=== PATIENT | female | born 1935 | race Caucasian/White ===

== ENCOUNTER 2017-04-19 13:42 | Inpatient (IN) | payer MEDICARE, SELFPAY ==
[2017-04-19] VITALS (19 sets, daily range): BP systolic 115–212; BP diastolic 51–80; PULSE 74–117; RESP 20–29; TEMP 36.8–37.6; O2SAT 85–97; BMI 39.6; BMI 38.5; BMI 38.6
--- NOTE | 2017-04-19 13:52 | EKG12_ITS ---
Test Reason : CP Blood Pressure : / mmHG Vent. Rate : 070 BPM Atrial Rate : 070 BPM P-R Int : 164 ms QRS Dur : 128 ms QT Int : 430 ms P-R-T Axes : 060 081 056 degrees QTc Int : 464 ms Normal sinus rhythm Non-specific intra-ventricular conduction block Abnormal ECG Confirmed by LALO PARR ([id number]), publishing editor EMEKA MERA ([id number]) on 04/23/2017 2:16:15 PM Referred By: EDYTA Confirmed By:LALO PARR
--- NOTE | 2017-04-19 13:52 | RAD_ITS ---
STUDY: X-RAY CHEST REASON FOR EXAM: Female, 81 years old. Chest pain TECHNIQUE: Frontal view of the chest COMPARISON: None. FINDINGS: The lungs are clear. There are no pleural effusions. There is no pneumothorax. The heart is normal in size. The visualized osseous structures are within normal limits. RAD/Chest 1 View (Portable) IMPRESSION: No acute thoracic pathology. Electronically Signed: José Miguel Fernandez, at 14:19 EST Tel , Service support ,
[2017-04-19 14:00] LABS: Absolute Lymphocyte Count 0.69 X10^3/ul (0.83-4.51); Absolute Neutrophil Count 5.6 X10^3/uL (2.0-7.7); Basophil# 0.01 X10^3/uL; Basophil% 0.2 % (0-1); Eosinophil# 0.09 X10^3/uL; Eosinophils% 1.4 % (0-5); Hematocrit 45.5 % (37-47); Hemoglobin 13.9 g/dl (12.0-15.0); Lymphocyte # 0.69 X10^3/ul (4.0); Lymphocyte % 10.6 % (19-41); Mean Corp Hgb Conc 30.5 g/gl (32-36); Mean Corpuscular Hgb 30.5 pg (27.0-32.0); Mean Corpuscular Volume 99.8 fL (81-99); Mean Platelet Vol. 10.6 fl (6.2-12.0); Monocyte# 0.03 X10^3/uL; Monocyte% 0.5 % (0-10); Neutrophil # 5.62 X10^3/uL (2.7-7.7); Neutrophil % 86.1 % (47-70); POSITIVE COUNT NO; POSITIVE DIFFERENTIAL NO; POSITIVE MORPHOLOGY NO; Platelet Count 194 K/mm3 (150-450); RBC Distribution Width CV 13.5 % (11.6-14.6); RBC Distribution Width SD 48.6 fl (35.1-43.9); Red Blood Count 4.56 M/mm3 (4.2-5.4); White Blood Count 6.5 K/mm3 (4.4-11.0)
--- NOTE | 2017-04-19 14:03 | EKG12_ITS ---
Test Reason : REPEAT Blood Pressure : / mmHG Vent. Rate : 119 BPM Atrial Rate : 119 BPM P-R Int : 160 ms QRS Dur : 122 ms QT Int : 326 ms P-R-T Axes : 023 090 -44 degrees QTc Int : [address] & T wave abnormality, consider inferior ischemia ST & T wave abnormality, consider anterolateral ischemia Abnormal ECG Confirmed by LALO PARR ([id number]), editor sound EMEKA MERA ([id number]) on 04/23/2017 2:16:38 PM Referred By: JEREMIAH Confirmed By:LALO PARR
--- NOTE | 2017-04-19 14:10 | CT_ITS ---
STUDY: CT ABDOMEN AND PELVIS WITHOUT CONTRAST REASON FOR EXAM: Female, 81 years old. Abdominal pain RADIATION DOSAGE (If Supplied By Facility): CTDIvol = ( 23.53 ) mGy, DLP = ( 1240.36 ) mGycm TECHNIQUE: Transaxial images were obtained from the dome of the diaphragm to the symphysis pubis without oral contrast, and without intravenous contrast. Sagittal and coronal images were reconstructed. Individualized dose optimization techniques were used for this CT. COMPARISON: None. FINDINGS: There is atelectasis noted at the lung bases. The visualized portions of the heart and pericardium are within normal limits. The patient is status post cholecystectomy. The liver, spleen, pancreas and adrenal glands demonstrate an unremarkable unenhanced appearance. There is a 1 cm stone at the left ureteropelvic junction with moderate left hydronephrosis. There are additional bilateral subcentimeter nonobstructing renal collecting system stones. There are no right ureteral stones. There is no right hydronephrosis. There is no bowel obstruction or inflammation. The appendix is normal. There is an aortobiiliac endograft in place which is not well evaluated without contrast. There is no abdominal or pelvic free air, free fluid or lymphadenopathy. There are no destructive osseous lesions. CT/Abdomen/Pelvis without Cont IMPRESSION: 1 cm obstructing stone at the left ureteropelvic junction with moderate left hydronephrosis. Bilateral subcentimeter nonobstructing renal collecting system stones. No right ureteral stones. No right hydronephrosis. No bowel obstruction or inflammation. Normal appendix. Electronically Signed: José Miguel Fernandez, at 16:17 EST Tel , Service support ,
[2017-04-19 14:11] LABS: Anion Gap 7 (5-15); BUN 15 mg/dL (7-18); BUN/Creat Ratio 19.6 RATIO (10-20); Calcium,Total 9.2 mg/dL (8.5-10.1); Chloride 104 mmol/L (98-107); Creatinine, Serum 0.76 mg/dL (0.55-1.02); EST Glomerular Filtration Rate 77 mL/min (>60); Est Glom Filt Rate - Afr Amer 93 mL/min (>60); Glucose 120 mg/dL (70-110); Potassium 3.8 mmol/L (3.5-5.1); Sodium Level 142 mmol/L (136-145)
[2017-04-19] MEDS: Ondansetron 4 MG/2 ML Vial IV ×2 (14:12→20:29)
[2017-04-19] MEDS: Aspirin 81 MG TAB.CHEW 324 MG PO (14:12)
--- NOTE | 2017-04-19 14:13 | ED.DCSUM_ITS ---
- ER Visit Summary Date of Service: 04/19/17 Chief Complaint: [] Left lower quadrant pain for days radiating to left chest History of Present Illness: The patient is a 81 F [] she reports a history of COPD hypertension, bowel or pancreas surgery in 2016 related to left-sided abdominal pain done at a hospital in [place]. She reports for the last few days she has had pain to the left lower abdomen similar to that pain that at times radiates to her left chest. The abdominal pain cause her to be nauseous and dry heave. She has had normal bowel bladder habits without blood. She is not sure why she required this surgery, she did not have an infection or cancer was told that whenever the situation requiring the surgery was now resolved and she would not require any additional surgery, she recently moved to 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, chronic COPD, aortic aneurysm repair, prior non-STEMI [place] Physical Examination: [] Holding her left lower quadrant complaining of pain her vital signs are normal head neck unremarkable she is on 3 L of home O2 her pulse ox is 95% her lungs are diminished the heart tones are distant questionable a flutter on the monitor versus poor baseline, her abdomen is very obese there is a vague discomfort the left lower abdomen there is no rebound guarding or organomegaly upper lower extremities unremarkable there is a vague left flank pain to palpation Test Results: [] Emergency Department Course and Treatment: [] All of this began with left lower quadrant pain, I have asked the patient we get the records from [place] she is agreed we will provide screening labs CBC chemistry EKG abdominal flank CT UA, her EKG shows a sinus rhythm no acute injury pattern appreciated EKG shows a sinus rhythm nothing acute. All of her labs are generally unremarkable as is the UA except for 10 white cells, the abdominal CT is pending please see her past medical history as above, I did speak with the hospitalist about all the above regarding admission, Dr. Wood asked to be contacted back when the CT report was available Treatment Plan: [] Disposition: [] Admit pending CT report Impression: [] Left sided abdominal pain, chest pain, multiple medical problems as dictated above This note was generated with [employer] dictation software. It may contain incorrect words, spelling, and punctuation that were not noted in review of the chart prior to signing ED Disposition - Plan for ED Patient: Chief Complaint: Chest Pain Referrals: [facility] Doctor,Out of [NON-STAFF] -
[2017-04-19 14:44] LABS: AST(SGOT) 21 U/L (15-37); Alanine Aminotransfer ALT/SGPT 23 U/L (12-78); Albumin, Serum 3.4 g/dL (3.4-5.0); Alkaline Phosphatase 106 U/L (45-117); Bilirubin, Direct 0.16 mg/dL (0.00-0.30); Globulin 3.6 g/dL (2.2-4.2); Lipase 277 U/L (73-393)
[2017-04-19 14:53] LABS: BNP,B-Type NATRIURETIC PEPTIDE 60.1 pg/mL (0-100)
[2017-04-19 15:47] LABS: Mucous, Urine 0 SEEN /hpf (<or=2+)
[2017-04-19 15:49] LABS: Color, Urine Yellow (Yellow); Glucose, Dipstick Normal (Normal); Ketone-Dipstick Negative (Negative); Leukocyte Esterase-Dipstick 100 /ul (Negative); Nitrite-Dipstick Positive (Negative); Occult Blood-Urine 25 /ul (Negative); Protein-Dipstick Negative (Negative); Urine Bilirubin Dipstick Negative (Negative); Urine Clarity Sl. Cloudy (Clear); Urine Urobilinogen Normal (Normal)
[2017-04-19 15:58] LABS: Bacteria 1+ /hpf (None Seen); Red Blood Cells-Urine 0-5 SEEN /hpf (0-5); Squamous Epithelial Cells - UA 0-5 SEEN /hpf (5-10); White Blood Cells 5-10 SEEN /hpf (0-5)
--- NOTE | 2017-04-19 16:55 | ED.RN ---
TAMI. WOULD LIKE TO BE CALLED IF ANYTHING CHANGES.
--- NOTE | 2017-04-19 19:08 | NURSING ---
OXYGEN DECREASED TO 3L/NC PER VERBAL ORDER. FIRST SET OF CARDIAC ENZYMES DRAWN.
--- NOTE | 2017-04-19 19:17 | PCM.HP.STD ---
Problem List (1) Chest pain Status: Acute Qualifiers: Chest pain type: precordial pain Qualified Code(s): R07.2 - Precordial pain (2) Left sided abdominal pain Status: Acute History of Present Illness Date of Admission: 04/19/17 Chief Complaint: Left-sided chest pain, left lower abdominal pain The patient is a 81 year old F seen in the emergency room at [facility] with complaints of left-sided chest pain and left-sided abdominal pain. Patient is an extremely poor informant, she admits she has memory impairment after series of surgeries last summer where she lived in [place]. Complete review of systems was unobtainable due to the patient's poor memory. Much of the information that will be included in this history and physical will be gleaned from information from her past hospital admission in [place]. Patient recently moved here and stays with her daughter. Patient told this examiner that her chest discomfort was not sharp in nature but when prompted, said it was achy in nature. Patient denied any nausea with the discomfort but stated she was short of breath. It appears that the patient is chronically on home O2 secondary to COPD, she says her setting is at 2 L. The emergency room physician who contacted me to discuss the case and the admission had a difficult time because he had to obtain medical records from [place] due to the fact the patient could not provide reliable information. It appears the patient's medical problems include a past history of coronary artery disease, chronic obstructive pulmonary disease, GERD, hyperlipidemia, and chronic hypoxic respiratory failure. Evaluation in the emergency room included labs including a troponin which was unremarkable, EKG showed (my reading) what appears to be a right bundle branch block with nonspecific ST-T wave changes in the inferior leads. We have no old EKGs to compare this to. Since chest x-ray showed no acute thoracic pathology, CT the abdomen and pelvis was obtained and showed a distal ureter stone on the left with a moderate hydronephrosis, stone was 1 cm in diameter. Patient's urinalysis was suspect for cystitis. Patient states her chest discomfort was resolved with pain medications in the emergency room. At the time of my initial evaluation, I elected to place the patient on MedSurg 3, after talking with the patient further and due to her history of coronary artery disease and chronic obstructive pulmonary disease, I decided the best place for the patient would be PCU for closer observation. Patient was transferred shortly after her admission to [place] [id number] to PCU. My plan is to repeat cardiac enzymes, monitor her on telemetry, and repeat her EKG in the morning. I contacted urology, they have plans to carry out a cystoscopy with stent placement tomorrow, patient will be n.p.o. after midnight. I had a discussion with the patient's son-in-law - Raffaele Mendoza who the patient lives with, he states the patient had no complaints of chest pain this morning which is opposite to what the patient told me brynn, he states she did not complain of any chest pains until she was in the emergency room today. I discussed her medical conditions with Dr. Chirag swain. Past Medical History Allergies Penicillins Allergy (Verified 04/19/17 13:47) Unknown Home Medications: Ambulatory Orders Medication Instructions Recorded Aspirin [Aspirin, Baby] 81 mg PO DAILY 04/19/17 Atorvastatin Calcium 80 mg PO QHS 04/19/17 Benzonatate [Tessalon Perle] 100 - 200 mg PO TID PRN PRN 04/19/17 Clopidogrel Bisulfate [Plavix] 75 mg PO DAILY 04/19/17 Isosorbide Mononitrate [Imdur] 30 mg PO DAILY 04/19/17 Lisinopril [Zestril] 20 mg PO DAILY 04/19/17 Metoprolol Tartrate 37.5 mg PO BID 04/19/17 Surgical History: cataract, cholecystectomy, herniorrhaphy, total hip arthroplasty - Due to hip fracture, - - Aortic aneurysm repair with stents Psychiatric History: - - Memory loss BANKMAN History: No pertinent BANKMAN history Lives: With Family Smoking Status: Former smoker Tobacco Use: Non-smoker Alcohol: None Drugs: None - *Family History Maternal History Items: No pertinent history Paternal History Items: No pertinent history Review of Systems Comment: Review of systems unobtainable due to patient's memory loss. Formation was gleaned from the patient's medical record from [place] and from her son-in-law who I contacted by phone- he lives with the patient VTE Information - Inpt Only VTE Present on Admission: No VTE Mechan Device Prophylaxis: SCD's VTE Pharm Prophylaxis ordered?: No Reason prophylaxis not ordered:: Treatment Not Indicated - prophylaxis with SCD's Patient Problems: Active and Suspected Problems Chest pain (Acute) Left sided abdominal pain (Acute) - Physical Exam General: Alert, Oriented x3, Cooperative, Well developed, Well nourished, - - Patient in mild distress due to left flank and left lower abdomen pain HEENT: Atraumatic, PERRLA, EOMI, Normocephalic Oral: Moist Mucosa Neck: Supple, No JVD, Negative Carotid Bruits, No Nuchal Rigidity, Trachea Midline, Thyroid Normal Size and Texture Lungs: Clear to auscultation, Normal air movement, No rhonchi, No wheeze, No rales Cardiovascular: Regular rate, Regular Rhythm, Normal S1, Normal S2, No murmurs, No Ectopic Activity, PMI Normal, No rub noted, No Gallop Abdomen: Bowel Sounds Present, Soft, Non Tender, Non-Distended, No hernias noted Extremities: No edema, Capillary Refill Less than 3 Seconds Skin: No rashes, No breakdown Musculoskeletal: No Tenderness to Palpation of Joints or Extremities, No Muscle Wasting Neurological: Cranial nerves II-XII grossly intact, Neuro grossly intact, Sensory exam intact to light touch and pain, Coordination normal Psych/Mental Status: Normal Affect, Appropriate, Alert and oriented to time, place, person, mood and affect Vital Signs Temp Pulse Resp BP Pulse Ox 99.7 F 110 22 120/55 92 04/19/17 18:58 04/19/17 18:58 04/19/17 18:58 04/19/17 18:58 04/19/17 19:15 Oxygen Flow Rate 3 Oxygen Delivery Method Nasal Cannula Weight: 110 kg Body Mass Index (BMI) 38.5 Intake and Output for Last 24 Hours 04/17/17 04/18/17 04/19/17 23:59 23:59 23:59 Intake Total 288 Output Total 150 Balance 138 Laboratory Tests Past 24 Hrs 04/19/17 18:56 Troponin I Pending Assessment/Plan Active and Suspected Problems Chest pain (Acute) Left sided abdominal pain (Acute) #1 acute ureteral akexc-kynk-mzyq obstruction at the left ureteropelvic junction from stone 1 cm in diameter-again, patient will be admitted to PCU, she will be monitored on telemetry, she will be n.p.o. after midnight, she will undergo stent placement tomorrow by urology. IV pain medications were ordered #2 chest pain-it is extremely difficult to determine what caused patient's chest pain and it is also difficult to determine how long she had the chest pain, I will order cardiac enzymes on the patient and monitor on telemetry. #3 acute cystitis-I placed the patient on IV Rocephin #4 chronic hypoxic respiratory failure-patient will be maintained on O2, pulse ox will be monitored #5 chronic obstructive pulmonary disease #6 coronary artery disease-according to the patient's records, patient had a non-STEMI last year and had an echocardiogram around that same time which showed a preserved EF. I will order another echocardiogram tomorrow to assess LV function #7 memory impairment-exact etiology is unknown at this time #8 hyperlipidemia-patient will be maintained on her home meds #9 moderate left hydronephrosis secondary to left ureteral obstruction
--- NOTE | 2017-04-19 19:28 | HP.PCM_ITS ---
Problem List (1) Chest pain Status: Acute Qualifiers: Chest pain type: precordial pain Qualified Code(s): R07.2 - Precordial pain (2) Left sided abdominal pain Status: Acute History of Present Illness Date of Admission: 04/19/17 Chief Complaint: Left-sided chest pain, left lower abdominal pain The patient is a 81 year old F seen in the emergency room at [facility] with complaints of left-sided chest pain and left-sided abdominal pain. Patient is an extremely poor informant, she admits she has memory impairment after series of surgeries last summer where she lived in [place]. Complete review of systems was unobtainable due to the patient's poor memory. Much of the information that will be included in this history and physical will be gleaned from information from her past hospital admission in [place]. Patient recently moved here and stays with her daughter. Patient told this examiner that her chest discomfort was not sharp in nature but when prompted, said it was achy in nature. Patient denied any nausea with the discomfort but stated she was short of breath. It appears that the patient is chronically on home O2 secondary to COPD, she says her setting is at 2 L. The emergency room physician who contacted me to discuss the case and the admission had a difficult time because he had to obtain medical records from [place] due to the fact the patient could not provide reliable information. It appears the patient's medical problems include a past history of coronary artery disease, chronic obstructive pulmonary disease, GERD, hyperlipidemia, and chronic hypoxic respiratory failure. Evaluation in the emergency room included labs including a troponin which was unremarkable, EKG showed (my reading) what appears to be a right bundle branch block with nonspecific ST-T wave changes in the inferior leads. We have no old EKGs to compare this to. Since chest x-ray showed no acute thoracic pathology, CT the abdomen and pelvis was obtained and showed a distal ureter stone on the left with a moderate hydronephrosis, stone was 1 cm in diameter. Patient's urinalysis was suspect for cystitis. Patient states her chest discomfort was resolved with pain medications in the emergency room. At the time of my initial evaluation, I elected to place the patient on MedSurg 3, after talking with the patient further and due to her history of coronary artery disease and chronic obstructive pulmonary disease, I decided the best place for the patient would be PCU for closer observation. Patient was transferred shortly after her admission to [place] [id number] to PCU. My plan is to repeat cardiac enzymes, monitor her on telemetry, and repeat her EKG in the morning. I contacted urology, they have plans to carry out a cystoscopy with stent placement tomorrow, patient will be n.p.o. after midnight. I had a discussion with the patient's son-in-law - Raffaele Mendoza who the patient lives with , he states the patient had no complaints of chest pain this morning which is opposite to what the patient told me brynn, he states she did not complain of any chest pains until she was in the emergency room today. I discussed her medical conditions with Dr. Chirag swain. Past Medical History Allergies Penicillins Allergy (Verified 04/19/17 13:47) Unknown Home Medications: Ambulatory Orders Medication Instructions Recorded Aspirin [Aspirin, Baby] 81 mg PO DAILY 04/19/17 Atorvastatin Calcium 80 mg PO QHS 04/19/17 Benzonatate [Tessalon Perle] 100 - 200 mg PO TID PRN PRN 04/19/17 Clopidogrel Bisulfate [Plavix] 75 mg PO DAILY 04/19/17 Isosorbide Mononitrate [Imdur] 30 mg PO DAILY 04/19/17 Lisinopril [Zestril] 20 mg PO DAILY 04/19/17 Metoprolol Tartrate 37.5 mg PO BID 04/19/17 Surgical History: cataract, cholecystectomy, herniorrhaphy, total hip arthroplasty - Due to hip fracture, - - Aortic aneurysm repair with stents Psychiatric History: - - Memory loss [employer] History: No pertinent [employer] history Lives: With Family Smoking Status: Former smoker Tobacco Use: Non-smoker Alcohol: None Drugs: None - *Family History Maternal History Items: No pertinent history Paternal History Items: No pertinent history Review of Systems Comment: Review of systems unobtainable due to patient's memory loss. Formation was gleaned from the patient's medical record from [place] and from her son-in-law who I contacted by phone- he lives with the patient VTE Information - Inpt Only VTE Present on Admission: No VTE Mechan Device Prophylaxis: SCD's VTE Pharm Prophylaxis ordered?: No Reason prophylaxis not ordered:: Treatment Not Indicated - prophylaxis with SCD' s Patient Problems: Active and Suspected Problems Chest pain (Acute) Left sided abdominal pain (Acute) - Physical Exam General: Alert, Oriented x3, Cooperative, Well developed, Well nourished, - - Patient in mild distress due to left flank and left lower abdomen pain HEENT: Atraumatic, PERRLA, EOMI, Normocephalic Oral: Moist Mucosa Neck: Supple, No JVD, Negative Carotid Bruits, No Nuchal Rigidity, Trachea Midline, Thyroid Normal Size and Texture Lungs: Clear to auscultation, Normal air movement, No rhonchi, No wheeze, No rales Cardiovascular: Regular rate, Regular Rhythm, Normal S1, Normal S2, No murmurs, No Ectopic Activity, PMI Normal, No rub noted, No Gallop Abdomen: Bowel Sounds Present, Soft, Non Tender, Non-Distended, No hernias noted Extremities: No edema, Capillary Refill Less than 3 Seconds Skin: No rashes, No breakdown Musculoskeletal: No Tenderness to Palpation of Joints or Extremities, No Muscle Wasting Neurological: Cranial nerves II-XII grossly intact, Neuro grossly intact, Sensory exam intact to light touch and pain, Coordination normal Psych/Mental Status: Normal Affect, Appropriate, Alert and oriented to time, place, person, mood and affect Vital Signs Temp Pulse Resp BP Pulse Ox 99.7 F 110 22 120/55 92 04/19/17 18:58 04/19/17 18:58 04/19/17 18:58 04/19/17 18:58 04/19/17 19:15 Oxygen Flow Rate 3 Oxygen Delivery Method Nasal Cannula Weight: 110 kg Body Mass Index (BMI) 38.5 Intake and Output for Last 24 Hours 04/17/17 04/18/17 04/19/17 23:59 23:59 23:59 Intake Total 288 Output Total 150 Balance 138 Laboratory Tests Past 24 Hrs 04/19/17 18:56 Troponin I Pending Assessment/Plan Active and Suspected Problems Chest pain (Acute) Left sided abdominal pain (Acute) #1 acute ureteral vrvcq-hmhw-edbo obstruction at the left ureteropelvic junction from stone 1 cm in diameter-again, patient will be admitted to PCU, she will be monitored on telemetry, she will be n.p.o. after midnight, she will undergo stent placement tomorrow by urology. IV pain medications were ordered #2 chest pain-it is extremely difficult to determine what caused patient's chest pain and it is also difficult to determine how long she had the chest pain , I will order cardiac enzymes on the patient and monitor on telemetry. #3 acute cystitis-I placed the patient on IV Rocephin #4 chronic hypoxic respiratory failure-patient will be maintained on O2, pulse ox will be monitored #5 chronic obstructive pulmonary disease #6 coronary artery disease-according to the patient's records, patient had a non -STEMI last year and had an echocardiogram around that same time which showed a preserved EF. I will order another echocardiogram tomorrow to assess LV function #7 memory impairment-exact etiology is unknown at this time #8 hyperlipidemia-patient will be maintained on her home meds #9 moderate left hydronephrosis secondary to left ureteral obstruction
[2017-04-19] MEDS: Ceftriaxone 1 GM/50 ML BAG IV (20:29)
--- NOTE | 2017-04-19 20:48 | CPS ---
called by RN on MS3 for pt's oxygen levels in mid 80's on 6L, RN notified by Dr. Melara to leave pt on her home oxygen of 3L NC. This RT checked pt's O2 saturation and pt has gel nail citizen [place] on fingernails, unable to get good, accurate reading on pt's fingers. Pulse oximeter with ear probe attached to pt's left ear lobe, instructed pt to breathe through her nose and out mouth, pt's oxygen saturation 92% on 3L NC. RN aware.
[2017-04-19] MEDS: Ipratropium/Albuterol Sulfate 3 ML AMPUL.NEB INHALATION (21:18)
[2017-04-19] MEDS: Metoprolol Tartrate 25 MG Tablet 37.5 MG PO (22:11)
[2017-04-19] MEDS: Atorvastatin Calcium 80 MG Tablet PO (22:12)
[2017-04-20] VITALS (38 sets, daily range): BP systolic 76–132; BP diastolic 42–83; PULSE 76–105; RESP 16–26; TEMP 36.2–38; O2SAT 88–94
[2017-04-20] MEDS: 0.9% Normal Saline 1,000 ML 100 ML IV (01:23)
[2017-04-20] MEDS: 0.9% Normal Saline 1,000 ML 999 ML IV ×2 (01:45→04:08)
[2017-04-20 03:38] LABS: Mean Corp Hgb Conc 30.8 g/gl (32-36); Mean Corpuscular Hgb 31.1 pg (27.0-32.0); Mean Platelet Vol. 11.1 fl (6.2-12.0); Platelet Count 108 K/mm3 (150-450); RBC Distribution Width CV 13.6 % (11.6-14.6); RBC Distribution Width SD 49.5 fl (35.1-43.9); Red Blood Count 3.86 M/mm3 (4.2-5.4); White Blood Count 22.5 K/mm3 (4.4-11.0)
[2017-04-20 03:43] LABS: Scan Indicated on CBC? Y/N NO
[2017-04-20 03:55] LABS: Anion Gap 11 (5-15); BUN 21 mg/dL (7-18); BUN/Creat Ratio 15.9 RATIO (10-20); Calcium,Total 8.2 mg/dL (8.5-10.1); Chloride 105 mmol/L (98-107); Creatinine, Serum 1.32 mg/dL (0.55-1.02); EST Glomerular Filtration Rate 41 mL/min (>60); Est Glom Filt Rate - Afr Amer 50 mL/min (>60); Estimated Creatinine Clearance 31.29 ml/min; Glucose 111 mg/dL (70-110); Potassium 3.4 mmol/L (3.5-5.1); Sodium Level 142 mmol/L (136-145); Thyroid Stim Hormone (TSH) 0.73 uIU/mL (0.358-3.74)
[2017-04-20] MEDS: oxyCODONE 5 MG Tablet PO ×4 (04:08→21:18)
--- NOTE | 2017-04-20 05:55 | EKG12_ITS ---
Test Reason : AM EKG Blood Pressure : / mmHG Vent. Rate : 084 BPM Atrial Rate : 084 BPM P-R Int : 186 ms QRS Dur : 122 ms QT Int : 374 ms P-R-T Axes : 029 068 019 degrees QTc Int : 441 ms Normal sinus rhythm Normal ECG When compared with ECG of 19-APR-2017 13:30, MANUAL COMPARISON REQUIRED, DATA IS UNCONFIRMED Confirmed by LALO PARR ([id number]), news videotape editor EMEKA MERA ([id number]) on 04/23/2017 3:02:27 PM Referred By: DR PROCTOR Confirmed By:LALO PARR
--- NOTE | 2017-04-20 06:54 | PCM.CONS.B ---
- Consult Date of Consult: 04/20/17 Reason for consultation, kidney stones 81-year-old female who presented to the emergency room with left quadrant pain and abdominal pain. She is also was nauseous and dry heaving. Question of a chest pain. She was a very poor historian. She was admitted to the hospital with the pain on admission her white count was 6.5 and now it spiked 22.5 her hematocrit is 39 platelets are 108, creatinine is 1.32 her troponins have been negative, her urine looks infected positive nitrites and leukocytes. Urine culture is pending. 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 examination she is alert she is on oxygen appears mildly ill her vital signs are stable HEENT is normal moist mucous membranes abdomen soft obese benign she points to her left side of the pain is currently laying in bed she is requiring 2 L of oxygen to keep her sats around 90%. 81-year-old female who presented to the hospital with abdominal pain, poor historian, possible chest pain but troponins been ruled out at this point she has a very high white count appears to have an infection and she does have an obstructing stone in the left proximal ureter causing hydronephrosis, she is a high degree of obstruction. Plan to take her immediately to the operating room today for a cystoscopy and left stent placement. This was explained to the patient and she is agreeable with the plan. - Reason for Consult kidney stone
[2017-04-20] MEDS: Ipratropium/Albuterol Sulfate 3 ML AMPUL.NEB INHALATION ×3 (07:46→21:37)
[2017-04-20] MEDS: Ceftriaxone 1 GM/50 ML BAG IV (10:33)
--- NOTE | 2017-04-20 11:37 | CASEMGMT ---
Face to Face with patient for initial transition planning/care coordination assessment. RN KEVIN introduced self and role at [facility], pt voices understanding and consents to assessment at this time. Pt lying in bed in pain at this time. Pt scheduled to go to OR at 1200 for ureteral obstruction. Pt A/O x4 at this time and answers all questions appropriately at this time. Care providers, pharmacy, and demographics verified. See attached link. Pt voices no further concerns/needs at this time. Advised pt to ask for CM if any further questions/concerns/needs arise, voices understanding. CM to follow after surgery for any further discharge planning/needs. PLAN: Home [facility]
[2017-04-20] MEDS: Lidocaine Jelly 2% 20 ML Syringe (URO-JET) 20 APPLIC (12:21)
--- NOTE | 2017-04-20 12:29 | OP.PCM_ITS ---
Report of Operation Date of Procedure: 04/20/17 Pre-Operative Diagnosis: Left ureteral calculi causing obstruction and infection Post-Operative Diagnosis: Same Surgery/Procedure Performed:: Cystoscopy and left stent placement Description of Surgical Findings:: 81-year-old female taken back to the operating room after smooth induction of MAC local she is placed in dorsal lithotomy position the urethra and vaginal area were prepped and draped in usual sterile fashion went into the bladder with a 21 Mongolian rigid cystourethroscope identified the left ureteral orifice advanced a wire up into the kidney. Once the wire was all the way up and then over the wire advanced stent and immediately had a return of stagnant looking urine. Pulled the wire and the stent coiled in the bladder. I then drained the bladder and the patient's anesthetic was reversed plan at this point to treat her infection and will plan to go back to surgery in about 2 weeks laser the stone. Type of Anesthesia:: General Drains: stent - Admit VTE Documentation VTE Present on Admission: No VTE Mechan Device Prophylaxis: SCD's VTE Pharm Prophylaxis ordered?: No Reason prophylaxis not ordered:: Treatment Not Indicated
--- NOTE | 2017-04-20 13:05 | PCM.PN.HOSP ---
Patient Problems: Active and Suspected Problems Chest pain (Acute) Left sided abdominal pain (Acute) Subjective: Patient seen and examined. Complains of left flank pain. Has been fever(100.4F). Denies any worsening SOB, nausea or vomiting. BP has also been running low- received 2 boluses of fluids. Objective: Physical Exam General: Alert, Oriented x3, Cooperative, Well developed, Well nourished HEENT: Atraumatic, PERRLA, EOMI, Normocephalic Oral: Moist Mucosa Neck: Supple, No JVD Lungs: Clear to auscultation, Normal air movement, No rhonchi, No wheeze, Cardiovascular: Regular rate, Regular Rhythm, Normal S1, Normal S2, No murmurs Abdomen: Bowel Sounds Present, Soft, Non Tender, Non-Distended Extremities: No edema Skin: No rashes, No breakdown Musculoskeletal: No Tenderness to Palpation of Joints or Extremities, No Muscle Wasting Neurological: Cranial nerves II-XII grossly intact, Neuro grossly intact, Sensory exam intact to light touch and pain, Coordination normal Psych/Mental Status: Normal Affect, Appropriate, Alert and oriented to time, place, person, mood and affect Vitals/I&O's: Vital Signs Temp Pulse Resp BP Pulse Ox 100 F 89 16 101/43 89 04/20/17 12:32 04/20/17 12:32 04/20/17 12:32 04/20/17 12:32 04/20/17 12:32 Oxygen Flow Rate 3 Oxygen Delivery Method Nasal Cannula Weight: 110 kg Body Mass Index (BMI) 38.5 Intake and Output for Last 24 Hours 04/18/17 04/19/17 04/20/17 23:59 23:59 23:59 Intake Total 888 2107 Output Total 250 Balance 638 2107 Laboratory Results 04/19/17 18:56: Troponin I 0.06 04/19/17 23:30: Troponin I 0.06 04/20/17 03:05: WBC 22.5 H, RBC 3.86 L, Hgb 12.0, Hct 39.0, MCV 101.0 H, MCH 31.1, MCHC 30.8 L, RDW 13.6, RDW Differential 49.5 H, Plt Count 108 L, MPV 11.1 04/20/17 03:05: Troponin I 0.05 04/20/17 03:05: Sodium 142, Potassium 3.4 L, Chloride 105, Carbon Dioxide 26.0, Anion Gap 11, BUN 21 H, Creatinine 1.32 H, Estim Creat Clear Calc 31.29, Est GFR (MDRD) Af Amer 50 L, Est GFR (MDRD) Non-Af 41 L, BUN/Creatinine Ratio 15.9, Glucose 111 H, Calcium 8.2 L, TSH 0.73 04/20/17 08:40: Troponin I 0.05 Current Medications Acetaminophen (Tylenol) 650 mg PO Q6H PRN PRN PRN Reason: Mild Pain (scale 0-3)/T>100.7 Albuterol Sulfate (Ventolin Aerosols) 2.5 mg INHALATION Q2H PRN PRN PRN Reason: DYSPNEA Albuterol/Ipratropium (Duoneb) 3 ml INHALATION Q4HWA.RT [facility] Last Admin: 04/20/17 11:26 Dose: Not Given Aspirin (Aspirin, Baby) 81 mg PO DAILY@0800 [facility] Atorvastatin Calcium (Lipitor) 80 mg PO QHS [facility] Last Admin: 04/19/17 22:12 Dose: 80 mg Clopidogrel Bisulfate (Plavix) 75 mg PO DAILY [facility] Sodium Chloride () 1,000 mls @ 100 mls/hr IV .Q10H [facility] Last Admin: 04/20/17 01:23 Dose: 100 mls/hr Ceftriaxone Sodium (Rocephin) 1 gm in 50 mls @ 100 mls/hr IV Q24 [facility] Last Admin: 04/20/17 10:33 Dose: 100 mls/hr Isosorbide Mononitrate (Imdur) 30 mg PO DAILY [facility] Lisinopril (Zestril) 20 mg PO DAILY [facility] Metoprolol Tartrate (Lopressor (Beta Kalin)) 37.5 mg PO BID [facility] Morphine Sulfate (Morphine) 2 - 4 mg IV Q3H PRN PRN PRN Reason: Severe Pain (pain scale 6-10) Last Admin: 04/19/17 19:18 Dose: 2 mg Ondansetron HCl (Zofran) 4 mg IV Q8H PRN PRN PRN Reason: Nausea Last Admin: 04/19/17 20:29 Dose: 4 mg Oxycodone HCl (Oxyir) 5 - 10 mg PO Q4H PRN PRN PRN Reason: SEVERE PAIN (6-10/10) Last Admin: 04/20/17 09:37 Dose: 5 mg Promethazine HCl (Phenergan (Ll)) 6.25 mg IV Q4H PRN PRN PRN Reason: NAUSEA/VOMITING Last Admin: 04/20/17 01:44 Dose: 6.25 mg Sodium Chloride () 5 - 30 ml IV UD PRN PRN Reason: SALINE FLUSH Assessment/Plan Active and Suspected Problems Chest pain (Acute) Left sided abdominal pain (Acute) 1. Severe Sepsis secondary to complicated UTI, has fever of 100.4, WBC is elevated at 22.5, with increased creatinine of 1.32 from 0.76, Cultures are growing E. coli, on ceftriaxone, would follow up on culture results and modify antibiotics to suit sensitivities. 2. Relative hypotension, asymptomatic, likely related to sepsis, received IV fluids, would hold blood pressure medications for systolic less than 110, continue to monitor vitals closely. 3. Acute left ureteral colic with moderate hydronephrosis, going for surgery today 4. Hypokalemia, replace, recheck in a.m. 5. chest pain, typical, less likely to be cardiac,serial troponins have been negative, no events on telemetry 6. chronic hypoxic respiratory failure due to COPD, on 3 L of oxygen, continue to wean off oxygen to baseline 2 L oxygen 7. coronary artery disease, stable, repeat ECHO is pending 8. Hyperlipidemia- on statin 9. DVT prophylaxis with Lovenox subcu
--- NOTE | 2017-04-20 13:08 | PN_ITS ---
Patient Problems: Active and Suspected Problems Chest pain (Acute) Left sided abdominal pain (Acute) Subjective: Patient seen and examined. Complains of left flank pain. Has been fever(100.4F) . Denies any worsening SOB, nausea or vomiting. BP has also been running low- received 2 boluses of fluids. Objective: Physical Exam General: Alert, Oriented x3, Cooperative, Well developed, Well nourished HEENT: Atraumatic, PERRLA, EOMI, Normocephalic Oral: Moist Mucosa Neck: Supple, No JVD Lungs: Clear to auscultation, Normal air movement, No rhonchi, No wheeze, Cardiovascular: Regular rate, Regular Rhythm, Normal S1, Normal S2, No murmurs Abdomen: Bowel Sounds Present, Soft, Non Tender, Non-Distended Extremities: No edema Skin: No rashes, No breakdown Musculoskeletal: No Tenderness to Palpation of Joints or Extremities, No Muscle Wasting Neurological: Cranial nerves II-XII grossly intact, Neuro grossly intact, Sensory exam intact to light touch and pain, Coordination normal Psych/Mental Status: Normal Affect, Appropriate, Alert and oriented to time, place, person, mood and affect Vitals/I&O's: Vital Signs Temp Pulse Resp BP Pulse Ox 100 F 89 16 101/43 89 04/20/17 12:32 04/20/17 12:32 04/20/17 12:32 04/20/17 12:32 04/20/17 12:32 Oxygen Flow Rate 3 Oxygen Delivery Method Nasal Cannula Weight: 110 kg Body Mass Index (BMI) 38.5 Intake and Output for Last 24 Hours 04/18/17 04/19/17 04/20/17 23:59 23:59 23:59 Intake Total 888 2107 Output Total 250 Balance 638 2107 Laboratory Results 04/19/17 18:56: Troponin I 0.06 04/19/17 23:30: Troponin I 0.06 04/20/17 03:05: WBC 22.5 H, RBC 3.86 L, Hgb 12.0, Hct 39.0, MCV 101.0 H, MCH 31.1, MCHC 30.8 L, RDW 13.6, RDW Differential 49.5 H, Plt Count 108 L, MPV 11.1 04/20/17 03:05: Troponin I 0.05 04/20/17 03:05: Sodium 142, Potassium 3.4 L, Chloride 105, Carbon Dioxide 26.0, Anion Gap 11, BUN 21 H, Creatinine 1.32 H, Estim Creat Clear Calc 31.29, Est GFR (MDRD) Af Amer 50 L, Est GFR (MDRD) Non-Af 41 L, BUN/Creatinine Ratio 15.9, Glucose 111 H, Calcium 8.2 L, TSH 0.73 04/20/17 08:40: Troponin I 0.05 Current Medications Acetaminophen (Tylenol) 650 mg PO Q6H PRN PRN PRN Reason: Mild Pain (scale 0-3)/T>100.7 Albuterol Sulfate (Ventolin Aerosols) 2.5 mg INHALATION Q2H PRN PRN PRN Reason: DYSPNEA Albuterol/Ipratropium (Duoneb) 3 ml INHALATION Q4HWA.RT [facility] Last Admin: 04/20/17 11:26 Dose: Not Given Aspirin (Aspirin, Baby) 81 mg PO DAILY@0800 [facility] Atorvastatin Calcium (Lipitor) 80 mg PO QHS [facility] Last Admin: 04/19/17 22:12 Dose: 80 mg Clopidogrel Bisulfate (Plavix) 75 mg PO DAILY [facility] Sodium Chloride () 1,000 mls @ 100 mls/hr IV .Q10H [facility] Last Admin: 04/20/17 01:23 Dose: 100 mls/hr Ceftriaxone Sodium (Rocephin) 1 gm in 50 mls @ 100 mls/hr IV Q24 [facility] Last Admin: 04/20/17 10:33 Dose: 100 mls/hr Isosorbide Mononitrate (Imdur) 30 mg PO DAILY [facility] Lisinopril (Zestril) 20 mg PO DAILY [facility] Metoprolol Tartrate (Lopressor (Beta Kalin)) 37.5 mg PO BID [facility] Morphine Sulfate (Morphine) 2 - 4 mg IV Q3H PRN PRN PRN Reason: Severe Pain (pain scale 6-10) Last Admin: 04/19/17 19:18 Dose: 2 mg Ondansetron HCl (Zofran) 4 mg IV Q8H PRN PRN PRN Reason: Nausea Last Admin: 04/19/17 20:29 Dose: 4 mg Oxycodone HCl (Oxyir) 5 - 10 mg PO Q4H PRN PRN PRN Reason: SEVERE PAIN (6-10/10) Last Admin: 04/20/17 09:37 Dose: 5 mg Promethazine HCl (Phenergan (Ll)) 6.25 mg IV Q4H PRN PRN PRN Reason: NAUSEA/VOMITING Last Admin: 04/20/17 01:44 Dose: 6.25 mg Sodium Chloride () 5 - 30 ml IV UD PRN PRN Reason: SALINE FLUSH Assessment/Plan Active and Suspected Problems Chest pain (Acute) Left sided abdominal pain (Acute) 1. Severe Sepsis secondary to complicated UTI, has fever of 100.4, WBC is elevated at 22.5, with increased creatinine of 1.32 from 0.76, Cultures are growing E. coli, on ceftriaxone, would follow up on culture results and modify antibiotics to suit sensitivities. 2. Relative hypotension, asymptomatic, likely related to sepsis, received IV fluids, would hold blood pressure medications for systolic less than 110, continue to monitor vitals closely. 3. Acute left ureteral colic with moderate hydronephrosis, going for surgery today 4. Hypokalemia, replace, recheck in a.m. 5. chest pain, typical, less likely to be cardiac,serial troponins have been negative, no events on telemetry 6. chronic hypoxic respiratory failure due to COPD, on 3 L of oxygen, continue to wean off oxygen to baseline 2 L oxygen 7. coronary artery disease, stable, repeat ECHO is pending 8. Hyperlipidemia- on statin 9. DVT prophylaxis with Lovenox subcu
[2017-04-20] MEDS: Clopidogrel Bisulfate 75 MG Tablet PO (13:46)
[2017-04-20] MEDS: 0.9% Normal Saline 1,000 ML 75 ML IV (13:46)
[2017-04-20] MEDS: Aspirin 81 MG TAB.CHEW PO (13:46)
--- NOTE | 2017-04-20 16:09 | CPS ---
Patient is refusing the incentive spirometer
[2017-04-20] MEDS: Atorvastatin Calcium 80 MG Tablet PO (21:17)
[2017-04-20] MEDS: Metoprolol Tartrate 25 MG Tablet 37.5 MG PO (21:17)
[2017-04-20] MEDS: Acetaminophen 325 MG Tablet 650 MG PO (21:21)
[2017-04-21] VITALS (22 sets, daily range): BP systolic 94–151; BP diastolic 46–74; PULSE 81–100; RESP 14–20; TEMP 36.4–37.6; O2SAT 86–93
[2017-04-21] MEDS: 0.9% Normal Saline 1,000 ML 75 ML IV (00:34)
[2017-04-21] MEDS: Ipratropium/Albuterol Sulfate 3 ML AMPUL.NEB INHALATION (06:35)
[2017-04-21] MEDS: Aspirin 81 MG TAB.CHEW PO (07:48)
[2017-04-21 08:11] LABS: Differential Indicated MANUAL DIFF; Hematocrit 38.5 % (37-47); Hemoglobin 11.6 g/dl (12.0-15.0); Mean Corp Hgb Conc 30.1 g/gl (32-36); Mean Corpuscular Hgb 30.3 pg (27.0-32.0); Mean Corpuscular Volume 100.5 fL (81-99); Mean Platelet Vol. 12.3 fl (6.2-12.0); POSITIVE COUNT YES; POSITIVE DIFFERENTIAL YES; POSITIVE MORPHOLOGY YES; Platelet Count 85 K/mm3 (150-450); RBC Distribution Width CV 14.2 % (11.6-14.6); RBC Distribution Width SD 51.9 fl (35.1-43.9); Red Blood Count 3.83 M/mm3 (4.2-5.4)
[2017-04-21 08:17] LABS: Anion Gap 6 (5-15); BUN 38 mg/dL (7-18); BUN/Creat Ratio 31.1 RATIO (10-20); Calcium,Total 7.9 mg/dL (8.5-10.1); Chloride 109 mmol/L (98-107); Creatinine, Serum 1.22 mg/dL (0.55-1.02); EST Glomerular Filtration Rate 45 mL/min (>60); Est Glom Filt Rate - Afr Amer 54 mL/min (>60); Estimated Creatinine Clearance 33.86 ml/min; Glucose 118 mg/dL (70-110); Potassium 4.6 mmol/L (3.5-5.1); Sodium Level 143 mmol/L (136-145)
[2017-04-21 08:56] LABS: Lymphocyte 5 % (19-41); Metamyelocyte 6 % (0-1); Monocyte 3 % (0-10); Neutrophil-Band 14 % (0-5); Neutrophil-Segmented 72 % (47-70); Platelet Estimate MOD DEC (ADEQ); Total Cells Counted 100 (MANUAL DIFF)
[2017-04-21 08:57] LABS: Absolute Neutrophil Count 21.5 X10^3/uL (2.0-7.7); Red Cell Morphology NORM C+C NORMAL (NORM C&C)
[2017-04-21 08:58] LABS: Absolute Lymphocyte Count 1.25 X10^3/ul (0.83-4.51)
[2017-04-21] MEDS: Metoprolol Tartrate 25 MG Tablet 37.5 MG PO ×2 (10:08→21:21)
[2017-04-21] MEDS: Ceftriaxone 1 GM/50 ML BAG IV (10:08)
[2017-04-21] MEDS: Clopidogrel Bisulfate 75 MG Tablet PO (10:09)
[2017-04-21] MEDS: Isosorbide Mononitrate 30 MG Tablet PO (10:09)
[2017-04-21] MEDS: Lisinopril 20 MG Tablet PO (10:09)
--- NOTE | 2017-04-21 12:04 | PCM.PROGNOTE ---
<Ariella Arauz - Last Filed: 04/21/17 12:21> Patient Problems: Active and Suspected Problems Chest pain (Acute) Left sided abdominal pain (Acute) Subjective: Patient seen and examined. Denies pain currently. Complains of left knee pain which is chronic. Complains of generalized weakness and wishes to stay until tomorrow. Denies other complaints. - Physical Exam General: Alert, Oriented x3, Cooperative, No apparent distress HEENT: Atraumatic, PERRLA, EOMI, Normocephalic Neck: Supple, No JVD, Negative Carotid Bruits Lungs: Clear to auscultation, Normal air movement, Diminished Cardiovascular: Regular rate, Regular Rhythm, Normal S1, Normal S2, No murmurs Abdomen: Bowel Sounds Present, Soft, Non Tender, Non-Distended Extremities: No clubbing, No cyanosis, No edema, Capillary Refill Less than 3 Seconds Skin: No rashes, No breakdown Musculoskeletal: No Tenderness to Palpation of Joints or Extremities Neurological: Cranial nerves II-XII grossly intact, Neuro grossly intact Psych/Mental Status: Normal Affect, Appropriate Vital Signs Temp Pulse Resp BP Pulse Ox 97.7 F 81 17 143/63 93 04/21/17 10:00 04/21/17 10:53 04/21/17 10:00 04/21/17 10:08 04/21/17 10:00 Oxygen Flow Rate 4 Oxygen Delivery Method Nasal Cannula Weight: 110 kg Body Mass Index (BMI) 38.5 Intake and Output for Last 24 Hours 04/19/17 04/20/17 04/21/17 23:59 23:59 23:59 Intake Total 888 3567 2239 Output Total 250 200 650 Balance 638 1547 1589 Laboratory Tests Past 24 Hrs 04/21/17 04/21/17 07:00 07:00 WBC 25.0 H RBC 3.83 L Hgb 11.6 L Hct 38.5 MCV 100.5 H MCH 30.3 MCHC 30.1 L RDW 14.2 RDW Differential 51.9 H Plt Count 85 L MPV 12.3 H Neut % (Auto) Not Reportable Absolute Neuts (auto) 21.5 H Absolute Lymphs (auto) 1.25 Total Counted 100 Neutrophils % (Manual) 72 H Band Neutrophils % 14 H Lymphocytes % (Manual) 5 L Monocytes % (Manual) 3 Metamyelocytes % 6 H Diff Path Review May foll Platelet Estimate MOD DEC RBC Morphology NORM C+C Sodium 143 Potassium 4.6 Chloride 109 H Carbon Dioxide 28.0 Anion Gap 6 BUN 38 H Creatinine 1.22 H Estim Creat Clear Calc 33.86 Est GFR (MDRD) Af Amer 54 L Est GFR (MDRD) Non-Af 45 L BUN/Creatinine Ratio 31.1 H Glucose 118 H Calcium 7.9 L Assessment/Plan Active and Suspected Problems Chest pain (Acute) Left sided abdominal pain (Acute) Patient is an 81-year-old female admitted 04/19/2017 due to left-sided chest pain and left lower abdominal pain. She has a past medical history of CAD, COPD, GERD, hyperlipidemia and chronic hypoxic respiratory failure. 1. Severe Sepsis secondary to complicated E. coli UTI-patient is now afebrile. White count remains elevated, 25. Patient received IV Rocephin. She will be transitioned to oral Cipro. 2. Hypertension-suspected secondary to sepsis. Resolved. 3. Elevated creatinine-no acute kidney injury. Suspect secondary to acute left ureteral colic with moderate hydronephrosis. Patient underwent cystoscopy and left stent placement 04/20/[address] Beard. Creatinine improved today. 4. Hypokalemia-resolved. 5. Chest pain-denies further chest pain. EKG with no ST-T changes. Troponin negative ?4. 6. Chronic hypoxic respiratory failure secondary to chronic COPD-chronically on 3 L nasal cannula. Oxygen currently 93% on 4 L nasal cannula. Wean oxygen as tolerated to maintain O2 greater than 90%. 7. CAD-continue home medications including aspirin, Plavix, statin, beta-terrell and isosorbide. Echo pending. 8. Hyperlipidemia-continue statin. DVT prophylaxis- Lovenox subcu <Paintsil,[place] - Last Filed: 04/21/17 16:53> - Physical Exam Vital Signs Temp Pulse Resp BP Pulse Ox 99.6 F 90 16 103/51 90 04/21/17 16:00 04/21/17 16:00 04/21/17 16:00 04/21/17 16:00 04/21/17 16:00 Oxygen Flow Rate 4 Oxygen Delivery Method Nasal Cannula Weight: 110 kg Body Mass Index (BMI) 38.5 Intake and Output for Last 24 Hours 04/19/17 04/20/17 04/21/17 23:59 23:59 23:59 Intake Total 515 4734 2039 Output Total 250 200 650 Balance 638 6707 1589 Laboratory Tests Past 24 Hrs 04/21/17 04/21/17 07:00 07:00 WBC 25.0 H RBC 3.83 L Hgb 11.6 L Hct 38.5 MCV 100.5 H MCH 30.3 MCHC 30.1 L RDW 14.2 RDW Differential 51.9 H Plt Count 85 L MPV 12.3 H Neut % (Auto) Not Reportable Absolute Neuts (auto) 21.5 H Absolute Lymphs (auto) 1.25 Total Counted 100 Neutrophils % (Manual) 72 H Band Neutrophils % 14 H Lymphocytes % (Manual) 5 L Monocytes % (Manual) 3 Metamyelocytes % 6 H Diff Path Review Reviewed Platelet Estimate MOD DEC RBC Morphology NORM C+C Sodium 143 Potassium 4.6 Chloride 109 H Carbon Dioxide 28.0 Anion Gap 6 BUN 38 H Creatinine 1.22 H Estim Creat Clear Calc 33.86 Est GFR (MDRD) Af Amer 54 L Est GFR (MDRD) Non-Af 45 L BUN/Creatinine Ratio 31.1 H Glucose 118 H Calcium 7.9 L Assessment/Plan Patient was seen and examined independently. Been afebrile in the last 24 hrs Urine cultures are growing E. coli, has been on ceftriaxone, will transition to po cipro, monitor leucocytosis, Creatine is slowly improving with left ureteral stent placement. Hypokalemia is resolved.
--- NOTE | 2017-04-21 12:20 | PN_ITS ---
<Ariella Arauz - Last Filed: 04/21/17 12:21> Patient Problems: Active and Suspected Problems Chest pain (Acute) Left sided abdominal pain (Acute) Subjective: Patient seen and examined. Denies pain currently. Complains of left knee pain which is chronic. Complains of generalized weakness and wishes to stay until tomorrow. Denies other complaints. - Physical Exam General: Alert, Oriented x3, Cooperative, No apparent distress HEENT: Atraumatic, PERRLA, EOMI, Normocephalic Neck: Supple, No JVD, Negative Carotid Bruits Lungs: Clear to auscultation, Normal air movement, Diminished Cardiovascular: Regular rate, Regular Rhythm, Normal S1, Normal S2, No murmurs Abdomen: Bowel Sounds Present, Soft, Non Tender, Non-Distended Extremities: No clubbing, No cyanosis, No edema, Capillary Refill Less than 3 Seconds Skin: No rashes, No breakdown Musculoskeletal: No Tenderness to Palpation of Joints or Extremities Neurological: Cranial nerves II-XII grossly intact, Neuro grossly intact Psych/Mental Status: Normal Affect, Appropriate Vital Signs Temp Pulse Resp BP Pulse Ox 97.7 F 81 17 143/63 93 04/21/17 10:00 04/21/17 10:53 04/21/17 10:00 04/21/17 10:08 04/21/17 10:00 Oxygen Flow Rate 4 Oxygen Delivery Method Nasal Cannula Weight: 110 kg Body Mass Index (BMI) 38.5 Intake and Output for Last 24 Hours 04/19/17 04/20/17 04/21/17 23:59 23:59 23:59 Intake Total 888 3567 2239 Output Total 250 200 650 Balance 638 9247 1589 Laboratory Tests Past 24 Hrs 04/21/17 04/21/17 07:00 07:00 WBC 25.0 H RBC 3.83 L Hgb 11.6 L Hct 38.5 MCV 100.5 H MCH 30.3 MCHC 30.1 L RDW 14.2 RDW Differential 51.9 H Plt Count 85 L MPV 12.3 H Neut % (Auto) Not Reportable Absolute Neuts (auto) 21.5 H Absolute Lymphs (auto) 1.25 Total Counted 100 Neutrophils % (Manual) 72 H Band Neutrophils % 14 H Lymphocytes % (Manual) 5 L Monocytes % (Manual) 3 Metamyelocytes % 6 H Diff Path Review May foll Platelet Estimate MOD DEC RBC Morphology NORM C+C Sodium 143 Potassium 4.6 Chloride 109 H Carbon Dioxide 28.0 Anion Gap 6 BUN 38 H Creatinine 1.22 H Estim Creat Clear Calc 33.86 Est GFR (MDRD) Af Amer 54 L Est GFR (MDRD) Non-Af 45 L BUN/Creatinine Ratio 31.1 H Glucose 118 H Calcium 7.9 L Assessment/Plan Active and Suspected Problems Chest pain (Acute) Left sided abdominal pain (Acute) Patient is an 81-year-old female admitted 04/19/2017 due to left-sided chest pain and left lower abdominal pain. She has a past medical history of CAD, COPD , GERD, hyperlipidemia and chronic hypoxic respiratory failure. 1. Severe Sepsis secondary to complicated E. coli UTI-patient is now afebrile. White count remains elevated, 25. Patient received IV Rocephin. She will be transitioned to oral Cipro. 2. Hypertension-suspected secondary to sepsis. Resolved. 3. Elevated creatinine-no acute kidney injury. Suspect secondary to acute left ureteral colic with moderate hydronephrosis. Patient underwent cystoscopy and left stent placement 04/20/[address] Beard. Creatinine improved today. 4. Hypokalemia-resolved. 5. Chest pain-denies further chest pain. EKG with no ST-T changes. Troponin negative ?4. 6. Chronic hypoxic respiratory failure secondary to chronic COPD-chronically on 3 L nasal cannula. Oxygen currently 93% on 4 L nasal cannula. Wean oxygen as tolerated to maintain O2 greater than 90%. 7. CAD-continue home medications including aspirin, Plavix, statin, beta- terrell and isosorbide. Echo pending. 8. Hyperlipidemia-continue statin. DVT prophylaxis- Lovenox subcu <Paintsil,[place] - Last Filed: 04/21/17 16:53> - Physical Exam Vital Signs Temp Pulse Resp BP Pulse Ox 99.6 F 90 16 103/51 90 04/21/17 16:00 04/21/17 16:00 04/21/17 16:00 04/21/17 16:00 04/21/17 16:00 Oxygen Flow Rate 4 Oxygen Delivery Method Nasal Cannula Weight: 110 kg Body Mass Index (BMI) 38.5 Intake and Output for Last 24 Hours 04/19/17 04/20/17 04/21/17 23:59 23:59 23:59 Intake Total 243 6983 7891 Output Total 250 200 650 Balance 638 0927 1589 Laboratory Tests Past 24 Hrs 04/21/17 04/21/17 07:00 07:00 WBC 25.0 H RBC 3.83 L Hgb 11.6 L Hct 38.5 MCV 100.5 H MCH 30.3 MCHC 30.1 L RDW 14.2 RDW Differential 51.9 H Plt Count 85 L MPV 12.3 H Neut % (Auto) Not Reportable Absolute Neuts (auto) 21.5 H Absolute Lymphs (auto) 1.25 Total Counted 100 Neutrophils % (Manual) 72 H Band Neutrophils % 14 H Lymphocytes % (Manual) 5 L Monocytes % (Manual) 3 Metamyelocytes % 6 H Diff Path Review Reviewed Platelet Estimate MOD DEC RBC Morphology NORM C+C Sodium 143 Potassium 4.6 Chloride 109 H Carbon Dioxide 28.0 Anion Gap 6 BUN 38 H Creatinine 1.22 H Estim Creat Clear Calc 33.86 Est GFR (MDRD) Af Amer 54 L Est GFR (MDRD) Non-Af 45 L BUN/Creatinine Ratio 31.1 H Glucose 118 H Calcium 7.9 L Assessment/Plan Patient was seen and examined independently. Been afebrile in the last 24 hrs Urine cultures are growing E. coli, has been on ceftriaxone, will transition to po cipro, monitor leucocytosis, Creatine is slowly improving with left ureteral stent placement. Hypokalemia is resolved.
[2017-04-21 14:40] LABS: Pathologist Review Reviewed
[2017-04-21] MEDS: oxyCODONE 5 MG Tablet PO (14:46)
[2017-04-21] MEDS: Ciprofloxacin 500 MG Tablet PO (21:21)
[2017-04-21] MEDS: Atorvastatin Calcium 80 MG Tablet PO (21:21)
[2017-04-22] VITALS (10 sets, daily range): BP systolic 105–119; BP diastolic 56–67; PULSE 78–88; RESP 14–18; TEMP 36.2–37.2; O2SAT 92–94
[2017-04-22 06:47] LABS: Anion Gap 7 (5-15); BUN 31 mg/dL (7-18); BUN/Creat Ratio 37.6 RATIO (10-20); Calcium,Total 8.6 mg/dL (8.5-10.1); Chloride 106 mmol/L (98-107); Creatinine, Serum 0.82 mg/dL (0.55-1.02); EST Glomerular Filtration Rate 71 mL/min (>60); Est Glom Filt Rate - Afr Amer 85 mL/min (>60); Estimated Creatinine Clearance 50.37 ml/min; Glucose 89 mg/dL (70-110); Potassium 4.3 mmol/L (3.5-5.1); Sodium Level 141 mmol/L (136-145)
[2017-04-22 06:57] LABS: Absolute Lymphocyte Count 1.13 X10^3/ul (0.83-4.51); Absolute Neutrophil Count 22.2 X10^3/uL (2.0-7.7); Basophil# 0.02 X10^3/uL; Basophil% 0.1 % (0-1); Eosinophil# 0.04 X10^3/uL; Eosinophils% 0.2 % (0-5); Hematocrit 37.3 % (37-47); Hemoglobin 11.1 g/dl (12.0-15.0); Lymphocyte # 1.13 X10^3/ul (4.0); Lymphocyte % 4.6 % (19-41); Mean Corp Hgb Conc 29.8 g/gl (32-36); Mean Corpuscular Hgb 29.5 pg (27.0-32.0); Mean Corpuscular Volume 99.2 fL (81-99); Mean Platelet Vol. 12.7 fl (6.2-12.0); Monocyte# 1.16 X10^3/uL; Monocyte% 4.7 % (0-10); Neutrophil # 22.17 X10^3/uL (2.7-7.7); Neutrophil % 90.2 % (47-70); Platelet Count 94 K/mm3 (150-450); RBC Distribution Width CV 13.9 % (11.6-14.6); RBC Distribution Width SD 49.9 fl (35.1-43.9); Red Blood Count 3.76 M/mm3 (4.2-5.4); White Blood Count 24.6 K/mm3 (4.4-11.0)
[2017-04-22 07:03] LABS: Differential Indicated SCAN CRITERIA MET; POSITIVE COUNT NO; POSITIVE DIFFERENTIAL YES; POSITIVE MORPHOLOGY NO
[2017-04-22] MEDS: Aspirin 81 MG TAB.CHEW PO (09:07)
[2017-04-22] MEDS: Lisinopril 20 MG Tablet PO (09:07)
[2017-04-22] MEDS: Clopidogrel Bisulfate 75 MG Tablet PO (09:07)
[2017-04-22] MEDS: Ciprofloxacin 500 MG Tablet PO (09:07)
[2017-04-22] MEDS: Isosorbide Mononitrate 30 MG Tablet PO (09:08)
[2017-04-22] MEDS: Ondansetron 4 MG/2 ML Vial IV (09:16)
--- NOTE | 2017-04-22 10:01 | CASEMGMT ---
This RN CM to room to speak with pt regarding discharge plan home. Pt refused Physical therapy yesterday but states has been getting up to bathroom with walker. Pt states does use walker intermittently at home. Pt is on oxygen 2 liters at home. Pt has audible wheeze at this time, but according to charting has refused last 4 treatments. Gail PCU chargeback specialist and Ange VITREO RETINAL SURGEON aware at this time. CM to follow. SStconchis DUGGAN CM
--- NOTE | 2017-04-22 10:05 | NURSING ---
THIS NURSE ASSESSED PT, HEIDI NOTED. ENCOURAGED PT TO USE INCENTIVE SPIROMETER AND WOULD BENEFIT FROM BREATHING TREATMENT. PT AWARE AND AGREED. THIS NURSE CALLED RESP THERAPIST
[2017-04-22] MEDS: Ipratropium/Albuterol Sulfate 3 ML AMPUL.NEB INHALATION (10:42)
--- NOTE | 2017-04-22 10:56 | NURSING ---
FAMILY OF PT CAME TO THIS NURSE AND EXPRESSED CONCERNS OF BEING ABLE TO TAKE CARE OF PT ALONE. FAMILY EXPRESSED WANTING TO LOOK INTO HOME HEALTH AIDE. THIS NURSE SPOKE WITH RUBBER OFF. RUBBER OFF AWARE AND WILL SPEAK WITH FAMILY AND PT AND WANTS PHYSICAL THERAPY TO SEE PT TOO.
[2017-04-22] MEDS: oxyCODONE 5 MG Tablet PO (11:31)
--- NOTE | 2017-04-22 12:36 | CASEMGMT ---
Patient does not feel she is ready to be d/c and would like one more day. RN KEVIN spoke with patient about home health and she declined. SW spoke with patient and asked if she feels she needs to go to a senior living. She said she does not want or need to go to the senior living. SW offered home health and she declined. She said she would do whatever the doctor wants to do, but she feels one more day would help. ELISA spoke with CAR DEALER, Jeaneth and she said patient is ready for d/c. SW let patient know she is being d/c today. She voiced understanding. Noris HUMPHRIES MSW
--- NOTE | 2017-04-22 12:57 | PCM.DC ---
- Discharge Diagnoses Current Active Problems: Current Active and Chronic Problems Chest pain (Acute) Left sided abdominal pain (Acute) You will use the following diet at home:: Cardiac Discharge Activity: Return to Normal Activity Call your doctor if you observe: Fever of 101 or Higher, Shortness of breath, Dizziness, Chest pain, Increased palpitations (irregular heartbeat) Additional Instructions: Continue home oxygen to maintain O2 greater than 90%. Allergies/Adverse Reactions: Allergies Penicillins Allergy (Verified 04/19/17 13:47) Unknown Medications to take at Discharge Aspirin [Aspirin, Baby] 81 mg PO DAILY 04/19/17 Atorvastatin Calcium 80 mg PO QHS 04/19/17 Benzonatate [Tessalon Perle] 100 - 200 mg PO TID PRN PRN 04/19/17 Clopidogrel Bisulfate [Plavix] 75 mg PO DAILY 04/19/17 Isosorbide Mononitrate [Imdur] 30 mg PO DAILY 04/19/17 Lisinopril [Zestril] 20 mg PO DAILY 04/19/17 Metoprolol Tartrate 37.5 mg PO BID 04/19/17 Ciprofloxacin [Cipro] 500 mg PO BID #11 tablet 04/22/17 The following prescriptions were given: Ciprofloxacin [Cipro] 500 mg PO BID #11 tablet Primary Care Physician: Sean Doctor,Out of [NON-STAFF] - Please follow up with your Primary Care Physician in: 1 Week Proposed Discharge Date: 04/22/17
--- NOTE | 2017-04-22 13:04 | PCM.DC.SUM ---
Discharge Date and Diagnosis Date of Admission: 04/19/17 Date of Discharge: 04/22/17 - Primary Discharge Diagnosis Active and Suspected Problems Severe sepsis secondary to complicated E. coli UTI Elevated creatinine-secondary to acute left ureteral colic with moderate hydronephrosis. Patient underwent cystoscopy and left stent placement 04/20/[address] Beard. Hypokalemia-resolved Chest pain-ACS ruled out - Secondary Discharge Diagnosis CAD Hypertension Hyperlipidemia Chronic hypoxic respiratory failure secondary to chronic COPD-chronically on 3 L nasal cannula Hospital Course and Treatment Imaging Results: Diagnostic Data Chest X-Ray 04/19/17 13:52 IMPRESSION: No acute thoracic pathology. Electronically Signed: José Miguel Fernandez, at 14:19 EST Tel , Service support , Abdomen/Pelvis CT 04/19/17 14:10 IMPRESSION: 1 cm obstructing stone at the left ureteropelvic junction with moderate left hydronephrosis. Bilateral subcentimeter nonobstructing renal collecting system stones. No right ureteral stones. No right hydronephrosis. No bowel obstruction or inflammation. Normal appendix. Electronically Signed: José Miguel Fernandez, at 16:17 EST Tel , Service support , Dr. Beard- Urology Operations: - - Cystoscopy with left stent placement 04/20/2017 Procedures: 2-D Echocardiogram Summary of Care Provided: Patient is an 81-year-old female admitted 04/19/2017 due to left-sided chest pain and left lower abdominal pain. She has a past medical history of CAD, COPD, GERD, hyperlipidemia, hypertension and chronic hypoxic respiratory failure. 1. Severe Sepsis secondary to complicated E. coli UTI-patient afebrile. White count elevated, 24.6, suspect reactive. Patient received IV Rocephin. She will be transitioned to oral Cipro at discharge. 2. Chest pain-ACS ruled out. Troponin negative ?3. EKG with no ST-T changes. Echocardiogram shows an estimated ejection fraction of 65%, mild to moderate tricuspid valve insufficiency, right ventricular systolic pressure estimated to be 56. 3. Elevated creatinine-no acute kidney injury. Suspect secondary to acute left ureteral colic with moderate hydronephrosis. Patient underwent cystoscopy and left stent placement 04/20/[address] Beard. Creatinine 0.82 at discharge. 4. Hypokalemia-resolved. 5. Chronic hypoxic respiratory failure secondary to chronic COPD-patient on baseline 3 L nasal cannula. She will continue home oxygen at discharge to maintain O2 greater than 90%. Other chronic medical conditions as noted above are stable at this time. Patient was offered home health services or skilled placement and patient declined. Patient did well with physical therapy prior to discharge. General: Alert, Oriented x3, Cooperative, No apparent distress HEENT: Atraumatic, PERRLA, EOMI, Normocephalic Neck: Supple, No JVD, Negative Carotid Bruits Lungs: Diminished, mild wheezing Cardiovascular: Regular rate, Regular Rhythm, Normal S1, Normal S2, No murmurs Abdomen: Bowel Sounds Present, Soft, Non Tender, Non-Distended Extremities: No clubbing, No cyanosis, No edema, Capillary Refill Less than 3 Seconds Skin: No rashes, No breakdown Musculoskeletal: No Tenderness to Palpation of Joints or Extremities Neurological: Cranial nerves II-XII grossly intact, Neuro grossly intact Psych/Mental Status: Normal Affect, Appropriate Patient seen and examined prior to discharge. Physical assessment as noted above. Patient is stable for discharge home. She will follow-up with primary care physician in 1 week. Discharge Diet: Low fat/ Low Cholesterol Discharge Activity: Return to Normal Activity Call your doctor if you observe: Fever of 101 or Higher, Shortness of breath, Dizziness, Chest pain, Increased palpitations (irregular heartbeat) Home Medications: Medications to take at Discharge Aspirin [Aspirin, Baby] 81 mg PO DAILY 04/19/17 Atorvastatin Calcium 80 mg PO QHS 04/19/17 Benzonatate [Tessalon Perle] 100 - 200 mg PO TID PRN PRN 04/19/17 Clopidogrel Bisulfate [Plavix] 75 mg PO DAILY 04/19/17 Isosorbide Mononitrate [Imdur] 30 mg PO DAILY 04/19/17 Lisinopril [Zestril] 20 mg PO DAILY 04/19/17 Metoprolol Tartrate 37.5 mg PO BID 04/19/17 Ciprofloxacin [Cipro] 500 mg PO BID #11 tablet 04/22/17 Following Prescrptions Were Given to Patient: Ciprofloxacin [Cipro] 500 mg PO BID #11 tablet Primary Care Physician: Sean Doctor,Out of [NON-STAFF] - Please follow up with your Primary Care Physician in: 1 Week Disposition: Home Minutes spent on discharge:: 35 Patient Condition:: Stable Meaningful Use Info Meaningful Use Diagnoses (Choose all that apply): None applicable
--- NOTE | 2017-04-22 13:13 | DS.PCM_ITS ---
Discharge Date and Diagnosis Date of Admission: 04/19/17 Date of Discharge: 04/22/17 - Primary Discharge Diagnosis Active and Suspected Problems Severe sepsis secondary to complicated E. coli UTI Elevated creatinine-secondary to acute left ureteral colic with moderate hydronephrosis. Patient underwent cystoscopy and left stent placement [address] Beard. Hypokalemia-resolved Chest pain-ACS ruled out - Secondary Discharge Diagnosis CAD Hypertension Hyperlipidemia Chronic hypoxic respiratory failure secondary to chronic COPD-chronically on 3 L nasal cannula Hospital Course and Treatment Imaging Results: Diagnostic Data Chest X-Ray 04/19/17 13:52 IMPRESSION: No acute thoracic pathology. Electronically Signed: José Miguel Fernandez, at 14:19 EST Tel , Service support , Abdomen/Pelvis CT 04/19/17 14:10 IMPRESSION: 1 cm obstructing stone at the left ureteropelvic junction with moderate left hydronephrosis. Bilateral subcentimeter nonobstructing renal collecting system stones. No right ureteral stones. No right hydronephrosis. No bowel obstruction or inflammation. Normal appendix. Electronically Signed: José Miguel Fernandez, at 16:17 EST Tel , Service support , Dr. Beard- Urology Operations: - - Cystoscopy with left stent placement 04/20/2017 Procedures: 2-D Echocardiogram Summary of Care Provided: Patient is an 81-year-old female admitted 04/19/2017 due to left-sided chest pain and left lower abdominal pain. She has a past medical history of CAD, COPD , GERD, hyperlipidemia, hypertension and chronic hypoxic respiratory failure. 1. Severe Sepsis secondary to complicated E. coli UTI-patient afebrile. White count elevated, 24.6, suspect reactive. Patient received IV Rocephin. She will be transitioned to oral Cipro at discharge. 2. Chest pain-ACS ruled out. Troponin negative ?3. EKG with no ST-T changes. Echocardiogram shows an estimated ejection fraction of 65%, mild to moderate tricuspid valve insufficiency, right ventricular systolic pressure estimated to be 56. 3. Elevated creatinine-no acute kidney injury. Suspect secondary to acute left ureteral colic with moderate hydronephrosis. Patient underwent cystoscopy and left stent placement 04/20/[address] Beard. Creatinine 0.82 at discharge. 4. Hypokalemia-resolved. 5. Chronic hypoxic respiratory failure secondary to chronic COPD-patient on baseline 3 L nasal cannula. She will continue home oxygen at discharge to maintain O2 greater than 90%. Other chronic medical conditions as noted above are stable at this time. Patient was offered home health services or skilled placement and patient declined. Patient did well with physical therapy prior to discharge. General: Alert, Oriented x3, Cooperative, No apparent distress HEENT: Atraumatic, PERRLA, EOMI, Normocephalic Neck: Supple, No JVD, Negative Carotid Bruits Lungs: Diminished, mild wheezing Cardiovascular: Regular rate, Regular Rhythm, Normal S1, Normal S2, No murmurs Abdomen: Bowel Sounds Present, Soft, Non Tender, Non-Distended Extremities: No clubbing, No cyanosis, No edema, Capillary Refill Less than 3 Seconds Skin: No rashes, No breakdown Musculoskeletal: No Tenderness to Palpation of Joints or Extremities Neurological: Cranial nerves II-XII grossly intact, Neuro grossly intact Psych/Mental Status: Normal Affect, Appropriate Patient seen and examined prior to discharge. Physical assessment as noted above. Patient is stable for discharge home. She will follow-up with primary care physician in 1 week. Discharge Diet: Low fat/ Low Cholesterol Discharge Activity: Return to Normal Activity Call your doctor if you observe: Fever of 101 or Higher, Shortness of breath, Dizziness, Chest pain, Increased palpitations (irregular heartbeat) Home Medications: Medications to take at Discharge Aspirin [Aspirin, Baby] 81 mg PO DAILY 04/19/17 Atorvastatin Calcium 80 mg PO QHS 04/19/17 Benzonatate [Tessalon Perle] 100 - 200 mg PO TID PRN PRN 04/19/17 Clopidogrel Bisulfate [Plavix] 75 mg PO DAILY 04/19/17 Isosorbide Mononitrate [Imdur] 30 mg PO DAILY 04/19/17 Lisinopril [Zestril] 20 mg PO DAILY 04/19/17 Metoprolol Tartrate 37.5 mg PO BID 04/19/17 Ciprofloxacin [Cipro] 500 mg PO BID #11 tablet 04/22/17 Following Prescrptions Were Given to Patient: Ciprofloxacin [Cipro] 500 mg PO BID #11 tablet Primary Care Physician: Sean Doctor,Out of [NON-STAFF] - Please follow up with your Primary Care Physician in: 1 Week Disposition: Home Minutes spent on discharge:: 35 Patient Condition:: Stable Meaningful Use Info Meaningful Use Diagnoses (Choose all that apply): None applicable
== END 2017-04-22 15:07 | disposition home or self-care (01) | DRG 690 ==
PROVIDERS: Admitting Provider Internal Medicine; Emergency Provider Emergency Medicine; Visit Provider Internal Medicine
DX: N13.6 Pyonephrosis (principal); J96.11 Chronic respiratory failure with hypoxia; N30.00 Acute cystitis without hematuria; E87.6 Hypokalemia; Z99.81 Dependence on supplemental oxygen; J44.9 Chronic obstructive pulmonary disease, unspecified; I25.10 Atherosclerotic heart disease of native coronary artery without angina pectoris; E78.5 Hyperlipidemia, unspecified; I25.2 Old myocardial infarction; Z87.891 Personal history of nicotine dependence; B96.20 Unspecified Escherichia coli [E. coli] as the cause of diseases classified elsewhere; R79.89 Other specified abnormal findings of blood chemistry; I10 Essential (primary) hypertension
CPT/HCPCS: 36415; 71010; 74176; 80048; 80076; 81001; 83690; 83880; 84443; 84484; 85025; 85027; 87086; 87088; 87186; 93005; 93306; 94640; 94762; 97116; 97162; 97165; 97530; 97535; 99285; J7030; P9612; Q9957; A4216; C2617; J0744; J2405

== ENCOUNTER 2017-05-13 12:34 | Observation (INO) | payer MEDICARE, SELFPAY ==
[2017-05-13] VITALS (20 sets, daily range): BP systolic 123–169; BP diastolic 44–85; PULSE 64–100; RESP 16–20; TEMP 36.2–37.2; O2SAT 90–100; BMI 37.4
--- NOTE | 2017-05-13 10:04 | PCM.DC.URO ---
Discharge Diet: Light diet - advance as tolerated Discharge Activity: No Restrictions Call your doctor if your incision/area has: Continuous Slow Oozing, Sudden Increased Bleeding, Increased Pain/ Swelling, Increased Redness, Foul Smelling Discharge, Swelling at the incision site Call your doctor if you observe: Fever of 101 or Higher, Shortness of breath, Chest pain, Uncontrolled pain Suture Line Care: Avoid Pulling/Pushing, Avoid Pinching/Bending Allergies/Adverse Reactions: Allergies Penicillins Allergy (Verified 05/12/17 15:37) Unknown ciprofloxacin [From Cipro] Adverse Reaction (Verified 05/12/17 15:58) muscle pain and nausea Medications to take at Discharge Aspirin [Aspirin, Baby] 81 mg PO DAILY 04/19/17 Atorvastatin Calcium 80 mg PO QHS 04/19/17 Clopidogrel Bisulfate [Plavix] 75 mg PO DAILY 04/19/17 Isosorbide Mononitrate [Imdur] 30 mg PO DAILY 04/19/17 Lisinopril [Zestril] 20 mg PO DAILY 04/19/17 Metoprolol Tartrate 37.5 mg PO BID 04/19/17 Oxycodone [Oxyir] 5 mg PO Q6H PRN PRN #10 tablet 04/22/17 Tiotropium [place] [Spiriva 18 MCG] 1 puff INHALATION BID 05/12/17 Cephalexin [Keflex] 500 mg PO Q8 #15 cap 05/13/17 Hydrocodone/Acetaminophen [[place] 5-325 Tablet] 1 ea PO Q4H PRN PRN #14 tab 05/13/17 The following prescriptions were given: Hydrocodone/Acetaminophen [[place] 5-325 Tablet] 1 ea PO Q4H PRN PRN #14 tab PRN Reason: Pain Cephalexin [Keflex] 500 mg PO Q8 #15 cap Primary Care Physician: Care Physician,No Primary [Primary Care Provider] - Please Follow Up With: Edvin Beard MD When: Appt. ThursdayJun 08 at 1:15 pm, call if need to change.
--- NOTE | 2017-05-13 10:09 | DCINST_ITS ---
Discharge Diet: Light diet - advance as tolerated Discharge Activity: No Restrictions Call your doctor if your incision/area has: Continuous Slow Oozing, Sudden Increased Bleeding, Increased Pain/ Swelling, Increased Redness, Foul Smelling Discharge, Swelling at the incision site Call your doctor if you observe: Fever of 101 or Higher, Shortness of breath, Chest pain, Uncontrolled pain Suture Line Care: Avoid Pulling/Pushing, Avoid Pinching/Bending Allergies/Adverse Reactions: Allergies Penicillins Allergy (Verified 05/12/17 15:37) Unknown ciprofloxacin [From Cipro] Adverse Reaction (Verified 05/12/17 15:58) muscle pain and nausea Medications to take at Discharge Aspirin [Aspirin, Baby] 81 mg PO DAILY 04/19/17 Atorvastatin Calcium 80 mg PO QHS 04/19/17 Clopidogrel Bisulfate [Plavix] 75 mg PO DAILY 04/19/17 Isosorbide Mononitrate [Imdur] 30 mg PO DAILY 04/19/17 Lisinopril [Zestril] 20 mg PO DAILY 04/19/17 Metoprolol Tartrate 37.5 mg PO BID 04/19/17 Oxycodone [Oxyir] 5 mg PO Q6H PRN PRN #10 tablet 04/22/17 Tiotropium [place] [Spiriva 18 MCG] 1 puff INHALATION BID 05/12/17 Cephalexin [Keflex] 500 mg PO Q8 #15 cap 05/13/17 Hydrocodone/Acetaminophen [[place] 5-325 Tablet] 1 ea PO Q4H PRN PRN #14 tab 05/13 The following prescriptions were given: Hydrocodone/Acetaminophen [[place] 5-325 Tablet] 1 ea PO Q4H PRN PRN #14 tab PRN Reason: Pain Cephalexin [Keflex] 500 mg PO Q8 #15 cap Primary Care Physician: Care Physician,No Primary [Primary Care Provider] - Please Follow Up With: Edvin Beard MD When: Appt. ThursdayJun 08 at 1:15 pm, call if need to change.
[2017-05-13] MEDS: Cefazolin 2 GM in Syringe IV (10:18)
--- NOTE | 2017-05-13 11:02 | OP.PCM_ITS ---
Report of Operation Date of Procedure: 05/13/17 Pre-Operative Diagnosis: left kidney stone Post-Operative Diagnosis: Same Surgery/Procedure Performed:: Cystoscopy left ureteroscopy laser lithotripsy of stone and placement of a new stent. Description of Surgical Findings:: 81-year-old female who presented to the hospital with obstructing stone and infection at that point a stent was placed infection was cleared at this point we can come back to the to the operating room for ureteroscopy and laser the stone. Procedure note patient was taken back to the operating room after smooth induction of general anesthesia she was placed in dorsal lithotomy position went into the bladder with a 21 [place] rigid cystourethroscope the urethra and bladder with vaginal area were prepped and draped in usual sterile fashion I grabbed the existing stent pulled out the meatus advanced a wire up the stent and then went over the wire with the flexible ureteroscope I was able to get into the ureter quite easily since the ureter was nicely dilated I then went all the way up to the kidney remove the wire, advanced the laser fiber 270 ?m laser fiber and laser the stone into little tiny tiny pieces below, once the stone was laser little tiny pieces I then pushed the stones up into the upper pole of the kidney and laser these even more and finally I only had a tiny fragments within the upper pole of the kidney inspected the upper pole midpole lower pole did not see any other major fragments inspected the pelvis of the major fragments after then lasering the stone and went down the ureter and remove the ureteroscope I then went back in the bladder cannulated the left ureteral orifice with a wire and over the wire I placed a stent on the left side. Patient's anesthetic was reversed and she is taken back to the PACU in good condition she has an appointment in May to remove the stent. Type of Anesthesia:: General Specimen's removed: none Drains: stent - Admit VTE Documentation VTE Present on Admission: No VTE Mechan Device Prophylaxis: SCD's VTE Pharm Prophylaxis ordered?: No Reason prophylaxis not ordered:: Treatment Not Indicated
--- NOTE | 2017-05-13 14:48 | RAD_ITS ---
STUDY: X-RAY CHEST REASON FOR EXAM: Female, 81 years old. Shortness of breath. TECHNIQUE: Single AP portable view of the chest. COMPARISON: Comparison is made with prior study of April 19, 2017. FINDINGS: Since prior study, there has been a progression of the interstitial markings suggestive of a possible early vascular congestion and mild CHF. Follow-up is recommended. There is no demonstrated pleural abnormality. There is borderline cardiomegaly. Normal mediastinum and chika. Normal visualized pulmonary arteries. There is atherosclerotic calcification of the aortic arch with tortuosity. There are degenerative changes of the visualized thoracic spine. Normal visualized ribs, clavicles, and shoulders. There is no demonstrated abnormality of the visualized soft tissue structures of the upper abdomen. RAD/Chest 1 View (Portable) IMPRESSION: Mild increased interstitial markings as compared to prior study. Vascular congestion should be ruled out. Electronically Signed: Gadiel Herndon MD at 9:07 EST Tel [phone], Service support ,
--- NOTE | 2017-05-13 14:48 | EKG12_ITS ---
Test Reason : Blood Pressure : / mmHG Vent. Rate : 096 BPM Atrial Rate : 096 BPM P-R Int : 156 ms QRS Dur : 136 ms QT Int : 374 ms P-R-T Axes : 010 052 -08 degrees QTc Int : 472 ms Sinus rhythm with Premature ventricular complexes or Fusion complexes Non-specific intra-ventricular conduction block T wave abnormality, consider inferior ischemia Abnormal ECG Confirmed by JANAE WINTERS, ARTEMIO ([id number]), commissioning editor EMEKA MERA ([id number]) on 05/21/2017 1:03:57 PM Referred By: JONATHAN Confirmed By:ARTEMIO CARDOSO MD
[2017-05-13] MEDS: Ipratropium 0.5 MG/2.5 ML SOLUTION INHALATION ×2 (15:12→18:47)
--- NOTE | 2017-05-13 15:29 | PCM.CONS.GEN ---
Problem List (1) Hydronephrosis, left Status: Acute (2) Left ureteral stone Status: Acute (3) Chronic respiratory failure Status: Chronic (4) COPD (chronic obstructive pulmonary disease) Status: Chronic (5) Coronary artery disease Status: Chronic (6) Hypertension Status: Chronic Reason for Consult Date of Consultation: 05/13/17 Reason for Consultation: Postoperative hypoxia and worsening shortness of breath History of Present Illness: The patient is a 81 year old F with past medical history as mentioned above who underwent elective cystoscopy, left ureteroscopy with laser lithotripsy of left ureteral stone and placement of new stent for left ureteral stone and left-sided hydronephrosis. Postoperatively, patient complained of worsening shortness of breath, found to be hypoxic and requiring none repeated mask with up to 10 L of oxygen. Patient seen and examined in the floor. She did mention that after the procedure, she felt very short of breath compared to baseline and she could not lay flat because of worsening shortness of breath upon laying flat. She denied cough or sputum production. Denied chest pain, palpitation, dizziness or lightheadedness. She does have a history of COPD and chronic respiratory failure and has been on room oxygen at 2 L and sometimes up to 3 L of oxygen. She had a history of CAD without history of interventions and she has been on aspirin, Plavix, statins and beta-blockers as well as nitrates and lisinopril. She had a history of hyperlipidemia and she has been on statins. At this time, she is afebrile, blood pressure noted are stable, pulse ox is 95% on nonrebreather mask with 10 L of oxygen. I have been consulted for medical management for postoperative worsening shortness of breath and hypoxia. Past Medical History Past Medical History (Chronic Problems): Chronic Problems Chronic respiratory failure (Chronic) COPD (chronic obstructive pulmonary disease) (Chronic) Coronary artery disease (Chronic) Hypertension (Chronic) Allergies Penicillins Allergy (Verified 05/12/17 15:37) Unknown ciprofloxacin [From Cipro] Adverse Reaction (Verified 05/12/17 15:58) muscle pain and nausea Home Medications: Ambulatory Orders Medication Instructions Recorded Aspirin [Aspirin, Baby] 81 mg PO DAILY 04/19/17 Atorvastatin Calcium 80 mg PO QHS 04/19/17 Clopidogrel Bisulfate [Plavix] 75 mg PO DAILY 04/19/17 Isosorbide Mononitrate [Imdur] 30 mg PO DAILY 04/19/17 Lisinopril [Zestril] 20 mg PO DAILY 04/19/17 Metoprolol Tartrate 37.5 mg PO BID 04/19/17 Oxycodone [Oxyir] 5 mg PO Q6H PRN PRN #10 tablet 04/22/17 Tiotropium [place] [Spiriva 18 MCG] 1 puff INHALATION BID 05/12/17 Cephalexin [Keflex] 500 mg PO Q8 #15 cap 05/13/17 Hydrocodone/Acetaminophen [[place] 1 ea PO Q4H PRN PRN #14 tab 05/13/17 5-325 Tablet] Surgical History: cataract, cholecystectomy, herniorrhaphy, total hip arthroplasty - Due to hip fracture, - - Aortic aneurysm repair with stents Psychiatric History: - - Memory loss 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 Denies: Chest Pain, Chest Pressure, Chest Tightness, Edema, Heaviness, Palpitations, Syncope Respiratory: Reports: Shortness of Breath, Shortness of breath at rest. Denies: Cough, Pleuritic Pain, Sputum production, Wheezing Gastrointestinal: Denies: Abdominal Pain, Constipation, Diarrhea, Nausea, Vomiting Genitourinary: Denies: Dysuria, Frequency, Hematuria Musculoskeletal: Denies: Arm Pain, Back Pain, Foot Pain Skin: Denies: Dryness, Rash Neurological: Denies: Balance problems, Blurred vision, Double vision, Change in Speech, Slurred speech, Headaches, Incoordination, Numbness Psychiatric: Denies: Anxiety, Depression Endocrine: Denies: Change in Body Habitus, Polydipsia Patient Problems: Active and Suspected Problems Hydronephrosis, left (Acute) Left ureteral stone (Acute) - Physical Exam General: Alert, Oriented x3, Cooperative, - - Moderately short of breath. HEENT: Atraumatic, PERRLA, EOMI Oral: Moist Mucosa, No Gingival or Mucosal Lesions/ Ulcerations Neck: Supple, No JVD, Negative Carotid Bruits, Trachea Midline, Thyroid Normal Size and Texture Lungs: No rhonchi, No wheeze, Diminished, Rales, Short of Breath, - - Decreased breath sounds bilateral at the bases, bilateral basal crackles. Cardiovascular: Regular rate, Regular Rhythm, Normal S1, Normal S2, No murmurs, PMI Normal Abdomen: Bowel Sounds Present, Soft, Non Tender, Non-Distended, No Hepato-splenomegaly, Obese Extremities: No clubbing, No cyanosis, No edema Skin: No rashes, No breakdown Lymphatic: No Cervical, Supraclavicular, or Inguinal Adenopathy Neurological: Cranial nerves II-XII grossly intact, Motor Exam 5/5 strength throughout Psych/Mental Status: Normal Affect, Appropriate, Alert and oriented to time, place, person, mood and affect Vital Signs Temp Pulse Resp BP Pulse Ox 98.4 F 84 18 127/44 H 95 05/13/17 14:42 05/13/17 15:13 05/13/17 15:13 05/13/17 14:42 05/13/17 15:13 Oxygen Flow Rate 4 Oxygen Delivery Method Nasal Cannula Weight: 235 lb 7.259 oz Body Mass Index (BMI) 37.4 Intake and Output for Last 24 Hours 05/11/17 05/12/17 05/13/17 23:59 23:59 23:59 Intake Total 3100 / 3100 Balance 3100 / 3100 Laboratory Tests Past 24 Hrs 05/13/17 05/13/17 15:23 15:23 WBC Pending RBC Pending Hgb Pending Hct Pending MCV Pending MCH Pending MCHC Pending RDW Pending RDW Differential Pending Plt Count Pending Neut % (Auto) Pending Absolute Neuts (auto) Pending Total Counted Pending Sodium Pending Potassium Pending Chloride Pending Carbon Dioxide Pending Anion Gap Pending BUN Pending Creatinine Pending Est GFR (MDRD) Af Amer Pending Est GFR (MDRD) Non-Af Pending BUN/Creatinine Ratio Pending Glucose Pending Calcium Pending Troponin I Pending Assessment/Plan Active and Suspected Problems Hydronephrosis, left (Acute) Left ureteral stone (Acute) This is an 81 years old female patient who admitted directly to the floor after she underwent elective cystoscopy, left ureteroscopy and laser lithotripsy for left ureteral stone with placement of a new stent. Around 1 month ago, she had left ureteral stone with moderate left hydronephrosis and she underwent cystoscopy and placement of left ureteral stent on March,. She came today as outpatient for elective repeat cystoscopy, lithotripsy and placement of new stent for the same reason as mentioned above and postoperatively, patient complained of worsening shortness of breath and she was hypoxic. #1 postoperative worsening shortness of breath/hypoxia/acute on chronic hypoxic respiratory failure: Probably due to volume overload, she has been receiving IV fluids during the procedure. She does have bilateral basilar crackles on chest auscultation. At this time, pulse ox is 94% on rebreather mask with 10 L of oxygen. At home, she has been on 2 L and sometimes up to 3 L. Plan: Stat chest x-ray, EKG, stat CBC and BMP, troponin ?1, Lasix 40 mg IV ?1, DuoNeb every 6 hours, albuterol as needed, incentive spirometer, discontinue IV fluids, wean off oxygen as tolerated. #2 left ureteral stone/left hydronephrosis: Status post repeat cystoscopy, stone lithotripsy and placement of new stent. That was done today. She was admitted a month ago for the same reason, underwent cystoscopy and stent placement which was replaced by a new stent today. Plan for pain control, check BMP today and tomorrow morning. #3 CAD: Without history of cardiac interventions. Reported shortness of breath, no chest pain. Plan for EKG, troponin ?1, continue Plavix, aspirin, statins, nitrate, metoprolol and lisinopril. #4 COPD/chronic respiratory failure: Plan as above, bronchodilators, incentive spirometer, diuresis, wean off oxygen as tolerated. #5 hypertension: Blood pressure stable, continue metoprolol, lisinopril and nitrate. #6 history of AAA: Status post repair according to the patient. #7 DVT prophylaxis: SCDs. This note was generated with [employer] software. It may contain incorrect words, spelling, and punctuation that were not noted in checking the note before signing. Code Visit Office Visits / Consults: [id number] IP Consult L5
--- NOTE | 2017-05-13 15:40 | CON.PCM_ITS ---
Problem List (1) Hydronephrosis, left Status: Acute (2) Left ureteral stone Status: Acute (3) Chronic respiratory failure Status: Chronic (4) COPD (chronic obstructive pulmonary disease) Status: Chronic (5) Coronary artery disease Status: Chronic (6) Hypertension Status: Chronic Reason for Consult Date of Consultation: 05/13/17 Reason for Consultation: Postoperative hypoxia and worsening shortness of breath History of Present Illness: The patient is a 81 year old F with past medical history as mentioned above who underwent elective cystoscopy, left ureteroscopy with laser lithotripsy of left ureteral stone and placement of new stent for left ureteral stone and left- sided hydronephrosis. Postoperatively, patient complained of worsening shortness of breath, found to be hypoxic and requiring none repeated mask with up to 10 L of oxygen. Patient seen and examined in the floor. She did mention that after the procedure, she felt very short of breath compared to baseline and she could not lay flat because of worsening shortness of breath upon laying flat. She denied cough or sputum production. Denied chest pain, palpitation, dizziness or lightheadedness. She does have a history of COPD and chronic respiratory failure and has been on room oxygen at 2 L and sometimes up to 3 L of oxygen. She had a history of CAD without history of interventions and she has been on aspirin, Plavix, statins and beta-blockers as well as nitrates and lisinopril. She had a history of hyperlipidemia and she has been on statins. At this time, she is afebrile, blood pressure noted are stable, pulse ox is 95% on nonrebreather mask with 10 L of oxygen. I have been consulted for medical management for postoperative worsening shortness of breath and hypoxia. Past Medical History Past Medical History (Chronic Problems): Chronic Problems Chronic respiratory failure (Chronic) COPD (chronic obstructive pulmonary disease) (Chronic) Coronary artery disease (Chronic) Hypertension (Chronic) Allergies Penicillins Allergy (Verified 05/12/17 15:37) Unknown ciprofloxacin [From Cipro] Adverse Reaction (Verified 05/12/17 15:58) muscle pain and nausea Home Medications: Ambulatory Orders Medication Instructions Recorded Aspirin [Aspirin, Baby] 81 mg PO DAILY 04/19/17 Atorvastatin Calcium 80 mg PO QHS 04/19/17 Clopidogrel Bisulfate [Plavix] 75 mg PO DAILY 04/19/17 Isosorbide Mononitrate [Imdur] 30 mg PO DAILY 04/19/17 Lisinopril [Zestril] 20 mg PO DAILY 04/19/17 Metoprolol Tartrate 37.5 mg PO BID 04/19/17 Oxycodone [Oxyir] 5 mg PO Q6H PRN PRN #10 tablet 04/22/17 Tiotropium [place] [Spiriva 18 MCG] 1 puff INHALATION BID 05/12/17 Cephalexin [Keflex] 500 mg PO Q8 #15 cap 05/13/17 Hydrocodone/Acetaminophen [[place] 1 ea PO Q4H PRN PRN #14 tab 05/13/17 5-325 Tablet] Surgical History: cataract, cholecystectomy, herniorrhaphy, total hip arthroplasty - Due to hip fracture, - - Aortic aneurysm repair with stents Psychiatric History: - - Memory loss 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 Denies: Chest Pain, Chest Pressure, Chest Tightness, Edema, Heaviness, Palpitations, Syncope Respiratory: Reports: Shortness of Breath, Shortness of breath at rest. Denies : Cough, Pleuritic Pain, Sputum production, Wheezing Gastrointestinal: Denies: Abdominal Pain, Constipation, Diarrhea, Nausea, Vomiting Genitourinary: Denies: Dysuria, Frequency, Hematuria Musculoskeletal: Denies: Arm Pain, Back Pain, Foot Pain Skin: Denies: Dryness, Rash Neurological: Denies: Balance problems, Blurred vision, Double vision, Change in Speech, Slurred speech, Headaches, Incoordination, Numbness Psychiatric: Denies: Anxiety, Depression Endocrine: Denies: Change in Body Habitus, Polydipsia Patient Problems: Active and Suspected Problems Hydronephrosis, left (Acute) Left ureteral stone (Acute) - Physical Exam General: Alert, Oriented x3, Cooperative, - - Moderately short of breath. HEENT: Atraumatic, PERRLA, EOMI Oral: Moist Mucosa, No Gingival or Mucosal Lesions/ Ulcerations Neck: Supple, No JVD, Negative Carotid Bruits, Trachea Midline, Thyroid Normal Size and Texture Lungs: No rhonchi, No wheeze, Diminished, Rales, Short of Breath, - - Decreased breath sounds bilateral at the bases, bilateral basal crackles. Cardiovascular: Regular rate, Regular Rhythm, Normal S1, Normal S2, No murmurs, PMI Normal Abdomen: Bowel Sounds Present, Soft, Non Tender, Non-Distended, No Hepato- splenomegaly, Obese Extremities: No clubbing, No cyanosis, No edema Skin: No rashes, No breakdown Lymphatic: No Cervical, Supraclavicular, or Inguinal Adenopathy Neurological: Cranial nerves II-XII grossly intact, Motor Exam 5/5 strength throughout Psych/Mental Status: Normal Affect, Appropriate, Alert and oriented to time, place, person, mood and affect Vital Signs Temp Pulse Resp BP Pulse Ox 98.4 F 84 18 127/44 H 95 05/13/17 14:42 05/13/17 15:13 05/13/17 15:13 05/13/17 14:42 05/13/17 15:13 Oxygen Flow Rate 4 Oxygen Delivery Method Nasal Cannula Weight: 235 lb 7.259 oz Body Mass Index (BMI) 37.4 Intake and Output for Last 24 Hours 05/11/17 05/12/17 05/13/17 23:59 23:59 23:59 Intake Total 3100 / 3100 Balance 3100 / 3100 Laboratory Tests Past 24 Hrs 05/13/17 05/13/17 15:23 15:23 WBC Pending RBC Pending Hgb Pending Hct Pending MCV Pending MCH Pending MCHC Pending RDW Pending RDW Differential Pending Plt Count Pending Neut % (Auto) Pending Absolute Neuts (auto) Pending Total Counted Pending Sodium Pending Potassium Pending Chloride Pending Carbon Dioxide Pending Anion Gap Pending BUN Pending Creatinine Pending Est GFR (MDRD) Af Amer Pending Est GFR (MDRD) Non-Af Pending BUN/Creatinine Ratio Pending Glucose Pending Calcium Pending Troponin I Pending Assessment/Plan Active and Suspected Problems Hydronephrosis, left (Acute) Left ureteral stone (Acute) This is an 81 years old female patient who admitted directly to the floor after she underwent elective cystoscopy, left ureteroscopy and laser lithotripsy for left ureteral stone with placement of a new stent. Around 1 month ago, she had left ureteral stone with moderate left hydronephrosis and she underwent cystoscopy and placement of left ureteral stent on March,. She came today as outpatient for elective repeat cystoscopy, lithotripsy and placement of new stent for the same reason as mentioned above and postoperatively, patient complained of worsening shortness of breath and she was hypoxic. #1 postoperative worsening shortness of breath/hypoxia/acute on chronic hypoxic respiratory failure: Probably due to volume overload, she has been receiving IV fluids during the procedure. She does have bilateral basilar crackles on chest auscultation. At this time, pulse ox is 94% on rebreather mask with 10 L of oxygen. At home, she has been on 2 L and sometimes up to 3 L. Plan: Stat chest x-ray, EKG, stat CBC and BMP, troponin ?1, Lasix 40 mg IV ?1, DuoNeb every 6 hours, albuterol as needed, incentive spirometer, discontinue IV fluids , wean off oxygen as tolerated. #2 left ureteral stone/left hydronephrosis: Status post repeat cystoscopy, stone lithotripsy and placement of new stent. That was done today. She was admitted a month ago for the same reason, underwent cystoscopy and stent placement which was replaced by a new stent today. Plan for pain control, check BMP today and tomorrow morning. #3 CAD: Without history of cardiac interventions. Reported shortness of breath , no chest pain. Plan for EKG, troponin ?1, continue Plavix, aspirin, statins, nitrate, metoprolol and lisinopril. #4 COPD/chronic respiratory failure: Plan as above, bronchodilators, incentive spirometer, diuresis, wean off oxygen as tolerated. #5 hypertension: Blood pressure stable, continue metoprolol, lisinopril and nitrate. #6 history of AAA: Status post repair according to the patient. #7 DVT prophylaxis: SCDs. This note was generated with [employer] software. It may contain incorrect words, spelling, and punctuation that were not noted in checking the note before signing. Code Visit Office Visits / Consults: [id number] IP Consult L5
[2017-05-13 15:47] LABS: Absolute Lymphocyte Count 0.49 X10^3/ul (0.83-4.51); Absolute Neutrophil Count 10.4 X10^3/uL (2.0-7.7); Basophil# 0.02 X10^3/uL; Basophil% 0.2 % (0-1); Differential Indicated SCAN CRITERIA MET; Eosinophil# 0.01 X10^3/uL; Eosinophils% 0.1 % (0-5); Hematocrit 39.3 % (37-47); Hemoglobin 11.9 g/dl (12.0-15.0); Lymphocyte # 0.49 X10^3/ul (4.0); Lymphocyte % 3.9 % (19-41); Mean Corp Hgb Conc 30.3 g/gl (32-36); Mean Corpuscular Hgb 30.2 pg (27.0-32.0); Mean Corpuscular Volume 99.7 fL (81-99); Mean Platelet Vol. 10.3 fl (6.2-12.0); Monocyte# 1.65 X10^3/uL; Monocyte% 13.1 % (0-10); Neutrophil # 10.43 X10^3/uL (2.7-7.7); Neutrophil % 82.4 % (47-70); POSITIVE COUNT NO; POSITIVE DIFFERENTIAL YES; POSITIVE MORPHOLOGY NO; Platelet Count 236 K/mm3 (150-450); RBC Distribution Width CV 13.6 % (11.6-14.6); RBC Distribution Width SD 48.7 fl (35.1-43.9); Red Blood Count 3.94 M/mm3 (4.2-5.4); White Blood Count 12.6 K/mm3 (4.4-11.0)
[2017-05-13 15:51] LABS: Anion Gap 5 (5-15); BUN 10 mg/dL (7-18); BUN/Creat Ratio 14.2 RATIO (10-20); Calcium,Total 8.7 mg/dL (8.5-10.1); Chloride 105 mmol/L (98-107); Creatinine, Serum 0.71 mg/dL (0.55-1.02); EST Glomerular Filtration Rate 84 mL/min (>60); Est Glom Filt Rate - Afr Amer 102 mL/min (>60); Glucose 134 mg/dL (70-110); Potassium 3.7 mmol/L (3.5-5.1); Sodium Level 142 mmol/L (136-145)
[2017-05-13] MEDS: Furosemide 40 MG/4 ML Vial IV (16:01)
[2017-05-13 16:06] LABS: Differential Comment SCANNED
--- NOTE | 2017-05-13 16:17 | PCA ---
PATIENT NEPHEW ASKED TO BE ADDED INTO THE COMPUTER AND ASKED IF THEY CAN CONTACT HIM TO LET HIM KNOW THAT SHE IS BEING DISCHARGED TOMORROW Apr CAUSE SON IN LAW WILL BE WORKING ALL DAY
[2017-05-13] MEDS: oxyCODONE 5 MG Tablet PO (17:06)
[2017-05-13 17:46] LABS: Bedside Glucose 147 mg/dL (70-110)
[2017-05-13] MEDS: Metoprolol Tartrate 25 MG Tablet 37.5 MG PO (19:55)
[2017-05-13] MEDS: Docusate Sodium 100 MG Capsule PO (19:55)
[2017-05-13] MEDS: Atorvastatin Calcium 80 MG Tablet PO (19:55)
[2017-05-13] MEDS: Famotidine 20 MG Tablet PO (19:55)
[2017-05-14 04:30] VITALS: BP 125/62; PULSE 95; RESP 18; TEMP 36.9; O2SAT 98
[2017-05-14] MEDS: oxyCODONE 5 MG Tablet PO (06:32)
[2017-05-14 07:01] LABS: Absolute Lymphocyte Count 1.34 X10^3/ul (0.83-4.51); Absolute Neutrophil Count 11.7 X10^3/uL (2.0-7.7); Anion Gap 4 (5-15); BUN 12 mg/dL (7-18); BUN/Creat Ratio 15.4 RATIO (10-20); Basophil# 0.02 X10^3/uL; Basophil% 0.1 % (0-1); Calcium,Total 8.4 mg/dL (8.5-10.1); Chloride 101 mmol/L (98-107); Creatinine, Serum 0.78 mg/dL (0.55-1.02); EST Glomerular Filtration Rate 75 mL/min (>60); Eosinophil# 0.01 X10^3/uL; Eosinophils% 0.1 % (0-5); Est Glom Filt Rate - Afr Amer 91 mL/min (>60); Glucose 100 mg/dL (70-110); Hematocrit 37.8 % (37-47); Hemoglobin 11.3 g/dl (12.0-15.0); Lymphocyte # 1.34 X10^3/ul (4.0); Mean Corp Hgb Conc 29.9 g/gl (32-36); Mean Corpuscular Hgb 29.9 pg (27.0-32.0); Monocyte# 1.77 X10^3/uL; Monocyte% 11.9 % (0-10); Neutrophil # 11.67 X10^3/uL (2.7-7.7); Neutrophil % 78.6 % (47-70); Platelet Count 226 K/mm3 (150-450); Potassium 3.9 mmol/L (3.5-5.1); RBC Distribution Width CV 14.1 % (11.6-14.6); RBC Distribution Width SD 50.4 fl (35.1-43.9); Red Blood Count 3.78 M/mm3 (4.2-5.4); Sodium Level 138 mmol/L (136-145); White Blood Count 14.9 K/mm3 (4.4-11.0)
[2017-05-14 07:05] LABS: Differential Indicated SCAN CRITERIA MET; POSITIVE COUNT NO; POSITIVE DIFFERENTIAL YES; POSITIVE MORPHOLOGY NO
[2017-05-14 07:22] VITALS: PULSE 96; RESP 18; O2SAT 95
[2017-05-14] MEDS: Ipratropium 0.5 MG/2.5 ML SOLUTION INHALATION (07:22)
--- NOTE | 2017-05-14 07:48 | PCM.PN.BLA ---
Progress Note postoperative day #1 status post ureteroscopy and laser the stone she had some shortness of breath and difficulty breathing after the procedure she has a history of chronic oxygen requirements she did require heavy doses of narcotics with probably catered her breathing. But at this point she is back to her baseline she is on oxygen but doing well. Workup was negative for any problems. If the hospitalist is okay with a I me to send her home today.
[2017-05-14 08:55] VITALS: BP 150/61; PULSE 88; RESP 20; TEMP 37.4; O2SAT 94
--- NOTE | 2017-05-14 18:50 | PN_ITS ---
Subjective: Patient was seen and examined today, she has been released by neurology to go home. Patient's oxygen now is at her home setting, she is alert and appropriate. - Physical Exam General: Alert, Oriented x3, Cooperative, No apparent distress, Well developed, Well nourished HEENT: Atraumatic, PERRLA, EOMI, Normocephalic Oral: Moist Mucosa Neck: Supple, No Nuchal Rigidity, Trachea Midline, Thyroid Normal Size and Texture Lungs: Clear to auscultation, Normal air movement, No rhonchi, No wheeze, No rales Cardiovascular: Regular rate, Regular Rhythm, Normal S1, Normal S2, No murmurs, No Ectopic Activity, PMI Normal, No rub noted, No Gallop Abdomen: Bowel Sounds Present, Soft, Non Tender, Non-Distended, No hernias noted Extremities: No clubbing, No cyanosis, No edema, Capillary Refill Less than 3 Seconds Skin: No rashes, No breakdown Musculoskeletal: No Tenderness to Palpation of Joints or Extremities Neurological: Cranial nerves II-XII grossly intact, Neuro grossly intact, Sensory exam intact to light touch and pain, Coordination normal Psych/Mental Status: Normal Affect, Appropriate, Alert and oriented to time, place, person, mood and affect Vital Signs Temp Pulse Resp BP Pulse Ox 99.4 F H 88 20 H 150/61 H 94 05/14/17 08:55 05/14/17 08:55 05/14/17 08:55 05/14/17 08:55 05/14/17 08:55 Oxygen Flow Rate 2 Oxygen Delivery Method Nasal Cannula Weight: 106.8 kg Body Mass Index (BMI) 37.4 Intake and Output for Last 24 Hours 05/12/17 05/13/17 05/14/17 23:59 23:59 23:59 Intake Total 3386 / 3386 620 / 620 Output Total 600 / 600 850 / 850 Balance 2786 / 2786 -230 / -230 Laboratory Tests Past 24 Hrs 05/14/17 05/14/17 06:16 06:16 WBC 14.9 H RBC 3.78 L Hgb 11.3 L Hct 37.8 MCV 100.0 H MCH 29.9 MCHC 29.9 L RDW 14.1 RDW Differential 50.4 H Plt Count 226 MPV 11.0 Immature Gran % (Auto) 0.300 Neut % (Auto) 78.6 H Lymph % (Auto) 9.0 L [place] % (Auto) 11.9 H Eos % (Auto) 0.1 Baso % (Auto) 0.1 Absolute Neuts (auto) 11.7 H Absolute Lymphs (auto) 1.34 Total Counted Not Reportable Sodium 138 Potassium 3.9 Chloride 101 Carbon Dioxide 33.0 H Anion Gap 4 L BUN 12 Creatinine 0.78 Estim Creat Clear Calc 41.30 Est GFR (MDRD) Af Amer 91 Est GFR (MDRD) Non-Af 75 BUN/Creatinine Ratio 15.4 Glucose 100 Calcium 8.4 L Assessment/Plan #1 Acute on chronic hypoxic respiratory failure-probably secondary to effects of anesthesia and fluid administration-patient is stable at this time and is on her home O2 oxygen setting #2 chronic obstructive pulmonary disease-patient was given Dr. 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
== END 2017-05-14 07:50 | disposition home or self-care (01) ==
LOC: MS2 05-14 07:31 → SDC 05-14 10:21
PROVIDERS: Hospitalist; Admitting Provider Urology; Visit Provider Urology
PROC: 0TJ98ZZ Inspection of Ureter, Via Natural or Artificial Opening Endoscopic (ICD-10-PCS; CPT 52352; principal; 2017-05-13 09:15)
DX: N13.2 Hydronephrosis with renal and ureteral calculous obstruction (principal); J96.21 Acute and chronic respiratory failure with hypoxia; J44.9 Chronic obstructive pulmonary disease, unspecified; I25.10 Atherosclerotic heart disease of native coronary artery without angina pectoris; K21.9 Gastro-esophageal reflux disease without esophagitis; I25.2 Old myocardial infarction; I10 Essential (primary) hypertension; I69.351 Hemiplegia and hemiparesis following cerebral infarction affecting right dominant side; I69.311 Memory deficit following cerebral infarction; I49.3 Ventricular premature depolarization; E78.5 Hyperlipidemia, unspecified; Z79.899 Other long term (current) drug therapy; Z79.02 Long term (current) use of antithrombotics/antiplatelets; Z79.82 Long term (current) use of aspirin; Z87.891 Personal history of nicotine dependence; Z99.81 Dependence on supplemental oxygen
CPT/HCPCS: 00918; 52356; 36415; 71010; 80048; 82962; 84484; 85025; 93005; 94640; 94762; 96374; 99218; 99251; J7120; C1769; C2617; G0378; G0379; G0463; J1940; J2405

== ENCOUNTER 2019-02-01 12:46 | Observation (INO) | payer MEDICARE, SELFPAY ==
[2019-02-01] VITALS (11 sets, daily range): BP systolic 93–145; BP diastolic 49–75; PULSE 61–126; RESP 16–20; TEMP 36.6–36.7; O2SAT 90–100; BMI 42.4; BMI 41.8
--- NOTE | 2019-02-01 13:16 | EKG12_ITS ---
Test Reason : HYPOTENSION Blood Pressure : / mmHG Vent. Rate : 055 BPM Atrial Rate : 055 BPM P-R Int : 164 ms QRS Dur : 122 ms QT Int : 434 ms P-R-T Axes : 030 039 039 degrees QTc Int : 415 ms Sinus bradycardia Non-specific intra-ventricular conduction delay Borderline ECG Confirmed by LALO PARR ([id number]), editorial cartoonist EMEKA MERA ([id number]) on 02/07/2019 2:16:42 PM Referred By: Nini Rubio Confirmed By:LALO PARR
--- NOTE | 2019-02-01 13:25 | RAD_ITS ---
STUDY: X-RAY CHEST REASON FOR EXAM: Female, 83 years old. Chest pain. Hypotension. TECHNIQUE: Single AP portable view of the chest. COMPARISON: Comparison is made with prior study dated May 13, 2017. FINDINGS: Increased markings at the lung bases with areas of confluence worse in the left lower lobe. This is suggestive of a bibasilar atelectasis and/or infiltrate superimposed on scarring. There is no demonstrated pleural abnormality. Normal size heart. Normal mediastinum and chika. Normal visualized pulmonary arteries. There is atherosclerotic calcification of the aortic arch with tortuosity. Normal visualized thoracic spine. There is degenerative osteoarthritis of the bilateral shoulders. There is no demonstrated abnormality of the visualized soft tissue structures of the upper abdomen. RAD/Chest 1 View (Portable) IMPRESSION: Increased markings at the lung bases with areas of confluence worse at the left lung base suggestive of a bibasilar atelectasis and/or infiltrate superimposed on basilar scarring. Electronically Signed: Gadiel Herndon, at 13:41 EDT , Service support ,
[2019-02-01 13:44] LABS: Absolute Lymphocyte Count 1.13 X10^3/uL (0.83-4.51); Basophil# 0.02 X10^3/uL; Basophil% 0.2 % (0-1); Eosinophil# 0.03 X10^3/uL; Eosinophils% 0.3 % (0-5); Hematocrit 44.1 % (37-47); Hemoglobin 13.1 g/dL (12.0-15.0); Lymphocyte # 1.13 X10^3/ul (4.0); Lymphocyte % 11.3 % (19-41); Mean Corp Hgb Conc 29.7 g/dL (32-36); Mean Corpuscular Hgb 30.2 pg (27.0-32.0); Mean Corpuscular Volume 101.6 fL (81-99); Mean Platelet Vol. 10.1 fl (6.2-12.0); Monocyte# 0.77 X10^3/uL; Monocyte% 7.7 % (0-10); NRBC Flagged by Analyzer 0 % (0-5); Neutrophil # 7.99 X10^3/uL (2.7-7.7); Neutrophil % 79.8 % (47-70); Platelet Count 241 K/mm3 (150-450); RBC Distribution Width CV 12.5 % (11.6-14.6); RBC Distribution Width SD 47.4 fl (35.1-43.9); Red Blood Count 4.34 M/mm3 (4.2-5.4)
[2019-02-01 13:49] LABS: Prothrombin Time (Protime)PT. 13.1 SECONDS (11.7-14.9)
[2019-02-01 13:59] LABS: Anion Gap 2 (5-15); BUN 18 mg/dL (7-18); BUN/Creat Ratio 14.8 RATIO (10-20); Calcium,Total 9.5 mg/dL (8.5-10.1); Chloride 100 mmol/L (98-107); Creatinine, Serum 1.22 mg/dL (0.55-1.02); EST Glomerular Filtration Rate 45 mL/min (>60); Est Glom Filt Rate - Afr Amer 54 mL/min (>60); Estimated Creatinine Clearance 32.71 ml/min; Glucose 124 mg/dL (74-106); Potassium 4.9 mmol/L (3.5-5.1); Sodium Level 138 mmol/L (136-145)
[2019-02-01 14:14] LABS: BNP,B-Type NATRIURETIC PEPTIDE 40.9 pg/mL (0-100)
--- NOTE | 2019-02-01 14:30 | ED.VISSUMM ---
- ER Visit Summary Date of Service: 02/01/19 Chief Complaint: Lack of energy History of Present Illness: The patient is a 83 F with decreased energy for several weeks. Worse over the last 2 to 3 days such that she can barely walk around in her house. She has chronic pain in her knees, back, shoulder, and hip, but denies any new pains. She went to see her PCP today who thought that she looked pale and sent her here for an evaluation. Patient reports occasional small nosebleeds at night, but no significant bleeding. She does take aspirin and Plavix. History of stroke, coronary disease, COPD, hypertension, chronic respiratory failure, and she is on home oxygen. Physical Examination: Afebrile and vital signs unremarkable. 94% on nasal cannula. Patient appears pale. Heart regular rate and rhythm. Lungs clear. Abdomen soft and nontender. Good strength and sensation. Test Results: EKG showed sinus rhythm at a rate of 55. There is nonspecific T wave changes. No sign of infarction. CBC normal. Glucose 124, creatinine 1.22. Coags normal. Troponin normal. BNP normal. Type and screen was ordered. Urinalysis pending. Chest x-ray showed bibasilar atelectasis versus infiltrate superimposed on scarring. Emergency Department Course and Treatment: Patient placed on nasal cannula oxygen and monitor. Her heart rate at times was around 110, but on further evaluation, I believe that the monitor is picking up her T waves. These T waves are changed since prior, 2017. She is not anemic. Her labs were otherwise fairly unremarkable. Urinalysis is pending. Chest x-ray showed bibasilar atelectasis versus infiltrate. She is not having fevers, sputum. BNP was normal. I am not sure what is causing her shortness of breath, it sounds like her chronic respiratory disease may be worsening. Her EKG is changed but otherwise everything else is fairly unremarkable. I do not believe she has an infection. No fever or leukocytosis. No sputum. Will not start antibiotics at this time. Patient has no history of PE. Given her worsening shortness of breath and EKG changes, hospitalist was contacted for further evaluation. Treatment Plan: As above Disposition: Admit Impression: 1. Dyspnea 2. EKG changes This note was generated with [employer] software. It may contain incorrect words, spelling, and punctuation that were not noted in review of the chart prior to signing ED Disposition - Plan for ED Patient: Referrals: Simeon Lopez MD [Primary Care Provider] -
[2019-02-01] MEDS: Ipratropium/Albuterol Sulfate 3 ML AMPUL.NEB INHALATION ×2 (15:05→18:38)
--- NOTE | 2019-02-01 15:12 | NURSING ---
112 EKG CHANGES, SOB OBS ASHELFAH
--- NOTE | 2019-02-01 15:15 | ED.RN ---
heart rate became eratic from 110's to 141. repeat ekg. dr ansari at bedside. no other new orders this time.
--- NOTE | 2019-02-01 15:25 | PCM.HP.STD ---
Problem List (1) Left ureteral stone Status: Chronic (2) Chronic respiratory failure Status: Chronic (3) COPD (chronic obstructive pulmonary disease) Status: Chronic (4) Coronary artery disease Status: Chronic (5) Hypertension Status: Chronic History of Present Illness Date of Admission: 02/01/19 Chief Complaint: Weakness, lack of energy, shortness of breath. The patient is a 83 year old F with past medical history as mentioned above presented to the emergency department by her PCP for evaluation for generalized weakness, lack of energy and shortness of breath. Patient stated that her symptoms started around 2 weeks ago, mainly with generalized weakness associated with generalized body aches and pains, mild dull aching pain, not more than 3-4 out of 10 severity, associated with exertional shortness of breath as well as fatigue and without aggravating or relieving factors. She mentioned that her symptoms has been slowly progressing over the last 2 weeks but in the last couple of days, she has been more weak, tired, having shortness of breath on minimal exertion and also having generalized body aches and pains. Her PCP sent her today for evaluation for possible anemia. She reported occasional dizziness upon standing. She denied chest pain, syncope or presyncope. She denies abdominal pain, nausea or vomiting. She denied constipation or diarrhea. She denied urinary symptoms. In the emergency department, patient was tachycardic, heart rate has been fluctuating. Her blood pressure was low and then became elevated. Her pulse ox was 99% on 2 L. Initial EKG revealed sinus bradycardia, heart rate of 55 with peaked T waves in leads V3, V4, V5 and V6. While I am examining the patient, her heart rate went up to 130s and her blood pressure started to go up. Repeat EKG revealed sinus tachycardia with PACs, peaked T wave in lateral chest leads, no acute ischemic changes. Routine blood work was remarkable for creatinine of 1.22, otherwise normal. Troponin was negative. BNP was normal. Chest x-ray showed bilateral basilar atelectasis, no acute infiltrate or consolidation. She is being admitted for EKG changes, probable cardiac arrhythmia and generalized weakness. Past Medical History Past Medical History (Chronic Problems): Chronic Problems Hydronephrosis, left (Chronic) Left ureteral stone (Chronic) Chronic respiratory failure (Chronic) COPD (chronic obstructive pulmonary disease) (Chronic) Coronary artery disease (Chronic) Hypertension (Chronic) Allergies Penicillins Allergy (Verified 02/01/19 14:56) Hives ciprofloxacin [From Cipro] Adverse Reaction (Verified 02/01/19 12:47) muscle pain and nausea Home Medications: Ambulatory Orders Medication Instructions Recorded Aspirin [Aspirin, Baby] 81 mg PO DAILY 04/19/17 Clopidogrel Bisulfate [Plavix] 75 mg PO DAILY 04/19/17 Isosorbide Mononitrate [Imdur] 30 mg PO DAILY 04/19/17 Lisinopril [Zestril] 20 mg PO DAILY 04/19/17 Metoprolol Tartrate 37.5 mg PO BID 04/19/17 Surgical History: cataract, cholecystectomy, herniorrhaphy, total hip arthroplasty - Due to hip fracture, - - Aortic aneurysm repair with stents Psychiatric History: - - Memory loss 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 Denies: Anorexia, Chills, Fever Eyes: Denies: Blurred vision, Double vision, Drainage, Vision Change HEENT: Denies: Difficulty Hearing, Ear Pain, Eye Pain, Nasal Congestion, Sore Throat Cardiovascular: Reports: Light Headedness. Denies: Chest Pain, Chest Pressure, Chest Tightness, Heaviness, Palpitations, Syncope Respiratory: Reports: Shortness of Breath, Shortness of breath upon exertion. Denies: Cough, Pleuritic Pain, Sputum production, Wheezing Gastrointestinal: Denies: Abdominal Pain, Constipation, Diarrhea, Nausea, Vomiting Genitourinary: Denies: Dysuria, Frequency, Hematuria Musculoskeletal: Denies: Arm Pain, Back Pain, Foot Pain Skin: Denies: Dryness, Rash Neurological: Denies: Balance problems, Double vision, Change in Speech, Slurred speech, Confusion, Headaches, Incoordination, Numbness, Tingling Psychiatric: Denies: Anxiety, Depression Endocrine: Denies: Change in Body Habitus, Polydipsia, Polyuria VTE Information - Inpt Only VTE Present on Admission: No VTE Mechan Device Prophylaxis: None VTE Pharm Prophylaxis ordered?: Yes - Physical Exam General: Alert, Oriented x3, Cooperative, No apparent distress HEENT: Atraumatic, PERRLA, EOMI, Normocephalic Oral: Moist Mucosa, No Gingival or Mucosal Lesions/ Ulcerations Neck: Supple, No JVD, Negative Carotid Bruits Lungs: Clear to auscultation, Normal air movement, No rhonchi, No wheeze, No rales, Diminished Cardiovascular: Regular rate, Regular Rhythm, Normal S1, Normal S2, PMI Normal, Tachycardic Abdomen: Bowel Sounds Present, Soft, Non Tender, Non-Distended, No Hepato-splenomegaly Extremities: No clubbing, No cyanosis, Edema - Trace edema. Skin: No rashes, No breakdown Lymphatic: No Cervical, Supraclavicular, or Inguinal Adenopathy Neurological: Cranial nerves II-XII grossly intact, Motor Exam 5/5 strength throughout Psych/Mental Status: Normal Affect, Appropriate, Alert and oriented to time, place, person, mood and affect Vital Signs Temp Pulse Resp BP Pulse Ox 98.0 F 126 H 16 140/61 H 97 02/01/19 12:47 02/01/19 15:23 02/01/19 15:23 02/01/19 15:23 02/01/19 15:23 Oxygen Flow Rate (L/min) 2 Oxygen Delivery Method Nasal Cannula Weight: 263 lb Body Mass Index (BMI) 42.4 Laboratory Tests Past 24 Hrs 02/01/19 02/01/19 02/01/19 13:31 13:31 13:31 WBC 10.0 RBC 4.34 Hgb 13.1 Hct 44.1 MCV 101.6 H MCH 30.2 MCHC 29.7 L RDW Std Deviation 47.4 H RDW Coeff of [place] 12.5 Plt Count 241 MPV 10.1 Immature Gran % (Auto) 0.700 Neut % (Auto) 79.8 H Lymph % (Auto) 11.3 L [facility] % (Auto) 7.7 Eos % (Auto) 0.3 Baso % (Auto) 0.2 Absolute Neuts (auto) 8.0 H Absolute Lymphs (auto) 1.13 Nucleated RBC % 0 PT 13.1 INR 1.0 APTT 30.0 Sodium 138 Potassium 4.9 Chloride 100 Carbon Dioxide 36.0 H Anion Gap 2 L BUN 18 Creatinine 1.22 H Estim Creat Clear Calc 32.71 Est GFR (MDRD) Af Amer 54 L Est GFR (MDRD) Non-Af 45 L BUN/Creatinine Ratio 14.8 Glucose 124 H Calcium 9.5 Troponin I < 0.015 B-Natriuretic Peptide 02/01/19 13:31 WBC RBC Hgb Hct MCV MCH MCHC RDW Std Deviation RDW Coeff of [place] Plt Count MPV Immature Gran % (Auto) Neut % (Auto) Lymph % (Auto) [place] % (Auto) Eos % (Auto) Baso % (Auto) Absolute Neuts (auto) Absolute Lymphs (auto) Nucleated RBC % PT INR APTT Sodium Potassium Chloride Carbon Dioxide Anion Gap BUN Creatinine Estim Creat Clear Calc Est GFR (MDRD) Af Amer Est GFR (MDRD) Non-Af BUN/Creatinine Ratio Glucose Calcium Troponin I B-Natriuretic Peptide 40.9 Clinical Impression(s) from Imaging Studies Chest X-Ray 02/01/19 13:25 IMPRESSION: Increased markings at the lung bases with areas of confluence worse at the left lung base suggestive of a bibasilar atelectasis and/or infiltrate superimposed on basilar scarring. Electronically Signed: Gadiel Yanick, at 13:41 EDT , Service support , Assessment/Plan This is an 83 years old female patient was referred to ED by her PCP for evaluation for weakness, fatigue, lack of energy and exertional shortness of breath and she was found to have EKG changes as well as fluctuating blood pressure and heart rate and she is being admitted for evaluation. #1 generalized weakness/lack of energy/fatigue: Unclear etiology, could be due to underlying cardiac etiology. EKG revealed sinus rhythm with peaked T waves in lateral chest leads. Repeat EKG revealed sinus tachycardia with peaked T waves. Potassium is normal. Troponin is negative as well as BNP. Routine blood work was unremarkable except for mildly elevated creatinine. Chest x-ray showed no acute findings. Plan: Admit to PCU for observation, cardiac monitoring, serial cardiac enzymes, check serum TSH, vitamin D, IV fluids, Tylenol as needed, repeat CBC and BMP tomorrow morning, check LFT, PT OT evaluation and treatment. #2 EKG changes/probable cardiac arrhythmia: EKG reviewed as above. No acute ischemic changes, troponin is negative. Plan: Cardiac monitoring, serial cardiac enzymes, repeat EKG tomorrow morning, 2D echocardiogram, check serum magnesium TSH, cardiology consult. #3 mild dehydration: Indicated by slightly with creatinine at 1.22. Plan for IV fluids, repeat BMP tomorrow morning. #4 CAD: Without prior history of cardiac interventions. Continue aspirin, Plavix, nitrates, lisinopril and metoprolol. #5 COPD/chronic respiratory failure: On home oxygen at 2 L. Chest x-ray reviewed, no acute findings. She has been on 2 L, pulse ox is 96%. Plan: DuoNeb every 6 hours, oxygen by nasal cannula. #6 hypertension: Blood pressure has been fluctuating as well as heart rate. Plan to continue lisinopril and metoprolol as well as nitrates. #7 DVT prophylaxis: Subcu Lovenox. This note was generated with [employer] dictation software. It may contain incorrect words, spelling, and punctuation that were not noted in checking the note before signing. Code Visit OBSV E&M: 23510 Initial observation care L3
--- NOTE | 2019-02-01 15:39 | ECHOD_ITS ---
Reason For Study: DYSPNEA/SOB Procedure This was a 2D Doppler, Color Flow transthoracic echocardiogram. Exam performed portable in patient room. Left Ventricle Normal LV size. The estimated ejection fraction is 60 %. Stage 1 diastolic dysfunction. No regional wall motion abnormalities noted. Right Ventricle Normal RV size. Normal systolic function. Atria The left atrium is mildly enlarged. Normal right atrium. Mitral Valve Normal mitral valve. Tricuspid Valve Normal tricuspid valve. Aortic Valve Normal aortic valve. Pulmonic Valve Normal pulmonic valve. Great Vessels Normal aortic root. The pulmonary artery is normal size. Normal inferior vena cava. Pericardium/Pleural No pericardial effusion. MMode/2D Measurements & Calculations LVIDd: 4.8 cm IVSd: 1.3 cm Ao root diam: 3.3 cm LVIDs: 3.2 cm LVPWd: 1.1 cm RVDd: 3.7 cm FS: 33.7 % LAV(MOD-bp): 75.7 ml LA A4 area: 23.4 cm2 LA dimension(2D): 4.1 cm LAV(MOD-bp) Indexed: 33.7 ml/m2 LAV(MOD-sp2): 72.1 ml LAV(MOD-sp4): 72.2 ml RA A4 area: 15.8 cm2 Time Measurements MV dec time: 0.30 sec Doppler Measurements & Calculations MV E max sukhwinder: 68.8 cm/sec Lat Peak E' Sukhwinder: 8.5 cm/sec Med Peak E' Sukhwinder: 6.6 cm/sec MV A max sukhwinder: 101.1 cm/sec E/E' lat: 8.1 E/E' med: 10.4 MV E/A: 0.68 Ao V2 max: 154.3 cm/sec LV V1 max: 113.9 cm/sec PA V2 max: 141.2 cm/sec Ao max P.5 mmHg LV V1 max P.2 mmHg TR max sukhwinder: 305.8 cm/sec TR max P.1 mmHg Interpretation Summary Normal LV size. The estimated ejection fraction is 60 %. Stage 1 diastolic dysfunction. Structurally normal valves. Ordering Physician: Nini Rubio Referring Physician: John Lopez Performed By: Beverly Fan RDCS, RVT
[2019-02-01] MEDS: 0.9% Normal Saline 1,000 ML 75 ML IV (16:07)
[2019-02-01 16:44] LABS: AST(SGOT) 15 U/L (15-37); Alanine Aminotransfer ALT/SGPT 18 U/L (13-56); Albumin, Serum 3.4 g/dL (3.2-5.0); Alkaline Phosphatase 96 U/L (45-117); Bilirubin, Direct 0.17 mg/dL (0.00-0.30); Globulin 3.7 g/dL (2.2-4.2); Magnesium 1.8 mg/dL (1.6-2.6); Protein, Total 7.1 g/dL (6.4-8.2); Thyroid Stim Hormone (TSH) 4.21 uIU/mL (0.358-3.74); Vitamin D,25 Hydroxy 12.7 ng/mL (29.95-100.01)
[2019-02-01] MEDS: Metoprolol Tartrate 25 MG Tablet 37.5 MG PO (21:39)
[2019-02-02] VITALS (16 sets, daily range): BP systolic 111–156; BP diastolic 61–78; PULSE 60–79; RESP 16–22; TEMP 36.2–36.8; O2SAT 92–97
[2019-02-02] MEDS: Ipratropium/Albuterol Sulfate 3 ML AMPUL.NEB INHALATION ×4 (00:40→23:50)
--- NOTE | 2019-02-02 05:22 | EKG12_ITS ---
Test Reason : AM EKG Blood Pressure : / mmHG Vent. Rate : 067 BPM Atrial Rate : 067 BPM P-R Int : 184 ms QRS Dur : 106 ms QT Int : 396 ms P-R-T Axes : 047 064 049 degrees QTc Int : 418 ms Normal sinus rhythm Low voltage QRS Borderline ECG When compared with ECG of 01-FEB-2019 15:17, MANUAL COMPARISON REQUIRED, DATA IS UNCONFIRMED Confirmed by LALO PARR ([id number]), publications editor EMEKA MERA ([id number]) on 02/08/2019 1:16:32 PM Referred By: Nini Rubio Confirmed By:LALO PARR
--- NOTE | 2019-02-02 05:55 | EKG12_ITS ---
Test Reason : SOB Blood Pressure : / mmHG Vent. Rate : 069 BPM Atrial Rate : 069 BPM P-R Int : 172 ms QRS Dur : 100 ms QT Int : 412 ms P-R-T Axes : 001 042 018 degrees QTc Int : 441 ms Sinus rhythm with Premature atrial complexes with Aberrant conduction Low voltage QRS Borderline ECG Confirmed by LALO PARR ([id number]), web editor EMEKA MERA ([id number]) on 02/07/2019 2:26:15 PM Referred By: Nini Rubio Confirmed By:LALO PARR
[2019-02-02 06:09] LABS: Absolute Lymphocyte Count 1.47 X10^3/uL (0.83-4.51); Absolute Neutrophil Count 4.9 X10^3/uL (2.0-7.7); Basophil# 0.02 X10^3/uL; Basophil% 0.3 % (0-1); Eosinophil# 0.08 X10^3/uL; Eosinophils% 1.1 % (0-5); Hematocrit 40.1 % (37-47); Hemoglobin 12.3 g/dL (12.0-15.0); Lymphocyte # 1.47 X10^3/ul (4.0); Lymphocyte % 20.4 % (19-41); Mean Corp Hgb Conc 30.7 g/dL (32-36); Mean Corpuscular Hgb 30.4 pg (27.0-32.0); Mean Corpuscular Volume 99.3 fL (81-99); Mean Platelet Vol. 10.3 fl (6.2-12.0); Monocyte# 0.72 X10^3/uL; NRBC Flagged by Analyzer 0 % (0-5); Neutrophil # 4.88 X10^3/uL (2.7-7.7); Neutrophil % 67.6 % (47-70); Platelet Count 201 K/mm3 (150-450); RBC Distribution Width CV 12.6 % (11.6-14.6); RBC Distribution Width SD 46.1 fl (35.1-43.9); Red Blood Count 4.04 M/mm3 (4.2-5.4); White Blood Count 7.2 K/mm3 (4.4-11.0)
[2019-02-02] MEDS: Enoxaparin 30 MG/0.3 ML Syringe SC (06:12)
[2019-02-02 06:27] LABS: Anion Gap 2 (5-15); BUN 24 mg/dL (7-18); Calcium,Total 8.7 mg/dL (8.5-10.1); Chloride 104 mmol/L (98-107); EST Glomerular Filtration Rate 56 mL/min (>60); Est Glom Filt Rate - Afr Amer 68 mL/min (>60); Glucose 95 mg/dL (74-106); Potassium 4.4 mmol/L (3.5-5.1); Sodium Level 139 mmol/L (136-145)
--- NOTE | 2019-02-02 07:12 | PCM.CONS.C ---
Reason for Consult Date of Consultation: 02/02/19 Reason for Consultation: Abnormal EKG History of Present Illness: The patient is a 83 year old F with past medical history as mentioned above presented to the emergency department by her PCP for evaluation for generalized weakness, lack of energy and shortness of breath. Patient stated that her symptoms started around 2 weeks ago, mainly with generalized weakness associated with generalized body aches and pains, mild dull aching pain, not more than 3-4 out of 10 severity, associated with exertional shortness of breath as well as fatigue and without aggravating or relieving factors. She mentioned that her symptoms has been slowly progressing over the last 2 weeks but in the last couple of days, she has been more weak, tired, having shortness of breath on minimal exertion and also having generalized body aches and pains. Her PCP sent her today for evaluation for possible anemia. She reported occasional dizziness upon standing. She denied chest pain, syncope or presyncope. She denies abdominal pain, nausea or vomiting. She denied constipation or diarrhea. She denied urinary symptoms. In the emergency department, patient was tachycardic, heart rate has been fluctuating. Her blood pressure was low and then became elevated. Her pulse ox was 99% on 2 L. Initial EKG revealed sinus bradycardia, heart rate of 55 with peaked T waves in leads V3, V4, V5 and V6. There was a concern about her EKG and so cardiology was called for further evaluation. Electrolytes have been noted to be normal and she has had no cardiac complaints whatsoever. Past Medical History Allergies/Adverse Reactions: Allergies Penicillins Allergy (Verified 02/01/19 14:56) Hives ciprofloxacin [From Cipro] Adverse Reaction (Verified 02/01/19 12:47) muscle pain and nausea Home Medications: Ambulatory Orders Medication Instructions Recorded Aspirin [Aspirin, Baby] 81 mg PO DAILY 04/19/17 Clopidogrel Bisulfate [Plavix] 75 mg PO DAILY 04/19/17 Isosorbide Mononitrate [Imdur] 30 mg PO DAILY 04/19/17 Lisinopril [Zestril] 20 mg PO DAILY 04/19/17 Metoprolol Tartrate 37.5 mg PO BID 04/19/17 Past Medical History (Chronic Problems): Chronic Problems Hydronephrosis, left (Chronic) Left ureteral stone (Chronic) Chronic respiratory failure (Chronic) COPD (chronic obstructive pulmonary disease) (Chronic) Coronary artery disease (Chronic) Hypertension (Chronic) Surgical History: cataract, cholecystectomy, herniorrhaphy, total hip arthroplasty - Due to hip fracture, - - Aortic aneurysm repair with stents Psychiatric History: - - Memory loss 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 Denies: Night Sweats HEENT: Denies: Vision Change Cardiovascular: Denies: Chest Discomfort, Shortness of Breath, Orthopnea, PND, Peripheral Edema, Palpitations, Lightheadedness, Dizziness, Near Syncope, Syncope Respiratory: Denies: Cough, Sputum Production, Hemoptysis Gastrointestinal: Denies: Hematemesis, Hematochezia, Melena Genitourinary: Denies: Dysuria, Hematuria Skin: Denies: Rash Neurological: Denies: Dizziness Psychiatric: Denies: Anxiety Endocrine: Denies: Heat Intolerance Hematologic/ Lymphatic: Denies: Anemia Subjectve: Patient seen and evaluated. Appears to be doing well. Objective: Vital Signs Temp Pulse Resp BP Pulse Ox 98.3 F 64 16 111/61 94 02/02/19 03:35 02/02/19 03:35 02/02/19 03:35 02/02/19 03:35 02/02/19 03:35 Oxygen Flow Rate (L/min) 2 Oxygen Delivery Method Nasal Cannula Weight: 262 lb 14.4 oz Body Mass Index (BMI) 41.8 Intake and Output for Last 24 Hours 01/31/19 02/01/19 02/02/19 23:59 23:59 23:59 Intake Total 1182.5 / 1182.5 537.5 / 537.5 Output Total 2 / 2 Balance 1181.5 / 1181.5 535.5 / 535.5 General: Awake, Alert, Oriented x 3 HEENT: PERRL, EOMI, Sclera Non Icteric Neck: Supple, Good ROM, No Lymph Node Enlargement Lungs: Clear to auscultation Cardiovascular: Regular Rhythm, Normal S1, Normal S2, No Murmurs, No Rubs, No Gallops Vascular: No Carotid Bruits, Normal Femoral Pulses, Normal Radial Pulses, Normal Dorsalis Pedal Pulse, Normal Posterior Tibial Pulses Abdomen: Bowel Sounds Present, Soft, Non Tender, No HSM, No Organomegaly Extremities: No Cyanosis, No Clubbing, No edema Musculoskeletal: No Erythema Skin: No Rashes Lymphatic: No Lymph Node Enlargement Neurological: No Focal Motor or Sensory Deficit Psych/Mental Status: Appropriate 02/01/19 13:31: WBC 10.0, RBC 4.34, Hgb 13.1, Hct 44.1, MCV 101.6 H, MCH 30.2, MCHC 29.7 L, Plt Count 241, MPV 10.1, Immature Gran % (Auto) 0.700, Neut % (Auto) 79.8 H, Lymph % (Auto) 11.3 L, [place] % (Auto) 7.7, Eos % (Auto) 0.3, Baso % (Auto) 0.2, Absolute Neuts (auto) 8.0 H, Nucleated RBC % 0 02/01/19 13:31: PT 13.1, INR 1.0, APTT 30.0 02/01/19 13:31: Sodium 138, Potassium 4.9, Chloride 100, Carbon Dioxide 36.0 H, Anion Gap 2 L, BUN 18, Creatinine 1.22 H, Est GFR (MDRD) Af Amer 54 L, Est GFR (MDRD) Non-Af 45 L, BUN/Creatinine Ratio 14.8, Glucose 124 H, Calcium 9.5, Troponin I < 0.015 02/01/19 13:31: B-Natriuretic Peptide 40.9 02/01/19 15:55: Magnesium 1.8, Total Bilirubin 0.60, Direct Bilirubin 0.17 02/01/19 15:55: Troponin I < 0.015 02/01/19 20:21: Troponin I < 0.015 02/02/19 05:20: WBC 7.2, RBC 4.04 L, Hgb 12.3, Hct 40.1, MCV 99.3 H, MCH 30.4, MCHC 30.7 L, Plt Count 201, MPV 10.3, Immature Gran % (Auto) 0.600, Neut % (Auto) 67.6, Lymph % (Auto) 20.4, [place] % (Auto) 10.0, Eos % (Auto) 1.1, Baso % (Auto) 0.3, Absolute Neuts (auto) 4.9, Nucleated RBC % 0 02/02/19 05:20: Sodium 139, Potassium 4.4, Chloride 104, Carbon Dioxide 33.0 H, Anion Gap 2 L, BUN 24 H, Creatinine 1.00, Est GFR (MDRD) Af Amer 68, Est GFR (MDRD) Non-Af 56 L, BUN/Creatinine Ratio 24.0 H, Glucose 95, Calcium 8.7 Rhythm: EKG: ECHO: Stress Test: Cardiac Cath: PCI: CT Surgery: Holter monitor: EPS: PPM: CXR: Chest CT Scan: Assessment/Plan 1. EKG with peaked T waves It appears to have EKG with peaked T waves. Cardiac rhythm has been normal overnight with no arrhythmias noted. Letter lites have also been normal. I suspect this is more of a body habitus issue. I do not think this denotes any evidence of ischemia. Cardiac enzymes have also been normal. Would recommend an echocardiogram to assess left ventricular function. If the above is normal I would not recommend any further cardiac work-up or treatment. I have discussed the above with the patient she understands and agrees to proceed. Thank you for allowing me to participate in the care of your patient. Please don't hesitate to call if any issues arise
[2019-02-02 09:58] LABS: T4 Free Direct 0.99 ng/dL (0.76-1.46)
[2019-02-02] MEDS: Isosorbide Mononitrate 30 MG Tablet PO (10:14)
[2019-02-02] MEDS: Lisinopril 20 MG Tablet PO (10:14)
[2019-02-02] MEDS: Metoprolol Tartrate 25 MG Tablet 37.5 MG PO ×2 (10:14→21:25)
[2019-02-02] MEDS: Clopidogrel Bisulfate 75 MG Tablet PO (10:14)
[2019-02-02] MEDS: Aspirin 81 MG TAB.CHEW PO (10:14)
--- NOTE | 2019-02-02 12:09 | CASEMGMT ---
Therapy is recommending HHC for pt at this time. This RN CM to room at this time to discuss with pt. Pt is A/Ox4 at this time and answers all questions appropriately at this time. Pt is updated on therapy recommendation at this time and HHC explanation given. Pt states she is homebound but declines need for HHC at this time. Pt states that she does her own exercises at home. Pt states that she lives with several family members and states no further questions/concerns/needs at this time. SStaten URBAN CM
--- NOTE | 2019-02-02 13:40 | CASEMGMT ---
SW spoke with patient as she requested information on Passport. SW spoke with patient and gave her information. She said she does not qualify for Medicaid. SW encouraged her to call [facility] as they have an information and referral line. She thanked ELISA for the information. Noris HUMPHRIES MSW
--- NOTE | 2019-02-02 13:59 | PCM.PROGNOTE ---
Subjective: SOB has improved. She is still very SOB with light exertion, even a couple steps across the room. No conversational dyspnea. No cough. No wheezing, though yesterday she states she had a little wheezing. No increased LE edema. No CP/pressure/tightness/palp. She chronically uses 2.5 lpm O2 at baseline. 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 She still feels very weak. - Physical Exam General: Alert, Oriented x3, Cooperative HEENT: Atraumatic, PERRLA, EOMI, Normocephalic Neck: Supple, No JVD, Negative Carotid Bruits Lungs: Clear to auscultation, Diminished Cardiovascular: Regular rate, No murmurs Abdomen: Bowel Sounds Present, Soft, Non Tender, Obese Extremities: No edema, Capillary Refill Less than 3 Seconds Skin: No rashes, No breakdown Musculoskeletal: No Tenderness to Palpation of Joints or Extremities Neurological: Cranial nerves II-XII grossly intact Psych/Mental Status: Normal Affect, Appropriate, Alert and oriented to time, place, person, mood and affect Vital Signs Temp Pulse Resp BP Pulse Ox 97.1 F L 79 20 H 156/70 H 95 02/02/19 09:35 02/02/19 10:14 02/02/19 09:35 02/02/19 09:35 02/02/19 09:35 Oxygen Flow Rate (L/min) 2 Oxygen Delivery Method Nasal Cannula Weight: 262 lb 14.4 oz Body Mass Index (BMI) 41.8 Intake and Output for Last 24 Hours 01/31/19 02/01/19 02/02/19 23:59 23:59 23:59 Intake Total 1182.5 / 1182.5 537.5 / 537.5 Output Total 2 / 2 Balance 1181.5 / 1181.5 535.5 / 535.5 Laboratory Tests Past 24 Hrs 02/01/19 02/01/19 02/01/19 13:31 13:31 15:55 WBC RBC Hgb Hct MCV MCH MCHC RDW Std Deviation RDW Coeff of Tatum Plt Count MPV Immature Gran % (Auto) Neut % (Auto) Lymph % (Auto) [place] % (Auto) Eos % (Auto) Baso % (Auto) Absolute Neuts (auto) Absolute Lymphs (auto) Nucleated RBC % Sodium 138 Potassium 4.9 Chloride 100 Carbon Dioxide 36.0 H Anion Gap 2 L BUN 18 Creatinine 1.22 H Estim Creat Clear Calc 32.71 Est GFR (MDRD) Af Amer 54 L Est GFR (MDRD) Non-Af 45 L BUN/Creatinine Ratio 14.8 Glucose 124 H Calcium 9.5 Magnesium 1.8 Total Bilirubin 0.60 Direct Bilirubin 0.17 AST 15 ALT 18 Alkaline Phosphatase 96 Troponin I < 0.015 B-Natriuretic Peptide 40.9 Total Protein 7.1 Albumin 3.4 Globulin 3.7 Vitamin D 25-Hydroxy TSH 4.21 H Free T4 02/01/19 02/01/19 02/01/19 15:55 15:55 20:21 WBC RBC Hgb Hct MCV MCH MCHC RDW Std Deviation RDW Coeff of Tatum Plt Count MPV Immature Gran % (Auto) Neut % (Auto) Lymph % (Auto) [place] % (Auto) Eos % (Auto) Baso % (Auto) Absolute Neuts (auto) Absolute Lymphs (auto) Nucleated RBC % Sodium Potassium Chloride Carbon Dioxide Anion Gap BUN Creatinine Estim Creat Clear Calc Est GFR (MDRD) Af Amer Est GFR (MDRD) Non-Af BUN/Creatinine Ratio Glucose Calcium Magnesium Total Bilirubin Direct Bilirubin AST ALT Alkaline Phosphatase Troponin I < 0.015 < 0.015 B-Natriuretic Peptide Total Protein Albumin Globulin Vitamin D 25-Hydroxy 12.7 L TSH Free T4 02/02/19 02/02/19 02/02/19 05:20 05:20 05:20 WBC 7.2 RBC 4.04 L Hgb 12.3 Hct 40.1 MCV 99.3 H MCH 30.4 MCHC 30.7 L RDW Std Deviation 46.1 H RDW Coeff of Tatum 12.6 Plt Count 201 MPV 10.3 Immature Gran % (Auto) 0.600 Neut % (Auto) 67.6 Lymph % (Auto) 20.4 [place] % (Auto) 10.0 Eos % (Auto) 1.1 Baso % (Auto) 0.3 Absolute Neuts (auto) 4.9 Absolute Lymphs (auto) 1.47 Nucleated RBC % 0 Sodium 139 Potassium 4.4 Chloride 104 Carbon Dioxide 33.0 H Anion Gap 2 L BUN 24 H Creatinine 1.00 Estim Creat Clear Calc 39.90 Est GFR (MDRD) Af Amer 68 Est GFR (MDRD) Non-Af 56 L BUN/Creatinine Ratio 24.0 H Glucose 95 Calcium 8.7 Magnesium Total Bilirubin Direct Bilirubin AST ALT Alkaline Phosphatase Troponin I B-Natriuretic Peptide Total Protein Albumin Globulin Vitamin D 25-Hydroxy TSH Free T4 0.99 Medical Necessity - Tobacco Use Smoking Status: Former smoker Tobacco Use: Cigarettes Assessment/Plan 1. SOB/EKG changes (peaked T waves) - cardiology following - Recommended echo. Pending at this time. We have treated her with aerosols and her SOB has improved. She has COPD and chronic respiratory failure and does not have any medications for this listed in her home meds. She reportedly has seen Pulmonary at [facility] in the past. She plans to transition to [facility] pulmonary. She likely has KYLE and pulmonary HTN. -BNP neg -Trop neg x3. 2. COPD with chronic hypoxic respiratory failure - also with mild CO2 increase. Suspect KYLE and pulmonary HTN. Needs o/p sleep study and PFTs. Echo pending. No wheezing. 3. CAD - asa/plavix/imdur/metoprolol/lisinopril. She is not on a statin. 4. HTN - somewhat fluctuant. trend. 5. 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 This patient was seen by Elmo Shipman PA-C under the supervision of Doctor De La Torre.
[2019-02-03] VITALS (7 sets, daily range): BP systolic 118–141; BP diastolic 55–66; PULSE 61–80; RESP 16–18; TEMP 36.5–36.6; O2SAT 95–97
[2019-02-03] MEDS: Enoxaparin 30 MG/0.3 ML Syringe SC (06:17)
[2019-02-03] MEDS: Ipratropium/Albuterol Sulfate 3 ML AMPUL.NEB INHALATION ×2 (06:48→13:00)
[2019-02-03] MEDS: Lisinopril 20 MG Tablet PO (09:31)
[2019-02-03] MEDS: Metoprolol Tartrate 25 MG Tablet 37.5 MG PO (09:31)
[2019-02-03] MEDS: Clopidogrel Bisulfate 75 MG Tablet PO (09:31)
[2019-02-03] MEDS: Isosorbide Mononitrate 30 MG Tablet PO (09:31)
[2019-02-03] MEDS: Aspirin 81 MG TAB.CHEW PO (09:31)
--- NOTE | 2019-02-03 10:20 | CASEMGMT ---
This RN CM to room with PARK form at this time, explanation done-voices understanding, and pt signed PARK form at this time. Original to chart and copy to pt at this time. Pt voices no further questions/concerns/needs at this time. SStaten URBAN BROWN
--- NOTE | 2019-02-03 10:33 | CASEMGMT ---
Per nursing, pt's daughter called in and was asking about HHC for pt and stated that pt just lies around all day. Pt had declined HHC and pt is A/Ox4 at this time. This RN CM to room again to discuss with pt and pt states no concerns with going home at this time. Pt states that she is fairly active at home and still declines HHC at this time. Pt states no further questions/concerns/needs at this time. SStaten RN CM
--- NOTE | 2019-02-03 12:58 | DCINST_ITS ---
You will use the following diet at home:: Cardiac Your food should be the consistency of: Regular Your liquids should be the consistency of: Regular/Thin Discharge Activity: - - activity as tolerated Call your doctor if you observe: Fever of 101 or Higher, Shortness of breath, Dizziness, Fainting spells, Swelling in the ankles, Chest pain Additional Instructions: 1. You were dehydrated at admission and this can cause lightheadedness, weakness, muscle cramps and shortness of breath with exertion. I suspect the dehydration may be the root of the trouble at admission. Your heart squeezes normally and there was no congestive heart failure. There was no problem with the heart monitor. Your heart is good. Make sure to drink enough water a day to keep the urine a pale yellow. 2. I think you may have sleep apnea. I suggest that you follow up with the pulmonary medicine clinic to arrange for pulmonary function tests and a sleep study......treating seep apnea would definitely help your breathing and also your energy level. Allergies/Adverse Reactions: Allergies Penicillins Allergy (Verified 02/01/19 14:56) Hives ciprofloxacin [From Cipro] Adverse Reaction (Verified 02/01/19 12:47) muscle pain and nausea Medications to take at Discharge Aspirin [Aspirin, Baby] 81 mg PO DAILY 04/19/17 Clopidogrel Bisulfate [Plavix] 75 mg PO DAILY 04/19/17 Isosorbide Mononitrate [Imdur] 30 mg PO DAILY 04/19/17 Lisinopril [Zestril] 20 mg PO DAILY 04/19/17 Metoprolol Tartrate 37.5 mg PO BID 04/19/17 Primary Care Physician: Simeon Lopez MD [Primary Care Provider] - Please follow up with your Primary Care Physician in: 1 week Test Results: Test results from this visit will be discussed in further detail at your follow- up appointment, if applicable. Please Follow Up With: Nivia Collazo - pulmonary office When: 2-3 weeks to arrange for PFT's and a sleep study Proposed Discharge Date: 02/03/19
--- NOTE | 2019-02-03 13:13 | PCM.DC.SUM ---
Discharge Date and Diagnosis Date of Admission: 02/01/19 Date of Discharge: 02/03/19 - Primary Discharge Diagnosis Active and Suspected Problems ALVARES (dyspnea on exertion) (Acute) Dehydration (Acute) Elevated serum creatinine (Acute) - resolved with hydration Abnormal EKG (Acute) - peaked T waves Vitamin D deficiency (Acute) - Secondary Discharge Diagnosis Chronic Problems Morbid obesity (Chronic) Hydronephrosis, left (Chronic) Left ureteral stone (Chronic) Chronic respiratory failure with hypoxemia (Chronic) COPD (chronic obstructive pulmonary disease) (Chronic) Coronary artery disease (Chronic) Hypertension (Chronic) Suspected sleep apnea Hospital Course and Treatment Imaging Results: Clinical Impression(s) from Imaging Studies Chest X-Ray 02/01/19 13:25 IMPRESSION: Increased markings at the lung bases with areas of confluence worse at the left lung base suggestive of a bibasilar atelectasis and/or infiltrate superimposed on basilar scarring. Electronically Signed: Gadiel Herndon, at 13:41 EDT , Service support , [facility] Operations[facility] None, - - Cystoscopy with left stent placement 04/20/2017 Procedures: 2-D Echocardiogram - Interpretation Summary Normal LV size. The estimated ejection fraction is 60 %. Stage 1 diastolic dysfunction. Structurally normal valves. Summary of Care Provided: The patient is a 83 year old F with a past medical history of chronic respiratory failure with hypoxemia, COPD, coronary artery disease, hypertension and morbid obesity who presented to the emergency department at [facility] on 02/01/2019 complaining of weakness, lack of energy and shortness of breath with exertion. She also complained of generalized body aches and pains. Her primary care physician sent her to the emergency room to be evaluated for possible anemia. Vital signs of presentation to the emergency room were temperature 90 ?F, pulse rate 61, blood pressure 120/61, respiratory rate 18 and she was 94% saturated on a 2 L nasal cannula. Blood pressure later dropped to 93/49. Labs showed a white blood cell count of 10.0 with 79.8% neutrophils. Hemoglobin was 13.1 and platelets were within normal limits. She had macrocytic indices. Serum bicarb was elevated at 36 and the BUN was 18 with a creatinine of 1.22, in April 2017. TSH was mildly increased to 4.21 but the T4 was within normal limits. Vitamin D was decreased at 12.7. LFTs were normal. Troponins were negative x2. Chest x-ray was reported by the radiologist as having increased markings at the lung bases suggestive of bibasilar atelectasis and/or infiltrate. EKG showed sinus bradycardia with peaked T waves in leads V3, V4, V5 and V6. There was no ST elevation. She was admitted to a monitored bed on PCU for observation. Cardiology was consulted regarding the abnormal EKG. She was seen in consultation by Dr. Jason Hernandez who reviewed her telemetry strips that showed no arrhythmias overnight. Serial troponins were negative. He thought the EKG changes did not denote any evidence of ischemia. He recommended an echocardiogram to assess left ventricular function and no further treatment if the echocardiogram had no wall motion abnormalities. Echocardiogram showed normal left ventricular size with an estimated ejection fraction of 60% and no wall motion abnormalities. There was stage I diastolic dysfunction. She was hydrated and the serum bicarb came down to 33 and the creatinine came down to 1.0 from 1.22 at admission. BUN was 24. On 02/03/2019 she denied any myalgias/arthralgias and stated she felt back to her baseline. She was discharged home on 02/03/2019 and instructed to resume her regular home medications. She will follow-up with Dr. Lopez in 1 week. She will also follow-up with Nivia Pate NP in the pulmonary office in 2 to 3 weeks to arrange for pulmonary function tests and a sleep study. PHYSICAL EXAM: GENERAL: alert, oriented X 3, Cooperative, NAD ORAL: moist mucosa, no mucosal lesions NECK: No JVD, supple, trachea midline LUNGS: CTA, symmetric chest expansion, diminished - likely due to body habitus HEART: RRR, Normal S1 and S2, no rub, no gallop ABDOMEN: soft, NT, ND, BS present, obese with no guarding with palpation EXTREMITIES: no edema, no cyanosis, no calf tenderness, no red swollen joints SKIN: No rashes, no breakdown NEUROLOGIC: no focal neurologic deficits PSYCH: appropriate, normal affect, pleasant This note was generated with ScalITation software. It may contain incorrect words, spelling, and punctuation that were not noted in checking the note before signing. - Physical Exam Vital Signs Temp Pulse Resp BP Pulse Ox 97.9 F 80 18 118/55 L 95 02/03/19 09:23 02/03/19 09:31 02/03/19 09:23 02/03/19 09:23 02/03/19 09:23 Oxygen Flow Rate (L/min) 2 Oxygen Delivery Method Nasal Cannula Weight: 262 lb 14.384 oz Body Mass Index (BMI) 41.8 Intake and Output for Last 24 Hours 02/01/19 02/02/19 02/03/19 23:59 23:59 23:59 Intake Total 1182.5 / 1182.5 1017.5 / 1217.5 320 / 320 Output Total Balance 1181.5 / 1181.5 1015.5 / 1215.5 320 / 320 Discharge Activity: - - activity as tolerated Call your doctor if you observe: Fever of 101 or Higher, Shortness of breath, Dizziness, Fainting spells, Swelling in the ankles, Chest pain Home Medications: Medications to take at Discharge Aspirin [Aspirin, Baby] 81 mg PO DAILY 04/19/17 Clopidogrel Bisulfate [Plavix] 75 mg PO DAILY 04/19/17 Isosorbide Mononitrate [Imdur] 30 mg PO DAILY 04/19/17 Lisinopril [Zestril] 20 mg PO DAILY 04/19/17 Metoprolol Tartrate 37.5 mg PO BID 04/19/17 Cholecalciferol (VIT D3) [Vitamin D3] 1,000 unit PO BID #60 tab 02/03/19 Following Prescrptions Were Given to Patient: Cholecalciferol (VIT D3) [Vitamin D3] 1,000 unit PO BID #60 tab Transmission Status: Received by [employer] [facility] Primary Care Physician: Simeon Lopez MD [Primary Care Provider] - Please follow up with your Primary Care Physician in: 1 week Please Follow Up With: Nivia Collazo - pulmonary office When: 2-3 weeks to arrange for PFT's and a sleep study Disposition: Home Minutes spent on discharge:: 30 Patient Condition:: Good Medical Necessity - Tobacco Use Smoking Status: Former smoker Tobacco Use: Non-smoker Meaningful Use Info Meaningful Use Diagnoses (Choose all that apply): None applicable Code Visit OBSV E&M: 98988 Observation care discharge
== END 2019-02-03 13:11 | disposition home or self-care (01) ==
LOC: ED 15:06 → PCU 15:25
PROVIDERS: Physician Assistant; Admitting Provider Hospitalist; Emergency Provider Emergency Medicine; Family Provider Family Medicine; PCP Family Medicine; Referring Provider Hospitalist; Visit Provider Internal Medicine
DX: E86.0 Dehydration (principal); E55.9 Vitamin D deficiency, unspecified; R00.1 Bradycardia, unspecified; R53.1 Weakness; R94.4 Abnormal results of kidney function studies; J44.9 Chronic obstructive pulmonary disease, unspecified; I10 Essential (primary) hypertension; I25.10 Atherosclerotic heart disease of native coronary artery without angina pectoris; R06.02 Shortness of breath; R94.31 Abnormal electrocardiogram [ECG] [EKG]; J96.11 Chronic respiratory failure with hypoxia; E66.01 Morbid (severe) obesity due to excess calories; Z79.899 Other long term (current) drug therapy; Z79.02 Long term (current) use of antithrombotics/antiplatelets; Z99.81 Dependence on supplemental oxygen; Z86.73 Personal history of transient ischemic attack (TIA), and cerebral infarction without residual deficits; Z79.82 Long term (current) use of aspirin; Z87.891 Personal history of nicotine dependence; Z68.41 Body mass index [BMI] 40.0-44.9, adult; Z71.3 Dietary counseling and surveillance
CPT/HCPCS: 36415; 71045; 80048; 80076; 82306; 83735; 83880; 84439; 84443; 84484; 85025; 85610; 85730; 93005; 93306; 94640; 96360; 96361; 96372; 97162; 97166; 97802; 99218; 99285; J7030; Q9957; A4216; G0378

== ENCOUNTER → 2021-02-26 10:45 | Outpatient (CLI) | payer MEDICARE, SELFPAY ==
[2019-02-01 15:49] VITALS: BMI 41.8
--- NOTE | 2021-02-26 10:57 | US_ITS ---
STUDY: SUPERFICIAL ULTRASOUND - SOFT TISSUES OF THE BACK REASON FOR EXAM: Female, 85 years old. Palpable lump TECHNIQUE: A superficial ultrasound was performed with real-time and static machado-scale imaging. COMPARISON: None. FINDINGS: There is an 8.5 x 5.5 x 3.6 cm oval shaped isoechoic mass with smooth rounded borders. This is of uncertain etiology. US/Ext Non Vasc Limited/Soft Tiss IMPRESSION: 8.5 x 5.5 x 3.6 cm oval shaped isoechoic mass with smooth rounded borders. This is of uncertain etiology. If indicated, further evaluation with CT or MRI can be performed. Electronically Signed: José Miguel Fernandez MD at 13:50 EDT Tel , Service support ,
== END ==
PROVIDERS: PCP Family Medicine; Referring Provider Surgery; Visit Provider Surgery
DX: L98.9 Disorder of the skin and subcutaneous tissue, unspecified (principal)
CPT/HCPCS: 76882

== ENCOUNTER 2021-12-10 15:22 | Observation (INO) | payer MEDICARE, SELFPAY ==
[2021-12-10] VITALS (11 sets, daily range): BP systolic 134–179; BP diastolic 44–151; PULSE 64–95; RESP 16–25; TEMP 36.4–37.1; O2SAT 91–100; BMI 40.4
--- NOTE | 2021-12-10 15:38 | EKG12_ITS ---
Test Reason : SOB Blood Pressure : / mmHG Vent. Rate : 067 BPM Atrial Rate : 067 BPM P-R Int : 182 ms QRS Dur : 112 ms QT Int : 418 ms P-R-T Axes : 016 -15 002 degrees QTc Int : 441 ms Normal sinus rhythm Low voltage QRS Incomplete right bundle branch block Possible Anterolateral infarct , age undetermined Abnormal ECG Confirmed by JANAE WINTERS, ARTEMIO ([id number]), digital editor INDIRA PORTER ([id number]) on 12/12/2021 2:11:44 PM Referred By: Jessie Confirmed By:ARTEMIO CARDOSO MD
--- NOTE | 2021-12-10 15:40 | RAD_ITS ---
STUDY: X-RAY CHEST REASON FOR EXAM: Female, 86 years old. sob TECHNIQUE: XR Chest 1 View COMPARISON: 02.01.19 FINDINGS: There is no demonstrated pleural abnormality. Normal size heart. Normal mediastinum and chika. Normal visualized pulmonary arteries. There is atherosclerotic calcification of the aortic arch with tortuosity. There are diffuse degenerative changes of the visualized thoracic spine. There is degenerative osteoarthritis of the bilateral shoulders. There is no demonstrated abnormality of the visualized soft tissue structures of the upper abdomen. RAD/Chest 1 View (Portable) IMPRESSION: There are no acute findings. Electronically Signed: Elvis Newton MD at 17:17 EDT ,
--- NOTE | 2021-12-10 15:40 | EX.ED.DYSGE1 ---
HPI History of Present Illness Chief Complaint: Shortness of Breath Detail of Chief Complaint: Hypoxia Informant: patient Onset/Context/Timing Onset: Weeks Context: Gradual Onset Current Severity: Mild Maximum Severity: Moderate Narrative Narrative: Patient presents with approximate 1 month history of not feeling well. She reports shortness of breath with wheezing and cough. She is not bringing up any sputum. She complains of diffuse body aches. No fever noted. Patient went to see her primary care physician today where she reportedly was 84% on her normal 2.5 L of oxygen. She was turned up to 5 L and sent to the emergency room for evaluation. She states she does use an albuterol inhaler but stopped using her aerosol machine feeling like it was not helping her at all. She has not been on steroids or antibiotics recently. [facility] Medical History Chronic respiratory failure COPD (chronic obstructive pulmonary disease) Coronary artery disease Hypertension Left ureteral stone Morbid obesity Home Medications aspirin 81 mg chewable tablet 81 mg PO DAILY heart health 04/19/17 [History Last Taken 02/01/19] clopidogrel 75 mg tablet 75 mg PO DAILY antiplatelet 04/19/17 [History Last Taken 02/01/19] isosorbide mononitrate 30 mg tablet,extended release 24 hr 30 mg PO DAILY chest pain/blood pressure 04/19/17 [History Last Taken 02/01/19] lisinopril 20 mg tablet (Zestril) 20 mg PO DAILY blood pressure 04/19/17 [History Last Taken 02/01/19] metoprolol tartrate 37.5 mg tablet 37.5 mg PO BID blood pressure 04/19/17 [History Last Taken 02/01/19] cholecalciferol (vitamin D3) 25 mcg (1,000 unit) tablet 1,000 unit PO BID #60 tabs 02/03/19 [Rx Last Taken Unknown] Allergy/AdvReac Type Severity Reaction Status Date / Time Penicillins Allergy Hives Verified 02/01/19 14:56 ciprofloxacin [From Cipro] AdvReac muscle Verified 02/01/19 12:47 pain and nausea Social History Smoking Status: Never smoker ROS ROS ED Constitutional Constitutional ED: Denies chills or fever(s) Eyes Eyes: Denies change in vision or discharge from eye(s) ENT ENT ED: Denies discharge from eye(s), rhinorrhea or sore throat Cardiovascular Cardiovascular: Denies chest pain or palpitations Respiratory/Chest Respiratory/Chest: Reports cough and dyspnea; Denies sputum Gastrointestinal Gastrointestinal: Denies abdominal pain, diarrhea, nausea or vomiting Genitourinary Genitourinary ED: Denies dysuria Musculoskeletal Musculoskeletal: Reports arthralgias and myalgias; Denies back pain Integumentary Denies Abrasions or rash Neurologic Neurologic: Denies headache(s) or weakness Psychiatric Psychiatric: Denies anxiety or depression Allergic/Immunologic Allergic/Immunologic ED: Denies lip swelling or urticaria EXAM Physical Exam Const Vital Signs: 12/10/21 15:23 12/10/21 15:23 12/10/21 15:53 Temperature 97.6 F L 97.6 F L Temperature Source Temporal Temporal Pulse Rate 64 64 70 Respiratory Rate 18 18 20 H Respiratory Effort Respiratory Pattern Blood Pressure 152/69 H 152/69 H Blood Pressure Mean 96 96 Pulse Ox 100 100 Oxygen Delivery Method Nasal Cannula Nasal Cannula Oxygen Flow Rate (L/min) 5 5 12/10/21 16:05 12/10/21 16:23 12/10/21 17:00 Temperature Temperature Source Pulse Rate 70 82 Respiratory Rate 20 H 18 Respiratory Effort Short of Breath Respiratory Pattern Tachypnea Blood Pressure 179/151 H 138/64 H Blood Pressure Mean 160 88 Pulse Ox 92 92 Oxygen Delivery Method Nasal Cannula Nasal Cannula Nasal Cannula Oxygen Flow Rate (L/min) 2 2 2 Positive well nourished and well developed General Appearance ED: well developed HEENT Reports normocephalic and head/scalp atraumatic Eyes PERRL and EOMs intact bilaterally Neck supple Chest Wall inspection of chest normal and palpation of chest normal Resp Resp Narrative: Mild expiratory wheezes bilaterally. Patient speaking full sentences. Cardio regular rate and regular rhythm GI non-tender Palpation: soft Back/Spine no CVA tenderness Extremity normal to inspection Neuro oriented x3 and no sensory deficits noted Sensorium / Orientation: alert Motor Exam: strength 5/5 throughout Psych mental status grossly normal Skin no rashes or lesions noted MDM MDM MDM Narrative Medical decision making narrative: Patient placed on quality assurance monitor final. EKG and chest x-ray obtained. Lab work ordered. COVID test obtained. Patient was given a DuoNeb along with 2 albuterol aerosols and a dose of IV Solu-Medrol. Lab Data Attestation: I reviewed the patient's lab results. Labs: Laboratory Results - last 24 hr 12/10/21 12/10/21 15:57 15:57 WBC 9.9 RBC 4.22 Hgb 12.9 Hct 43.1 MCV 102.1 H MCH 30.6 MCHC 29.9 L RDW Std Deviation 47.2 H RDW Coeff of Tatum 12.7 Plt Count 228 MPV 10.6 Immature Gran % (Auto) 0.500 Neut % (Auto) 73.8 H Lymph % (Auto) 15.3 L [place] % (Auto) 10.0 Eos % (Auto) 0.2 Baso % (Auto) 0.2 Absolute Neuts (auto) 7.3 Absolute Lymphs (auto) 1.52 Nucleated RBC % 0 Sodium 143 Potassium 4.5 Chloride 103 Carbon Dioxide 39.0 H Anion Gap 1 L BUN 18 Creatinine 0.82 Estim Creat Clear Calc 46.10 Est GFR (MDRD) Af Amer 85 Est GFR (MDRD) Non-Af 70 BUN/Creatinine Ratio 22.0 H Glucose 86 Calcium 9.7 Troponin I High Sens 7 Radiography Chest X-Ray - ED: 1 View, Read by ED Physician and Chronic Changes Diagnostic Testing: Clinical Impression(s) from Imaging Studies Chest X-Ray 12/10/21 15:40 IMPRESSION: There are no acute findings. Electronically Signed: Elvis Newton MD at 17:17 EDT Reading Location ID and State: [facility] / [place] , Service support , EKG Initial EKG: Attestation: I personally reviewed and interpreted this EKG as follows: Interpretation: Sinus Rhythm (Sinus at 67 with no acute ischemia.) Treatment and Re-Evaluation Narrative: Portable chest x-ray per my interpretation reveals poor inspiration with no focal infiltrate. Radiology interpretation is reviewed. COVID test is negative. Lab work is unremarkable including normal troponin. EKG reveals no ischemia. On repeat evaluation patient's O2 was able to be titrated back down to 2 and half liters. When I went in to reevaluate her her O2 sat was 88% and she had to be turned back up to 4 L. She still has some scant wheezing noted but much improved when compared to arrival. Patient will require observation for further treatment. She will be given a dose of Zithromax at this time. Discharge Plan Triage Chief Complaint: Shortness of Breath ED Provider: Wendi Roman Dx/Rx/DC Orders Clinical Impression: COPD exacerbation Prescriptions: No Action lisinopril [Zestril] 20 MG tablet 20 mg PO DAILY Label Comments: BLOOD PRESSURE isosorbide mononitrate 30 MG tablet 30 mg PO DAILY Label Comments: HEART/BLOOD PRESSURE clopidogrel 75 MG tablet 75 mg PO DAILY Label Comments: BLOOD THINNER aspirin 81 MG Tab.Chew 81 mg PO DAILY Label Comments: HEART HEALTH metoprolol tartrate 37.5 MG tablet 37.5 mg PO BID Label Comments: HEART cholecalciferol (vitamin D3) 1,000 UNIT tablet 1,000 unit PO BID Qty: 60 0RF Primary Care Provider: Simeon Lopez Referrals: Simeon Lopez MD [Primary Care Provider] - Disposition Disposition: Acute Care Hospital [facility]
[2021-12-10] MEDS: Albuterol 2.5 MG/3 ML VIAL.NEB. INHALATION ×2 (15:53)
[2021-12-10] MEDS: Ipratropium/Albuterol Sulfate 3 ML AMPUL.NEB INHALATION ×2 (15:53→21:37)
[2021-12-10] MEDS: MethylPREDNISolone 125 MG/2 ML Vial IV (16:00)
[2021-12-10 16:13] LABS: Absolute Lymphocyte Count 1.52 X10^3/uL (0.83-4.51); Absolute Neutrophil Count 7.3 X10^3/uL (2.0-7.7); Basophil# 0.02 X10^3/uL; Basophil% 0.2 % (0-1); Eosinophil# 0.02 X10^3/uL; Eosinophils% 0.2 % (0-5); Hematocrit 43.1 % (37-47); Hemoglobin 12.9 g/dL (12.0-15.0); Lymphocyte # 1.52 X10^3/ul (0.83-4.51); Lymphocyte % 15.3 % (19-41); Mean Corp Hgb Conc 29.9 g/dL (32-36); Mean Corpuscular Hgb 30.6 pg (27.0-32.0); Mean Corpuscular Volume 102.1 fL (81-99); Mean Platelet Vol. 10.6 fl (6.2-12.0); Monocyte# 0.99 X10^3/uL; NRBC Flagged by Analyzer 0 % (0-5); Neutrophil # 7.34 X10^3/uL (2.7-7.7); Neutrophil % 73.8 % (47-70); Platelet Count 228 K/mm3 (150-450); RBC Distribution Width CV 12.7 % (11.6-14.6); RBC Distribution Width SD 47.2 fl (35.1-43.9); Red Blood Count 4.22 M/mm3 (4.2-5.4); White Blood Count 9.9 K/mm3 (4.4-11.0)
[2021-12-10 16:31] LABS: Anion Gap 1 (5-15); BUN 18 mg/dL (7-18); Calcium,Total 9.7 mg/dL (8.5-10.1); Chloride 103 mmol/L (98-107); Creatinine, Serum 0.82 mg/dL (0.55-1.02); EST Glomerular Filtration Rate 70 mL/min (>60); Est Glom Filt Rate - Afr Amer 85 mL/min (>60); Glucose 86 mg/dL (74-106); Potassium 4.5 mmol/L (3.5-5.1); Sodium Level 143 mmol/L (136-145); Troponin-I HS 7 pg/mL (3.0-54.0)
--- NOTE | 2021-12-10 17:49 | NURSING ---
MED SURG TONA COPD EXAC
--- NOTE | 2021-12-10 18:15 | PCM.HP.STD ---
[facility] - General General Date of Admission: 12/10/21 Date of Service: 12/10/21 Chief Complaint: Shortness of breath HPI Narrative RADHA MO, is a 86 F who presented to the emergency department [facility] on 12/10/2021 with a chief complaint of shortness of breath. Patient states that it really has been ongoing over the last month and has been worsening. She is had increased shortness of breath and coughing with decreased exercise tolerance. She is had increased cough and wheezing but not bringing up any sputum. She complains of myalgias but no fever or chills. She went to see her primary care physician today where her oxygen saturations were 84% on 2.5 L nasal cannula, which is her baseline and they subsequently increase this to 5 L and sent her to the emergency department for evaluation. She does not currently use any inhalers as she felt they were not effective for her. She used to follow-up with pulmonology at [facility] however has not seen anybody in the last 2 years. She states her primary care physician is going to get her set up with a new tire fixer coming to [facility]. The emergency department she was given inhalers and steroids and she had a positive response and was able to be weaned to 2 L but then oxygen levels dropped again and she was placed back on 4 L. She currently lives with her daughter and son-in-law. Her daughter indicates she is having increased difficulty with some activities of daily living and they are interested in more resources to help her at home. She has been experiencing some generalized weakness. Vital signs on presentation the emergency department were temp 97.6, heart rate 64, blood pressure 152/69, respiratory rate anywhere from 18-20 with oxygen saturations 100% on 5 L nasal cannula. This was 84% at her primary care physician's office on 2.5 L. In the emergency department she was weaned to 2 L but she further desatted and was on 4 L at the time of my evaluation. Her CBC was overall unremarkable other than his chronic macrocytosis. Her chemistry panel showed a chronically elevated serum bicarb at 39 and this evidently has been elevated since 2017. High-sensitivity troponin was 7. Chest x-ray showed no acute findings. Her EKG was unremarkable for any acute changes suggesting acute myocardial ischemia. [facility] Medical History (Updated 12/10/21 @ 18:[address] Eda Oden DO) Chronic respiratory failure COPD (chronic obstructive pulmonary disease) Coronary artery disease Hypertension Left ureteral stone Morbid obesity Vitamin D deficiency Home Medications clopidogrel 75 mg tablet 75 mg PO DAILY antiplatelet 04/19/17 [History Last Taken 12/10/21] isosorbide mononitrate 30 mg tablet,extended release 24 hr 30 mg PO DAILY chest pain/blood pressure 04/19/17 [History Last Taken 12/10/21] lisinopril 20 mg tablet (Zestril) 20 mg PO DAILY blood pressure 04/19/17 [History Last Taken 12/10/21] atorvastatin 80 mg tablet 80 mg PO QHS cholesterol 12/10/21 [History Last Taken 12/09/21] metoprolol tartrate 25 mg tablet 37.5 mg PO BID heart 12/10/21 [History Last Taken 12/10/21] Allergy/AdvReac Type Severity Reaction Status Date / Time Penicillins Allergy Hives Verified 02/01/19 14:56 ciprofloxacin [From Cipro] AdvReac muscle Verified 02/01/19 12:47 pain and nausea Family History (Updated 12/10/21 @ 18:[address] Eda Oden DO) Other COPD (chronic obstructive pulmonary disease) Heart disease Hypertension Social History (Updated 12/10/21 @ 18:[address] Eda Oden DO) household members: family housing: house Smoking Status: Former smoker how long ago did patient quit smoking: Quit 14 years ago alcohol intake: current alcohol intake frequency: holidays/special occasions only substance use type: does not use ROS Constitutional Constitutional: Denies anorexia, change in weight, chills, fatigue, fever(s), malaise, night sweats, weakness or other Eyes Eyes: Denies blurry vision, change in eye color, change in vision, discharge from eye(s), double vision, erythema, eye pain, loss of vision or other ENT HEENT: Denies abnormal hearing, dysphagia, ear pain, epistaxis, headache(s), hearing loss, nasal congestion, nasal discharge, post nasal drip, sinus pressure, sore throat or other Cardiovascular Cardiovascular: Reports dyspnea on exertion; Denies chest pain, claudication, edema, lightheadedness, orthopnea, palpitations, paroxysmal nocturnal dyspnea, rapid heart rate, syncope or other Respiratory/Chest Respiratory/Chest: Reports cough, dyspnea, shortness of breath at rest, shortness of breath with exertion and wheezing; Denies excessive phlegm production, hemoptysis, productive cough or other Gastrointestinal Gastrointestinal: Reports loose stools and nausea; Denies abdominal pain, coffee ground emesis, constipation, diarrhea, dyspepsia, hematemesis, hematochezia, melena, vomiting or other Genitourinary Genitourinary: Denies burning urination, difficulty urinating, dysuria, hematuria, nocturia, urinary frequency, urinary hesitancy, urinary incontinence, urinary urgency or other Musculoskeletal Musculoskeletal: Reports back pain; Denies arthralgias, joint pain, joint stiffness, joint swelling, myalgias, neck pain or other Neurologic Neurologic: Reports abnormal gait; Denies abnormal speech, confusion, disequilibrium, dizziness, focal weakness, headache(s), numbness, paresthesias, seizure-like activity, seizures, syncope, tingling, tremor(s) or other Psychiatric Psychiatric: Denies anxiety, depression, homicidal ideation, suicidal ideation or other Endocrine Endocrinology: Denies change in body appearance, cold intolerance, excessive sweating, heat intolerance, polydipsia, polyuria or other Hematologic/Lymphatic Hematologic/Lymphatic: Denies anemia, easy bleeding, easy bruising, lymphadenopathy or other Allergic/Immunologic Allergic/Immunologic: Denies rhinitis, hives, eczemia, asthma or other Vital Signs Vital Signs Vital Signs: 12/10/21 15:23 12/10/21 15:23 12/10/21 15:53 Temperature 97.6 F L 97.6 F L Temperature Source Temporal Temporal Pulse Rate 64 64 70 Respiratory Rate 18 18 20 H Respiratory Effort Respiratory Pattern Blood Pressure 152/69 H 152/69 H Blood Pressure Mean 96 96 Pulse Ox 100 100 Oxygen Delivery Method Nasal Cannula Nasal Cannula Oxygen Flow Rate (L/min) 5 5 12/10/21 16:05 12/10/21 16:23 12/10/21 17:00 Temperature Temperature Source Pulse Rate 70 82 Respiratory Rate 20 H 18 Respiratory Effort Short of Breath Respiratory Pattern Tachypnea Blood Pressure 179/151 H 138/64 H Blood Pressure Mean 160 88 Pulse Ox 92 92 Oxygen Delivery Method Nasal Cannula Nasal Cannula Nasal Cannula Oxygen Flow Rate (L/min) 2 2 2 12/10/21 17:52 12/10/21 18:00 Temperature 98.4 F Temperature Source Oral Pulse Rate 69 89 Respiratory Rate 18 22 H Respiratory Effort Respiratory Pattern Blood Pressure 134/68 H 155/63 H Blood Pressure Mean 90 93 Pulse Ox 93 92 Oxygen Delivery Method Nasal Cannula Nasal Cannula Oxygen Flow Rate (L/min) 4 2 Weight Weight: 113.6 kg Body Mass Index (BMI) 40.4 Physical Exam Const alert, oriented x3 and no apparent distress Constitutional Narrative: Morbidly obese, white female sitting up in bed in the emergency department, daughter is at bedside, patient appears to have comfortable breathing at this time on supplemental oxygen at 4 L, nontoxic appearing General Appearance: cooperative HEENT normocephalic, head/scalp atraumatic and moist oral mucous membranes HEENT Narrative: Mildly hard of hearing, dentures in place, Mallampati 2-3, no thrush Eyes PERRL, EOMs intact bilaterally and conjunctivae normal Eyes Narrative: No scleral icterus Neck no lymphadenopathy, supple, no JVD and no carotid bruits Neck Narrative: Trachea midline, no thyroid enlargement Resp normal respiratory effort, no retractions, no use of accessory muscles and clear to auscultation bilaterally Resp Narrative: Markedly diminished diffusely with no current adventitious lung sounds Auscultation: Negative for crackles, rales, rhonchi or wheezes Cardio regular rate, regular rhythm, S1 normal heart sound, S2 normal heart sound, no murmurs, no rub, no gallops, no clicks and no JVD GI normal to inspection, nondistended, normoactive bowel sounds, soft to palpation, non-tender and non-distended Extremity no clubbing, cyanosis or edema Skin No no rashes or lesions noted, no wounds, skin turgor normal, no jaundice, no petechiae and no mottling Skin Narrative: Multiple seborrheic keratoses Neuro oriented x3, CN's II-XII intact bilaterally, moves all extremities and no focal motor deficits Sensorium / Orientation: awake, alert and oriented to person Psych affect normal Results Lab / Micro Data Attestation: I reviewed the patient's lab results. Result Diagrams: 12/10/21 15:57 12/10/21 15:57 Labs: Laboratory Results - last 24 hr 12/10/21 15:57: WBC 9.9, RBC 4.22, Hgb 12.9, Hct 43.1, MCV 102.1 H, MCH 30.6, MCHC 29.9 L, RDW Std Deviation 47.2 H, RDW Coeff of [place]atum 12.7, Plt Count 228, MPV 10.6, Immature Gran % (Auto) 0.500, Neut % (Auto) 73.8 H, Lymph % (Auto) 15.3 L, [place] % (Auto) 10.0, Eos % (Auto) 0.2, Baso % (Auto) 0.2, Absolute Neuts (auto) 7.3, Absolute Lymphs (auto) 1.52, Nucleated RBC % 0 12/10/21 15:57: Sodium 143, Potassium 4.5, Chloride 103, Carbon Dioxide 39.0 H, Anion Gap 1 L, BUN 18, Creatinine 0.82, Estim Creat Clear Calc 46.10, Est GFR (MDRD) Af Amer 85, Est GFR (MDRD) Non-Af 70, BUN/Creatinine Ratio 22.0 H, Glucose 86, Calcium 9.7, Troponin I High Sens 7 Micro: Microbiology 12/10/21 15:56 Nasal Secretion SARS-CoV-2 Antigen (Rapid) - Final Radiology Impression Chest X-Ray 12/10/21 15:40 IMPRESSION: There are no acute findings. Electronically Signed: Elvis Newton MD at 17:17 EDT , Assessment & Plan Assessment/Plan (1) COPD exacerbation: (2) ALVARES (dyspnea on exertion): (3) Debility: PLAN: Plan Acute exacerbation of COPD -Improved in the emergency department however still on oxygen above baseline -Does not meet criteria for acute hypoxic respiratory failure with no tachypnea tachycardia -Solu-Medrol 40 every 8 -Check strep pneumo and Legionella antigens -COVID-negative -Sputum if able -Aggressive pulmonary toilet -I-S/Pep therapy -Patient would likely benefit from home daily inhaler use -Recommend outpatient follow-up with pulmonary medicine--> [facility] Debility -Patient is having increased debility at home -PT/OT consultation -Patient likely not amenable to placement but would be amenable to home health -Case management consult Hyperlipidemia -Continue home atorvastatin Hypertension -Continue home metoprolol -Continue home Zestril -Continue isosorbide mononitrate CAD -Nonobstructive no with no previous intervention -Continue home Plavix Chronic hypoxic/hypercapnic respiratory failure -Patient on 2.5 L nasal cannula at home -Baseline serum bicarb elevated at 39 -Recommend outpatient pulm follow-up Morbid obesity -Recommend weight loss -Complicates treatment, prognosis, outcomes -Patient would likely benefit from polysomnography after discharge DVT prophylaxis -Lovenox daily -SCDs CODE STATUS -full code Charges/Coding Visit Charges Inpatient E&M: 73786 Init Hosp L3
[2021-12-10] MEDS: Azithromycin 250 MG Tablet 500 MG PO (18:16)
[2021-12-10] MEDS: Lidocaine 5% Patch 2 PATCH TOPICAL (22:00)
[2021-12-10] MEDS: 0.9% Saline Lock 10 ML Syringe IV (22:03)
[2021-12-10] MEDS: Atorvastatin Calcium 80 MG Tablet PO (22:03)
[2021-12-10] MEDS: guaiFENesin 1,200 MG Tablet 1200 MG PO (22:03)
[2021-12-10] MEDS: Metoprolol Tartrate 25 MG Tablet 37.5 MG PO (22:04)
[2021-12-10] MEDS: Heparin Injection (Vial) 5,000 UNIT/ML VIAL 5000 UNIT SC (22:04)
[2021-12-11] VITALS (11 sets, daily range): BP systolic 117–165; BP diastolic 58–85; PULSE 61–85; RESP 18–20; TEMP 36.4–37.3; O2SAT 92–98
[2021-12-11] MEDS: Heparin Injection (Vial) 5,000 UNIT/ML VIAL 5000 UNIT SC ×3 (05:15→21:12)
[2021-12-11] MEDS: 0.9% Saline Lock 10 ML Syringe IV ×2 (05:15→13:29)
[2021-12-11 06:58] LABS: Absolute Lymphocyte Count 0.63 X10^3/uL (0.83-4.51); Absolute Neutrophil Count 7.5 X10^3/uL (2.0-7.7); Hematocrit 40.4 % (37-47); Hemoglobin 12.7 g/dL (12.0-15.0); Lymphocyte # 0.63 X10^3/ul (0.83-4.51); Lymphocyte % 7.6 % (19-41); Mean Corp Hgb Conc 31.4 g/dL (32-36); Mean Corpuscular Hgb 30.9 pg (27.0-32.0); Mean Corpuscular Volume 98.3 fL (81-99); Mean Platelet Vol. 10.7 fl (6.2-12.0); Monocyte# 0.13 X10^3/uL; Monocyte% 1.6 % (0-10); NRBC Flagged by Analyzer 0 % (0-5); Neutrophil # 7.52 X10^3/uL (2.7-7.7); Neutrophil % 90.3 % (47-70); Platelet Count 205 K/mm3 (150-450); RBC Distribution Width CV 12.7 % (11.6-14.6); RBC Distribution Width SD 45.9 fl (35.1-43.9); Red Blood Count 4.11 M/mm3 (4.2-5.4); White Blood Count 8.3 K/mm3 (4.4-11.0)
[2021-12-11] MEDS: Ipratropium/Albuterol Sulfate 3 ML AMPUL.NEB INHALATION ×4 (07:21→19:57)
[2021-12-11 07:51] LABS: Anion Gap 4 (5-15); BUN 18 mg/dL (7-18); BUN/Creat Ratio 26.8 RATIO (10-20); Calcium,Total 9.3 mg/dL (8.5-10.1); Chloride 101 mmol/L (98-107); Creatinine, Serum 0.67 mg/dL (0.55-1.02); EST Glomerular Filtration Rate 88 mL/min (>60); Est Glom Filt Rate - Afr Amer 107 mL/min (>60); Glucose 176 mg/dL (74-106); Magnesium 1.6 mg/dL (1.6-2.6); Phosphorus 2.6 mg/dL (2.5-4.9); Potassium 4.6 mmol/L (3.5-5.1); Sodium Level 139 mmol/L (136-145); Thyroid Stim Hormone (TSH) 0.71 uIU/mL (0.358-3.74)
[2021-12-11] MEDS: Clopidogrel Bisulfate 75 MG Tablet PO (08:11)
[2021-12-11] MEDS: Isosorbide Mononitrate 30 MG Tablet PO (08:11)
[2021-12-11] MEDS: guaiFENesin 1,200 MG Tablet 1200 MG PO ×2 (08:11→21:11)
[2021-12-11] MEDS: Metoprolol Tartrate 25 MG Tablet 37.5 MG PO ×2 (08:12→21:11)
[2021-12-11] MEDS: Lisinopril 20 MG Tablet PO (08:13)
[2021-12-11] MEDS: Lidocaine 5% Patch 2 PATCH TOPICAL (08:15)
--- NOTE | 2021-12-11 10:12 | PN.HOSP_ITS ---
Documented by User: Ariella Arauz [employer] CONSULTANT, [employer] CONSULTANT-C 12/11/21 10:28 Subjective Subjective Patient seen and examined. Reports improvement in breathing. Decreased to 2.5 L of oxygen this morning which is patient's baseline. Reports intermittent dry cough. Episode of diarrhea this morning. Patient states one-time episode. Objective Data Objective Data Vital Signs: Vital Signs Temp Pulse Resp BP Pulse Ox O2 Del Method O2 Flow Rate 98.1 F 73 18 165/73 H 95 Nasal Cannula 2.5 12/11/21 09:11 12/11/21 09:11 12/11/21 09:11 12/11/21 09:11 12/11/21 09:11 12/11/21 09:11 12/11/21 09:11 Oxygen Flow Rate (L/min) 2.5 Oxygen Delivery Method Nasal Cannula Weight: 266 lb 5.094 oz Body Mass Index (BMI) 40.4 Intake & Output: Intake and Output for Last 24 Hours 12/09/21 12/10/21 12/11/21 23:59 23:59 23:59 Intake Total 480 / 480 Output Total 120 / 320 650 / 650 Balance -120 / -320 -170 / -170 Lab / Micro Data Result Diagrams: 12/11/21 06:10 12/11/21 06:10 Labs: Laboratory Results - last 24 hr 12/10/21 15:57: WBC 9.9, RBC 4.22, Hgb 12.9, Hct 43.1, MCV 102.1 H, MCH 30.6, MCHC 29.9 L, RDW Std Deviation 47.2 H, RDW Coeff of Tatum 12.7, Plt Count 228, MPV 10.6, Immature Gran % (Auto) 0.500, Neut % (Auto) 73.8 H, Lymph % (Auto) 15.3 L, [place] % (Auto) 10.0, Eos % (Auto) 0.2, Baso % (Auto) 0.2, Absolute Neuts (auto) 7.3, Absolute Lymphs (auto) 1.52, Nucleated RBC % 0 12/10/21 15:57: Sodium 143, Potassium 4.5, Chloride 103, Carbon Dioxide 39.0 H, Anion Gap 1 L, BUN 18, Creatinine 0.82, Estim Creat Clear Calc 46.10, Est GFR (MDRD) Af Amer 85, Est GFR (MDRD) Non-Af 70, BUN/Creatinine Ratio 22.0 H, Glucose 86, Calcium 9.7, Troponin I High Sens 7 12/11/21 06:10: WBC 8.3, RBC 4.11 L, Hgb 12.7, Hct 40.4, MCV 98.3, MCH 30.9, MCHC 31.4 L D, RDW Std Deviation 45.9 H, RDW Coeff of Tatum 12.7, Plt Count 205, MPV 10.7, Immature Gran % (Auto) 0.500, Neut % (Auto) 90.3 H, Lymph % (Auto) 7.6 L, [place] % (Auto) 1.6, Eos % (Auto) 0.0, Baso % (Auto) 0.0, Absolute Neuts (auto) 7.5, Absolute Lymphs (auto) 0.63 L, Nucleated RBC % 0 12/11/21 06:10: Sodium 139, Potassium 4.6, Chloride 101, Carbon Dioxide 34.0 H, Anion Gap 4 L, BUN 18, Creatinine 0.67, Estim Creat Clear Calc 37.80, Est GFR (MDRD) Af Amer 107, Est GFR (MDRD) Non-Af 88, BUN/Creatinine Ratio 26.8 H, Glucose 176 H, Calcium 9.3, Phosphorus 2.6, Magnesium 1.6, TSH 0.71 Micro: Microbiology 12/10/21 20:10 Urine, Clean Catch Legionella Antigen - Final 12/10/21 20:10 Urine, Clean Catch Streptococcus pneumoniae Antigen (M - Final 12/10/21 15:56 Nasal Secretion SARS-CoV-2 Antigen (Rapid) - Final Radiography Diagnostic Testing: Radiology Impression Chest X-Ray 12/10/21 15:40 IMPRESSION: There are no acute findings. Electronically Signed: Elvis Newton MD at 17:17 EDT , Physical Exam Const alert, oriented x3 and no apparent distress Orientation / Consciousness: awake, oriented to person, oriented to place and oriented to time Nutritional Appearance: morbidly obese HEENT normocephalic and moist oral mucous membranes Eyes PERRL, EOMs intact bilaterally and conjunctivae normal Neck no lymphadenopathy Resp Auscultation: wheezes and diminished lung sounds Cardio regular rate, regular rhythm and no murmurs Peripheral Pulses: pulses 2+ throughout GI normal to inspection, nondistended, normoactive bowel sounds, non-tender and non-distended Extremity normal to inspection Skin no rashes or lesions noted Lesions: no lesions Rashes: no rashes Trauma: no lacerations or abrasions Neuro CN's II-XII intact bilaterally, no focal motor deficits, no sensory deficits noted and deep tendon reflexes 2+ bilaterally Psych mental status grossly normal and affect normal Assessment & Plan Assessment/Plan (1) COPD exacerbation: PLAN: Plan 1. Acute exacerbation of COPD with chronic hypoxic respiratory failure-on 2.5 L nasal cannula at baseline. IV Solu-Medrol. Albuterol and DuoNeb aerosols. COVID-negative. Likely transition to prednisone tomorrow if continued improvement. Recommend at minimum albuterol rescue inhaler at discharge. Follow-up with pulmonary medicine. 2. Debility-lives with family at home. PT/OT. 3. Hypertension-stable, continue isosorbide, lisinopril, metoprolol. 4. Hyperlipidemia-continue statin. 5. CAD, nonobstructive-continue Plavix. 6. Morbid obesity-weight loss encouraged. DVT prophylaxis-Lovenox subcu This patient was seen by Ariella Arauz NP-C under the supervision of Dr. Monae. Time spent examining patient, reviewing data and subsequent management of care: 14 minutes Documented by User: Dr. Bobbi Monae MD 12/11/21 12:54 Objective Data Lab / Micro Data Result Diagrams: 12/11/21 06:10 12/11/21 06:10 Assessment & Plan Assessment/Plan (1) COPD exacerbation: Charges/Coding Addendum Addendum: This patient was seen in conjunction with Ariella Arauz NP. I have independently interviewed and examined the patient and reviewed pertinent hist orical, laboratory, and other data. I have reviewed her note and concur with her documentation Patient was seen and examined. She is back to her 2.5 L of oxygen. Denied any new complaints. She feels much improved compared to previous. Cough still persists Physical Exam: Gen: Morbidly obese, comfortable, not pale, not jaundiced, on 2.5 L of oxygen CVS:HS I +II, regular, no murmurs RESP: Diminished at lung bases GI: BS present and normal, soft, nontender, no palpable organs EXT:No edema ASSESSMENT: 1. Acute COPD exacerbation 2. Debility 3. Hypertension 4. Hyperlipidemia 5. CAD 6. Morbid obesity 7. Hypomagnesemia Plan: Continue breathing treatment, IV Solu-Medrol, azithromycin, Replace magnesium Continue the rest of home medications -metoprolol, atorvastatin, Plavix, isosorbide, lisinopril Probable discharge in a.m. Time spent coordinating all aspects of patient's care, discussing with subspecialty and nursin minutes Visit Charges Inpatient E&M: 44303 Subs Hosp L2
--- NOTE | 2021-12-11 11:00 | CASEMGMT ---
Addendum entered by Viky Hidalgo 12/11/21 12:29: Received tc back from Cheri at [facility], they are able to accept pt for SOC on Thursday. Pt notified and provided her with a local healthcare directory list. Addendum entered by Viky Hidalgo 12/11/21 11:52: TC to pt dtr to discuss dc plan. She is agreeable to [facility]. She states her and her assist pt. She is aware this is s/t. She states the LW/DPOA is not completed officially yet. She confirms that she will bring in the oxygen for homegoing. She is also aware that this is the current plan but therapy has not worked with pt yet. She denies any questions. TC to Cheri at [facility], referral made per voicemail. Will await returned call for acceptance. TC to [facility], spoke with Roselia and verified pt oxygen rx is 2L cont. Original Note: URBAN BROWN Assessment: Face to Face with pt for initial transition planning/care coordination assessment. URBAN BROWN introduced self and role at [facility], pt voices understanding and consents to assessment. Pt is A/O x4 and answers all questions appropriately at this time. Pt lying in bed with oxygen on in no distress. Care providers, pharmacy, and demographics verified/updated. 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 Will provide pt with local healthcare directory list. Preferred Pharmacy: [facility] Retail Insurance: [employer] [facility] Prescription Benefit: yes LW/HPOA: Pt states she has a LW/DPOA and her DPOA is her dtr Chloe Wells. She is aware it is not on file at [facility] and she may bring in to be scanned into the chart. LNOK: Chloe Wells, Dtr Living Arrangements: Pt lives with her dtr and son in law in a two story house with a ramp to enter. Pt lives on the main level of the house. Pt states she does need assistance with ADL's and IADL's and her dtr and son in law assist. She inquires on more help in the home, focusing on bathing. Transportation: Pt does not drive. Her dtr and son in law transport her to medical appts. DME/HHC/SNF: Pt has a pox, FWW with seat but not a rollator she states, grab bars in the bathroom, shower chair, BSC that she uses at night as well as oxygen through [employer] with portable tanks. Pt states she has also purchased an [employer]. She states her dtr will be bringing this in tomorrow for homegoing. Pt states she wears 2.5L cont, will verify. Pt has had HHC in the past but is unsure of the name of the agency. Pt has been in a SNF in [place] in the past. Pt states no concerns with going home at time of dc as long as she can have assistance. She states she does not want to go to a SNF. Discussed HHC options. Pt is agreeable to services. Will plan for SN for COPD, PT and OT for therapy strengthening, ADL's and [employer] for bathing and HEAD TRANSFER CLERK for community resources. Pt is aware that the HHC is short term and a longer plan will need to be put in place. Patient was provided a list of HHC providers including quality and resource use data and consistent with the patient?s preferred geographic region, medical needs, and insurance network. The patient?s preferred provider is [facility]. Pt designates her dtr as person to discuss dc plans with. Pt states no further concerns/needs. CM to follow. Advised pt to ask CM if any further question/concerns/needs arise, voices understanding. Pt Goal: Home with HHC Plan: Home with HHC
[2021-12-11] MEDS: Atorvastatin Calcium 80 MG Tablet PO (21:11)
[2021-12-12] VITALS (7 sets, daily range): BP systolic 138–188; BP diastolic 63–91; PULSE 65–71; RESP 18; TEMP 36.6–37; O2SAT 92–97
[2021-12-12] MEDS: Heparin Injection (Vial) 5,000 UNIT/ML VIAL 5000 UNIT SC (05:51)
[2021-12-12] MEDS: 0.9% Saline Lock 10 ML Syringe IV (05:52)
[2021-12-12 06:34] LABS: Absolute Lymphocyte Count 0.81 X10^3/uL (0.83-4.51); Absolute Neutrophil Count 12.8 X10^3/uL (2.0-7.7); Basophil# 0.01 X10^3/uL; Basophil% 0.1 % (0-1); Hematocrit 39.8 % (37-47); Hemoglobin 12.7 g/dL (12.0-15.0); Lymphocyte # 0.81 X10^3/ul (0.83-4.51); Lymphocyte % 5.6 % (19-41); Mean Corp Hgb Conc 31.9 g/dL (32-36); Mean Corpuscular Volume 97.1 fL (81-99); Mean Platelet Vol. 10.7 fl (6.2-12.0); Monocyte# 0.83 X10^3/uL; Monocyte% 5.7 % (0-10); NRBC Flagged by Analyzer 0 % (0-5); Neutrophil # 12.83 X10^3/uL (2.7-7.7); Platelet Count 229 K/mm3 (150-450); RBC Distribution Width CV 13.1 % (11.6-14.6); RBC Distribution Width SD 46.8 fl (35.1-43.9); White Blood Count 14.6 K/mm3 (4.4-11.0)
[2021-12-12 07:18] LABS: ALB/GLOB Ratio 0.8 RATIO (0.9-2.4); AST(SGOT) 54 U/L (15-37); Alanine Aminotransfer ALT/SGPT 31 U/L (13-56); Albumin, Serum 2.8 g/dL (3.2-5.0); Alkaline Phosphatase 83 U/L (45-117); Anion Gap 3 (5-15); BUN 26 mg/dL (7-18); BUN/Creat Ratio 33.8 RATIO (10-20); Calcium,Total 9.2 mg/dL (8.5-10.1); Chloride 103 mmol/L (98-107); Creatinine, Serum 0.77 mg/dL (0.55-1.02); EST Glomerular Filtration Rate 76 mL/min (>60); Est Glom Filt Rate - Afr Amer 91 mL/min (>60); Globulin 3.6 g/dL (2.2-4.2); Glucose 155 mg/dL (74-106); Protein, Total 6.4 g/dL (6.4-8.2); Sodium Level 138 mmol/L (136-145)
--- NOTE | 2021-12-12 08:07 | CASEMGMT ---
Social Work Pt informed nursing that she does have a living will and health care POA naming her daughter Janneth Wells. Pt is aware that documents are not on file and has been requested to bring documents in when able. LISA Gonzalez
[2021-12-12] MEDS: Isosorbide Mononitrate 30 MG Tablet PO (09:04)
[2021-12-12] MEDS: Metoprolol Tartrate 25 MG Tablet 37.5 MG PO (09:04)
[2021-12-12] MEDS: Lisinopril 20 MG Tablet PO (09:04)
[2021-12-12] MEDS: guaiFENesin 1,200 MG Tablet 1200 MG PO (09:04)
[2021-12-12] MEDS: Clopidogrel Bisulfate 75 MG Tablet PO (09:04)
[2021-12-12] MEDS: Lidocaine 5% Patch 2 PATCH TOPICAL (09:05)
--- NOTE | 2021-12-12 11:08 | DCINST_ITS ---
Discharge Instructions Diet Discharge Diet: Low fat / Low cholesterol and 2000 mg Sodium Diet Activity Discharge Activity: Return to Normal Activity Follow Up Care Test Results: Test results from this visit will be discussed in further detail at your follow- up appointment, if applicable. Discharge Plan Admission Admit Date/Time: 12/10/21 18:10 Primary Reason for Your Visit: Acute COPD excerbation Attending Provider: Bobbi Monae Primary Care Provider: Simeon Lopez Consulting Providers: Eda Oden Instructions Additional Instructions / Restrictions: Complete your antibiotics Complete your prednisone taper Follow-up with your PCP within 1 week. Discharge Orders/Prescriptions Prescriptions: New Mucus Relief ER 1,200 mg Tablet Extended Release 12hr 1,200 mg PO BID 7 Days Qty: 14 0RF prednisone 10 mg tablet See Taper PO DAILY Qty: 30 0RF Taper: Prednisone Taper 40 mg WITH BREAKFAST for 3 Days and 0 Hour 30 mg WITH BREAKFAST for 3 Days and 0 Hour 20 mg WITH BREAKFAST for 3 Days and 0 Hour 10 mg WITH BREAKFAST for 3 Days and 0 Hour Continued lisinopril [Zestril] 20 MG tablet 20 mg PO DAILY Label Comments: BLOOD PRESSURE isosorbide mononitrate 30 MG tablet 30 mg PO DAILY Label Comments: HEART/BLOOD PRESSURE clopidogrel 75 MG tablet 75 mg PO DAILY Label Comments: BLOOD THINNER atorvastatin 80 mg tablet 80 mg PO QHS Label Comments: TAKE 1 TABLET BY MOUTH EVERY DAY metoprolol tartrate 25 mg tablet 37.5 mg PO BID Label Comments: TAKE 1.5 TABLETS BY MOUTH TWICE DAILY Referrals / Follow Up: Simeon Lopez MD [Primary Care Provider] - Within 1 Week Disposition Disposition (needs filled in before D/C Order can be placed): Home Health Service
--- NOTE | 2021-12-12 11:19 | PCM.DC.SUM ---
Providers Date of Admission: 12/10/21 Date of Discharge: 12/12/21 Primary Care Physician: Dr. Simeon Lopez MD Reason For Visit: COPD EXACERBATION Diagnosis Discharge Diagnosis (1) COPD exacerbation: Status: Chronic Code(s): J44.1 - Chronic obstructive pulmonary disease with (acute) exacerbation Medications at Discharge Home Medications clopidogrel 75 mg tablet 75 mg PO DAILY antiplatelet 04/19/17 isosorbide mononitrate 30 mg tablet,extended release 24 hr 30 mg PO DAILY chest pain/blood pressure 04/19/17 lisinopril 20 mg tablet (Zestril) 20 mg PO DAILY blood pressure 04/19/17 atorvastatin 80 mg tablet 80 mg PO QHS cholesterol 12/10/21 metoprolol tartrate 25 mg tablet 37.5 mg PO BID heart 12/10/21 azithromycin 500 mg tablet 500 mg PO DAILY 4 days #4 tabs 12/12/21 guaifenesin 1,200 mg tablet, extended release 12 hr (Mucus Relief ER) 1,200 mg PO BID 7 days #14 tabs 12/12/21 prednisone 10 mg tablet See Taper PO DAILY #30 tabs 12/12/21 Hospital Course Operations None Procedures None Summary of Care Provided Minutes Spent on Discharge: 35 Hospital Course: 86-year-old female with past medical history of COPD on 2.5 L of oxygen at home comes in with progressive shortness of breath with decreased exercise tolerance. Patient has been coughing and wheezing but not bringing up any sputum. She went to see her primary care doctor and her oxygen sats were 84% on 2.5 L. Patient used to follow-up with pulmonology in the [facility] but has not been able to do so in the last 2 years. Patient was admitted to the [facility] floor and managed as acute COPD exacerbation. Her COVID-19 test was negative. She was started on IV steroids, breathing treatments. Admitting chest x-ray showed no acute findings. Patient continued to improve. She was evaluated for oxygen at discharge and did not qualify. She was to complete 5 days of azithromycin. She was asked to follow-up with her primary care doctor and outpatient within 1 week. She will also asked to follow-up with her instrument technologist within 2 weeks. Physical Exam Narrative Physical Exam: Gen: Morbidly obese, comfortable, not pale, not jaundiced, on 2.5 L of oxygen CVS:HS I +II, regular, no murmurs RESP: Diminished at lung bases GI: BS present and normal, soft, nontender, no palpable organs EXT:No edema Weight / BMI Weight Weight: 120.8 kg Body Mass Index (BMI) 40.4 ABG / Lab / Microbiology Data Result Diagrams: 12/12/21 06:05 12/12/21 06:05 Laboratory: Laboratory Results - last 24 hr 12/12/21 06:05: WBC 14.6 H, RBC 4.10 L, Hgb 12.7, Hct 39.8, MCV 97.1, MCH 31.0, MCHC 31.9 L, RDW Std Deviation 46.8 H, RDW Coeff of Tatum 13.1, Plt Count 229, MPV 10.7, Immature Gran % (Auto) 0.600, Neut % (Auto) 88.0 H, Lymph % (Auto) 5.6 L, [place] % (Auto) 5.7, Eos % (Auto) 0.0, Baso % (Auto) 0.1, Absolute Neuts (auto) 12.8 H, Absolute Lymphs (auto) 0.81 L, Nucleated RBC % 0 12/12/21 06:05: Sodium 138, Potassium 5.0, Chloride 103, Carbon Dioxide 32.0, Anion Gap 3 L, BUN 26 H, Creatinine 0.77, Estim Creat Clear Calc 37.80, Est GFR (MDRD) Af Amer 91, Est GFR (MDRD) Non-Af 76, BUN/Creatinine Ratio 33.8 H, Glucose 155 H, Calcium 9.2, Total Bilirubin 0.70, AST 54 H, ALT 31, Alkaline Phosphatase 83, Total Protein 6.4, Albumin 2.8 L, Globulin 3.6, Albumin/Globulin Ratio 0.8 L Microbiology: Microbiology 12/10/21 20:10 Urine, Clean Catch Legionella Antigen - Final 12/10/21 20:10 Urine, Clean Catch Streptococcus pneumoniae Antigen (M - Final 12/10/21 15:56 Nasal Secretion SARS-CoV-2 Antigen (Rapid) - Final D/C Instructions Discharge Diet: Low fat / Low cholesterol and 2000 mg Sodium Diet Meaningful Use Info Meaningful Use Diagnoses (Choose all that apply): None applicable Discharge Plan Admission Admit Date/Time: 12/10/21 18:10 Primary Reason for Your Visit: Acute COPD excerbation Attending Provider: Bobbi Monae Primary Care Provider: Simeon Lopez Consulting Providers: Eda Oden Instructions Additional Instructions / Restrictions: Complete your antibiotics Complete your prednisone taper Follow-up with your PCP within 1 week. Discharge Orders/Prescriptions Prescriptions: New Mucus Relief ER 1,200 mg Tablet Extended Release 12hr 1,200 mg PO BID 7 Days Qty: 14 0RF prednisone 10 mg tablet See Taper PO DAILY Qty: 30 0RF Taper: Prednisone Taper 40 mg WITH BREAKFAST for 3 Days and 0 Hour 30 mg WITH BREAKFAST for 3 Days and 0 Hour 20 mg WITH BREAKFAST for 3 Days and 0 Hour 10 mg WITH BREAKFAST for 3 Days and 0 Hour azithromycin 500 mg tablet 500 mg PO DAILY 4 Days Qty: 4 0RF Continued lisinopril [Zestril] 20 MG tablet 20 mg PO DAILY Label Comments: BLOOD PRESSURE isosorbide mononitrate 30 MG tablet 30 mg PO DAILY Label Comments: HEART/BLOOD PRESSURE clopidogrel 75 MG tablet 75 mg PO DAILY Label Comments: BLOOD THINNER atorvastatin 80 mg tablet 80 mg PO QHS Label Comments: TAKE 1 TABLET BY MOUTH EVERY DAY metoprolol tartrate 25 mg tablet 37.5 mg PO BID Label Comments: TAKE 1.5 TABLETS BY MOUTH TWICE DAILY Referrals / Follow Up: Simeon Lopez MD [Primary Care Provider] - Within 1 Week Disposition Disposition (needs filled in before D/C Order can be placed): Home Health Service Charges/Coding Visit Charges Inpatient E&M: 34725 Disch Hosp
[2021-12-12] MEDS: Azithromycin 250 MG Tablet 500 MG PO (12:43)
--- NOTE | 2021-12-12 13:44 | CHAPLAIN ---
Type of Pastoral Visit _x__ Initial Visit ___ Follow-up Visit ___ On-call Visit ___ General Patient Visit ___ Spiritual Assessment ___ Family Conference ___ Bereavement ___ Rapid Response ___ Code Blue ___ Other (describe below) Pastoral Care Referral From _x__ Patient ___ Family ___ Nurse ___ Physician ___ Casino Cashier ___ Distresser ___ Other (describe below) Sacrament/Intervention _x__ Active listening ___ Anointing ___ Oriental Orthodox ___ Bereavement ___ Communion _x__ Judy exploration ___ _x__ Life review _x__ Prayer ___ Reconciliation ___ Sacrament of Sick ___ Supportive presence ___ Wedding ___ Other (describe below) Pastoral Comments patient welcomes this crm business analyst with statement I'm going home; pt is pleased at this and states that she is also glad for a visit from crm business analyst; pt identifies herself and a Mosque and begins to talk about her judy journey over the years; pt was a single mom and raised her children to work hard and love God and each other; pt speaks of her children and grandchildren; pt states that she has had a good life and is blessed by her loving family; pt does ask for prayer for self, her family, and the whole world which is turning away from God; pt expresses gratitude for the visit
--- NOTE | 2021-12-12 15:08 | CASEMGMT ---
URBAN BROWN updated by nursing the patient is requesting a nebulizer machine. Per chart patient is not on any aerosol medications. URBAN BROWN updated patient to follow-up with PCP regarding nebulizer and aerosol medications. Patient voiced understanding and had no further questions or concerns. URBAN BROWN called and updated [facility] that patient is discharging today.
[2021-12-12] MEDS: Ipratropium/Albuterol Sulfate 3 ML AMPUL.NEB INHALATION (15:26)
== END 2021-12-12 16:11 | disposition home health service (06) | DRG 191 ==
LOC: ED 17:46 → MS3 18:13
PROVIDERS: Admitting Provider Internal Medicine; Emergency Provider Emergency Medicine; PCP Family Medicine; Visit Provider Internal Medicine
DX: J44.1 Chronic obstructive pulmonary disease with (acute) exacerbation (principal); J96.12 Chronic respiratory failure with hypercapnia; J96.11 Chronic respiratory failure with hypoxia; Z68.41 Body mass index [BMI] 40.0-44.9, adult; E66.01 Morbid (severe) obesity due to excess calories; I25.10 Atherosclerotic heart disease of native coronary artery without angina pectoris; I10 Essential (primary) hypertension; E78.5 Hyperlipidemia, unspecified; E83.42 Hypomagnesemia; Z20.822 Contact with and (suspected) exposure to COVID-19; Z79.02 Long term (current) use of antithrombotics/antiplatelets; Z79.82 Long term (current) use of aspirin; Z79.899 Other long term (current) drug therapy; Z87.891 Personal history of nicotine dependence; R94.31 Abnormal electrocardiogram [ECG] [EKG]; I45.10 Unspecified right bundle-branch block
CPT/HCPCS: 36415; 71045; 80048; 80053; 83735; 84100; 84443; 84484; 85025; 87449; 87811; 93005; 94640; 94667; 94668; 96372; 96374; 96375; 96376; 97162; 97166; 99221; 99251; 99285; J7050; A4216; G0378; G0463

== ENCOUNTER 2022-10-07 15:08 | Inpatient (IN) | payer MEDICARE, SELFPAY ==
[2022-10-07] VITALS (11 sets, daily range): BP systolic 113–170; BP diastolic 43–86; PULSE 38–65; RESP 12–20; TEMP 36.6–37.1; O2SAT 93–98; BMI 39.9; BMI 38.6
--- NOTE | 2022-10-07 15:21 | EKG12_ITS ---
Test Reason : AURE Blood Pressure : / mmHG Vent. Rate : 053 BPM Atrial Rate : 060 BPM P-R Int : 208 ms QRS Dur : 114 ms QT Int : 472 ms P-R-T Axes : -20 -19 010 degrees QTc Int : 442 ms Sinus rhythm with 2nd degree A-V block (Mobitz II) RSR' or QR pattern in V1 suggests right ventricular conduction delay Minimal voltage criteria for LVH, may be normal variant ( R in aVL ) Abnormal ECG Confirmed by ARTEMIO CARDOSO MD ([id number]), film and video editor JORDAN BAILEY ([id number]) on 10/09/2022 9:44:14 AM Referred By: MERLIN Confirmed By:ARTEMIO CARDOSO MD
--- NOTE | 2022-10-07 15:32 | RAD_ITS ---
STUDY: X-RAY CHEST REASON FOR EXAM: Female, 86 years old. Chest pain TECHNIQUE: Single AP portable view of the chest. COMPARISON: Comparison is made with prior study dated December 10, 2021. FINDINGS: EKG electrodes are seen. No acute abnormality is seen. There is no demonstrated pleural abnormality. Normal size heart. Normal mediastinum and chika. Normal visualized pulmonary arteries. There is atherosclerotic calcification of the aortic arch with tortuosity. There are degenerative changes of the visualized thoracic spine. There is degenerative osteoarthritis of the bilateral shoulders. There is no demonstrated abnormality of the visualized soft tissue structures of the upper abdomen. RAD/Chest 1 View (Portable) IMPRESSION: No acute abnormality is seen. Electronically Signed: Gadiel Herndon MD at 15:45 EDT ,
[2022-10-07] MEDS: Aspirin 81 MG TAB.CHEW 324 MG PO (15:44)
--- NOTE | 2022-10-07 15:45 | EX.ED.DYSGE1 ---
HPI History of Present Illness Chief Complaint: Chest Pain Narrative Narrative: 86-year-old female with history of hypertension, COPD, hyperlipidemia presenting with lightheadedness, shortness of breath. This has been intermittent for the last month she states. She was seen by Dr. Lopez today and it was noted that her heart rate was in the 30s. Patient is denying any chest pain but she states he does have dyspnea on exertion. No fevers, chills, cough. She has not had a syncopal event. She has not hit her head. Denies black or bloody stools. PFSH [facility] Medical History Chronic respiratory failure COPD (chronic obstructive pulmonary disease) Coronary artery disease Former smoker Hypertension Kidney stones Left ureteral stone Morbid obesity Myocardial infarct On home oxygen therapy Pancreatitis Stroke/cerebrovascular accident Vitamin D deficiency Home Medications clopidogrel 75 mg tablet 75 mg PO DAILY antiplatelet 04/19/17 [History Last Taken 12/10/21] isosorbide mononitrate 30 mg tablet,extended release 24 hr 30 mg PO DAILY chest pain/blood pressure 04/19/17 [History Last Taken 12/10/21] lisinopril 20 mg tablet (Zestril) 20 mg PO DAILY blood pressure 04/19/17 [History Last Taken 12/10/21] atorvastatin 80 mg tablet 80 mg PO QHS cholesterol 12/10/21 [History Last Taken 12/09/21] metoprolol tartrate 25 mg tablet 37.5 mg PO BID heart 12/10/21 [History Last Taken 12/10/21] Allergy/AdvReac Type Severity Reaction Status Date / Time Penicillins Allergy Hives Verified 10/07/22 15:09 ciprofloxacin [From Cipro] AdvReac muscle Verified 10/07/22 15:09 pain and nausea Family History Other COPD (chronic obstructive pulmonary disease) Heart disease Hypertension Surgical History History of AAA (abdominal aortic aneurysm) repair History of cholecystectomy Social History household members: family housing: house Smoking Status: Former smoker how long ago did patient quit smoking: Quit 14 years ago alcohol intake: current alcohol intake frequency: holidays/special occasions only substance use type: does not use ROS ROS ED Constitutional Constitutional ED: Denies chills or fever(s) Eyes Eyes: Denies change in vision or diplopia ENT ENT ED: Denies rhinorrhea or sore throat Cardiovascular Cardiovascular: Reports other Details: Lightheadedness ; Denies chest pain or palpitations Respiratory/Chest Respiratory/Chest: Reports dyspnea and dyspnea on exertion Gastrointestinal Gastrointestinal: Denies abdominal pain or constipation Genitourinary Genitourinary ED: Denies dysuria or hematuria Musculoskeletal Musculoskeletal: Denies arthralgias Integumentary Denies abscess or Abrasions Psychiatric Psychiatric: Denies anxiety or depression EXAM Physical Exam Const Vital Signs: 10/07/22 15:10 10/07/22 15:14 10/07/22 15:45 Temperature 97.8 F Temperature Source Temporal Pulse Rate 38 L 63 Respiratory Rate 16 Blood Pressure 154/84 H Blood Pressure Mean 107 Pulse Ox 98 Oxygen Delivery Method Room Air Nasal Cannula Oxygen Flow Rate (L/min) 2 10/07/22 16:39 10/07/22 17:16 10/07/22 18:04 Temperature 98 F Temperature Source Oral Pulse Rate 49 L 50 L 60 Respiratory Rate 15 12 17 Blood Pressure 132/82 H 145/58 H 148/86 H Blood Pressure Mean 98 87 106 Pulse Ox 94 95 94 Oxygen Delivery Method Nasal Cannula Room Air Nasal Cannula Oxygen Flow Rate (L/min) 2 2 Positive well nourished HEENT Reports moist mucous membranes Eyes PERRL and EOMs intact bilaterally General Eye ED: Negative for pale conjunctiva or scleral icterus Chest Wall inspection of chest normal and palpation of chest normal Resp normal respiratory effort and clear to auscultation bilaterally Auscultation: Negative for rales, rhonchi or wheezes Cardio regular rate and regular rhythm GI normal to inspection, nondistended, normoactive bowel sounds Neuro oriented x3 and CN's II-XII intact bilaterally Sensorium / Orientation: alert Psych mental status grossly normal Skin no rashes or lesions noted MDM MDM MDM Narrative Medical decision making narrative: Patient presenting with lightheadedness, shortness of breath with a heart rate in the 30s from her doctor's office visit today. differential includes ACS, electrolyte imbalance, heart block, dehydration, anemia. EKG was obtained and does reveal a sinus rhythm with second-degree AV block Mobitz type II on my interpretation. Rate on EKG is 53. No ST elevation or depression. Patient arrival heart rate was 38. CBC to assess blood cell count, hemoglobin, platelets, differential. BMP to assess renal function, electrolytes, glucose, anion gap. High-sensitivity troponin will be obtained as well's and a chest x-ray. CBC shows a normal white blood cell count 8.1. Hemoglobin 13.3, hematocrit 43.2, plate later today at 1.61 which appears to be new. BNP elevated at 116. High-sensitivity troponin is 15. Chest x-ray my interpretation shows no acute cardiopulmonary process. Radiologist are present and agrees. Discussed EKG findings with Dr. Mejias. He recommended mission to the ICU. He tells me that Dr. Hernandez. is in town and can put a pacemaker in for the patient. Impression: 1. Second-degree AV block Mobitz type II 2. Lightheadedness 3. Acute kidney injury Lab Data Attestation: I reviewed the patient's lab results. Labs: Laboratory Results - last 24 hr 10/07/22 10/07/22 10/07/22 15:55 15:55 15:55 WBC 8.1 RBC 4.40 Hgb 13.3 Hct 43.2 MCV 98.2 MCH 30.2 MCHC 30.8 L RDW Std Deviation 47.6 H RDW Coeff of [place]atum 13.2 Plt Count 174 MPV 12.1 H Immature Gran % (Auto) 0.500 Neut % (Auto) 72.1 H Lymph % (Auto) 14.8 L [place] % (Auto) 11.7 H Eos % (Auto) 0.7 Baso % (Auto) 0.2 Absolute Neuts (auto) 5.9 Absolute Lymphs (auto) 1.20 Nucleated RBC % 0 Sodium 137 Potassium 4.3 Chloride 97 L Carbon Dioxide 34.0 H Anion Gap 6 BUN 33 H Creatinine 1.61 H Estim Creat Clear Calc 23.48 Est GFR (MDRD) Af Amer 39 L Est GFR (MDRD) Non-Af 32 L BUN/Creatinine Ratio 20.5 H Glucose 128 H Calcium 10.3 H Troponin I High Sens 15 B-Natriuretic Peptide 116.3 H Radiography Diagnostic Testing: Clinical Impression(s) from Imaging Studies Chest X-Ray 10/07/22 15:32 IMPRESSION: No acute abnormality is seen. Electronically Signed: Gadiel Herndon MD at 15:45 EDT , Discharge Plan Triage Chief Complaint: Chest Pain ED Provider: Rd Szymanski Dx/Rx/DC Orders Prescriptions: No Action lisinopril [Zestril] 20 MG tablet 20 mg PO DAILY Label Comments: BLOOD PRESSURE isosorbide mononitrate 30 MG tablet 30 mg PO DAILY Label Comments: HEART/BLOOD PRESSURE clopidogrel 75 MG tablet 75 mg PO DAILY Label Comments: BLOOD THINNER atorvastatin 80 mg tablet 80 mg PO QHS Label Comments: TAKE 1 TABLET BY MOUTH EVERY DAY metoprolol tartrate 25 mg tablet 37.5 mg PO BID Label Comments: TAKE 1.5 TABLETS BY MOUTH TWICE DAILY Primary Care Provider: Simeon Lopez Referrals: Simeon Lopez MD [Primary Care Provider] -
[2022-10-07 16:12] LABS: Absolute Neutrophil Count 5.9 X10^3/uL (2.0-7.7); Basophil# 0.02 X10^3/uL; Basophil% 0.2 % (0-1); Eosinophil# 0.06 X10^3/uL; Eosinophils% 0.7 % (0-5); Hematocrit 43.2 % (37-47); Hemoglobin 13.3 g/dL (12.0-15.0); Lymphocyte % 14.8 % (19-41); Mean Corp Hgb Conc 30.8 g/dL (32-36); Mean Corpuscular Hgb 30.2 pg (27.0-32.0); Mean Corpuscular Volume 98.2 fL (81-99); Mean Platelet Vol. 12.1 fl (6.2-12.0); Monocyte# 0.95 X10^3/uL; Monocyte% 11.7 % (0-10); NRBC Flagged by Analyzer 0 % (0-5); Neutrophil # 5.85 X10^3/uL (2.7-7.7); Neutrophil % 72.1 % (47-70); Platelet Count 174 K/mm3 (150-450); RBC Distribution Width CV 13.2 % (11.6-14.6); RBC Distribution Width SD 47.6 fl (35.1-43.9); White Blood Count 8.1 K/mm3 (4.4-11.0)
[2022-10-07 16:23] LABS: Anion Gap 6 (5-15); BUN 33 mg/dL (7-18); BUN/Creat Ratio 20.5 RATIO (10-20); Calcium,Total 10.3 mg/dL (8.5-10.1); Chloride 97 mmol/L (98-107); Creatinine, Serum 1.61 mg/dL (0.55-1.02); EST Glomerular Filtration Rate 32 mL/min (>60); Est Glom Filt Rate - Afr Amer 39 mL/min (>60); Estimated Creatinine Clearance 23.48 ml/min; Glucose 128 mg/dL (74-106); Potassium 4.3 mmol/L (3.5-5.1); Sodium Level 137 mmol/L (136-145); Troponin-I HS (w/2H Reflex) 15 pg/mL (3.0-54.0)
[2022-10-07 16:36] LABS: BNP,B-Type NATRIURETIC PEPTIDE 116.3 pg/mL (0-100)
[2022-10-07 17:57] LABS: Reflex Troponin-HS? (from REC) Y
[2022-10-07 18:41] LABS: Troponin-I HS 16 pg/mL (3.0-54.0)
[2022-10-07 18:56] LABS: Mucous, Urine 0 SEEN /hpf (<or=2+); Red Blood Cells-Urine 0 SEEN /hpf (0-5)
[2022-10-07 19:00] LABS: Color, Urine Yellow (Yellow); Glucose, Dipstick Normal (Normal); Ketone-Dipstick 5 mg/dl (Negative); Leukocyte Esterase-Dipstick 500 /ul (Negative); Nitrite-Dipstick Negative (Negative); Occult Blood-Urine 10 /ul (Negative); Protein-Dipstick Negative (Negative); Urine Bilirubin Dipstick Negative (Negative); Urine Clarity Clear (Clear); Urine Urobilinogen Normal (Normal)
--- NOTE | 2022-10-07 19:16 | PCM.HP.STD ---
HPI - General General Date of Admission: 10/07/22 Date of Service: 10/07/22 Chief Complaint: chest pain HPI Narrative RADHA MO, is a 86 F with a past medical history as outlined was admitted via the ED with a complaint of weakness and lightheadedness as well as shortness of breath which have been going on for about a month. She said the symptoms have been intermittent and she had had occasional chest pain. She went see her PCP today because she was having urinary symptoms and thought his symptoms were due to a UTI. She admitted to some shortness of breath with exertion but denied any lightheadedness or dizziness, any cough or any fever or chills. Review of systems otherwise negative. When she went see her PCP she was found to have a heart rate down in the 30s so she was sent into the ED. Vitals in the ED at time of admission where heart rate of 38 with temperature of 97.8 respirate rate of 16 and she was saturating at 98% on room air. Heart rate subsequently did, spontaneously to the 60s and 70s. CBC was essentially unremarkable and chemistry showed bicarb of 34 with creatinine of 1.61 and sodium of 137. BNP was 116.3. Urinalysis showed no leukocyte esterase of 500 but WBC was still pending. Chest x-ray showed no acute cardiopulmonary process. EKG showed second-degree AV block. She has been admitted to be managed for chest pain and shortness of breath likely due to Mobitz type II heart block. [facility] Medical History Chronic respiratory failure COPD (chronic obstructive pulmonary disease) Coronary artery disease Former smoker Hypertension Kidney stones Left ureteral stone Morbid obesity Myocardial infarct On home oxygen therapy Pancreatitis Stroke/cerebrovascular accident Vitamin D deficiency Home Medications clopidogrel 75 mg tablet 75 mg PO DAILY antiplatelet 04/19/17 [History Last Taken 12/10/21] isosorbide mononitrate 30 mg tablet,extended release 24 hr 30 mg PO DAILY chest pain/blood pressure 04/19/17 [History Last Taken 12/10/21] lisinopril 20 mg tablet (Zestril) 20 mg PO DAILY blood pressure 04/19/17 [History Last Taken 12/10/21] atorvastatin 80 mg tablet 80 mg PO QHS cholesterol 12/10/21 [History Last Taken 12/09/21] metoprolol tartrate 25 mg tablet 37.5 mg PO BID heart 12/10/21 [History Last Taken 12/10/21] Allergy/AdvReac Type Severity Reaction Status Date / Time Penicillins Allergy Hives Verified 10/07/22 15:09 ciprofloxacin [From Cipro] AdvReac muscle Verified 10/07/22 15:09 pain and nausea Family History Other COPD (chronic obstructive pulmonary disease) Heart disease Hypertension Surgical History History of AAA (abdominal aortic aneurysm) repair History of cholecystectomy Social History household members: family housing: house Smoking Status: Former smoker how long ago did patient quit smoking: Quit 14 years ago alcohol intake: current alcohol intake frequency: holidays/special occasions only substance use type: does not use ROS Constitutional Constitutional: Reports fatigue, malaise and weakness; Denies anorexia, chills or fever(s) Eyes Eyes: Denies change in vision ENT HEENT: Denies dysphagia, headache(s), hearing loss or sore throat Cardiovascular Cardiovascular: Reports chest pain and dyspnea on exertion; Denies edema, lightheadedness, orthopnea, palpitations, rapid heart rate or syncope Respiratory/Chest Respiratory/Chest: Denies cough, dyspnea, productive cough, shortness of breath at rest or shortness of breath with exertion Gastrointestinal Gastrointestinal: Denies abdominal pain, constipation, diarrhea, nausea or vomiting Genitourinary Genitourinary: Denies burning urination or dysuria Musculoskeletal Musculoskeletal: Denies arthralgias or back pain Neurologic Neurologic: Denies confusion, dizziness, focal weakness, headache(s), seizure-like activity or seizures Psychiatric Psychiatric: Denies anxiety or depression Endocrine Endocrinology: Denies change in body appearance Hematologic/Lymphatic Hematologic/Lymphatic: Denies anemia Vital Signs Vital Signs Vital Signs: 10/07/22 15:10 10/07/22 15:14 10/07/22 15:45 Temperature 97.8 F Temperature Source Temporal Pulse Rate 38 L 63 Respiratory Rate 16 Blood Pressure 154/84 H Blood Pressure Mean 107 Pulse Ox 98 Oxygen Delivery Method Room Air Nasal Cannula Oxygen Flow Rate (L/min) 2 10/07/22 16:39 10/07/22 17:16 10/07/22 18:04 Temperature 98 F Temperature Source Oral Pulse Rate 49 L 50 L 60 Respiratory Rate 15 12 17 Blood Pressure 132/82 H 145/58 H 148/86 H Blood Pressure Mean 98 87 106 Pulse Ox 94 95 94 Oxygen Delivery Method Nasal Cannula Room Air Nasal Cannula Oxygen Flow Rate (L/min) 2 2 Weight Weight: 247 lb 9.6 oz Body Mass Index (BMI) 39.9 Physical Exam Const alert, oriented x3 and no apparent distress General Appearance: cooperative HEENT normocephalic, head/scalp atraumatic, hearing grossly normal bilaterally and moist oral mucous membranes Mouth: oral and palatal mucosa normal Eyes PERRL, EOMs intact bilaterally and conjunctivae normal Neck no lymphadenopathy and supple Resp normal respiratory effort, no retractions, no use of accessory muscles and clear to auscultation bilaterally Cardio regular rate, regular rhythm, S1 normal heart sound, S2 normal heart sound and no murmurs Cardio Narrative: Bradycardia had resolved at the time of review. GI normal to inspection, nondistended, normoactive bowel sounds, soft to palpation, non-tender and non-distended Extremity normal to inspection, full ROM and no clubbing, cyanosis or edema Neuro oriented x3, CN's II-XII intact bilaterally, moves all extremities and no focal motor deficits Sensorium / Orientation: awake and alert Motor Exam: strength 5/5 throughout Psych affect normal Results Lab / Micro Data Result Diagrams: 10/07/22 15:55 10/07/22 15:55 Labs: Laboratory Results - last 24 hr 10/07/22 15:55: WBC 8.1, RBC 4.40, Hgb 13.3, Hct 43.2, MCV 98.2, MCH 30.2, MCHC 30.8 L, RDW Std Deviation 47.6 H, RDW Coeff of [place] 13.2, Plt Count 174, MPV 12.1 H, Immature Gran % (Auto) 0.500, Neut % (Auto) 72.1 H, Lymph % (Auto) 14.8 L, [place] % (Auto) 11.7 H, Eos % (Auto) 0.7, Baso % (Auto) 0.2, Absolute Neuts (auto) 5.9, Absolute Lymphs (auto) 1.20, Nucleated RBC % 0 10/07/22 15:55: Sodium 137, Potassium 4.3, Chloride 97 L, Carbon Dioxide 34.0 H, Anion Gap 6, BUN 33 H, Creatinine 1.61 H, Estim Creat Clear Calc 23.48, Est GFR (MDRD) Af Amer 39 L, Est GFR (MDRD) Non-Af 32 L, BUN/Creatinine Ratio 20.5 H, Glucose 128 H, Calcium 10.3 H, Troponin I High Sens 10/07/22 15:55: B-Natriuretic Peptide 116.3 H 10/07/22 18:15: Troponin I High Sens 10/07/22 18:50: Urine Color Yellow, Urine Clarity Clear, Urine pH 5.0, Ur Specific [place] 1.020, Urine Protein Negative, Urine Glucose (UA) Normal, Urine Ketones 5 H, Urine Occult Blood 10 H, Urine Nitrite Negative, Urine Bilirubin Negative, Urine Urobilinogen Normal, Ur Leukocyte Esterase 500 H Radiology Impression Chest X-Ray 10/07/22 15:32 IMPRESSION: No acute abnormality is seen. Electronically Signed: Gadiel Herndon MD at 15:45 EDT , Assessment & Plan Assessment/Plan (1) ALVARES (dyspnea on exertion): (2) Bradycardia: (3) Heart block: PLAN: Plan #Bradycardia due to intermittent Second degree AV block Admit to PCU stepdown. Cardiology had initially asked for patient to be admitted to the unit but since her heart rate had improved to the 60s and 70s, I discussed with Dr. Leavitt who was comfortable with patient being on PCU on a stepdown EKG showed Mobitz type II heart block. Initial troponin is negative We will cycle troponins. Ordered 2D echo. Cardiology consulted IV atropine as needed for bradycardia GITA: Creatinine is 1.60 with a baseline of around 0.7. Hydrate gently with IV fluids and trend creatinine. This is likely prerenal as she says she has not been eating and drinking well. #Hyperlipidemia: On statin #CAD: On Imdur and statin as well as Plavix Hypertension: On lisinopril. Mitral follow-up held due to bradycardia DVT prophylaxis: Lovenox CODE STATUS: Full code Patient counseled extensively about different types of CODE STATUS including full code, DNR CCA and DNR CCA. Patient elects to be full code. Total [id number] time 17 minutes. Charges/Coding Visit Charges Inpatient E&M: 08981 Init Hosp L3 Procedures Hospitalists Procedures: 96704 Advncd Care Plan 30 Min
[2022-10-07 19:33] LABS: Bacteria 1+ /hpf (None Seen); Squamous Epithelial Cells - UA 0-5 SEEN /hpf (5-10); White Blood Cells 10-25 SEEN /hpf (0-5)
[2022-10-07] MEDS: 0.9% Normal Saline 1,000 ML 125 ML IV (21:23)
[2022-10-07] MEDS: Atorvastatin Calcium 80 MG Tablet PO (21:23)
[2022-10-08] VITALS (17 sets, daily range): BP systolic 102–166; BP diastolic 37–77; PULSE 41–101; RESP 16–19; TEMP 36.6–37.1; O2SAT 94–99
[2022-10-08] MEDS: 0.9% Normal Saline 1,000 ML 125 ML IV (04:35)
--- NOTE | 2022-10-08 07:11 | PN.HOSP_ITS ---
Subjective Subjective Feels well. Denies any complaints. Objective Data Objective Data Vital Signs: Vital Signs Temp Pulse Resp BP Pulse Ox O2 Del Method O2 Flow Rate 37.0 C 41 L 16 150/47 H 94 Room Air 2 10/08/22 06:00 10/08/22 06:00 10/08/22 06:00 10/08/22 06:00 10/08/22 06:00 10/08/22 06:00 10/08/22 06:00 Oxygen Flow Rate (L/min) 2 Oxygen Delivery Method Room Air Weight: 111.9 kg Body Mass Index (BMI) 38.6 Intake & Output: Intake and Output for Last 24 Hours 10/06/22 10/07/22 10/08/22 23:59 23:59 23:59 Intake Total 1000 / 1000 Output Total 750 / 750 Balance 250 / 250 Lab / Micro Data Result Diagrams: 10/07/22 15:55 10/08/22 09:00 Labs: Laboratory Results - last 24 hr 10/07/22 15:55: WBC 8.1, RBC 4.40, Hgb 13.3, Hct 43.2, MCV 98.2, MCH 30.2, MCHC 30.8 L, RDW Std Deviation 47.6 H, RDW Coeff of Tatum 13.2, Plt Count 174, MPV 12.1 H, Immature Gran % (Auto) 0.500, Neut % (Auto) 72.1 H, Lymph % (Auto) 14.8 L, [place] % (Auto) 11.7 H, Eos % (Auto) 0.7, Baso % (Auto) 0.2, Absolute Neuts (auto) 5.9, Absolute Lymphs (auto) 1.20, Nucleated RBC % 0 10/07/22 15:55: Sodium 137, Potassium 4.3, Chloride 97 L, Carbon Dioxide 34.0 H, Anion Gap 6, BUN 33 H, Creatinine 1.61 H, Estim Creat Clear Calc 23.48, Est GFR (MDRD) Af Amer 39 L, Est GFR (MDRD) Non-Af 32 L, BUN/Creatinine Ratio 20.5 H, Glucose 128 H, Calcium 10.3 H, Troponin I High Sens 15 10/07/22 15:55: B-Natriuretic Peptide 116.3 H 10/07/22 18:15: Troponin I High Sens 10/07/22 18:50: Urine Color Yellow, Urine Clarity Clear, Urine pH 5.0, Ur Specific [place] 1.020, Urine Protein Negative, Urine Glucose (UA) Normal, Urine Ketones 5 H, Urine Occult Blood 10 H, Urine Nitrite Negative, Urine Bilirubin Negative, Urine Urobilinogen Normal, Ur Leukocyte Esterase 500 H, Urine RBC 0 SEEN, Urine WBC 10-25 SEEN, Ur Squamous Epith Cells 0-5 SEEN, Urine Bacteria 1+, Urine Mucus 0 SEEN Radiography Diagnostic Testing: Radiology Impression Chest X-Ray 10/07/22 15:32 IMPRESSION: No acute abnormality is seen. Electronically Signed: Gadiel Herndon MD at 15:45 EDT , Physical Exam Const alert and no apparent distress Resp normal respiratory effort, no retractions, no use of accessory muscles and clear to auscultation bilaterally Cardio regular rate, regular rhythm, S1 normal heart sound and S2 normal heart sound GI normal to inspection, nondistended, normoactive bowel sounds, soft to palpation, non-tender and non-distended Extremity normal to inspection Assessment & Plan Assessment/Plan (1) Heart block: PLAN: Bradycardia due to intermittent Mobitz type II heart block Troponins negative We will cycle troponins. Ordered 2D echo. Cardiology consulted IV atropine as needed for bradycardia hold metoprolol Pacemaker today (2) GITA (acute kidney injury): PLAN: resolved with IVF Creatinine is 1.60 with a baseline of around 0.7. Hydrate gently with IV fluids and trend creatinine. This is likely prerenal as she says she has not been eating and drinking well. PLAN: Plan Chronic conditions: * Hyperlipidemia: On statin * CAD: On Imdur and statin as well as Plavix * Hypertension: On lisinopril. metoprolol held due to bradycardia. DVT prophylaxis: Lovenox Charges/Coding Visit Charges Inpatient E&M: 55842 Subs Hosp L2
--- NOTE | 2022-10-08 07:58 | ECHOCS_ITS ---
Reason For Study: ABN EKG Procedure This was a 2D Doppler, Color Flow transthoracic echocardiogram. The study was technically difficult. Contrast injection was performed. Exam performed portable in patient room. Left Ventricle Normal left ventricle. The estimated ejection fraction is 55-60 %. Right Ventricle Normal right ventricle. Normal systolic function. Atria Normal left atrium. Normal right atrium. Mitral Valve The mitral valve is structurally normal. No prolapse or stenosis seen. Trivial mitral valve insufficiency. Tricuspid Valve Normal tricuspid valve. Aortic Valve Normal aortic valve. Pulmonic Valve The pulmonic valve is not well visualized. Great Vessels Normal aortic root. Pericardium/Pleural No pericardial effusion. Medication Diluted definity 2.5ml given slow IV push to enhance endocardial definition. MMode/2D Measurements & Calculations Ao root diam: 3.1 cm LAV(MOD-bp): 54.4 ml LVAd ap4: 24.6 cm2 LAV(MOD-bp) Indexed: 24.7 ml/m2 LVLd ap4: 8.1 cm LAV(MOD-sp2): 52.4 ml EDV(MOD-sp4): 60.6 ml LAV(MOD-sp4): 48.5 ml EDV(sp4-el): 63.0 ml LVAs ap4: 10.8 cm2 LVLs ap4: 6.3 cm ESV(MOD-sp4): 17.4 ml ESV(sp4-el): 15.9 ml EF(MOD-sp4): 71.2 % EF(sp4-el): 74.9 % SV(MOD-sp4): 43.2 ml SV(sp4-el): 47.2 ml LA A4 area: 19.7 cm2 LA dimension(2D): 4.2 cm RA A4 area: 17.3 cm2 Time Measurements MV dec time: 0.17 sec Doppler Measurements & Calculations MV E max sukhwinder: 55.9 cm/sec Lat Peak E' Sukhwinder: 11.5 cm/sec Med Peak E' Sukhwinder: 10.3 cm/sec MV A max sukhwinder: 103.4 cm/sec E/E' lat: 4.9 E/E' med: 5.4 MV E/A: 0.54 MV V2 max: 93.1 cm/sec MV dec slope: 335.0 cm/sec2 Ao V2 max: 193.5 cm/sec MV max P.5 mmHg Ao max P.0 mmHg MV V2 mean: 57.6 cm/sec Ao V2 mean: 116.8 cm/sec MV mean P.5 mmHg Ao mean P.5 mmHg MV V2 VTI: 21.5 cm Ao V2 VTI: 36.1 cm AV (velocity ratio): 0.96 LV V1 max: 171.3 cm/sec TR max sukhwinder: 373.7 cm/sec LV V1 max P.7 mmHg TR max P.9 mmHg LV V1 mean P.9 mmHg LV V1 mean: 114.3 cm/sec LV V1 VTI: 34.7 cm ECHO/Echo Complete W/ Contrast Interpretation Summary The estimated ejection fraction is 55-60 %. Overall normal LV systolic function RV systolic pressure calculated 55.9 mmHg No significant change from previous study in February 02, 2019. Ordering Physician: Rere Mejias Referring Physician: TAQUERIA ROMO Performed By: Alyx Nowak RCS
[2022-10-08] MEDS: hydrALAZINE 25 MG Tablet PO ×3 (08:56→21:43)
[2022-10-08] MEDS: Clopidogrel Bisulfate 75 MG Tablet PO (08:56)
[2022-10-08] MEDS: Enoxaparin 30 MG/0.3 ML Syringe SC (08:56)
[2022-10-08 09:25] LABS: Anion Gap 6 (5-15); BUN 27 mg/dL (7-18); Calcium,Total 9.4 mg/dL (8.5-10.1); Chloride 104 mmol/L (98-107); Creatinine, Serum 1.08 mg/dL (0.55-1.02); EST Glomerular Filtration Rate 51 mL/min (>60); Est Glom Filt Rate - Afr Amer 62 mL/min (>60); Estimated Creatinine Clearance 36.36 ml/min; Glucose 140 mg/dL (74-106); Sodium Level 139 mmol/L (136-145)
--- NOTE | 2022-10-08 10:08 | PCM.CONS.C ---
Assessment & Plan Assessment/Plan (1) COPD exacerbation: (2) ALVARES (dyspnea on exertion): (3) Bradycardia: (4) Heart block: PLAN: Plan 86-year-old patient Seen and evaluated today along with the nursing staff Family were at bedside at time of evaluation Patient seen by primary care physician in the office with a heart rate was noted to be around 30 An EKG consistent with 2-1 AV block/Mobitz type II And she was symptomatic she had symptoms of fatigue tiredness. No syncopal episode reported Other medical problem include history of COPD, hypertension, hyperlipidemia. She has lightheadedness and dizziness with shortness of breath however there is no syncopal episode. Other medical problem patient had a history of cerebrovascular accident with previous history of a stroke CAD., Hyperlipidemia Also she has been on home oxygen. Cardiac care plan recommendations; I discussed in detail the cardiac care plan we will plan for echocardiogram today Patient beta-terrell has been discontinued We will add hydralazine for better control of hypertension Answer all questions related to pacemaker and cardiac care plan to the patient as well as to the family and nursing staff. We will plan for dual pacemaker tomorrow/by Dr. Hernandez. HPI Consult Data Date of Consult: 10/08/22 HPI Narrative Reason for Consultation: Symptomatic bradycardia/Mobitz type II block HPI Narrative: RADHA MO, is a 86 F who presents [facility] Medical History Chronic respiratory failure COPD (chronic obstructive pulmonary disease) Coronary artery disease Former smoker Hypertension Kidney stones Left ureteral stone Morbid obesity Myocardial infarct On home oxygen therapy Pancreatitis Stroke/cerebrovascular accident Vitamin D deficiency Home Medications clopidogrel 75 mg tablet 75 mg PO DAILY antiplatelet 04/19/17 [History Last Taken 12/10/21] isosorbide mononitrate 30 mg tablet,extended release 24 hr 30 mg PO DAILY chest pain/blood pressure 04/19/17 [History Last Taken 12/10/21] lisinopril 20 mg tablet (Zestril) 20 mg PO DAILY blood pressure 04/19/17 [History Last Taken 12/10/21] atorvastatin 80 mg tablet 80 mg PO QHS cholesterol 12/10/21 [History Last Taken 12/09/21] metoprolol tartrate 25 mg tablet 37.5 mg PO BID heart 12/10/21 [History Last Taken 12/10/21] Allergy/AdvReac Type Severity Reaction Status Date / Time Penicillins Allergy Hives Verified 10/07/22 15:09 ciprofloxacin [From Cipro] AdvReac muscle Verified 10/07/22 15:09 pain and nausea Family History Other COPD (chronic obstructive pulmonary disease) Heart disease Hypertension Surgical History History of AAA (abdominal aortic aneurysm) repair History of cholecystectomy Social History household members: family housing: house Smoking Status: Former smoker how long ago did patient quit smoking: Quit 14 years ago alcohol intake: current alcohol intake frequency: holidays/special occasions only substance use type: does not use ROS ROS Narrative 86-year-old patient presented with symptoms of fatigue, no syncopal event Noted significantly slow heart rate of around 30 in primary care physician office 14 point review of system is unremarkable apart from current presentation. 14 point review of system is unremarkable apart from current presentation Physical Exam Narrative Review of the cardiac rhythm showed Evidence of Mobitz type II AV block Cardiovascular exam S1-S2 regular Chest exam is clear to auscultation bilateral Examination lower extremity no lower extremity edema, pedal pulses palpable. Risk Stratification Risk Stratification Applicable: No Objective Data Vital Signs: Vital Signs Temp Pulse Resp BP Pulse Ox O2 Del Method O2 Flow Rate 98.8 F 63 16 166/77 H 95 Room Air 2 10/08/22 08:00 10/08/22 08:56 10/08/22 08:00 10/08/22 08:00 10/08/22 08:00 10/08/22 08:00 10/08/22 08:00 Oxygen Flow Rate (L/min) 2 Oxygen Delivery Method Room Air Weight: 246 lb 11.156 oz Body Mass Index (BMI) 38.6 Intake & Output: Intake and Output for Last 24 Hours 10/06/22 10/07/22 10/08/22 23:59 23:59 23:59 Intake Total 1000 / 1000 Output Total 750 / 750 Balance 250 / 250 Lab / Micro Data Result Diagrams: 10/07/22 15:55 10/08/22 09:00 Labs: Laboratory Results - last 24 hr 10/07/22 15:55: WBC 8.1, RBC 4.40, Hgb 13.3, Hct 43.2, MCV 98.2, MCH 30.2, MCHC 30.8 L, RDW Std Deviation 47.6 H, RDW Coeff of Tatum 13.2, Plt Count 174, MPV 12.1 H, Immature Gran % (Auto) 0.500, Neut % (Auto) 72.1 H, Lymph % (Auto) 14.8 L, [place] % (Auto) 11.7 H, Eos % (Auto) 0.7, Baso % (Auto) 0.2, Absolute Neuts (auto) 5.9, Absolute Lymphs (auto) 1.20, Nucleated RBC % 0 10/07/22 15:55: Sodium 137, Potassium 4.3, Chloride 97 L, Carbon Dioxide 34.0 H, Anion Gap 6, BUN 33 H, Creatinine 1.61 H, Estim Creat Clear Calc 23.48, Est GFR (MDRD) Af Amer 39 L, Est GFR (MDRD) Non-Af 32 L, BUN/Creatinine Ratio 20.5 H, Glucose 128 H, Calcium 10.3 H, Troponin I High Sens 15 10/07/22 15:55: B-Natriuretic Peptide 116.3 H 10/07/22 18:15: Troponin I High Sens 16 10/07/22 18:50: Urine Color Yellow, Urine Clarity Clear, Urine pH 5.0, Ur Specific [place] 1.020, Urine Protein Negative, Urine Glucose (UA) Normal, Urine Ketones 5 H, Urine Occult Blood 10 H, Urine Nitrite Negative, Urine Bilirubin Negative, Urine Urobilinogen Normal, Ur Leukocyte Esterase 500 H, Urine RBC 0 SEEN, Urine WBC 10-25 SEEN, Ur Squamous Epith Cells 0-5 SEEN, Urine Bacteria 1+, Urine Mucus 0 SEEN 10/08/22 09:00: Sodium 139, Potassium 4.0, Chloride 104, Carbon Dioxide 29.0, Anion Gap 6, BUN 27 H, Creatinine 1.08 H, Estim Creat Clear Calc 36.36, Est GFR (MDRD) Af Amer 62, Est GFR (MDRD) Non-Af 51 L, BUN/Creatinine Ratio 25.0 H, Glucose 140 H, Calcium 9.4 Cardiology Labs/Tests 10/07/22 15:55: WBC 8.1, RBC 4.40, Hgb 13.3, Hct 43.2, MCV 98.2, MCH 30.2, MCHC 30.8 L, Plt Count 174, MPV 12.1 H, Immature Gran % (Auto) 0.500, Neut % (Auto) 72.1 H, Lymph % (Auto) 14.8 L, [place] % (Auto) 11.7 H, Eos % (Auto) 0.7, Baso % (Auto) 0.2, Absolute Neuts (auto) 5.9, Nucleated RBC % 0 10/07/22 15:55: Sodium 137, Potassium 4.3, Chloride 97 L, Carbon Dioxide 34.0 H, Anion Gap 6, BUN 33 H, Creatinine 1.61 H, Est GFR (MDRD) Af Amer 39 L, Est GFR (MDRD) Non-Af 32 L, BUN/Creatinine Ratio 20.5 H, Glucose 128 H, Calcium 10.3 H 10/07/22 15:55: B-Natriuretic Peptide 116.3 H 10/07/22 18:50: Urine Color Yellow, Urine Clarity Clear, Urine pH 5.0, Ur Specific [place] 1.020, Urine Protein Negative, Urine Glucose (UA) Normal, Urine Ketones 5 H, Urine Occult Blood 10 H, Urine Nitrite Negative, Urine Bilirubin Negative, Urine Urobilinogen Normal, Ur Leukocyte Esterase 500 H, Urine RBC 0 SEEN, Urine WBC 10-25 SEEN 10/08/22 09:00: Sodium 139, Potassium 4.0, Chloride 104, Carbon Dioxide 29.0, Anion Gap 6, BUN 27 H, Creatinine 1.08 H, Est GFR (MDRD) Af Amer 62, Est GFR (MDRD) Non-Af 51 L, BUN/Creatinine Ratio 25.0 H, Glucose 140 H, Calcium 9.4 Rhythm: EKG: ECHO: Stress Test: Cardiac Cath: PCI: CT Surgery: Holter monitor: EPS: PPM: CXR: Chest CT Scan: Radiography Diagnostic Testing: Radiology Impression Chest X-Ray 10/07/22 15:32 IMPRESSION: No acute abnormality is seen. Electronically Signed: Gadiel Herndon MD at 15:45 EDT ,
--- NOTE | 2022-10-08 11:20 | CASEMGMT ---
RN CM Face to Face with patient for initial transition planning/care coordination assessment. RN CM introduced self and role at [facility]. Patient lying in bed, alert and oriented, family at bedside. Patient willing to participate in assessment and is able to answer all questions appropriately. Care providers, pharmacy, and demographics verified. Patient wishes to discharge home, denies need for home health at this time, will monitor progress with care for possible HHC. Patient states she has no further needs or concerns at this time. CM to follow for discharge planning needs that may arise. PCP: Jessica, patient wanting to change PCP, list provided Specialists: none Preferred Pharmacy: [facility] Insurance: [facility] Prescription Benefit: yes Living Will/HPOA: yes, daughter Chloe Wells LNOK: daughter, son Living Arrangements: Patient lives with daughter in a 2 story home with bed and bath on first floor. Patient has a ramp to enter the home. Daughter assists with bathing, patient dresses and toilets self. Transportation: daughter, [facility] D[facility]/HHC: Patient has shower chair, BSC, raised toilet, cane, grab bars, walker, wheelchair, nebulizer, pulse ox, and portable oxygen through [place] at 2lpm. Patient has had [facility]HC in the past. Disposition Plan: Patient to discharge home with family support and follow-up plans in place. Rosario ABBOTT, RN, CM
--- NOTE | 2022-10-08 13:14 | CHAPLAIN ---
Type of Pastoral Visit _x__ Initial Visit ___ Follow-up Visit ___ On-call Visit ___ General Patient Visit ___ Spiritual Assessment ___ Family Conference ___ Bereavement ___ Rapid Response ___ Code Blue ___ Other (describe below) Pastoral Care Referral From _x__ Patient ___ Family ___ Nurse ___ Physician ___ Manager Relationship ___ Labor Arbitrator ___ Other (describe below) Sacrament/Intervention _x__ Active listening ___ Anointing ___ Sabianist ___ Bereavement ___ Communion _x__ Judy exploration ___ _x__ Life review _x__ Prayer ___ Reconciliation ___ Sacrament of Sick ___ Supportive presence ___ Wedding ___ Other (describe below) Pastoral Comments patient is very talkative and introduces her family members that came from [place] to visit her; pt shares some life review and her personal perspectives; pt has a background in judy/belief system and welcomes prayers and spiritual care support
--- NOTE | 2022-10-08 13:46 | NURSING ---
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
--- NOTE | 2022-10-08 15:55 | CL.IE_ITS ---
Patient: RADHA MO Study Date: 10/08/2022 Performing: Jason Hernandez MD : 1935 Age: 86 Gender: female PROCEDURES PERFORMED [id number])INITIAL PACER INSERT+DUAL LEADS INDICATIONS Mobitz (type II) AV block PROCEDURE DETAILS The patient was brought to the Catheterization Lab in the postabsorptive nonsedated state. Informed consent was obtained prior to the procedure. Local anesthetic was given subcutaneously to the left upper chest area with Lidocaine 2%. Access was achieved and a guidewire was advanced into the left subclavian vein. Incision was made to the left upper chest. PPM ventricular lead was inserted / positioned to right ventricular apex. PPM atrial lead was inserted / positioned to the right atrial appendage. PPM ventricular lead testing performed. PPM ventricular lead testing performed. PPM atrial lead testing performed. The Atrial lead sutured in place with 2-0 Silk. The Ventricular PM lead sutured in place with 2-0 Silk. Device pocket was irrigated with antibiotic. PPM generator was attached to the lead(s) and inserted into the pocket. Device pocket was irrigated with antibiotic. Subcutaneous closure was completed with 3-0 Vicryl. Skin closure was completed with 4-0 Vicryl. Steri-strips applied to Lt chest area. The patient tolerated the procedure well. Estimated Blood Loss: 10 ml's IMPLANTED / EX-PLANTED DEVICES IMPLANTED DEVICE(S): PPM Ventricular lead - Registered Clinical Dietitian: [employer], Model # Tendril STS , Serial # [id number] PPM Atrial lead - Registered Clinical Dietitian: [employer], Model # Tendril STS , Serial # [id number] PPM Generator - Registered Clinical Dietitian: [employer], Model # Assurity MRI , Serial # [id number] DEVICE PARAMETERS ATRIAL LEAD PARAMETERS: P wave (mV) - 4.6 threshold (V) - 0.5 impedence (OHMS) - 589 P wave- 4.6 (mV) threshold- 1.1 (V) impedence- 589 (OHMS) VENTRICULAR LEAD PARAMETERS: R wave (mV) - 7.2 threshold (V) - 1.1 impedence (OHMS) - 977 R wave- 7.2 (mV) threshold- 1.1 (V) impedence- 977 (OHMS) DEVICE PARAMETERS: Mode - DDD lower rate - 60 upper rate - 120 Mode- DDD Lower rate- 60 Upper rate- 120 CONCLUSIONS / RECOMMENDATIONS Device Conclusions: Successful implantation of a dual chamber pacemaker Device Recommendations: Follow up with Primary Care Physician PROCEDURE MEDICATIONS Fentanyl 50 mcg IV Versed 1 mg IV Versed 1 mg IV Fentanyl 25 mcg IV Versed 1 mg IV Fentanyl 25 mcg IV Oxygen: 2 L/min via nasal cannula Oxygen: 4 L/min via nasal cannula Antibiotic given in appropriate timeframe. Clindamycin 900 mg IV 10/08/2022 14:21:18 Signed By Jason Hernandez MD On 10/08/2022 15:54:26 Jason Hernandez MD
--- NOTE | 2022-10-08 18:54 | NURSING ---
Pacemaker vitals completed. No signs of hematoma or bleeding at sight. Dressing c/d/i. Left arm in sling. Pt educated on not elevating left arm above head and on complete bedrest until tomorrow morning after pacer check and chest xray.
[2022-10-08] MEDS: Atorvastatin Calcium 80 MG Tablet PO (21:43)
[2022-10-08] MEDS: traZODone 50 MG Tablet PO (22:54)
[2022-10-09] VITALS (8 sets, daily range): BP systolic 87–125; BP diastolic 48–82; PULSE 90–119; RESP 16–18; TEMP 36.5–37.1; O2SAT 96–97
[2022-10-09] MEDS: hydrALAZINE 25 MG Tablet PO (05:41)
--- NOTE | 2022-10-09 05:50 | RAD_ITS ---
INDICATION: Post permanant ICD/Pacemaker -- inspiration/expiration. Arms Down. Wet read to EXAMINATION/TECHNIQUE: X-RAY - XR Chest 3 Views COMPARISON: October 07, 2022. FINDINGS: LINES/DEVICES: 2-lead left chest cardiac pacer with leads projecting over the right atrium and right ventricle LUNGS: Slight low lung volumes with interstitial coarsening. No consolidation, florid edema, or effusion. No pneumothorax. MEDIASTINUM AND CARDIOVASCULAR STRUCTURES: Cardiac silhouette not enlarged. Mild aortic atherosclerosis. BONES AND SOFT TISSUES: Unremarkable. RAD/Chest 3 View IMPRESSION: 2-lead left chest cardiac pacer as above without pneumothorax or florid edema. Electronically Signed: Facundo Saucdeo MD at 6:27 EDT ,
[2022-10-09 07:10] LABS: Anion Gap 6 (5-15); BUN 25 mg/dL (7-18); BUN/Creat Ratio 25.8 RATIO (10-20); Calcium,Total 9.1 mg/dL (8.5-10.1); Chloride 105 mmol/L (98-107); Creatinine, Serum 0.97 mg/dL (0.55-1.02); EST Glomerular Filtration Rate 58 mL/min (>60); Est Glom Filt Rate - Afr Amer 70 mL/min (>60); Estimated Creatinine Clearance 40.48 ml/min; Glucose 109 mg/dL (74-106); Potassium 4.1 mmol/L (3.5-5.1); Sodium Level 139 mmol/L (136-145)
--- NOTE | 2022-10-09 08:47 | PN.HOSP_ITS ---
Reason for Visit Reason for Visit: Diagnoses Conduction disorder, unspecified (10/07/22) Chronic obstructive pulmonary disease with (acute) exacerbation (10/07/22) Acute kidney failure, unspecified (10/07/22) Bradycardia, unspecified (10/07/22) Other forms of dyspnea (10/07/22) Subjective Subjective Pacemaker placed on the 17th. Feeling well. No events overnight. Objective Data Objective Data Vital Signs: Vital Signs Temp Pulse Resp BP Pulse Ox O2 Del Method O2 Flow Rate 36.9 C 90 18 119/81 H 96 Nasal Cannula 2 10/09/22 04:45 10/09/22 05:41 10/09/22 04:45 10/09/22 05:41 10/09/22 04:45 10/09/22 07:00 10/09/22 07:00 Oxygen Flow Rate (L/min) 2 Oxygen Delivery Method Nasal Cannula Weight: 111.9 kg Body Mass Index (BMI) 38.6 Intake & Output: Intake and Output for Last 24 Hours 10/07/22 10/08/22 10/09/22 23:59 23:59 23:59 Intake Total 2380 / 2380 Output Total 750 / 750 Balance 1630 / 1630 Lab / Micro Data Result Diagrams: 10/07/22 15:55 10/09/22 06:25 Labs: Laboratory Results - last 24 hr 10/08/22 09:00: Sodium 139, Potassium 4.0, Chloride 104, Carbon Dioxide 29.0, Anion Gap 6, BUN 27 H, Creatinine 1.08 H, Estim Creat Clear Calc 36.36, Est GFR (MDRD) Af Amer 62, Est GFR (MDRD) Non-Af 51 L, BUN/Creatinine Ratio 25.0 H, Glucose 140 H, Calcium 9.4 10/09/22 06:25: Sodium 139, Potassium 4.1, Chloride 105, Carbon Dioxide 28.0, Anion Gap 6, BUN 25 H, Creatinine 0.97, Estim Creat Clear Calc 40.48, Est GFR (MDRD) Af Amer 70, Est GFR (MDRD) Non-Af 58 L, BUN/Creatinine Ratio 25.8 H, Glucose 109 H, Calcium 9.1 Radiography Diagnostic Testing: Radiology Impression Echocardiogram 10/08/22 07:58 Interpretation Summary The estimated ejection fraction is 55-60 %. Overall normal LV systolic function RV systolic pressure calculated 55.9 mmHg No significant change from previous study in February 02, 2019. Ordering Physician: Rere Mejias Referring Physician: TAQUERIA ROMO Performed By: Alyx Nowak RCS Chest X-Ray 10/09/22 05:50 IMPRESSION: 2-lead left chest cardiac pacer as above without pneumothorax or florid edema. Electronically Signed: Facundo Saucedo MD at 6:27 EDT , Physical Exam Narrative Pacemaker site at the left upper chest has a causing dressing overlying. No visible ecchymosis seen beyond those borders. Const alert and average body habitus Neck no lymphadenopathy Resp normal respiratory effort, no retractions, no use of accessory muscles and clear to auscultation bilaterally Cardio regular rate, regular rhythm, S1 normal heart sound and S2 normal heart sound GI normal to inspection, nondistended, normoactive bowel sounds, soft to palpation and non-tender Assessment & Plan Assessment/Plan (1) Heart block: PLAN: Bradycardia due to intermittent Mobitz type II heart block Troponins negative We will cycle troponins. Echo shows an EF of 55 to 60%. IV atropine as needed for bradycardia hold metoprolol Pacemaker dual-chamber pacemaker placed on 10/08 (2) GITA (acute kidney injury): PLAN: resolved with IVF Creatinine is 1.60 with a baseline of around 0.7. Hydrate gently with IV fluids and trend creatinine. This is likely prerenal as she says she has not been eating and drinking well. PLAN: Plan Chronic conditions: * Hyperlipidemia: On statin * CAD: On Imdur and statin as well as Plavix * Hypertension: On lisinopril. metoprolol held due to bradycardia. DVT prophylaxis: Lovenox Discharge home
--- NOTE | 2022-10-09 09:27 | PN.CARD_ITS ---
Subjective Subjective Patient seen and evaluated. Appears to be doing well. Objective Data Vital Signs: Vital Signs Temp Pulse Resp BP Pulse Ox O2 Del Method O2 Flow Rate 98.4 F 90 18 119/81 H 96 Nasal Cannula 2 10/09/22 04:45 10/09/22 05:41 10/09/22 04:45 10/09/22 05:41 10/09/22 04:45 10/09/22 07:00 10/09/22 07:00 Oxygen Flow Rate (L/min) 2 Oxygen Delivery Method Nasal Cannula Weight: 246 lb 11.156 oz Body Mass Index (BMI) 38.6 Intake & Output: Intake and Output for Last 24 Hours 10/07/22 10/08/22 10/09/22 23:59 23:59 23:59 Intake Total 2380 / 2380 Output Total 750 / 750 Balance 1630 / 1630 Lab / Micro Data Result Diagrams: 10/07/22 15:55 10/09/22 06:25 Labs: Laboratory Results - last 24 hr 10/09/22 06:25: Sodium 139, Potassium 4.1, Chloride 105, Carbon Dioxide 28.0, Anion Gap 6, BUN 25 H, Creatinine 0.97, Estim Creat Clear Calc 40.48, Est GFR (MDRD) Af Amer 70, Est GFR (MDRD) Non-Af 58 L, BUN/Creatinine Ratio 25.8 H, Glucose 109 H, Calcium 9.1 Cardiology Labs/Tests 10/09/22 06:25: Sodium 139, Potassium 4.1, Chloride 105, Carbon Dioxide 28.0, An ion Gap 6, BUN 25 H, Creatinine 0.97, Est GFR (MDRD) Af Amer 70, Est GFR (MDRD) Non-Af 58 L, BUN/Creatinine Ratio 25.8 H, Glucose 109 H, Calcium 9.1 Rhythm: EKG: ECHO: Stress Test: Cardiac Cath: PCI: CT Surgery: Holter monitor: EPS: PPM: CXR: Chest CT Scan: Radiography Diagnostic Testing: Radiology Impression Echocardiogram 10/08/22 07:58 Interpretation Summary The estimated ejection fraction is 55-60 %. Overall normal LV systolic function RV systolic pressure calculated 55.9 mmHg No significant change from previous study in February 02, 2019. Ordering Physician: Rere Mejias Referring Physician: TAQUERIA ROMO Performed By: Alyx Nowak RCS Chest X-Ray 10/09/22 05:50 IMPRESSION: 2-lead left chest cardiac pacer as above without pneumothorax or florid edema. Electronically Signed: Facundo Saucedo MD at 6:27 EDT , Physical Exam Const alert, oriented x3 and no apparent distress General Appearance: cooperative HEENT hearing grossly normal bilaterally Head and Scalp: atraumatic Eyes EOMs intact bilaterally Neck General: normal visual inspection Chest inspection of chest normal and palpation of chest normal Resp normal respiratory effort Auscultation: clear to auscultation bilaterally Cardio regular rate, regular rhythm, S1 normal heart sound and S2 normal heart sound Jugular Venous Distention: JVD GI normal to inspection, nondistended, normoactive bowel sounds Extremity normal capillary refill and no pedal edema Peripheral Pulses: Yes pulses 2+ throughout and femoral pulses present Skin no rashes or lesions noted Neuro oriented x3 and CN's II-XII intact bilaterally Psych Appearance: grossly normal and appropriate Assessment & Plan Assessment/Plan (1) Heart block: PLAN: Second-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 Pacemaker was interrogated and is doing well. Chest x-ray demonstrates good positioning. Patient will be discharged for outpatient follow-up in the device clinic.
--- NOTE | 2022-10-09 09:28 | DCINST_ITS ---
Discharge Instructions Diet Discharge Diet: No restrictions Activity Discharge Activity: May Not Drive May shower in (days): 3 Additional Activity Instructions:: May shower or bathe on [day 3]. Do not scrub the incision or soak in the tub. Just wash with soap and let the water run over the incision. Gently pat dry with towel. Medications: Take your pain medication as directed. Refer to your discharge instruction sheet for a list of medications you are to take. Dressing / Incision Call your doctor if your incision/area has: Continuous Slow Oozing, Sudden Increased Bleeding, Increased Pain/ Swelling, Increased Redness, Foul Smelling Discharge and Swelling at the incision site Call your doctor if you observe: Fever of 101 or Higher, Shortness of breath, Dizziness, Fainting spells, Swelling in the ankles, Chest pain, Prolonged hiccupping and Increased palpitations (irregular heartbeat) Suture Line Care: Avoid Pulling/Pushing and Avoid Pinching/Bending Cleanse incision/area with: Keep Dressing Clean & Dry Additional Dressing/Incision Instructions:: When dressing is removed, wash and dry incision. Keep covered with a light bandage if it is rubbing against your clothing. Do not cover the incision with an airtight bandage. Change the bandage daily. Do not remove steri strips. The strips will fall off on their own. Follow Up Care Please Follow Up With: Jason Hernandez MD When: Pacer follow up on October 23 at 9 AM Test Results: Test results from this visit will be discussed in further detail at your follow- up appointment, if applicable. Discharge Plan Admission Admit Date/Time: 10/07/22 18:58 Attending Provider: Marco A Person Primary Care Provider: Simeon Lopez Consulting Providers: Rere Mejias ; Ann-Marie Salas Discharge Orders/Prescriptions Prescriptions: No Action lisinopril [Zestril] 20 MG tablet 20 mg PO DAILY Label Comments: BLOOD PRESSURE isosorbide mononitrate 30 MG tablet 30 mg PO DAILY Label Comments: HEART/BLOOD PRESSURE clopidogrel 75 MG tablet 75 mg PO DAILY Label Comments: BLOOD THINNER atorvastatin 80 mg tablet 80 mg PO QHS Label Comments: TAKE 1 TABLET BY MOUTH EVERY DAY metoprolol tartrate 25 mg tablet 37.5 mg PO BID Label Comments: TAKE 1.5 TABLETS BY MOUTH TWICE DAILY Referrals / Follow Up: Simeon Lopez MD [Primary Care Provider] -
[2022-10-09] MEDS: Isosorbide Mononitrate 30 MG Tablet PO (09:41)
[2022-10-09] MEDS: Lisinopril 20 MG Tablet PO (09:41)
[2022-10-09] MEDS: Enoxaparin 30 MG/0.3 ML Syringe SC (09:41)
--- NOTE | 2022-10-09 10:24 | DS.PCM_ITS ---
Providers Date of Admission: 10/07/22 Primary Care Physician: Dr. Simeon Romo MD Consultations 10/07/22 20:34 Consult: Cardiology Routine Consulting Provider: Rere Mejias Reason for Consult: bradycardia, heart block EMERGENT Consult: No MD Notified: Yes Date Notified: 10/07/22 Time Notified: 19:02 Method of Notification: Verbal Reason For Visit: BRADYCARDIA,HEART BLOCK Diagnosis Discharge Diagnosis (1) Heart block: Status: Acute Code(s): I45.9 - Conduction disorder, unspecified Plan: Bradycardia due to intermittent Mobitz type II heart block Troponins negative We will cycle troponins. Echo shows an EF of 55 to 60%. IV atropine as needed for bradycardia hold metoprolol Pacemaker dual-chamber pacemaker placed on 10/08 (2) GITA (acute kidney injury): Status: Acute Code(s): N17.9 - Acute kidney failure, unspecified Plan: resolved with IVF Creatinine is 1.60 with a baseline of around 0.7. Hydrate gently with IV fluids and trend creatinine. This is likely prerenal as she says she has not been eating and drinking well. Plan Chronic conditions: * Hyperlipidemia: On statin * CAD: On Imdur and statin as well as Plavix * Hypertension: On lisinopril. metoprolol held due to bradycardia. DVT prophylaxis: Lovenox Discharge home Medications at Discharge Home Medications clopidogrel 75 mg tablet 75 mg PO DAILY antiplatelet 04/19/17 isosorbide mononitrate 30 mg tablet,extended release 24 hr 30 mg PO DAILY chest pain/blood pressure 04/19/17 lisinopril 20 mg tablet (Zestril) 20 mg PO DAILY blood pressure 04/19/17 atorvastatin 80 mg tablet 80 mg PO QHS cholesterol 12/10/21 hydralazine 25 mg tablet 25 mg PO TID #90 tabs 10/09/22 Hospital Course Operations None Procedures - (pacemaker.) Summary of Care Provided Minutes Spent on Discharge: 28 Hospital Course: 86-year-old female presents with weakness. Patient found to be bradycardic and was showing a secondary Mobitz type II heart block. Patient was seen by cardiology and patient was taken down for dual-chamber pacemaker on the . Patient tolerated that well. Patient also did have some acute kidney injury which did improve with IV fluids. Patient is overall doing well and will be discharged home in stable condition. Patient to hold his metoprolol for now. Patient has been started on hydralazine by cardiology and will continue. Weight / BMI Weight Weight: 111.9 kg Body Mass Index (BMI) 38.6 ABG / Lab / Microbiology Data Result Diagrams: 10/07/22 15:55 10/09/22 06:25 Laboratory: Laboratory Results - last 24 hr 10/09/22 06:25: Sodium 139, Potassium 4.1, Chloride 105, Carbon Dioxide 28.0, Anion Gap 6, BUN 25 H, Creatinine 0.97, Estim Creat Clear Calc 40.48, Est GFR (MDRD) Af Amer 70, Est GFR (MDRD) Non-Af 58 L, BUN/Creatinine Ratio 25.8 H, Glucose 109 H, Calcium 9.1 Radiography Diagnostic Testing: Radiology Impression Echocardiogram 10/08/22 07:58 Interpretation Summary The estimated ejection fraction is 55-60 %. Overall normal LV systolic function RV systolic pressure calculated 55.9 mmHg No significant change from previous study in February 02, 2019. Ordering Physician: Rere Mejias Referring Physician: TAQUERIA ROMO Performed By: Alyx Nowak RCS Chest X-Ray 10/09/22 05:50 IMPRESSION: 2-lead left chest cardiac pacer as above without pneumothorax or florid edema. Electronically Signed: Facundo Saucedo MD at 6:27 EDT , D/C Instructions Discharge Diet: No restrictions May shower in (days): 3 Additional Activity Instructions: May shower or bathe on [day 3]. Do not scrub the incision or soak in the tub. Just wash with soap and let the water run over the incision. Gently pat dry with towel. Medications: Take your pain medication as directed. Refer to your discharge instruction sheet for a list of medications you are to take. Call your doctor if your incision/area has: Continuous Slow Oozing, Sudden Increased Bleeding, Increased Pain/ Swelling, Increased Redness, Foul Smelling Discharge and Swelling at the incision site Call your doctor if you observe: Fever of 101 or Higher, Shortness of breath, Dizziness, Fainting spells, Swelling in the ankles, Chest pain, Prolonged hiccupping and Increased palpitations (irregular heartbeat) Suture Line Care: Avoid Pulling/Pushing and Avoid Pinching/Bending Cleanse incision/area with: Keep Dressing Clean & Dry Additional Dressing/Incision Instructions: When dressing is removed, wash and dry incision. Keep covered with a light bandage if it is rubbing against your clothing. Do not cover the incision with an airtight bandage. Change the bandage daily. Do not remove steri strips. The strips will fall off on their own. Please Follow Up With: Jason Hernandez MD When: Pacer follow up on October 23 at 9 AM Meaningful Use Info Meaningful Use Diagnoses (Choose all that apply): None applicable Discharge Plan Admission Admit Date/Time: 10/07/22 18:58 Primary Reason for Your Visit: Bradycardia Attending Provider: Marco A Person Primary Care Provider: Simeon Romo Consulting Providers: Rere Mejias ; Ann-Marie Salas Discharge Orders/Prescriptions Prescriptions: New hydralazine 25 mg Tablet 25 mg PO TID Qty: 90 0RF Continued lisinopril [Zestril] 20 MG tablet 20 mg PO DAILY Label Comments: BLOOD PRESSURE isosorbide mononitrate 30 MG tablet 30 mg PO DAILY Label Comments: HEART/BLOOD PRESSURE clopidogrel 75 MG tablet 75 mg PO DAILY Label Comments: BLOOD THINNER atorvastatin 80 mg tablet 80 mg PO QHS Label Comments: TAKE 1 TABLET BY MOUTH EVERY DAY Discontinued metoprolol tartrate 25 mg tablet 37.5 mg PO BID Label Comments: TAKE 1.5 TABLETS BY MOUTH TWICE DAILY Referrals / Follow Up: [facility] [Provider Group] - 10/23/22 1:00 pm Simeon Romo MD [Primary Care Provider] - Within 2 Weeks Disposition Disposition (needs filled in before D/C Order can be placed): Home, Self Care Charges/Coding Visit Charges Inpatient E&M: 88331 Disch Hosp >30min
[2022-10-09] MEDS: Ondansetron 4 MG/2 ML Vial IV (12:41)
[2022-10-09] MEDS: 0.9% Saline Lock 10 ML Syringe IV (12:41)
--- NOTE | 2022-10-09 15:29 | CASEMGMT ---
Patient feels like she is too weak to go home and is willing to go somewhere for rehab. RN CM provided patient and family with a list of half-way facility providers including quality and resource use data and consistent with patient?s preferred geographic region, medical needs, and insurance network were provided from the [facility]. ELISA checked in with patient and family and obtained their choices for SNF: [facility], [facility], and [facility]. SW sent Charleen in [facility] admissions a message regarding referral. Noris HUMPHRIES
[2022-10-09] MEDS: Atorvastatin Calcium 80 MG Tablet PO (21:42)
[2022-10-10] VITALS (8 sets, daily range): BP systolic 93–128; BP diastolic 48–107; PULSE 86–102; RESP 18; TEMP 36.1–36.8; O2SAT 94–97
--- NOTE | 2022-10-10 08:07 | PN.HOSP_ITS ---
Reason for Visit Reason for Visit: Diagnoses Conduction disorder, unspecified (10/07/22) Chronic obstructive pulmonary disease with (acute) exacerbation (10/07/22) Acute kidney failure, unspecified (10/07/22) Bradycardia, unspecified (10/07/22) Other forms of dyspnea (10/07/22) Subjective Subjective Feeling much better today. When she moves around she gets nauseated. She was though having this before she presented to the emergency room. Yesterday of the nausea was more profound but today it is better though not gone. Objective Data Objective Data Vital Signs: Vital Signs Temp Pulse Resp BP Pulse Ox O2 Del Method O2 Flow Rate 36.1 C L 102 H 18 128/107 H 95 Nasal Cannula 2 10/10/22 03:16 10/10/22 03:16 10/10/22 03:16 10/10/22 03:16 10/10/22 03:16 10/10/22 03:20 10/10/22 03:20 Oxygen Flow Rate (L/min) 2 Oxygen Delivery Method Nasal Cannula Weight: 111.9 kg Body Mass Index (BMI) 38.6 Intake & Output: Intake and Output for Last 24 Hours 10/08/22 10/09/22 10/10/22 23:59 23:59 23:59 Intake Total 2380 / 2380 Output Total 750 / 750 Balance 1630 / 1630 Lab / Micro Data Result Diagrams: 10/07/22 15:55 10/09/22 06:25 Physical Exam Const alert and no apparent distress HEENT head/scalp atraumatic and moist oral mucous membranes Resp normal respiratory effort, no retractions, no use of accessory muscles and clear to auscultation bilaterally Cardio regular rate, regular rhythm, S1 normal heart sound and S2 normal heart sound GI normal to inspection, nondistended, normoactive bowel sounds Assessment & Plan Assessment/Plan (1) Heart block: PLAN: Bradycardia due to intermittent Mobitz type II heart block Troponins negative We will cycle troponins. Echo shows an EF of 55 to 60%. IV atropine as needed for bradycardia hold metoprolol Pacemaker dual-chamber pacemaker placed on 10/08 (2) GITA (acute kidney injury): PLAN: resolved with IVF Creatinine is 1.60 with a baseline of around 0.7. Hydrate gently with IV fluids and trend creatinine. This is likely prerenal as she says she has not been eating and drinking well. (3) Hypotension: PLAN: resolved present on 10/09 and hydralazine was subsequently discontinued (4) Debility: PLAN: Patient week. Patient initially went to go to [facility] but no beds currently available so the plan is for [facility]. Waiting on insurance approval. (5) Nausea: PLAN: Chronic complaint for the patient prior to her admission even. She does a history of hiatal hernia that may have had surgical repair. She said that she had some laparoscopic surgery for the hernia that helped it. Unclear if she had fundoplication or not. Patient does not take any PPI. We will start PPI as well as simethicone as she does complain of bloating. PLAN: Plan Chronic conditions: * Hyperlipidemia: On statin * CAD: On Imdur and statin as well as Plavix * Hypertension: On lisinopril. metoprolol held due to bradycardia. DVT prophylaxis: Lovenox Disposition: To be determined. She currently waiting on insurance authorization which may push her discharge until next week. Charges/Coding Visit Charges Inpatient E&M: 60721 Subs Hosp L2
[2022-10-10] MEDS: Lisinopril 20 MG Tablet PO (08:29)
[2022-10-10] MEDS: Isosorbide Mononitrate 30 MG Tablet PO (08:29)
[2022-10-10] MEDS: Enoxaparin 30 MG/0.3 ML Syringe SC (08:29)
--- NOTE | 2022-10-10 08:52 | CASEMGMT ---
[facility] does not have a bed available at this time. SW made a referral to [facility] which was patient's second choice. Noris HUMPHRIES
--- NOTE | 2022-10-10 10:42 | CASEMGMT ---
ELISA let patient know that [facility] does not have any beds available. The second choice was [facility] and they can accept patient. ELISA explained patient will stay here until insurance approves her. ELISA asked if she would like ELISA to update her daughter and she said yes. ELISA called patient's daughter Chloe and let her know above information. Plan: d/c to [facility] pending insurance approval. Noris HUMPHRIES
[2022-10-10] MEDS: Pantoprazole Sodium 40 MG Tablet PO (11:09)
[2022-10-10] MEDS: 0.9% Saline Lock 10 ML Syringe IV (11:09)
[2022-10-10] MEDS: Ondansetron 4 MG/2 ML Vial IV (11:10)
--- NOTE | 2022-10-10 16:23 | CASEMGMT ---
SW let patient know that we are still waiting on her insurance to approve her to go to [facility]. 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
[2022-10-10] MEDS: Atorvastatin Calcium 80 MG Tablet PO (20:38)
[2022-10-11] MEDS: Ondansetron 4 MG/2 ML Vial IV (01:23)
[2022-10-11 02:45] VITALS: BP 98/67; PULSE 101; RESP 18; TEMP 36.4; O2SAT 95
[2022-10-11 04:45] VITALS: BP 142/98; PULSE 94; RESP 18; TEMP 36.6; O2SAT 95
[2022-10-11 07:58] VITALS: O2SAT 95
--- NOTE | 2022-10-11 08:38 | PN.HOSP_ITS ---
Reason for Visit Reason for Visit: Diagnoses Conduction disorder, unspecified (10/07/22) Hypotension, unspecified (10/07/22) Chronic obstructive pulmonary disease with (acute) exacerbation (10/07/22) Acute kidney failure, unspecified (10/07/22) Bradycardia, unspecified (10/07/22) Other forms of dyspnea (10/07/22) Nausea (10/07/22) Other malaise (10/07/22) Subjective Subjective Feels much better. No further nausea after starting pantoprazole and simethicone. Objective Data Objective Data Vital Signs: Vital Signs Temp Pulse Resp BP Pulse Ox O2 Del Method O2 Flow Rate 36.6 C 94 18 142/98 H 95 Nasal Cannula 2 10/11/22 04:45 10/11/22 04:45 10/11/22 04:45 10/11/22 04:45 10/11/22 04:45 10/11/22 04:45 10/11/22 04:45 Oxygen Flow Rate (L/min) 2 Oxygen Delivery Method Nasal Cannula Weight: 111.9 kg Body Mass Index (BMI) 38.6 Intake & Output: Intake and Output for Last 24 Hours 10/09/22 10/10/22 10/11/22 23:59 23:59 23:59 Intake Total 240 / 240 Balance 240 / 240 Lab / Micro Data Result Diagrams: 10/07/22 15:55 10/09/22 06:25 Physical Exam Const alert and no apparent distress HEENT head/scalp atraumatic and moist oral mucous membranes Resp normal respiratory effort, no retractions, no use of accessory muscles and clear to auscultation bilaterally Cardio regular rate, regular rhythm, S1 normal heart sound and S2 normal heart sound GI normal to inspection, nondistended, normoactive bowel sounds, soft to palpation, non-tender and non-distended Extremity normal to inspection Assessment & Plan Assessment/Plan (1) Heart block: PLAN: Bradycardia due to intermittent Mobitz type II heart block Troponins negative We will cycle troponins. Echo shows an EF of 55 to 60%. IV atropine as needed for bradycardia hold metoprolol Pacemaker dual-chamber pacemaker placed on 10/08 (2) GITA (acute kidney injury): PLAN: resolved with IVF Creatinine is 1.60 with a baseline of around 0.7. Hydrate gently with IV fluids and trend creatinine. This is likely prerenal as she says she has not been eating and drinking well. (3) Hypotension: PLAN: resolved present on 10/09 and hydralazine was subsequently discontinued (4) Debility: PLAN: Patient week. Patient initially went to go to [facility] but no beds currently available so the plan is [facility]. Waiting on insurance approval. (5) Nausea: PLAN: Chronic complaint for the patient prior to her admission even. She does a history of hiatal hernia that may have had surgical repair. She said that she had some laparoscopic surgery for the hernia that helped it. Unclear if she had fundoplication or not. Patient does not take any PPI. We will start PPI as well as simethicone as she does complain of bloating. 10/11: improved after starting pantoprazole and simethicone. PLAN: Plan Chronic conditions: * Hyperlipidemia: On statin * CAD: On Imdur and statin as well as Plavix * Hypertension: On lisinopril. metoprolol held due to bradycardia. DVT prophylaxis: Lovenox Disposition: To be determined. She currently waiting on insurance authorization which may push her discharge until next week. Charges/Coding Visit Charges Inpatient E&M: 39480 Subs Hosp L2
[2022-10-11 09:15] VITALS: BP 108/57; PULSE 88; RESP 18; TEMP 36.6; O2SAT 96
[2022-10-11] MEDS: Enoxaparin 40 MG/0.4 ML Syringe SC (09:20)
[2022-10-11] MEDS: Pantoprazole Sodium 40 MG Tablet PO (09:21)
[2022-10-11 15:15] VITALS: BP 128/58; PULSE 86; RESP 18; TEMP 36.6; O2SAT 95
[2022-10-11 21:07] VITALS: BP 116/56; PULSE 94; RESP 18; TEMP 37; O2SAT 95
[2022-10-11] MEDS: Atorvastatin Calcium 80 MG Tablet PO (21:19)
[2022-10-12 03:17] VITALS: BP 123/65; PULSE 89; RESP 18; TEMP 36.8; O2SAT 96
[2022-10-12] MEDS: Ondansetron 4 MG/2 ML Vial IV (06:08)
[2022-10-12] MEDS: 0.9% Saline Lock 10 ML Syringe IV (06:09)
[2022-10-12 07:36] VITALS: O2SAT 95
--- NOTE | 2022-10-12 08:51 | PCM.PN.HOSP ---
Reason for Visit Reason for Visit: Diagnoses Conduction disorder, unspecified (10/07/22) Hypotension, unspecified (10/07/22) Chronic obstructive pulmonary disease with (acute) exacerbation (10/07/22) Acute kidney failure, unspecified (10/07/22) Bradycardia, unspecified (10/07/22) Other forms of dyspnea (10/07/22) Nausea (10/07/22) Other malaise (10/07/22) Subjective Subjective Did not feel last night, but currently feeling better. Objective Data Objective Data Vital Signs: Vital Signs Temp Pulse Resp BP Pulse Ox O2 Del Method O2 Flow Rate 36.8 C 89 18 123/65 H 95 Nasal Cannula 2 10/12/22 03:17 10/12/22 03:17 10/12/22 03:17 10/12/22 03:17 10/12/22 07:36 10/12/22 07:36 10/12/22 07:36 Oxygen Flow Rate (L/min) 2 Oxygen Delivery Method Nasal Cannula Weight: 111.9 kg Body Mass Index (BMI) 38.6 Intake & Output: Intake and Output for Last 24 Hours 10/10/22 10/11/22 10/12/22 23:59 23:59 23:59 Intake Total 240 / 240 360 / 360 Balance 240 / 240 360 / 360 Lab / Micro Data Result Diagrams: 10/07/22 15:55 10/09/22 06:25 Physical Exam Const alert and no apparent distress HEENT head/scalp atraumatic and moist oral mucous membranes Neuro Sensorium / Orientation: awake Psych affect normal Assessment & Plan Assessment/Plan (1) Heart block: PLAN: Bradycardia due to intermittent Mobitz type II heart block Troponins negative We will cycle troponins. Echo shows an EF of 55 to 60%. IV atropine as needed for bradycardia hold metoprolol Pacemaker dual-chamber pacemaker placed on 10/08 (2) GITA (acute kidney injury): PLAN: resolved with IVF Creatinine is 1.60 with a baseline of around 0.7. Hydrate gently with IV fluids and trend creatinine. This is likely prerenal as she says she has not been eating and drinking well. (3) Hypotension: PLAN: resolved present on 10/09 and hydralazine was subsequently discontinued (4) Debility: PLAN: Patient week. Patient initially went to go to [facility] but no beds currently available so the plan [facility]. Waiting on insurance approval. (5) Nausea: PLAN: Chronic complaint for the patient prior to her admission even. She does a history of hiatal hernia that may have had surgical repair. She said that she had some laparoscopic surgery for the hernia that helped it. Unclear if she had fundoplication or not. Patient does not take any PPI. We will start PPI as well as simethicone as she does complain of bloating. 10/11: improved after starting pantoprazole and simethicone. PLAN: Plan Chronic conditions: Hyperlipidemia: On statin CAD: On Imdur and statin as well as Plavix Hypertension: On lisinopril. metoprolol held due to bradycardia. DVT prophylaxis: Lovenox Disposition: To be determined. She currently waiting on insurance authorization which may push her discharge until next week. Greater than 35 minutes of which greater than 50% of time was discussed with the patient about her medical issues, her variety of complaints and plan for retirement facility. Charges/Coding Visit Charges Inpatient E&M: 63833 Subs Hosp L2
[2022-10-12 09:15] VITALS: BP 102/65; PULSE 84; RESP 18; TEMP 36.7; O2SAT 96
[2022-10-12] MEDS: Enoxaparin 40 MG/0.4 ML Syringe SC (09:58)
[2022-10-12] MEDS: Pantoprazole Sodium 40 MG Tablet PO (09:58)
[2022-10-12 10:23] VITALS: O2SAT 94
[2022-10-12 15:15] VITALS: BP 146/67; PULSE 96; RESP 18; TEMP 36.4; O2SAT 94
[2022-10-12] MEDS: Bisacodyl 5 MG Tablet PO (17:36)
[2022-10-12 21:00] VITALS: BP 137/59; PULSE 88; RESP 18; TEMP 36.7; O2SAT 96
[2022-10-12] MEDS: Atorvastatin Calcium 80 MG Tablet PO (21:03)
[2022-10-13] MEDS: Ondansetron 4 MG/2 ML Vial IV (01:28)
[2022-10-13 03:02] VITALS: BP 140/71; PULSE 79; RESP 18; TEMP 36.6; O2SAT 96
--- NOTE | 2022-10-13 07:50 | PN.HOSP_ITS ---
Reason for Visit Reason for Visit: Diagnoses Conduction disorder, unspecified (10/07/22) Hypotension, unspecified (10/07/22) Chronic obstructive pulmonary disease with (acute) exacerbation (10/07/22) Acute kidney failure, unspecified (10/07/22) Bradycardia, unspecified (10/07/22) Other forms of dyspnea (10/07/22) Nausea (10/07/22) Other malaise (10/07/22) Subjective Subjective Overall feeling better. Objective Data Objective Data Vital Signs: Vital Signs Temp Pulse Resp BP Pulse Ox O2 Del Method O2 Flow Rate 36.6 C 79 18 140/71 H 96 Nasal Cannula 2 10/13/22 03:02 10/13/22 03:02 10/13/22 03:02 10/13/22 03:02 10/13/22 03:02 10/13/22 03:02 10/13/22 03:02 Oxygen Flow Rate (L/min) 2 Oxygen Delivery Method Nasal Cannula Weight: 111.9 kg Body Mass Index (BMI) 38.6 Intake & Output: Intake and Output for Last 24 Hours 10/11/22 10/12/22 10/13/22 23:59 23:59 23:59 Intake Total 360 / 360 600 / 600 Balance 360 / 360 600 / 600 Lab / Micro Data Result Diagrams: 10/07/22 15:55 10/09/22 06:25 Physical Exam Const alert and no apparent distress Assessment & Plan Assessment/Plan (1) Heart block: PLAN: Bradycardia due to intermittent Mobitz type II heart block Troponins negative We will cycle troponins. Echo shows an EF of 55 to 60%. IV atropine as needed for bradycardia hold metoprolol Pacemaker dual-chamber pacemaker placed on 10/08 (2) GITA (acute kidney injury): PLAN: resolved with IVF Creatinine is 1.60 with a baseline of around 0.7. Hydrate gently with IV fluids and trend creatinine. This is likely prerenal as she says she has not been eating and drinking well. (3) Hypotension: PLAN: resolved present on 10/09 and hydralazine was subsequently discontinued (4) Debility: PLAN: Patient week. Patient initially went to go to TCU but no beds currently available so [facility]. Waiting on insurance approval. (5) Nausea: PLAN: Chronic complaint for the patient prior to her admission even. She does a history of hiatal hernia that may have had surgical repair. She said that she had some laparoscopic surgery for the hernia that helped it. Unclear if she had fundoplication or not. Patient does not take any PPI. We will start PPI as well as simethicone as she does complain of bloating. 10/11: improved after starting pantoprazole and simethicone. PLAN: Plan Chronic conditions: * Hyperlipidemia: On statin * CAD: On Imdur and statin as well as Plavix * Hypertension: On lisinopril. metoprolol held due to bradycardia. DVT prophylaxis: Lovenox Disposition: To be determined. Discussed with Dr. Briseno about the patient's limited mobility and recommendation for shelter facility. Updated on the current therapy notes from the (he only had available from the ). Patient was approved for shelter facility.
[2022-10-13 09:00] VITALS: BP 129/47; PULSE 88; RESP 18; TEMP 36.6; O2SAT 92
--- NOTE | 2022-10-13 09:04 | CASEMGMT ---
SW received a message via [facility] on Thursday that patient was denied. A peer to peer could be done by noon the next day. Reference number [id number]. Phone number [phone] option 4. SW will see if physician is willing to do a peer to peer and if so SW will check with insurance to make sure it can still be done. Noris Alvarez CLOUD DEVELOPER KRISTEL
[2022-10-13] MEDS: Pantoprazole Sodium 40 MG Tablet PO (09:30)
[2022-10-13] MEDS: Bisacodyl 5 MG Tablet PO (09:30)
[2022-10-13] MEDS: Isosorbide Mononitrate 30 MG Tablet PO (09:30)
[2022-10-13] MEDS: Enoxaparin 40 MG/0.4 ML Syringe SC (09:31)
[2022-10-13] MEDS: Lisinopril 20 MG Tablet PO (09:41)
--- NOTE | 2022-10-13 09:50 | CASEMGMT ---
SW called [facility] and physician can still do a peer to peer. SW previously spoke with physician and he is willing to do a peer to peer. SW arranged the peer to peer. Noris HUMPHRIES
[2022-10-13 10:00] VITALS: RESP 18; O2SAT 92
--- NOTE | 2022-10-13 10:23 | CASEMGMT ---
Physician completed the peer to peer and patient was approved. SW notified Yun at [facility] and she will let SW know when [employer] notifies them of approval. Plan: d/c to [facility] under skilled level of care. Noris HUMPHRIES
[2022-10-13 10:45] VITALS: O2SAT 93
--- NOTE | 2022-10-13 10:53 | CASEMGMT ---
Yun from [facility] said they received the authorization for patient. SW notified patient and her son in law. Transportation to [facility] was discussed. SW let them know wheelchair transport can be arranged, but it is not covered by insurance. Patient decided she was okay with this. Await orders. Plan: d/c to [facility] under skilled level of care. Noris Alvarez EMPLOYMENT PROGRAM REPRESENTATIVE KRISTEL
--- NOTE | 2022-10-13 11:43 | CASEMGMT ---
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 Pt stated her daughter Chloe Wells is healthcare POA. RADHA Alcazar
--- NOTE | 2022-10-13 12:18 | TREXTCAR_ITS ---
Diet Diet Order/Speech Therapy: 10/08/22 Dinner Diet: Cardiac - Heart Healthy Type of Dietary Supplement:: Ensure Plus High Protein Is pt able to select menu?: Yes Diet Comments: 120mL chocolate ensure w/ meals Routine Orders/Code Status O2 Frequency: Continuous Code Status: Full Code Wound(s) Left Chest, pacer site: Wound Type: Surgical Incision Therapies Weight Bearing: Non weight bearing Extremity Affected:: Left Upper Physical Therapy: Eval and Treat Occupational Therapy: Eval and Treat Problem/Diagnosis (1) Heart block: Status: Acute Code(s): I45.9 - Conduction disorder, unspecified Plan: Bradycardia due to intermittent Mobitz type II heart block Troponins negative We will cycle troponins. Echo shows an EF of 55 to 60%. IV atropine as needed for bradycardia hold metoprolol Pacemaker dual-chamber pacemaker placed on 10/08 (2) GITA (acute kidney injury): Status: Acute Code(s): N17.9 - Acute kidney failure, unspecified Plan: resolved with IVF Creatinine is 1.60 with a baseline of around 0.7. Hydrate gently with IV fluids and trend creatinine. This is likely prerenal as she says she has not been eating and drinking well. (3) Hypotension: Status: Acute Code(s): I95.9 - Hypotension, unspecified Plan: resolved present on 10/09 and hydralazine was subsequently discontinued (4) Debility: Status: Acute Code(s): R53.81 - Other malaise Plan: Patient week. Patient initially went to go to TCU but no beds currently available so [facility]. Waiting on insurance approval. (5) Nausea: Status: Acute Code(s): R11.0 - Nausea Plan: Chronic complaint for the patient prior to her admission even. She does a history of hiatal hernia that may have had surgical repair. She said that she had some laparoscopic surgery for the hernia that helped it. Unclear if she had fundoplication or not. Patient does not take any PPI. We will start PPI as well as simethicone as she does complain of bloating. 10/11: improved after starting pantoprazole and simethicone. Plan Chronic conditions: * Hyperlipidemia: On statin * CAD: On Imdur and statin as well as Plavix * Hypertension: On lisinopril. metoprolol held due to bradycardia. DVT prophylaxis: Lovenox Disposition: To be determined. Discussed with Dr. Briseno about the patient's limited mobility and recommendation [facility]. Updated on the current therapy notes from the (he only had available from the ). Patient was [facility] for [facility]. Allergies/Procedures Done in Hospital Allergies Penicillins Allergy (Verified 10/07/22 15:09) Hives ciprofloxacin [From Cipro] Adverse Reaction (Verified 10/07/22 15:09) muscle pain and nausea Procedures: 2-D Echocardiogram and - (pacemaker) Type of Care/Length of Stay Estimated LOS: Convalescent Care Less Than 30 days Type of Care Needed: Skilled Rehab Potential: Fair Prognosis: Good Additional Orders/Day of Discharge Day of Discharge: 10/13/22 Dietary and Speech Recommendations Dietitian Recommendations/Changes: continue cardiac diet as tolerated; will add 4oz chocolate ensure plus high protein w/ meals given poor PO intake. May need to liberalize diet if appetite/intake does not continue to improve. Follow Up Care Please Follow Up With: Jason Hernandez MD Discharge Plan Admission Admit Date/Time: 10/07/22 18:58 Primary Reason for Your Visit: Bradycardia Attending Provider: Marco A Person Primary Care Provider: Simeon Lopez Consulting Providers: Rere Mejias ; Ann-Marie Salas Discharge Orders/Prescriptions Prescriptions: New acetaminophen 325 mg Tablet 650 mg PO Q6H PRN PRN (Reason: Pain 1-10 Or Fever >100.7) Qty: 0 0RF pantoprazole 40 mg Tablet,Delayed Release (Dr/Ec) 40 mg PO DAILY Qty: 0 0RF bisacodyl 5 mg Tablet,Delayed Release (Dr/Ec) 5 mg PO DAILY PRN (Reason: Constipation) Qty: 0 0RF simethicone 80 mg Tablet,Chewable 80 mg PO TIDPC Qty: 30 0RF Continued lisinopril [Zestril] 20 MG tablet 20 mg PO DAILY Label Comments: BLOOD PRESSURE clopidogrel 75 MG tablet 75 mg PO DAILY Label Comments: BLOOD THINNER atorvastatin 80 mg tablet 80 mg PO QHS Label Comments: TAKE 1 TABLET BY MOUTH EVERY DAY Discontinued isosorbide mononitrate 30 MG tablet 30 mg PO DAILY Label Comments: HEART/BLOOD PRESSURE metoprolol tartrate 25 mg tablet 37.5 mg PO BID Label Comments: TAKE 1.5 TABLETS BY MOUTH TWICE DAILY Referrals / Follow Up: [facility] [Provider Group] - 10/23/22 1:00 pm Simeon Lopez MD [Primary Care Provider] - Within 2 Weeks Disposition Disposition (needs filled in before D/C Order can be placed): Long Term Facility
--- NOTE | 2022-10-13 12:22 | DS.PCM_ITS ---
Providers Date of Admission: 10/07/22 Primary Care Physician: Dr. Simeon Lopez MD Consultations 10/07/22 20:34 Consult: Cardiology Routine Consulting Provider: Rere Mejias Reason for Consult: bradycardia, heart block EMERGENT Consult: No MD Notified: Yes Date Notified: 10/07/22 Time Notified: 19:02 Method of Notification: Verbal Reason For Visit: BRADYCARDIA,HEART BLOCK Diagnosis Discharge Diagnosis (1) Heart block: Status: Acute Code(s): I45.9 - Conduction disorder, unspecified Plan: Bradycardia due to intermittent Mobitz type II heart block Troponins negative We will cycle troponins. Echo shows an EF of 55 to 60%. IV atropine as needed for bradycardia hold metoprolol Pacemaker dual-chamber pacemaker placed on 10/08 (2) GITA (acute kidney injury): Status: Acute Code(s): N17.9 - Acute kidney failure, unspecified Plan: resolved with IVF Creatinine is 1.60 with a baseline of around 0.7. Hydrate gently with IV fluids and trend creatinine. This is likely prerenal as she says she has not been eating and drinking well. (3) Hypotension: Status: Acute Code(s): I95.9 - Hypotension, unspecified Plan: resolved present on 10/09 and hydralazine was subsequently discontinued (4) Debility: Status: Acute Code(s): R53.81 - Other malaise Plan: Patient week. Patient initially went to go to TCU but no beds currently available so [facility]. Waiting on insurance approval. (5) Nausea: Status: Acute Code(s): R11.0 - Nausea Plan: Chronic complaint for the patient prior to her admission even. She does a history of hiatal hernia that may have had surgical repair. She said that she had some laparoscopic surgery for the hernia that helped it. Unclear if she had fundoplication or not. Patient does not take any PPI. We will start PPI as well as simethicone as she does complain of bloating. 10/11: improved after starting pantoprazole and simethicone. Plan Chronic conditions: * Hyperlipidemia: On statin * CAD: On Imdur and statin as well as Plavix * Hypertension: On lisinopril. metoprolol held due to bradycardia. DVT prophylaxis: Lovenox Disposition: To be determined. Discussed with Dr. Briseno about the patient's limited mobility and recommendation for long term facility. Updated on the current therapy notes from the (he only had available from the ). Patient was approved for long term facility. Medications at Discharge Home Medications clopidogrel 75 mg tablet 75 mg PO DAILY antiplatelet 04/19/17 lisinopril 20 mg tablet (Zestril) 20 mg PO DAILY blood pressure 04/19/17 atorvastatin 80 mg tablet 80 mg PO QHS cholesterol 12/10/21 acetaminophen 325 mg tablet 650 mg PO Q6H PRN PRN Pain 1-10 Or Fever >100.7 #0 tabs 10/13/22 bisacodyl 5 mg tablet,delayed release 5 mg PO DAILY PRN Constipation #0 tabs 10/13/22 pantoprazole 40 mg tablet,delayed release 40 mg PO DAILY #0 tabs 10/13/22 simethicone 80 mg chewable tablet 80 mg PO TIDPC #30 tabs 10/13/22 Hospital Course Operations None Procedures 2-D Echocardiogram and - (pacemaker.) Summary of Care Provided Minutes Spent on Discharge: 32 Hospital Course: This is an 86-year-old female presents with chest pain. Patient was found to be in secondary heart block Mobitz type II. Patient underwent a pacemaker placement on the . Patient was to be discharged on the but then she became hypotensive and nauseated. Then discharge was held. Made adjustments to her blood pressure medications and did add pantoprazole and simethicone for the nausea. Overall patient is feeling well but patient is still very weak requiring assistance turning in bed. Patient has been approved for going to long term facility and will be discharged today. Weight / BMI Weight Weight: 111.9 kg Body Mass Index (BMI) 38.6 ABG / Lab / Microbiology Data Result Diagrams: 10/07/22 15:55 10/09/22 06:25 Microbiology: Microbiology 10/13/22 10:50 Nasal Secretion SARS-CoV-2 Antigen (Rapid) - Final D/C Instructions Discharge Diet: No restrictions May shower in (days): 3 Additional Activity Instructions: May shower or bathe on [day 3]. Do not scrub the incision or soak in the tub. Just wash with soap and let the water run over the incision. Gently pat dry with towel. Medications: Take your pain medication as directed. Refer to your discharge instruction sheet for a list of medications you are to take. Call your doctor if your incision/area has: Continuous Slow Oozing, Sudden Increased Bleeding, Increased Pain/ Swelling, Increased Redness, Foul Smelling Discharge and Swelling at the incision site Call your doctor if you observe: Fever of 101 or Higher, Shortness of breath, Dizziness, Fainting spells, Swelling in the ankles, Chest pain, Prolonged hiccupping and Increased palpitations (irregular heartbeat) Suture Line Care: Avoid Pulling/Pushing and Avoid Pinching/Bending Cleanse incision/area with: Keep Dressing Clean & Dry Additional Dressing/Incision Instructions: When dressing is removed, wash and dry incision. Keep covered with a light bandage if it is rubbing against your clothing. Do not cover the incision with an airtight bandage. Change the bandage daily. Do not remove steri strips. The strips will fall off on their own. Please Follow Up With: Jason Hernandez MD When: Pacer follow up on October 23 at 9 AM Meaningful Use Info Meaningful Use Diagnoses (Choose all that apply): None applicable Discharge Plan Admission Admit Date/Time: 10/07/22 18:58 Primary Reason for Your Visit: Bradycardia Attending Provider: Marco A Person Primary Care Provider: Simeon Lopez Consulting Providers: Rree Mejias ; Ann-Marie Salas Discharge Orders/Prescriptions Prescriptions: New acetaminophen 325 mg Tablet 650 mg PO Q6H PRN PRN (Reason: Pain 1-10 Or Fever >100.7) Qty: 0 0RF pantoprazole 40 mg Tablet,Delayed Release (Dr/Ec) 40 mg PO DAILY Qty: 0 0RF bisacodyl 5 mg Tablet,Delayed Release (Dr/Ec) 5 mg PO DAILY PRN (Reason: Constipation) Qty: 0 0RF simethicone 80 mg Tablet,Chewable 80 mg PO TIDPC Qty: 30 0RF Continued lisinopril [Zestril] 20 MG tablet 20 mg PO DAILY Label Comments: BLOOD PRESSURE clopidogrel 75 MG tablet 75 mg PO DAILY Label Comments: BLOOD THINNER atorvastatin 80 mg tablet 80 mg PO QHS Label Comments: TAKE 1 TABLET BY MOUTH EVERY DAY Discontinued isosorbide mononitrate 30 MG tablet 30 mg PO DAILY Label Comments: HEART/BLOOD PRESSURE metoprolol tartrate 25 mg tablet 37.5 mg PO BID Label Comments: TAKE 1.5 TABLETS BY MOUTH TWICE DAILY Referrals / Follow Up: [facility] [Provider Group] - 10/23/22 1:00 pm Simeon Lopez MD [Primary Care Provider] - Within 2 Weeks Disposition Disposition (needs filled in before D/C Order can be placed): [facility] Charges/Coding Visit Charges Inpatient E&M: 41345 Disch Hosp >30min
--- NOTE | 2022-10-13 12:58 | CASEMGMT ---
Discharge Planning Discharge orders, signed med list, covid results, and pickup time sent to [facility] via [id number]. Patient, her daughter, SW, and nursing notified. Vaishali Liu
--- NOTE | 2022-10-13 13:16 | PHA.DC.MR ---
Pharmacy Service has performed discharge medication reconciliation for this patient. The patient's discharge medication list was reviewed for discrepancies and discrepancies were resolved. Home Medications clopidogrel 75 mg tablet 75 mg PO DAILY antiplatelet 04/19/17 lisinopril 20 mg tablet (Zestril) 20 mg PO DAILY blood pressure 04/19/17 atorvastatin 80 mg tablet 80 mg PO QHS cholesterol 12/10/21 acetaminophen 325 mg tablet 650 mg PO Q6H PRN PRN Pain 1-10 Or Fever >100.7 #0 tabs 10/13/22 bisacodyl 5 mg tablet,delayed release 5 mg PO DAILY PRN Constipation #0 tabs 10/13/22 pantoprazole 40 mg tablet,delayed release 40 mg PO DAILY #0 tabs 10/13/22 simethicone 80 mg chewable tablet 80 mg PO TIDPC #30 tabs 10/13/22
== END 2022-10-13 14:17 | disposition skilled nursing facility (03) | DRG 243 ==
LOC: ED 18:33 → ICU 19:28 → PCU 10-08 09:42
PROVIDERS: Admitting Provider Student in an Organized Health Care Education/Training Program; Emergency Provider Student in an Organized Health Care Education/Training Program; PCP Family Medicine
DX: I44.1 Atrioventricular block, second degree (principal); N17.9 Acute kidney failure, unspecified; J96.10 Chronic respiratory failure, unspecified whether with hypoxia or hypercapnia; I95.9 Hypotension, unspecified; Z99.81 Dependence on supplemental oxygen; J44.9 Chronic obstructive pulmonary disease, unspecified; I25.10 Atherosclerotic heart disease of native coronary artery without angina pectoris; I10 Essential (primary) hypertension; E78.5 Hyperlipidemia, unspecified; R11.0 Nausea; Z20.822 Contact with and (suspected) exposure to COVID-19; Z95.0 Presence of cardiac pacemaker; Z79.02 Long term (current) use of antithrombotics/antiplatelets; Z79.899 Other long term (current) drug therapy; Z87.891 Personal history of nicotine dependence; Z86.73 Personal history of transient ischemic attack (TIA), and cerebral infarction without residual deficits
CPT/HCPCS: 33208; 36415; 71045; 71047; 80048; 81001; 83880; 84484; 85025; 87426; 93005; 93306; 97110; 97116; 97162; 97166; 97530; 97535; 99152; 99153; 99285; J7030; J7040; J7050; Q9957; Q9967; A4216; C1769; C1894; C8929; J2405

== ENCOUNTER → 2023-02-03 | Outpatient (CLI) | payer MEDICARE, SELFPAY ==
[2023-02-03 16:16] LABS: Absolute Neutrophil Count 9.4 X10^3/uL (2.0-7.7); Basophil# 0.03 X10^3/uL; Basophil% 0.3 % (0-1); Eosinophil# 0.01 X10^3/uL; Eosinophils% 0.1 % (0-5); Hematocrit 48.7 % (37-47); Hemoglobin 14.3 g/dL (12.0-15.0); Lymphocyte % 6.5 % (19-41); Mean Corp Hgb Conc 29.4 g/dL (32-36); Mean Corpuscular Hgb 30.7 pg (27.0-32.0); Mean Corpuscular Volume 104.5 fL (81-99); Monocyte# 0.58 X10^3/uL; Monocyte% 5.4 % (0-10); NRBC Flagged by Analyzer 0 % (0-5); Neutrophil % 87.2 % (47-70); Platelet Count 213 K/mm3 (150-450); RBC Distribution Width CV 13.2 % (11.6-14.6); RBC Distribution Width SD 51.5 fl (35.1-43.9); Red Blood Count 4.66 M/mm3 (4.2-5.4); White Blood Count 10.8 K/mm3 (4.4-11.0)
[2023-02-03 16:30] LABS: Anion Gap 4 (5-15); BUN 18 mg/dL (7-18); BUN/Creat Ratio 18.8 RATIO (10-20); Calcium,Total 9.6 mg/dL (8.5-10.1); Chloride 103 mmol/L (98-107); Creatinine, Serum 0.96 mg/dL (0.55-1.02); EST Glomerular Filtration Rate 59 mL/min (>60); Est Glom Filt Rate - Afr Amer 71 mL/min (>60); Glucose 138 mg/dL (74-106); Magnesium 1.9 mg/dL (1.6-2.6); Potassium 3.8 mmol/L (3.5-5.1); Sodium Level 139 mmol/L (136-145)
[2023-02-03 16:36] LABS: BNP,B-Type NATRIURETIC PEPTIDE 66.4 pg/mL (0-100)
== END | disposition home or self-care (01) ==
LOC: LAB 14:32
PROVIDERS: PCP Family Medicine; Referring Provider Nurse Practitioner Gerontology; Visit Provider Nurse Practitioner Gerontology
DX: R06.02 Shortness of breath (principal)
CPT/HCPCS: 36415; 80048; 83735; 83880; 85025

== ENCOUNTER 2023-03-23 10:54 | Inpatient (IN) | payer MEDICARE, SELFPAY ==
[2023-03-23] VITALS (23 sets, daily range): BP systolic 114–135; BP diastolic 49–102; PULSE 86–121; RESP 12–36; TEMP 35.9–36.8; O2SAT 89–100; BMI 38.7; BMI 39.0
--- NOTE | 2023-03-23 11:43 | EKG12_ITS ---
Test Reason : SOB Blood Pressure : / mmHG Vent. Rate : 105 BPM Atrial Rate : 133 BPM P-R Int : 000 ms QRS Dur : 180 ms QT Int : 434 ms P-R-T Axes : 000 -72 100 degrees QTc Int : 573 ms Ventricular-paced rhythm Abnormal ECG Confirmed by JANAE WINTERS, ARTEMIO ([id number]), city editor INDIRA PORTER ([id number]) on 03/25/2023 6:46:36 AM Referred By: GRAHAM/MIESHA Confirmed By:ARTEMIO CARDOSO MD
--- NOTE | 2023-03-23 11:47 | EX.ED.DYSGE1 ---
HPI <ALCIDES Pino - Last Filed: 03/23/23 13:23> History of Present Illness Chief Complaint: Shortness of Breath Narrative Narrative: Patient is an 87-year-old female with history of COPD, pacemaker, history of heart block, CHF, who presents to the emergency department with her family secondary to being increased shortness of breath, not feeling well. Per the family, over the last week, the patient has been having worsening cough, weakness, the patient is on 3 L of nasal cannula daily. Today while the patient was on her 3 L, she was 75% and they called the ambulance. Patient denies any specific pain, just states she feels fatigued and when she coughs she feels short of breath. She denies any recent travel. Denies any history of blood clots in her legs or lungs. PFSH <ALCIDES Pino - Last Filed: 03/23/23 13:23> [facility] Medical History Chronic respiratory failure COPD (chronic obstructive pulmonary disease) Coronary artery disease Former smoker Hypertension Kidney stones Left ureteral stone Morbid obesity Myocardial infarct On home oxygen therapy Pancreatitis Presence of cardiac pacemaker Second degree AV block, Mobitz type II Stroke/cerebrovascular accident Vitamin D deficiency Home Medications acetaminophen 325 mg tablet 650 mg (2 x 325 mg) PO Q6H PRN PRN Pain 1-10 Or Fever >100.7 #0 tabs 10/13/22 [Rx Last Taken Unknown] atorvastatin 80 mg tablet 80 mg PO QHS cholesterol #90 tabs 02/03/23 [Rx Last Taken Unknown] clopidogrel 75 mg tablet 75 mg PO DAILY antiplatelet #90 tabs 02/03/23 [Rx Last Taken Unknown] lisinopril 10 mg tablet 10 mg PO DAILY blood pressure #90 tabs 02/03/23 [Rx Last Taken Unknown] pantoprazole 40 mg tablet,delayed release 40 mg PO DAILY #90 tabs 02/03/23 [Rx Last Taken Unknown] multivitamin (Daily Multi-Vitamin tablet) 1 tab PO DAILY vitamin 03/23/23 [History Last Taken 03/22/23] trazodone 100 mg tablet mg sleep 03/23/23 [History Last Taken 03/22/23] Allergy/AdvReac Type Severity Reaction Status Date / Time Penicillins Allergy Hives Verified 02/03/23 13:46 ciprofloxacin [From Cipro] AdvReac muscle Verified 02/03/23 13:46 pain and nausea Family History Other COPD (chronic obstructive pulmonary disease) Heart disease Hypertension Surgical History History of AAA (abdominal aortic aneurysm) repair History of cholecystectomy Social History household members: family housing: house Smoking Status: Former smoker how long ago did patient quit smoking: Quit 14 years ago alcohol intake: current alcohol intake frequency: holidays/special occasions only substance use type: does not use ROS <ALCIDES Pino - Last Filed: 03/23/23 13:23> ROS ED ROS Narrative Constitutional: Negative for fever, chills, weight loss. Positive for generalized feeling of weakness Eyes: Negative for vision loss, vision change, double vision ENT: Negative for any sore throat, ear pain, congestion Cardiovascular: Negative for any chest pain, tightness, palpitations Respiratory: Negative for any sputum production, hemoptysis. Positive for cough, dyspnea, dyspnea on exertion, orthopnea Gastrointestinal: Negative for any abdominal pain, nausea, vomiting, diarrhea, constipation, blood in stool, blood in vomit : Negative for any urinary frequency, dysuria, retention, blood in urine Muscle skeletal: Negative for any muscle joint pain, stiffness, myalgias, arthralgias, neck pain, back pain Neurological: Negative for any headache, syncope, numbness or tingling, dizziness Skin: Negative for any rashes, lumps, itching, abrasions, lacerations Psychiatric: Negative for any depression, anxiety, stress, suicidal ideation, homicidal ideation Hematologic: Negative for any easy bruising, excessive bruising, easy bleeding Allergies: Negative for any eczema, hives, rash EXAM <ALCIDES Pino - Last Filed: 03/23/23 13:23> Physical Exam Narrative Exam Narrative: Vital signs reviewed. Patient on 5.5 L is 93% on room air. Patient appears to be in a paced rhythm. Patient does show some conversational dyspnea. HEET: Head normocephalic atraumatic, TMs clear bilaterally. Posterior pharynx is clear, dry mucous membranes. Nares clear bilaterally. Neck: Supple with no lymphadenopathy or tenderness. No signs of meningismus, negative jolt sign. Cardiac: Regular rate and rhythm no murmurs gallops or rubs, equal peripheral pulses bilaterally. Respiratory: Patient has bilateral expiratory wheezes throughout pulmonary exam.. No chest tenderness. Abdomen: Soft, nontender, nondistended. No abdominal bruit or pulsatile masses. No hepatosplenomegaly Extremities: No peripheral edema, no signs of gross trauma or deformity. Active full range of motion of all extremities. Neuro: Cranial nerves II through XII intact, no focal neurological deficits. Skin: Clean dry and intact with no rash, purpura, petechiae, vesicles or pustules. Backs/flank: No CVA tenderness, no midline spinal tenderness, no deformity. Psych: Normal mood and affect. No SI, HI or acute psychosis. Const Vital Signs: 03/23/23 10:55 03/23/23 11:00 03/23/23 11:00 Temperature 96.6 F L 96.6 F L Temperature Source Temporal Temporal Pulse Rate 121 H 110 H 95 Respiratory Rate 22 H 25 H 19 H Respiratory Effort Respiratory Pattern Blood Pressure 122/97 H 122/97 H 122/97 H Blood Pressure Mean 105 105 105 Pulse Ox 100 97 98 Oxygen Delivery Method Nasal Cannula Nasal Cannula Nasal Cannula Oxygen Flow Rate (L/min) 5 5 Fraction of Inspired Oxygen (FIO2) 03/23/23 11:00 03/23/23 11:32 03/23/23 12:09 Temperature Temperature Source Pulse Rate Respiratory Rate Respiratory Effort Short of Breath Respiratory Pattern Blood Pressure Blood Pressure Mean Pulse Ox 91 Oxygen Delivery Method Nasal Cannula Nasal Cannula Nasal Cannula Oxygen Flow Rate (L/min) 5 6 6 Fraction of Inspired Oxygen (FIO2) 03/23/23 12:09 03/23/23 12:16 03/23/23 12:19 Temperature 97 F L Temperature Source Temporal Pulse Rate 89 115 H 118 H Respiratory Rate 21 H 25 H 22 H Respiratory Effort Respiratory Pattern Blood Pressure 118/64 118/64 Blood Pressure Mean 82 82 Pulse Ox 97 97 Oxygen Delivery Method Nasal Cannula Nasal Cannula Oxygen Flow Rate (L/min) 6 6 Fraction of Inspired Oxygen (FIO2) 03/23/23 12:59 Temperature Temperature Source Pulse Rate 95 Respiratory Rate 34 H Respiratory Effort Respiratory Pattern Normal Blood Pressure Blood Pressure Mean Pulse Ox 94 Oxygen Delivery Method Oxygen Flow Rate (L/min) Fraction of Inspired Oxygen (FIO2) 30 <Dr. Marco A Giles DO - Last Filed: 03/23/23 15:49> Physical Exam Const Vital Signs: 03/23/23 10:55 03/23/23 11:00 03/23/23 11:00 Temperature 96.6 F L 96.6 F L Temperature Source Temporal Temporal Pulse Rate 121 H 110 H 95 Respiratory Rate 22 H 25 H 19 H Respiratory Effort Respiratory Pattern Blood Pressure 122/97 H 122/97 H 122/97 H Blood Pressure Mean 105 105 105 Pulse Ox 100 97 98 Oxygen Delivery Method Nasal Cannula Nasal Cannula Nasal Cannula Oxygen Flow Rate (L/min) 5 5 Fraction of Inspired Oxygen (FIO2) 03/23/23 11:00 03/23/23 11:32 03/23/23 12:09 Temperature Temperature Source Pulse Rate Respiratory Rate Respiratory Effort Short of Breath Respiratory Pattern Blood Pressure Blood Pressure Mean Pulse Ox 91 Oxygen Delivery Method Nasal Cannula Nasal Cannula Nasal Cannula Oxygen Flow Rate (L/min) 5 6 6 Fraction of Inspired Oxygen (FIO2) 03/23/23 12:09 03/23/23 12:16 03/23/23 12:19 Temperature 97 F L Temperature Source Temporal Pulse Rate 89 115 H 118 H Respiratory Rate 21 H 25 H 22 H Respiratory Effort Respiratory Pattern Blood Pressure 118/64 118/64 Blood Pressure Mean 82 82 Pulse Ox 97 97 Oxygen Delivery Method Nasal Cannula Nasal Cannula Oxygen Flow Rate (L/min) 6 6 Fraction of Inspired Oxygen (FIO2) 03/23/23 12:59 Temperature Temperature Source Pulse Rate 95 Respiratory Rate 34 H Respiratory Effort Respiratory Pattern Normal Blood Pressure Blood Pressure Mean Pulse Ox 94 Oxygen Delivery Method Oxygen Flow Rate (L/min) Fraction of Inspired Oxygen (FIO2) 30 MDM <ALCIDES Pino - Last Filed: 03/23/23 13:23> [facility] Lab Data Labs: Laboratory Results - last 24 hr 03/23/23 03/23/23 10:55 12:58 WBC 7.7 RBC 4.35 Hgb 13.6 Hct 44.7 MCV 102.8 H MCH 31.3 MCHC 30.4 L RDW Std Deviation 49.4 H RDW Coeff of Tatum 12.9 Plt Count 187 MPV 11.9 Immature Gran % (Auto) 0.400 Neut % (Auto) 72.3 H Lymph % (Auto) 12.9 L Otero % (Auto) 13.5 H Eos % (Auto) 0.4 Baso % (Auto) 0.5 Absolute Neuts (auto) 5.6 Absolute Lymphs (auto) 0.99 Nucleated RBC % 0 Sodium 137 Potassium 3.6 Chloride 100 Carbon Dioxide 36.0 H Anion Gap 1 L BUN 16 Creatinine 0.90 Estim Creat Clear Calc 42.83 Est GFR (MDRD) Af Amer 76 Est GFR (MDRD) Non-Af 63 BUN/Creatinine Ratio 17.7 Glucose 142 H Calcium 9.0 Troponin I High Sens 87 H 87 H B-Natriuretic Peptide 272.7 H ABG Data ABG results: ABG 03/23/23 12:37 Specimen Type ART Sample Site R Radial pH 7.32 L Bicarbonate Actual 36.3 H Total CO2 39 Base Excess 10 H O2 Saturation 83 L O2 % 6.0 ABG pCO2 71.2 H* ABG pO2 54 L Jacky Test Positive O2 Delivery Device Cannula Vent Mode Not entered Crit Call To/Read Back Yes Blood Gas Notified Whom edin Blood Gas Notified Time 12:40:18 Radiography Diagnostic Testing: Clinical Impression(s) from Imaging Studies Chest X-Ray 03/23/23 12:05 IMPRESSION: No radiographic evidence of acute cardiopulmonary disease. Electronically Signed: Petey Henry MD at 12:46 EDT , EKG EKG shows a ventricular paced rhythm: Attestation: I personally reviewed and interpreted this EKG as follows: Comments: EKG shows ventricular paced rhythm, rate 105 bpm, QRS duration 180 ms, no acute ST elevation, no acute infarct noted. Treatment and Re-Evaluation :: Patient on initial examination did show to be slightly short of breath. Presenting to the emergency department for shortness of breath, generalized weakness. Per the family, the patient has been getting worse over the last week. Patient's pulse oxygenation is 94% on 5.5 L, she is normally on 3. She will receive a full respiratory work-up including labs, EKG, troponin. She will receive breathing treatments as well as IV steroids. Chest x-ray. Differential diagnosis includes COPD exacerbation, community-acquired pneumonia, ACS, NV, PE. All radiologic examinations were read, reviewed by the emergency department attending. From these reads, a plan of care will be put in place. Patient did receive a ABG, patient ABG shows a respiratory acidosis, pH is 7.316, CO2 is elevated at 71 which is a critical high. PO2 is 53.6 this is on 5.5 L. Patient will be tried on BiPAP to reverse this acidosis. Laboratory values showed normal CBC, patient's chemistries were unremarkable, initial troponin was 87, this will be repeated. BNP was elevated at 272.7. This is elevated from previous, in September 2022, it was 116.3. Tolerating BiPAP well. I spoke with the hospitalist patient will be full admission to PCU. I spoke with the patient's family, I spoke with hospitalist. All questions were answered, patient stable for admission. <Dr. Marco A Giles, DO - Last Filed: 03/23/23 15:49> [facility] Narrative Medical decision making narrative: I have personally performed a face to face assessment of the patient and have reviewed the MIMI Note. I performed a substantive portion of the visit including all aspects of the following. My benton findings include: History: Patient presents with shortness of breath that has been getting worse over the past few days. Patient states her breathing is worse with any activity. Patient denies any chest pain. Patient denies any nausea or vomiting. Patient denies any fevers or chills. Patient admits to a cough but denies any sputum production. Exam: Vital signs are stable except for tachycardia of 121 and mild tachypnea of 22. Patient is afebrile. Patient is in no acute distress. Oral mucosa is pink and moist. Neck is supple. Trachea is midline. There is no JVD. Heart was regular and tachycardic. Lungs show diffuse expiratory wheezing. There is good respiratory effort noted. Abdomen is soft. Bowel sounds are normal. There is no tenderness. Extremities are intact. There is no tenderness or edema. Cranial nerves II through XII are intact. There are no focal motor or sensory deficits noted. Medical Decision Making: Differential diagnosis includes COPD exacerbation, pneumonia, congestive heart failure, patient cardiac dysrhythmia, cardiac ischemia, pneumothorax, COVID-19 infection, influenza infection, and anxiety. EKG will be obtained to assess for cardiac dysrhythmia and cardiac ischemia. Chest x-ray will be obtained to assess for pneumonia and pneumothorax. CBC will be obtained to assess for leukocytosis and anemia. Basic metabolic profile will be obtained to assess for electrolyte abnormality and renal function. BNP will be obtained to assess for congestive heart failure. High-sensitivity troponin will be obtained to assess for cardiac ischemia. 2-hour repeat high-sensitivity troponin will be obtained to assess for ongoing cardiac ischemia. COVID-19 rapid antigen will be obtained to assess for COVID-19 infection. Influenza A and influenza B antigens will be obtained to assess for influenza infection. EKG was obtained. On my independent interpretation, it shows a paced rhythm with a left bundle branch block pattern. There are no acute ST or T wave changes noted. Chest x-ray was obtained. There is 1 view. On my independent interpretation, there are chronic changes. There is no pneumothorax. There is no acute infiltrate noted. Bony thorax is normal. Radiologist also interpreted the x-rays and agrees. CBC was reviewed and was within normal limits. Basic metabolic profile was reviewed and was essentially within normal limits. High-sensitivity troponin was reviewed and was normal at 87. 2-hour repeat high-sensitivity troponin was reviewed and was normal at 87. BNP was reviewed and was slightly elevated at 272.7. Arterial blood gas was reviewed. pH was 7.32, bicarb was 36.3, PCO2 was 71.2 and PO2 was 54. Oxygen saturation was 83% on 5 L nasal cannula. Because of this, patient was started on BiPAP. Case was discussed with the hospitalist. He will admit the patient to his service. Patient and family understood and were agreeable with the plan. All questions were answered Lab Data Labs: Laboratory Results - last 24 hr 03/23/23 03/23/23 10:55 12:58 WBC 7.7 RBC 4.35 Hgb 13.6 Hct 44.7 MCV 102.8 H MCH 31.3 MCHC 30.4 L RDW Std Deviation 49.4 H RDW Coeff of Tatum 12.9 Plt Count 187 MPV 11.9 Immature Gran % (Auto) 0.400 Neut % (Auto) 72.3 H Lymph % (Auto) 12.9 L Otero % (Auto) 13.5 H Eos % (Auto) 0.4 Baso % (Auto) 0.5 Absolute Neuts (auto) 5.6 Absolute Lymphs (auto) 0.99 Nucleated RBC % 0 Sodium 137 Potassium 3.6 Chloride 100 Carbon Dioxide 36.0 H Anion Gap 1 L BUN 16 Creatinine 0.90 Estim Creat Clear Calc 42.83 Est GFR (MDRD) Af Amer 76 Est GFR (MDRD) Non-Af 63 BUN/Creatinine Ratio 17.7 Glucose 142 H Calcium 9.0 Troponin I High Sens 87 H 87 H B-Natriuretic Peptide 272.7 H ABG Data ABG results: ABG 03/23/23 12:37 Specimen Type ART Sample Site R Radial pH 7.32 L Bicarbonate Actual 36.3 H Total CO2 39 Base Excess 10 H O2 Saturation 83 L O2 % 6.0 ABG pCO2 71.2 H* ABG pO2 54 L Jakcy Test Positive O2 Delivery Device Cannula Vent Mode Not entered Crit Call To/Read Back Yes Blood Gas Notified Whom edin Blood Gas Notified Time 12:40:18 Radiography Diagnostic Testing: Clinical Impression(s) from Imaging Studies Chest X-Ray 03/23/23 12:05 IMPRESSION: No radiographic evidence of acute cardiopulmonary disease. Electronically Signed: Petey Henry MD at 12:46 EDT , Discharge Plan Dx/Rx/DC Orders Clinical Impression: Respiratory failure, Hypoxia, Acute exacerbation of chronic obstructive pulmonary disease Disposition Disposition: Acute Care [facility] Discharge Date/Time: 03/23/23 14:18
--- NOTE | 2023-03-23 12:05 | RAD_ITS ---
INDICATION: chest pain EXAMINATION/TECHNIQUE: X-RAY - XR Chest 1 View COMPARISON: Prior study dated: 10/09/2022. FINDINGS: LINES/DEVICES: Dual-chamber left-sided pacemaker stable position. LUNGS: Hypoventilatory changes in lung bases. No focal infiltrate is seen. No evidence of pleural effusions. MEDIASTINUM AND CARDIOVASCULAR STRUCTURES: Stable cardiomediastinal silhouette. BONES AND SOFT TISSUES: No demonstrated acute osseous changes. RAD/Chest 1 View (Portable) IMPRESSION: No radiographic evidence of acute cardiopulmonary disease. Electronically Signed: Petey Henry MD at 12:46 EDT ,
[2023-03-23] MEDS: Albuterol 2.5 MG/3 ML VIAL.NEB. INHALATION (12:08)
[2023-03-23] MEDS: Ipratropium/Albuterol Sulfate 3 ML AMPUL.NEB INHALATION ×3 (12:08→22:46)
[2023-03-23] MEDS: MethylPREDNISolone 125 MG/2 ML Vial IV (12:13)
[2023-03-23 12:17] LABS: Absolute Lymphocyte Count 0.99 X10^3/uL (0.83-4.51); Absolute Neutrophil Count 5.6 X10^3/uL (2.0-7.7); Basophil# 0.04 X10^3/uL; Basophil% 0.5 % (0-1); Eosinophil# 0.03 X10^3/uL; Eosinophils% 0.4 % (0-5); Hematocrit 44.7 % (37-47); Hemoglobin 13.6 g/dL (12.0-15.0); Lymphocyte # 0.99 X10^3/ul (0.83-4.51); Lymphocyte % 12.9 % (19-41); Mean Corp Hgb Conc 30.4 g/dL (32-36); Mean Corpuscular Hgb 31.3 pg (27.0-32.0); Mean Corpuscular Volume 102.8 fL (81-99); Mean Platelet Vol. 11.9 fl (6.2-12.0); Monocyte# 1.04 X10^3/uL; Monocyte% 13.5 % (0-10); NRBC Flagged by Analyzer 0 % (0-5); Neutrophil # 5.57 X10^3/uL (2.7-7.7); Neutrophil % 72.3 % (47-70); Platelet Count 187 K/mm3 (150-450); RBC Distribution Width CV 12.9 % (11.6-14.6); RBC Distribution Width SD 49.4 fl (35.1-43.9); Red Blood Count 4.35 M/mm3 (4.2-5.4); White Blood Count 7.7 K/mm3 (4.4-11.0)
[2023-03-23 12:42] LABS: Allen Test Positive; Base Excess 10 mmol/L (-2 to +2); Bicarbonate 36.3 mmol/L (22-26); Blood Gas Specimen Type ART; Mode Not entered; O2 Delivery Device Cannula; PO2 54 mmHG (75-100); SITE R Radial; SO2 83 % (95-99); Total Carbon Dioxide 39 mmol/L; pCO2 71.2 mmHg (35-45); pH 7.32 (7.35-7.45)
[2023-03-23 12:43] LABS: Anion Gap 1 (5-15); BUN 16 mg/dL (7-18); BUN/Creat Ratio 17.7 RATIO (10-20); Chloride 100 mmol/L (98-107); EST Glomerular Filtration Rate 63 mL/min (>60); Est Glom Filt Rate - Afr Amer 76 mL/min (>60); Estimated Creatinine Clearance 42.83 ml/min; Glucose 142 mg/dL (74-106); Potassium 3.6 mmol/L (3.5-5.1); Sodium Level 137 mmol/L (136-145); Troponin-I HS 87 pg/mL (3.0-54.0)
[2023-03-23 12:45] LABS: BNP,B-Type NATRIURETIC PEPTIDE 272.7 pg/mL (0-100)
[2023-03-23 13:21] LABS: Troponin-I HS 87 pg/mL (3.0-54.0)
--- NOTE | 2023-03-23 15:14 | HP.PCM.HOS_ITS ---
HPI - General General Date of Admission: 03/23/23 Date of Service: 03/23/23 Chief Complaint: Shortness of breath HPI Narrative RADHA MO, is a 87 F who presents to the emergency room at [facility] with complaints of shortness of breath, patient is vague about how long this has been going on, she tells me several days at least. Patient is on home O2 at 3 L/min. Patient denies any chills or fever. Examination in the ER by the ER physician revealed marked expiratory wheezes bilaterally, a blood gas was performed on 6 L, pH was 7.31, PCO2 was 71.2 and PO2 was 53.6. Patient was placed on BiPAP, labs and a chest x-ray was obtained, chest x-ray showed no active infiltrate, labs showed a normal white blood cell count and hemoglobin, glucose was slightly elevated at 142, troponin was elevated at 87, repeat troponin was also 87. Patient's beta natruretic peptide was elevated at 272. Patient will be admitted to PCU for acute on chronic combined respiratory failure, I talked to her about her CODE STATUS, she told me that she does not want to be resuscitated and she does not want to be intubated. [facility] Medical History Chronic respiratory failure COPD (chronic obstructive pulmonary disease) Coronary artery disease Former smoker Hypertension Kidney stones Left ureteral stone Morbid obesity Myocardial infarct On home oxygen therapy Pancreatitis Presence of cardiac pacemaker Second degree AV block, Mobitz type II Stroke/cerebrovascular accident Vitamin D deficiency Home Medications acetaminophen 325 mg tablet 650 mg (2 x 325 mg) PO Q6H PRN PRN Pain 1-10 Or Fever >100.7 #0 tabs 10/13/22 [Rx Last Taken Unknown] atorvastatin 80 mg tablet 80 mg PO QHS cholesterol #90 tabs 02/03/23 [Rx Last Taken Unknown] clopidogrel 75 mg tablet 75 mg PO DAILY antiplatelet #90 tabs 02/03/23 [Rx Last Taken Unknown] lisinopril 10 mg tablet 10 mg PO DAILY blood pressure #90 tabs 02/03/23 [Rx Last Taken Unknown] pantoprazole 40 mg tablet,delayed release 40 mg PO DAILY #90 tabs 02/03/23 [Rx Last Taken Unknown] multivitamin (Daily Multi-Vitamin tablet) 1 tab PO DAILY vitamin 03/23/23 [History Last Taken 03/22/23] trazodone 100 mg tablet mg sleep 03/23/23 [History Last Taken 03/22/23] Allergy/AdvReac Type Severity Reaction Status Date / Time Penicillins Allergy Hives Verified 02/03/23 13:46 ciprofloxacin [From Cipro] AdvReac muscle Verified 02/03/23 13:46 pain and nausea Family History (Reviewed 02/03/23 @ 13:40 by Jo Menchaca STUDENT TEACHING COORDINATOR, STUDENT TEACHING COORDINATOR-C) Other COPD (chronic obstructive pulmonary disease) Heart disease Hypertension Surgical History History of AAA (abdominal aortic aneurysm) repair History of cholecystectomy Social History household members: family housing: house Smoking Status: Former smoker how long ago did patient quit smoking: Quit 14 years ago alcohol intake: current alcohol intake frequency: holidays/special occasions only substance use type: does not use ROS Constitutional Constitutional: Denies anorexia, change in weight, fever(s), night sweats or weakness Eyes Eyes: Denies blurry vision, change in vision, discharge from eye(s) or eye pain Cardiovascular Cardiovascular: Denies chest pain, claudication, edema or palpitations Respiratory/Chest Respiratory/Chest: Reports dyspnea, shortness of breath at rest and shortness of breath with exertion; Denies cough or hemoptysis Gastrointestinal Gastrointestinal: Denies abdominal pain, constipation, diarrhea, hematemesis, hematochezia, melena, nausea or vomiting Genitourinary Genitourinary: Denies difficulty urinating, dysuria, hematuria, urinary fr equency, urinary hesitancy, urinary incontinence or urinary urgency Musculoskeletal Musculoskeletal: Denies back pain, joint pain, joint stiffness, joint swelling, myalgias or neck pain Neurologic Neurologic: Denies abnormal gait, abnormal speech, confusion, dizziness, focal weakness, headache(s), loss of vision, numbness, other visual disturbances, paresthesias, syncope or tingling Psychiatric Psychiatric: Denies anxiety, cognitive impairment, depression, irritability, mood swings or suicidal ideation Endocrine Endocrinology: Denies change in body appearance, cold intolerance, excessive sweating, heat intolerance, polydipsia or polyuria Hematologic/Lymphatic Hematologic/Lymphatic: Denies none, anemia, easy bleeding, easy bruising or lymphadenopathy Allergic/Immunologic Allergic/Immunologic: Denies rhinitis, urticaria, eczemia or asthma Vital Signs Vital Signs Vital Signs: 03/23/23 10:55 03/23/23 11:00 03/23/23 11:00 Temperature 96.6 F L 96.6 F L Temperature Source Temporal Temporal Pulse Rate 121 H 110 H 95 Respiratory Rate 22 H 25 H 19 H Respiratory Effort Respiratory Pattern Blood Pressure 122/97 H 122/97 H 122/97 H Blood Pressure Mean 105 105 105 Pulse Ox 100 97 98 Oxygen Delivery Method Nasal Cannula Nasal Cannula Nasal Cannula Oxygen Flow Rate (L/min) 5 5 Fraction of Inspired Oxygen (FIO2) 03/23/23 11:00 03/23/23 11:32 03/23/23 12:09 Temperature Temperature Source Pulse Rate Respiratory Rate Respiratory Effort Short of Breath Respiratory Pattern Blood Pressure Blood Pressure Mean Pulse Ox 91 Oxygen Delivery Method Nasal Cannula Nasal Cannula Nasal Cannula Oxygen Flow Rate (L/min) 5 6 6 Fraction of Inspired Oxygen (FIO2) 03/23/23 12:09 03/23/23 12:16 03/23/23 12:19 Temperature 97 F L Temperature Source Temporal Pulse Rate 89 115 H 118 H Respiratory Rate 21 H 25 H 22 H Respiratory Effort Respiratory Pattern Blood Pressure 118/64 118/64 Blood Pressure Mean 82 82 Pulse Ox 97 97 Oxygen Delivery Method Nasal Cannula Nasal Cannula Oxygen Flow Rate (L/min) 6 6 Fraction of Inspired Oxygen (FIO2) 03/23/23 12:59 03/23/23 14:01 03/23/23 14:00 Temperature 97.7 F L Temperature Source Temporal Pulse Rate 95 92 94 Respiratory Rate 34 H 36 H 20 H Respiratory Effort Respiratory Pattern Normal Blood Pressure 124/102 H Blood Pressure Mean 109 Pulse Ox 94 89 93 Oxygen Delivery Method Bi-pap Oxygen Flow Rate (L/min) Fraction of Inspired Oxygen (FIO2) 30 35 65 03/23/23 14:09 03/23/23 14:35 03/23/23 14:37 Temperature 97.7 F L Temperature Source Pulse Rate 95 Respiratory Rate 20 H Respiratory Effort Respiratory Pattern Blood Pressure 124/102 H Blood Pressure Mean 109 Pulse Ox 93 96 95 Oxygen Delivery Method Nasal Cannula Nasal Cannula Oxygen Flow Rate (L/min) 6 5 Fraction of Inspired Oxygen (FIO2) Weight Weight: 109.8 kg Body Mass Index (BMI) 39.0 Physical Exam Const alert, oriented x3, no apparent distress and average body habitus Constitutional Narrative: Patient is alert and oriented, she is a poor informant General Appearance: cooperative, well kempt and well developed Orientation / Consciousness: awake, oriented to person, oriented to place and oriented to time HEENT normocephalic, head/scalp atraumatic, hearing grossly normal bilaterally and moist oral mucous membranes Eyes PERRL, EOMs intact bilaterally and conjunctivae normal Neck supple, no JVD, thyroid normal and no carotid bruits General: trachea midline Resp Resp Narrative: Breath sounds are distant bilaterally, patient is on BiPAP Auscultation: Negative for rales, rhonchi or wheezes Cardio regular rate, regular rhythm, S1 normal heart sound, S2 normal heart sound, no murmurs, no rub and no gallops Cardio Narrative: Patient has a paced rhythm GI normal to inspection, nondistended, normoactive bowel sounds, soft to palpation, non-tender and non-distended Extremity no clubbing, cyanosis or edema Skin no rashes or lesions noted General Skin Exam: no breakdown Neuro oriented x3, CN's II-XII intact bilaterally, moves all extremities, no focal motor deficits and no sensory deficits noted Sensorium / Orientation: awake, alert, oriented to person, oriented to place and oriented to time Speech: speech normal Psych affect normal Results Lab / Micro Data 03/23/23 10:55 03/23/23 10:55 Labs: Laboratory Results - last 24 hr 03/23/23 10:55: WBC 7.7, RBC 4.35, Hgb 13.6, Hct 44.7, MCV 102.8 H, MCH 31.3, MCHC 30.4 L, RDW Std Deviation 49.4 H, RDW Coeff of Tatum 12.9, Plt Count 187, MPV 11.9, Immature Gran % (Auto) 0.400, Neut % (Auto) 72.3 H, Lymph % (Auto) 12.9 L, [place] % (Auto) 13.5 H, Eos % (Auto) 0.4, Baso % (Auto) 0.5, Absolute Neuts (auto) 5.6, Absolute Lymphs (auto) 0.99, Nucleated RBC % 0, Sodium 137, Potassium 3.6, Chloride 100, Carbon Dioxide 36.0 H, Anion Gap 1 L, BUN 16, Creatinine 0.90, Estim Creat Clear Calc 42.83, Est GFR (MDRD) Af Amer 76, Est GFR (MDRD) Non-Af 63, BUN/Creatinine Ratio 17.7, Glucose 142 H, Calcium 9.0, Troponin I High Sens 87 H, B-Natriuretic Peptide 272.7 H 03/23/23 12:58: Troponin I High Sens 87 H Micro: Microbiology 03/23/23 12:06 Nasal Secretion SARS-CoV-2 & FLU Antigen (Rapid) - Final ABG Data ABG results: ABG 03/23/23 12:37 Specimen Type ART Sample Site R Radial pH 7.32 L Bicarbonate Actual 36.3 H Total CO2 39 Base Excess 10 H O2 Saturation 83 L O2 % 6.0 ABG pCO2 71.2 H* ABG pO2 54 L Jacky Test Positive O2 Delivery Device Cannula Vent Mode Not entered Crit Call To/Read Back Yes Blood Gas Notified Whom edin Blood Gas Notified Time 12:40:18 Radiology Impression Chest X-Ray 03/23/23 12:05 IMPRESSION: No radiographic evidence of acute cardiopulmonary disease. Electronically Signed: Petey Henry MD at 12:46 EDT , Assessment & Plan Assessment/Plan (1) Acute exacerbation of chronic obstructive pulmonary disease: PLAN: Plan 1. Acute combined respiratory failure-patient is currently on BiPAP and appears comfortable, she will be admitted to PCU, pulse ox will be monitored, aerosol treatments will be administered, patient was placed on IV Solu-Medrol. #2 acute exacerbation of COPD-again patient is on IV Solu-Medrol and aerosol treatments, again she does not want to be intubated, she also does not want any CPR. #3 history of second-degree AV block-patient is status post pacemaker #4 coronary artery disease-patient is on Plavix and a statin #5 essential hypertension-patient is on lisinopril #6 hyperlipidemia-patient is on atorvastatin Total clinical time spent by myself addressing the patient's medical issues, reviewing all of her data, and collaborating with patient's care team: 55 minutes Charges/Coding Visit Charges Inpatient E&M: 88880 Init Hosp L2
[2023-03-23] MEDS: Atorvastatin Calcium 80 MG Tablet PO (20:23)
[2023-03-23] MEDS: 0.9% Saline Lock 10 ML Syringe IV (20:23)
[2023-03-23] MEDS: Heparin Injection (Vial) 5,000 UNIT/ML VIAL 5000 UNIT SC (20:23)
[2023-03-24] VITALS (14 sets, daily range): BP systolic 95–124; BP diastolic 53–89; PULSE 78–109; RESP 12–28; TEMP 36–36.4; O2SAT 92–98
--- NOTE | 2023-03-24 00:38 | NURSING ---
Pt on floor since 1529 per dayshift RN, no documented urine output during dayshift if patient had any, pt states she is not sure if she has peed since she has been here. Soiled depends in trash can. No UO during this RN's shift. Bladder scan shows 44ml in bladder. Pt does not feel the urge to urinate. No on IV fluids. WIll continue to monitor.
[2023-03-24] MEDS: Ipratropium/Albuterol Sulfate 3 ML AMPUL.NEB INHALATION ×4 (02:16→18:41)
[2023-03-24 03:36] LABS: Absolute Lymphocyte Count 0.35 X10^3/uL (0.83-4.51); Absolute Neutrophil Count 5.9 X10^3/uL (2.0-7.7); Basophil# 0.02 X10^3/uL; Basophil% 0.3 % (0-1); Hematocrit 43.4 % (37-47); Hemoglobin 13.2 g/dL (12.0-15.0); Lymphocyte # 0.35 X10^3/ul (0.83-4.51); Lymphocyte % 5.4 % (19-41); Mean Corp Hgb Conc 30.4 g/dL (32-36); Mean Corpuscular Hgb 31.1 pg (27.0-32.0); Mean Corpuscular Volume 102.1 fL (81-99); Mean Platelet Vol. 10.9 fl (6.2-12.0); Monocyte% 3.1 % (0-10); NRBC Flagged by Analyzer 0 % (0-5); Neutrophil # 5.88 X10^3/uL (2.7-7.7); POSITIVE DIFFERENTIAL YES; Platelet Count 157 K/mm3 (150-450); RBC Distribution Width CV 13.1 % (11.6-14.6); RBC Distribution Width SD 48.7 fl (35.1-43.9); Red Blood Count 4.25 M/mm3 (4.2-5.4); White Blood Count 6.5 K/mm3 (4.4-11.0)
[2023-03-24 03:40] LABS: Differential Indicated SCAN CRITERIA MET
[2023-03-24] MEDS: 0.9% Normal Saline (1000mL) 1,000 ML 75 ML IV ×2 (03:45→16:43)
[2023-03-24 03:56] LABS: Anion Gap 3 (5-15); BUN 30 mg/dL (7-18); BUN/Creat Ratio 23.8 RATIO (10-20); Calcium,Total 9.3 mg/dL (8.5-10.1); Chloride 100 mmol/L (98-107); Creatinine, Serum 1.26 mg/dL (0.55-1.02); EST Glomerular Filtration Rate 43 mL/min (>60); Est Glom Filt Rate - Afr Amer 52 mL/min (>60); Estimated Creatinine Clearance 29.45 ml/min; Glucose 201 mg/dL (74-106); Potassium 4.4 mmol/L (3.5-5.1); Sodium Level 136 mmol/L (136-145)
[2023-03-24 04:37] LABS: Differential Comment SCANNED
[2023-03-24] MEDS: 0.9% Saline Lock 10 ML Syringe IV ×2 (06:23→20:40)
--- NOTE | 2023-03-24 07:11 | PCM.PN.HOSP ---
Reason for Visit Reason for Visit: Diagnoses Chronic obstructive pulmonary disease with (acute) exacerbation (03/23/23) Subjective Subjective Breathing better. Objective Data Objective Data Vital Signs: Vital Signs Temp Pulse Resp BP Pulse Ox O2 Del Method O2 Flow Rate 36.4 C L 109 H 22 H 95/69 95 Nasal Cannula 5 03/24/23 04:00 03/24/23 07:05 03/24/23 07:05 03/24/23 04:00 03/24/23 07:05 03/24/23 07:05 03/24/23 07:05 FiO2 45 03/24/23 04:52 Oxygen Flow Rate (L/min) 5 Oxygen Delivery Method Nasal Cannula Weight: 109.8 kg Body Mass Index (BMI) 39.0 Intake & Output: Intake and Output for Last 24 Hours 03/22/23 03/23/23 03/24/23 23:59 23:59 23:59 Output Total 0 / 0 Balance 0 / 0 Lab / Micro Data 03/24/23 03:28 03/24/23 03:28 Labs: Laboratory Results - last 24 hr 03/23/23 10:55: WBC 7.7, RBC 4.35, Hgb 13.6, Hct 44.7, MCV 102.8 H, MCH 31.3, MCHC 30.4 L, RDW Std Deviation 49.4 H, RDW Coeff of Tatum 12.9, Plt Count 187, MPV 11.9, Immature Gran % (Auto) 0.400, Neut % (Auto) 72.3 H, Lymph % (Auto) 12.9 L, [place] % (Auto) 13.5 H, Eos % (Auto) 0.4, Baso % (Auto) 0.5, Absolute Neuts (auto) 5.6, Absolute Lymphs (auto) 0.99, Nucleated RBC % 0, Sodium 137, Potassium 3.6, Chloride 100, Carbon Dioxide 36.0 H, Anion Gap 1 L, BUN 16, Creatinine 0.90, Estim Creat Clear Calc 42.83, Est GFR (MDRD) Af Amer 76, Est GFR (MDRD) Non-Af 63, BUN/Creatinine Ratio 17.7, Glucose 142 H, Calcium 9.0, Troponin I High Sens 87 H, B-Natriuretic Peptide 272.7 H 03/23/23 12:58: Troponin I High Sens 87 H 03/24/23 03:28: WBC 6.5, RBC 4.25, Hgb 13.2, Hct 43.4, MCV 102.1 H, MCH 31.1, MCHC 30.4 L, RDW Std Deviation 48.7 H, RDW Coeff of Tatum 13.1, Plt Count 157, MPV 10.9, Immature Gran % (Auto) 0.200, Neut % (Auto) 91.0 H, Lymph % (Auto) 5.4 L, [place] % (Auto) 3.1, Eos % (Auto) 0.0, Baso % (Auto) 0.3, Absolute Neuts (auto) 5.9, Absolute Lymphs (auto) 0.35 L, Nucleated RBC % 0, Differential Comment SCANNED, Sodium 136, Potassium 4.4, Chloride 100, Carbon Dioxide 33.0 H, Anion Gap 3 L, BUN 30 H, Creatinine 1.26 H, Estim Creat Clear Calc 29.45, Est GFR (MDRD) Af Amer 52 L, Est GFR (MDRD) Non-Af 43 L, BUN/Creatinine Ratio 23.8 H, Glucose 201 H, Calcium 9.3 Micro: Microbiology 03/23/23 12:06 Nasal Secretion SARS-CoV-2 & FLU Antigen (Rapid) - Final ABG Data ABG results: ABG 03/23/23 12:37 Specimen Type ART Sample Site R Radial pH 7.32 L Bicarbonate Actual 36.3 H Total CO2 39 Base Excess 10 H O2 Saturation 83 L O2 % 6.0 ABG pCO2 71.2 H* ABG pO2 54 L Jacky Test Positive O2 Delivery Device Cannula Vent Mode Not entered Crit Call To/Read Back Yes Blood Gas Notified Whom edin Blood Gas Notified Time 12:40:18 Radiography Diagnostic Testing: Radiology Impression Chest X-Ray 03/23/23 12:05 IMPRESSION: No radiographic evidence of acute cardiopulmonary disease. Electronically Signed: Petey Henry MD at 12:46 EDT , Physical Exam Const alert and no apparent distress HEENT head/scalp atraumatic Resp normal respiratory effort and no retractions Resp Narrative: faint expiratory wheezes. Cardio regular rate, regular rhythm, S1 normal heart sound and S2 normal heart sound GI normal to inspection, nondistended, normoactive bowel sounds, soft to palpation, non-tender and non-distended Extremity normal to inspection Assessment & Plan Assessment/Plan (1) Respiratory failure: QUALIFIERS: Chronicity: acute Respiratory failure complication: hypoxia and hypercapnia Qualified Code(s): J96.01 - Acute respiratory failure with hypoxia; J96.02 - Acute respiratory failure with hypercapnia PLAN: Improving 2/2 COPD exacerbation +/- CHF exacerbation Started on BiPAP, since weaned down to 5 liters NC. CXR reported normal, but show vascular congestion bilateral, but appears similiar to prior (2) Acute exacerbation of chronic obstructive pulmonary disease: PLAN: BDs, methylprednisolone Improving. PLAN: Plan Chronic conditions: history of second-degree AV block-patient is status post pacemaker coronary artery disease-patient is on Plavix and a statin essential hypertension-patient is on lisinopril hyperlipidemia-patient is on atorvastatin VTE prophylaxis: SQ heparin Code status: Patient now wants to be Full Code. Code status changed . Charges/Coding Visit Charges Inpatient E&M: 38622 Subs Hosp L2
[2023-03-24] MEDS: Lisinopril 10 MG Tablet PO (11:02)
[2023-03-24] MEDS: Clopidogrel Bisulfate 75 MG Tablet PO (11:02)
[2023-03-24] MEDS: Pantoprazole Sodium 40 MG Tablet PO (11:02)
[2023-03-24] MEDS: Flu Vacc QS2023-24(65YR UP)/PF 240 MCG/0.7 ML Syringe IM (11:03)
[2023-03-24] MEDS: Heparin Injection (Vial) 5,000 UNIT/ML VIAL 5000 UNIT SC ×2 (11:03→20:34)
--- NOTE | 2023-03-24 11:55 | CASEMGMT ---
RN KEVIN Face to Face with patient for initial transition planning/care coordination assessment. RN CM introduced self and role at [facility]. Patient sitting in chair, alert and oriented. Patient willing to participate in assessment and is able to answer all questions appropriately. Care providers, pharmacy, and demographics verified. Patient wishes to discharge home with HHC. CM to provide patient with list. Patient states she has no further needs or concerns at this time. CM to follow for discharge planning needs that may arise. PCP: Jessica Specialists: David, hog feeder Preferred Pharmacy: [facility] Insurance: [employer] [facility] Prescription Benefit: yes Living Will/HPOA: yes, daughter Chloe Wells LNOK: daughter, son in law Living Arrangements: Patient lives with daughter and son in law in 2 story home with bed and bath on first floor. Patient has ramp to enter the home. Patient toilets self, daughter assist with bathing and dressing. Transportation: daughter, son in law DME/HHC: Patient has shower chair, raised toilet, cane, walker, grab bars, nebulizer, pulse ox, scooter, patient has home oxygen with portability through [facility]. Patient has had [facility]HC in the past. [facility]. Disposition Plan: Patient to discharge home with HHC, family support, and follow-up plans in place. Rosario ABBOTT, RN, CM
--- NOTE | 2023-03-24 15:18 | CHAPLAIN ---
Type of Pastoral Visit _x__ Initial Visit ___ Follow-up Visit ___ On-call Visit ___ General Patient Visit ___ Spiritual Assessment ___ Family Conference ___ Bereavement ___ Rapid Response ___ Code Blue ___ Other (describe below) Pastoral Care Referral From _x__ Patient ___ Family ___ Nurse ___ Physician ___ Wireless Manager ___ Contracts Officer ___ Other (describe below) Sacrament/Intervention _x__ Active listening ___ Anointing ___ Adventist ___ Bereavement ___ Communion _x__ Judy exploration ___ _x__ Life review _x__ Prayer ___ Reconciliation ___ Sacrament of Sick _x__ Supportive presence ___ Wedding ___ Other (describe below) Pastoral Comments patient has been seen before in previous admissions and 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
[2023-03-24] MEDS: Atorvastatin Calcium 80 MG Tablet PO (20:33)
[2023-03-25] VITALS (14 sets, daily range): BP systolic 121–157; BP diastolic 68–77; PULSE 75–121; RESP 12–27; TEMP 36.3–36.9; O2SAT 92–100
[2023-03-25] MEDS: 0.9% Normal Saline (1000mL) 1,000 ML 75 ML IV (05:45)
[2023-03-25] MEDS: 0.9% Saline Lock 10 ML Syringe IV ×3 (05:45→14:33)
[2023-03-25] MEDS: Ipratropium/Albuterol Sulfate 3 ML AMPUL.NEB INHALATION ×5 (07:06→23:00)
--- NOTE | 2023-03-25 07:30 | PN.HOSP_ITS ---
Reason for Visit Reason for Visit: Diagnoses Chronic obstructive pulmonary disease with (acute) exacerbation (03/23/23) Acute respiratory failure with hypoxia (03/23/23) Acute respiratory failure with hypercapnia (03/23/23) Subjective Subjective Patient is very short of breath. She states she could not sleep last night. She was on BiPAP 40% FiO2. Currently on 4 to 5 L of oxygen. Objective Data Objective Data Vital Signs: Vital Signs Temp Pulse Resp BP Pulse Ox O2 Del Method O2 Flow Rate 97.6 F L 121 H 25 H 121/68 H 95 Nasal Cannula 5 03/25/23 02:00 03/25/23 07:07 03/25/23 07:07 03/25/23 02:00 03/25/23 07:07 03/25/23 07:07 03/25/23 07:07 FiO2 40 03/25/23 02:30 Oxygen Flow Rate (L/min) 5 Oxygen Delivery Method Nasal Cannula Weight: 242 lb 1.081 oz Body Mass Index (BMI) 39.0 Intake & Output: Intake and Output for Last 24 Hours 03/23/23 03/24/23 03/25/23 23:59 23:59 23:59 Intake Total 972.5 / 972.5 977.5 / 977.5 Output Total 250 / 250 125 / 125 Balance 722.5 / 722.5 852.5 / 852.5 Lab / Micro Data 03/24/23 03:28 03/24/23 03:28 Micro: Microbiology 03/23/23 12:06 Nasal Secretion SARS-CoV-2 & FLU Antigen (Rapid) - Final Physical Exam Narrative General: Alert, Oriented x3, Cooperative HEENT: Atraumatic, PERRLA, EOMI, Normocephalic Oral: Oral mucosa dry. No Gingival or Mucosal Lesions/ Ulcerations Neck: Supple, No JVD, Negative Carotid Bruits Lungs: Air entry diminished in bilateral lung bases. Bilateral rhonchi and wheezing. Cardiovascular: Regular rate, Regular Rhythm, Normal S1, Normal S2, No murmurs Abdomen: Bowel Sounds Present, Soft, Non Tender, Non-Distended : No renal angle tenderness. No suprapubic tenderness. Extremities: Subtle bilateral ankle edema, Capillary Refill Less than 3 Seconds Skin: No rashes, No breakdown Musculoskeletal: No Tenderness to Palpation of Joints or Extremities. Bilateral knees and hip joints arthritis. ROM restricted. Neurological: Cranial nerves II-XII grossly intact, DTR 2+/4. No acute focal neurological deficit. Psych/Mental Status: Flat affect. Assessment & Plan Assessment/Plan (1) Respiratory failure: QUALIFIERS: Chronicity: acute Respiratory failure complication: hypoxia and hypercapnia Qualified Code(s): J96.01 - Acute respiratory failure with hypoxia; J96.02 - Acute respiratory failure with hypercapnia PLAN: Patient had slight improvement. Acute on chronic hypoxic and hypercarbic combined respiratory failure. 2/2 COPD exacerbation +/- CHF exacerbation Started on BiPAP, since weaned down to 5 liters NC. CXR reported normal, but show vascular congestion bilateral, but appears similiar to prior Lasix 20 mg IV x1 with monitoring of kidney function electrolytes. Heart hailey lure core measures including intake and output, fluid restriction less than 1500 mL, daily weight monitoring, kidney and electrolytes monitoring. (2) Acute exacerbation of chronic obstructive pulmonary disease: PLAN: BDs, methylprednisolone Improving. PLAN: Plan GITA on CKD stage IIIb: BUN/creatinine 30/1.26. Usual creatinine baseline 0.9 with estimated creatinine clearance 42.83. Increased to 30/1.26. Possible related to heart failure exacerbation. Lasix small dose with monitoring of creatinine. 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 Code status changed . Clinical Impression(s) from Imaging Studies Chest X-Ray 03/23/23 12:05 IMPRESSION: No radiographic evidence of acute cardiopulmonary disease. Charges/Coding Visit Charges Inpatient E&M: 67223 Subs Hosp L2
[2023-03-25] MEDS: Heparin Injection (Vial) 5,000 UNIT/ML VIAL 5000 UNIT SC ×2 (07:57→20:58)
[2023-03-25] MEDS: Pantoprazole Sodium 40 MG Tablet PO (07:58)
[2023-03-25] MEDS: Clopidogrel Bisulfate 75 MG Tablet PO (07:59)
[2023-03-25] MEDS: Lisinopril 10 MG Tablet PO (07:59)
--- NOTE | 2023-03-25 08:51 | CASEMGMT ---
Discharge Planning A list of HH providers including quality and resource use data and consistent with the patient's preferred geographic region, medical needs, and insurance network was created in [facility] Guide.? This list was provided to the RN KEVIN. Vaishali Liu, Discharge Planning Asst.
--- NOTE | 2023-03-25 11:37 | CASEMGMT ---
Addendum entered by Verenice Xie 03/25/23 12:10: Pt made aware [facility] able to accept her w/SOC slated for Thursday. Addendum entered by Verenice Xie 03/25/23 11:45: Per Lamont from [facility], they are able to accept pt w/SOC slated for Thursday. Original Note: URBAN BROWN NOTE: RN CM to room. Pt sitting up in recliner chair. Pt verifies she wishes to discharge home and would like HHC. Pt provided w/HHC list that was prepared by Vaishali senior buyer planner. Pt prefers [facility]. Order placed for C: SN, PT/OT. Call to [facility] and left re: referral. Lissa ABBOTT RN CM
--- NOTE | 2023-03-25 13:34 | CASEMGMT ---
Social Work SW received referral for Advance Directives. SW met with pt and introduced self and role of SW. Pt confirms that she has completed a Health Care POA previously naming her daughter Chloe. Pt stating that she does not want Chloe to be her health care power of civil attorney any longer, but is uncertain who she would want to do it. SW educated pt that when pt makes a decision on HCPOA, SW can be called and documents can be completed. Pt also provided with Advance Directive Rack Card and is made aware that an outpatient appointment can be scheduled to complete documents if pt would like. Pt understanding and appreciative of information. LISA Gonzalez
[2023-03-25] MEDS: Furosemide 20 MG/2 ML VIAL IV (14:32)
[2023-03-25] MEDS: LORazepam 0.5 MG Tablet PO (20:58)
[2023-03-25] MEDS: Atorvastatin Calcium 80 MG Tablet PO (20:58)
[2023-03-26] VITALS (12 sets, daily range): BP systolic 153–163; BP diastolic 69–90; PULSE 80–106; RESP 12–31; TEMP 35.9–36.6; O2SAT 92–97
[2023-03-26] MEDS: Ipratropium/Albuterol Sulfate 3 ML AMPUL.NEB INHALATION ×6 (03:50→23:18)
[2023-03-26 04:05] LABS: Anion Gap 2 (5-15); BUN 41 mg/dL (7-18); BUN/Creat Ratio 42.2 RATIO (10-20); Chloride 101 mmol/L (98-107); Creatinine, Serum 0.97 mg/dL (0.55-1.02); EST Glomerular Filtration Rate 58 mL/min (>60); Est Glom Filt Rate - Afr Amer 70 mL/min (>60); Estimated Creatinine Clearance 38.25 ml/min; Glucose 197 mg/dL (74-106); Magnesium 1.7 mg/dL (1.6-2.6); Phosphorus 2.3 mg/dL (2.5-4.9); Potassium 4.4 mmol/L (3.5-5.1); Sodium Level 140 mmol/L (136-145)
[2023-03-26] MEDS: 0.9% Saline Lock 10 ML Syringe IV ×2 (06:05→14:15)
[2023-03-26] MEDS: Pantoprazole Sodium 40 MG Tablet PO (08:45)
[2023-03-26] MEDS: Clopidogrel Bisulfate 75 MG Tablet PO (08:45)
[2023-03-26] MEDS: Lisinopril 10 MG Tablet PO (08:45)
[2023-03-26] MEDS: Heparin Injection (Vial) 5,000 UNIT/ML VIAL 5000 UNIT SC ×2 (08:46→20:03)
--- NOTE | 2023-03-26 13:01 | CASEMGMT ---
RN KEVIN NOTE: Per Dr Goodrich, he anticipates pt will be medically ready for discharge in 1-2 days. Call to [facility] and left to notify them of same. Lissa ABBOTT RN CM
--- NOTE | 2023-03-26 15:43 | PN.HOSP_ITS ---
Reason for Visit Reason for Visit: Diagnoses Chronic obstructive pulmonary disease with (acute) exacerbation (03/23/23) Acute respiratory failure with hypoxia (03/23/23) Acute respiratory failure with hypercapnia (03/23/23) Objective Data Objective Data Vital Signs: Vital Signs Temp Pulse Resp BP Pulse Ox O2 Del Method O2 Flow Rate 97.0 F L 106 H 18 154/69 H 95 Nasal Cannula 3 03/26/23 14:37 03/26/23 14:37 03/26/23 14:37 03/26/23 14:37 03/26/23 14:37 03/26/23 14:38 03/26/23 14:38 FiO2 40 03/26/23 04:00 Oxygen Flow Rate (L/min) 3 Oxygen Delivery Method Nasal Cannula Weight: 242 lb 1.081 oz Body Mass Index (BMI) 39.0 Intake & Output: Intake and Output for Last 24 Hours 03/24/23 03/25/23 03/26/23 23:59 23:59 23:59 Intake Total 972.5 / 972.5 1927.5 / 1927.5 480 / 480 Output Total 250 / 250 975 / 975 100 / 100 Balance 722.5 / 722.5 952.5 / 952.5 380 / 380 Lab / Micro Data 03/24/23 03:28 03/26/23 03:34 Labs: Laboratory Results - last 24 hr 03/26/23 03:34: Sodium 140, Potassium 4.4, Chloride 101, Carbon Dioxide 37.0 H, Anion Gap 2 L, BUN 41 H, Creatinine 0.97, Estim Creat Clear Calc 38.25, Est GFR (MDRD) Af Amer 70, Est GFR (MDRD) Non-Af 58 L, BUN/Creatinine Ratio 42.2 H, Glucose 197 H, Calcium 9.0, Phosphorus 2.3 L, Magnesium 1.7 Micro: Microbiology 03/23/23 12:06 Nasal Secretion SARS-CoV-2 & FLU Antigen (Rapid) - Final Physical Exam Narrative Seen and examined. Shortness of breath better. No chest pain. Advised to continue aggressive incentive spirometry and Pep. Physical exam General: Alert, Oriented x3, Cooperative HEENT: Atraumatic, PERRLA, EOMI, Normocephalic Oral: Oral mucosa dry. No Gingival or Mucosal Lesions/ Ulcerations Neck: Supple, No JVD, Negative Carotid Bruits Lungs: Air entry diminished in bilateral lung bases. mild bilateral Expiratory wheezing Cardiovascular: Regular rate, Regular Rhythm, Normal S1, Normal S2, No murmurs Abdomen: Bowel Sounds Present, Soft, Non Tender, Non-Distended : No renal angle tenderness. No suprapubic tenderness. Extremities: Subtle bilateral ankle edema, Capillary Refill Less than 3 Seconds Skin: No rashes, No breakdown Musculoskeletal: No Tenderness to Palpation of Joints or Extremities. Bilateral knees and hip joints arthritis. ROM restricted. Neurological: Cranial nerves II-XII grossly intact, DTR 2+/4. No acute focal neurological deficit. Psych/Mental Status: Flat affect. Assessment & Plan Assessment/Plan (1) Respiratory failure: QUALIFIERS: Chronicity: acute Respiratory failure complication: hypoxia and hypercapnia Qualified Code(s): J96.01 - Acute respiratory failure with hypoxia; J96.02 - Acute respiratory failure with hypercapnia PLAN: Patient had slight improvement. Acute on chronic hypoxic and hypercarbic combined respiratory failure. 2/2 COPD exacerbation +/- CHF exacerbation Started on BiPAP, since weaned down to 5 liters NC. CXR reported normal, but show vascular congestion bilateral, but appears similiar to prior Lasix 20 mg IV x1 with monitoring of kidney function electrolytes. Heart failure core measures including intake and output, fluid restriction less than 1500 mL, daily weight monitoring, kidney and electrolytes monitoring. 03/26: Patient has mild shortness of breath on exertion. Patient is still +2 L therefore Lasix 40 mg IV daily ordered probably will need for 1 to 2 days. (2) Acute exacerbation of chronic obstructive pulmonary disease: PLAN: BDs, methylprednisolone Improving. PLAN: Plan GITA on CKD stage IIIb: BUN/creatinine 30/1.26. Usual creatinine baseline 0.9 with estimated creatinine clearance 42.83. Increased to 30/1.26. Possible related to heart failure exacerbation. Lasix small dose with monitoring of creatinine. 03/26: Creatinine got better, 0.97. 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 Code status changed . Clinical Impression(s) from Imaging Studies Chest X-Ray 03/23/23 12:05 IMPRESSION: No radiographic evidence of acute cardiopulmonary disease. Charges/Coding Visit Charges Inpatient E&M: 02126 Subs Hosp L2
[2023-03-26] MEDS: Magnesium Chloride 64 MG Delay Rel.Tablet 128 MG PO ×2 (16:17→20:05)
[2023-03-26] MEDS: Na Biphos/Potassium Phosphate PACKET 1 PACKET PO ×2 (16:17→20:05)
[2023-03-26] MEDS: Atorvastatin Calcium 80 MG Tablet PO (20:05)
[2023-03-26] MEDS: LORazepam 0.5 MG Tablet PO (20:05)
[2023-03-27] VITALS (9 sets, daily range): BP systolic 124–175; BP diastolic 66–88; PULSE 85–100; RESP 12–24; TEMP 36.5–36.8; O2SAT 92–99
[2023-03-27] MEDS: Ipratropium/Albuterol Sulfate 3 ML AMPUL.NEB INHALATION ×5 (03:44→20:06)
[2023-03-27] MEDS: Na Biphos/Potassium Phosphate PACKET 1 PACKET PO (05:40)
[2023-03-27 05:59] LABS: Absolute Lymphocyte Count 0.98 X10^3/uL (0.83-4.51); Absolute Neutrophil Count 8.8 X10^3/uL (2.0-7.7); Basophil# 0.04 X10^3/uL; Basophil% 0.4 % (0-1); Hematocrit 40.2 % (37-47); Hemoglobin 12.3 g/dL (12.0-15.0); Lymphocyte # 0.98 X10^3/ul (0.83-4.51); Lymphocyte % 9.2 % (19-41); Mean Corp Hgb Conc 30.6 g/dL (32-36); Mean Corpuscular Hgb 30.8 pg (27.0-32.0); Mean Corpuscular Volume 100.5 fL (81-99); Mean Platelet Vol. 11.3 fl (6.2-12.0); Monocyte% 6.6 % (0-10); NRBC Flagged by Analyzer 0 % (0-5); Neutrophil # 8.78 X10^3/uL (2.7-7.7); Neutrophil % 82.5 % (47-70); Platelet Count 204 K/mm3 (150-450); RBC Distribution Width CV 13.3 % (11.6-14.6); RBC Distribution Width SD 49.9 fl (35.1-43.9); White Blood Count 10.6 K/mm3 (4.4-11.0)
[2023-03-27 06:13] LABS: Anion Gap 3 (5-15); BUN 35 mg/dL (7-18); BUN/Creat Ratio 40.3 RATIO (10-20); Calcium,Total 8.5 mg/dL (8.5-10.1); Chloride 104 mmol/L (98-107); Creatinine, Serum 0.87 mg/dL (0.55-1.02); EST Glomerular Filtration Rate 66 mL/min (>60); Est Glom Filt Rate - Afr Amer 79 mL/min (>60); Estimated Creatinine Clearance 42.65 ml/min; Glucose 196 mg/dL (74-106); Potassium 4.3 mmol/L (3.5-5.1); Sodium Level 144 mmol/L (136-145)
--- NOTE | 2023-03-27 09:38 | PN.HOSP_ITS ---
Reason for Visit Reason for Visit: Diagnoses Chronic obstructive pulmonary disease with (acute) exacerbation (03/23/23) Acute respiratory failure with hypoxia (03/23/23) Acute respiratory failure with hypercapnia (03/23/23) Objective Data Objective Data Vital Signs: Vital Signs Temp Pulse Resp BP Pulse Ox O2 Del Method O2 Flow Rate 98.2 F 100 20 H 162/66 H 95 Nasal Cannula 3 03/27/23 02:00 03/27/23 07:34 03/27/23 07:34 03/27/23 02:00 03/27/23 07:34 03/27/23 07:34 03/27/23 07:34 FiO2 40 03/27/23 03:45 Oxygen Flow Rate (L/min) 3 Oxygen Delivery Method Nasal Cannula Weight: 242 lb 1.081 oz Body Mass Index (BMI) 39.0 Intake & Output: Intake and Output for Last 24 Hours 03/25/23 03/26/23 03/27/23 23:59 23:59 23:59 Intake Total 1927.5 / 1927.5 1260 / 1260 Output Total 975 / 975 100 / 100 Balance 952.5 / 952.5 1160 / 1160 Lab / Micro Data 03/27/23 05:45 03/27/23 05:45 Labs: Laboratory Results - last 24 hr 03/27/23 05:45: WBC 10.6, RBC 4.00 L, Hgb 12.3, Hct 40.2, MCV 100.5 H, MCH 30.8, MCHC 30.6 L, RDW Std Deviation 49.9 H, RDW Coeff of [place]atum 13.3, Plt Count 204, MPV 11.3, Immature Gran % (Auto) 1.300 H, Neut % (Auto) 82.5 H, Lymph % (Auto) 9.2 L , [place] % (Auto) 6.6, Eos % (Auto) 0.0, Baso % (Auto) 0.4, Absolute Neuts (auto) 8.8 H, Absolute Lymphs (auto) 0.98, Nucleated RBC % 0, Sodium 144, Potassium 4. 3, Chloride 104, Carbon Dioxide 37.0 H, Anion Gap 3 L, BUN 35 H, Creatinine 0.87, Estim Creat Clear Calc 42.65, Est GFR (MDRD) Af Amer 79, Est GFR (MDRD) Non-Af 66, BUN/Creatinine Ratio 40.3 H, Glucose 196 H, Calcium 8.5 Micro: Microbiology 03/23/23 12:06 Nasal Secretion SARS-CoV-2 & FLU Antigen (Rapid) - Final Physical Exam Narrative Seen and examined. Shortness of breath better. No chest pain. Advised to continue aggressive incentive spirometry and Pep. Physical exam General: Alert, Oriented x3, Cooperative HEENT: Atraumatic, PERRLA, EOMI, Normocephalic Oral: Oral mucosa dry. No Gingival or Mucosal Lesions/ Ulcerations Neck: Supple, No JVD, Negative Carotid Bruits Lungs: Air entry diminished in bilateral lung bases. mild bilateral Expiratory wheezing Cardiovascular: Regular rate, Regular Rhythm, Normal S1, Normal S2, No murmurs Abdomen: Bowel Sounds Present, Soft, Non Tender, Non-Distended : No renal angle tenderness. No suprapubic tenderness. Extremities: Subtle bilateral ankle edema, Capillary Refill Less than 3 Seconds Skin: No rashes, No breakdown Musculoskeletal: No Tenderness to Palpation of Joints or Extremities. Bilateral knees and hip joints arthritis. ROM restricted. Neurological: Cranial nerves II-XII grossly intact, DTR 2+/4. No acute focal neurological deficit. Psych/Mental Status: Flat affect. Assessment & Plan Assessment/Plan (1) Respiratory failure: QUALIFIERS: Chronicity: acute Respiratory failure complication: hypoxia and hypercapnia Qualified Code(s): J96.01 - Acute respiratory failure with hypoxia; J96.02 - Acute respiratory failure with hypercapnia PLAN: Patient had slight improvement. Acute on chronic hypoxic and hypercarbic combined respiratory failure. 06/26 COPD exacerbation +/- CHF exacerbation Started on BiPAP, since weaned down to 5 liters NC. CXR reported normal, but show vascular congestion bilateral, but appears similiar to prior Lasix 20 mg IV x1 with monitoring of kidney function electrolytes. Heart failure core measures including intake and output, fluid restriction less than 1500 mL, daily weight monitoring, kidney and electrolytes monitoring. 03/26: Patient has mild shortness of breath on exertion. Patient is still +2 L therefore Lasix 40 mg IV daily ordered probably will need for 1 to 2 days. (2) Acute exacerbation of chronic obstructive pulmonary disease: PLAN: BDs, methylprednisolone Improving. PLAN: Plan GITA on CKD stage IIIb: BUN/creatinine 30/1.26. Usual creatinine baseline 0.9 with estimated creatinine clearance 42.83. Increased to 30/1.26. Possible related to heart failure exacerbation. Lasix small dose with monitoring of creatinine. 03/26: Creatinine got better, 0.97. 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 She said whenever she sneezes or coughs, it just flows out. She was started on Neutra-Phos yesterday due to hypophosphatemia and I think it is due to that. Neutra-Phos discontinued. IV fluid Ringer lactate. Patient does not meet criteria for ordering CT for enteric bacteriology panel. 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 Code status changed . Clinical Impression(s) from Imaging Studies Chest X-Ray 03/23/23 12:05 IMPRESSION: No radiographic evidence of acute cardiopulmonary disease.
[2023-03-27] MEDS: Furosemide 40 MG/4 ML Vial IV (09:50)
[2023-03-27] MEDS: Lactated Ringers 1,000 ML 75 ML IV (09:50)
[2023-03-27] MEDS: Heparin Injection (Vial) 5,000 UNIT/ML VIAL 5000 UNIT SC ×2 (09:50→22:19)
[2023-03-27] MEDS: Magnesium Chloride 64 MG Delay Rel.Tablet 128 MG PO ×2 (09:54→22:20)
[2023-03-27] MEDS: Lisinopril 10 MG Tablet PO (09:55)
[2023-03-27] MEDS: Pantoprazole Sodium 40 MG Tablet PO (09:55)
[2023-03-27] MEDS: Clopidogrel Bisulfate 75 MG Tablet PO (09:55)
[2023-03-27] MEDS: Atorvastatin Calcium 80 MG Tablet PO (22:20)
[2023-03-27] MEDS: LORazepam 0.5 MG Tablet PO (22:35)
[2023-03-28] VITALS (9 sets, daily range): BP systolic 138–158; BP diastolic 84–99; PULSE 64–96; RESP 12–22; TEMP 36.5–36.9; O2SAT 86–98
[2023-03-28] MEDS: Ipratropium/Albuterol Sulfate 3 ML AMPUL.NEB INHALATION ×3 (02:35→10:57)
[2023-03-28] MEDS: 0.9% Saline Lock 10 ML Syringe IV ×2 (05:42→09:35)
--- NOTE | 2023-03-28 08:36 | PCM.DC ---
Discharge Instructions Diet Discharge Diet: No restrictions Activity Discharge Activity: Return to Normal Activity Weight Bearing Status: Weight bearing as tolerated Dressing / Incision Call your doctor if you observe: Fever of 101 or Higher, Coldness, Increased Pain, Numbness or Tingling, Change in Color, Inability to urinate, Inability to have a bowel movement, Using more than 1 pad per hour, Shortness of breath, Dizziness, Fainting spells, Swelling in the ankles, Chest pain, Prolonged hiccupping, Increased palpitations (irregular heartbeat) and Calf discomfort Follow Up Care When: IN 2 WEEKS Test Results: Test results from this visit will be discussed in further detail at your follow-up appointment, if applicable. Discharge Plan Admission Admit Date/Time: 03/23/23 13:46 Attending Provider: Pipe Goodrich Primary Care Provider: Simeon Lopez Consulting Providers: Buddy Melara; Marco A Person Discharge Orders/Prescriptions Prescriptions: New furosemide 40 mg tablet 40 mg PO DAILY Qty: 30 2RF Rx Instructions: Take additional 40 mg dose at 5 PM for weight gain 5 pounds in 1 week. prednisone 20 mg tablet 40 mg PO DAILY 5 Days Qty: 10 0RF ipratropium-albuterol 0.5 mg-3 mg(2.5 mg base)/3 mL solution for nebulization 3 ml inhalation Q4H PRN (Reason: shortness of breath or wheezing) Qty: 180 0RF Rx Instructions: until breathing returns to target peak flow/parameters Mag 64 64 mg Tablet,Delayed Release (Dr/Ec) 128 mg PO BID 30 Days Qty: 120 0RF potassium chloride 10 mEq tablet,ER particles/crystals 10 meq PO DAILY Qty: 30 2RF Continued atorvastatin 80 mg tablet 80 mg PO QHS Qty: 90 3RF clopidogrel 75 mg tablet 75 mg PO DAILY Qty: 90 3RF lisinopril 10 mg tablet 10 mg PO DAILY Qty: 90 3RF pantoprazole 40 mg tablet,delayed release (DR/EC) 40 mg PO DAILY Qty: 90 3RF acetaminophen 325 mg Tablet 650 mg PO Q6H PRN PRN (Reason: Pain 1-10 Or Fever >100.7) Qty: 0 0RF trazodone 100 mg tablet Patient Comments: Take 1 tablet by mouth daily at bedtime. multivitamin [Daily Multi-Vitamin] Tablet 1 tab PO DAILY Patient Comments: unsure of type of multivitamin Referrals / Follow Up: Simeon Lopez MD [Primary Care Provider] - Within 2 Weeks Blayne Dowd DO [Med Staff - Active Staff] - Within 1 Month Jo Menchaca NP, NETWORK ADMIN-C [Non-Staff -Ordering Privileges] - Within 1 Month Disposition Disposition (needs filled in before D/C Order can be placed): Home Health Service
[2023-03-28] MEDS: Pantoprazole Sodium 40 MG Tablet PO (09:32)
[2023-03-28] MEDS: Lisinopril 10 MG Tablet PO (09:32)
[2023-03-28] MEDS: Clopidogrel Bisulfate 75 MG Tablet PO (09:33)
[2023-03-28] MEDS: Magnesium Chloride 64 MG Delay Rel.Tablet 128 MG PO (09:33)
[2023-03-28] MEDS: Heparin Injection (Vial) 5,000 UNIT/ML VIAL 5000 UNIT SC (09:33)
[2023-03-28 09:34] LABS: Anion Gap 6 (5-15); BUN 28 mg/dL (7-18); BUN/Creat Ratio 35.1 RATIO (10-20); Calcium,Total 8.9 mg/dL (8.5-10.1); Chloride 100 mmol/L (98-107); EST Glomerular Filtration Rate 72 mL/min (>60); Est Glom Filt Rate - Afr Amer 88 mL/min (>60); Estimated Creatinine Clearance 46.38 ml/min; Glucose 142 mg/dL (74-106); Magnesium 1.6 mg/dL (1.6-2.6); Potassium 4.2 mmol/L (3.5-5.1); Sodium Level 141 mmol/L (136-145)
[2023-03-28] MEDS: Furosemide 40 MG/4 ML Vial IV (09:34)
--- NOTE | 2023-03-28 09:52 | DS.PCM_ITS ---
Providers Date of Admission: 03/23/23 Date of Discharge: 03/28/23 Primary Care Physician: Dr. Simeon Lopez MD Reason For Visit: COPD EXACERBATION, HYPOXIA, RESPIRATORY FAILURE Diagnosis Discharge Diagnosis (1) Respiratory failure: Status: Acute Code(s): J96.90 - Respiratory failure, unspecified, unspecified whether with hypoxia or h ypercapnia Qualifiers: Chronicity: acute Respiratory failure complication: hypoxia and hypercapnia Qualified Code(s): J96.01 - Acute respiratory failure with hypoxia; J96.02 - Acute respiratory failure with hypercapnia Plan: Patient had slight improvement. Acute on chronic hypoxic and hypercarbic combined respiratory failure. / COPD exacerbation +/- CHF exacerbation Started on BiPAP, since weaned down to 5 liters NC. CXR reported normal, but show vascular congestion bilateral, but appears similiar to prior Lasix 20 mg IV x1 with monitoring of kidney function electrolytes. Heart failure core measures including intake and output, fluid restriction less than 1500 mL, daily weight monitoring, kidney and electrolytes monitoring. 03/26: Patient has mild shortness of breath on exertion. Patient is still +2 L therefore Lasix 40 mg IV daily ordered probably will need for 1 to 2 days. 03/28: Patient is on baseline 3 L of oxygen, home requirement. Will do home oxygen requirement on ambulation. Prescriptions given for furosemide with instruction to take an additional 40 mg dose at 5 PM for increased leg swelling or weight gain 5 pounds in 1 week. Prescriptions also given for potassium and magnesium supplement. Follow-up in cardiology office with Landon Carvalho. Echocardiogram 10/08/22 07:58 Interpretation Summary The estimated ejection fraction is 55-60 %. Overall normal LV systolic function RV systolic pressure calculated 55.9 mmHg No significant change from previous study in February 02, 2019. (2) Acute exacerbation of chronic obstructive pulmonary disease: Status: Chronic Code(s): J44.1 - Chronic obstructive pulmonary disease with (acute) exacerbation Plan: BDs, methylprednisolone Improving. COPD exacerbation has resolved. Prescriptions given for albuterol inhaler, DuoNeb and nebulization equipment. Prednisone burst therapy 40 mg daily for 5 days. Follow-up in pulmonary clinic. Plan GITA on CKD stage IIIb: BUN/creatinine 23/06.. Usual creatinine baseline 0.9 with estimated creatinine clearance 42.83. Increased to 23/06.. Possible related to heart failure exacerbation. Lasix small dose with monitoring of creatinine. 03/26: Creatinine got better, 0.97. 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 She said whenever she sneezes or coughs, it just flows out. She was started on Neutra- Phos yesterday due to hypophosphatemia and I think it is due to that. Neutra- Phos discontinued. IV fluid Ringer lactate. Patient does not meet criteria for ordering CT for enteric bacteriology panel. 03/28: Diarrhea has resolved. 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 Code status changed . Discharge medication reconciliation done. Discharge follow-up instructions completed. Discharge process discussed with the patient and all questions were answered to patient's satisfaction. Follow with PCP in 1 to 2 weeks Total time spent, exact 35 minutes on discharge meds reconciliation, examination, coordination of care with nurses and ancillary staff, review of imaging and blood test and discussion with the patient on follow-up ins tructions. Clinical Impression(s) from Imaging Studies Chest X-Ray 03/23/23 12:05 IMPRESSION: No radiographic evidence of acute cardiopulmonary disease. Medications at Discharge Home Medications acetaminophen 325 mg tablet 650 mg (2 x 325 mg) PO Q6H PRN PRN Pain 1-10 Or Fever >100.7 #0 tabs 10/13/22 atorvastatin 80 mg tablet 80 mg PO QHS cholesterol #90 tabs 02/03/23 clopidogrel 75 mg tablet 75 mg PO DAILY antiplatelet #90 tabs 02/03/23 lisinopril 10 mg tablet 10 mg PO DAILY blood pressure #90 tabs 02/03/23 pantoprazole 40 mg tablet,delayed release 40 mg PO DAILY reflux #90 tabs 02/03/23 multivitamin (Daily Multi-Vitamin tablet) 1 tab PO DAILY vitamin 03/23/23 trazodone 100 mg tablet mg sleep 03/23/23 albuterol sulfate 90 mcg/actuation aerosol inhaler 2 puff inhalation Q6H PRN shortness of breath or wheezing #8.5 grams 03/28/23 furosemide 40 mg tablet 40 mg PO DAILY #30 tabs 03/28/23 ipratropium 0.5 mg-albuterol 3 mg (2.5 mg base)/3 mL nebulization soln 3 ml i nhalation Q4H PRN shortness of breath or wheezing #180 mL 03/28/23 magnesium chloride 64 mg (magnesium chloride) tablet,delayed release (Mag 64) 128 mg (2 x 64 mg) PO BID 30 days #120 tabs 03/28/23 potassium chloride 10 mEq tablet,extended release(part/cryst) 10 meq PO DAILY #30 tabs 03/28/23 prednisone 20 mg tablet 40 mg (2 x 20 mg) PO DAILY 5 days #10 tabs 03/28/23 Physical Exam Narrative Seen and examined. Shortness of breath has resolved. No chest pain. Advised to continue aggressive incentive spirometry and Pep. Physical exam General: Alert, Oriented x3, Cooperative HEENT: Atraumatic, PERRLA, EOMI, Normocephalic Oral: Oral mucosa dry. No Gingival or Mucosal Lesions/ Ulcerations Neck: Supple, No JVD, Negative Carotid Bruits Lungs: Air entry diminished in bilateral lung bases. mild bilateral Expiratory wheezing Cardiovascular: Regular rate, Regular Rhythm, Normal S1, Normal S2, No murmurs Abdomen: Bowel Sounds Present, Soft, Non Tender, Non-Distended : No renal angle tenderness. No suprapubic tenderness. Extremities: Subtle bilateral ankle edema, Capillary Refill Less than 3 Seconds Skin: No rashes, No breakdown Musculoskeletal: No Tenderness to Palpation of Joints or Extremities. Bilateral knees and hip joints arthritis. ROM restricted. Neurological: Cranial nerves II-XII grossly intact, DTR 2+/4. No acute focal neurological deficit. Psych/Mental Status: Flat affect. Weight / BMI Weight Weight: 242 lb 1.081 oz Body Mass Index (BMI) 39.0 ABG / Lab / Microbiology Data 03/27/23 05:45 03/28/23 08:17 Microbiology: Microbiology 03/23/23 12:06 Nasal Secretion SARS-CoV-2 & FLU Antigen (Rapid) - Final D/C Instructions Discharge Diet: No restrictions Weight Bearing Status: Weight bearing as tolerated Call your doctor if you observe: Fever of 101 or Higher, Coldness, Increased Pain, Numbness or Tingling, Change in Color, Inability to urinate, Inability to have a bowel movement, Using more than 1 pad per hour, Shortness of breath, Dizziness, Fainting spells, Swelling in the ankles, Chest pain, Prolonged hiccupping, Increased palpitations (irregular heartbeat) and Calf discomfort When: IN 2 WEEKS Meaningful Use Info Meaningful Use Diagnoses (Choose all that apply): None applicable Discharge Plan Admission Admit Date/Time: 03/23/23 13:46 Attending Provider: Pipe Goodrich Primary Care Provider: Simeon Lopez Consulting Providers: Buddy Melara; Marco A Person Discharge Orders/Prescriptions Prescriptions: New furosemide 40 mg tablet 40 mg PO DAILY Qty: 30 2RF Rx Instructions: Take additional 40 mg dose at 5 PM for weight gain 5 pounds in 1 week. prednisone 20 mg tablet 40 mg PO DAILY 5 Days Qty: 10 0RF ipratropium-albuterol 0.5 mg-3 mg(2.5 mg base)/3 mL solution for nebulization 3 ml inhalation Q4H PRN (Reason: shortness of breath or wheezing) Qty: 180 0RF Rx Instructions: until breathing returns to target peak flow/parameters Mag 64 64 mg Tablet,Delayed Release (Dr/Ec) 128 mg PO BID 30 Days Qty: 120 0RF potassium chloride 10 mEq tablet,ER particles/crystals 10 meq PO DAILY Qty: 30 2RF albuterol sulfate 90 mcg/actuation HFA aerosol inhaler 2 puff inhalation Q6H PRN (Reason: shortness of breath or wheezing) Qty: 8.5 0RF Continued atorvastatin 80 mg tablet 80 mg PO QHS Qty: 90 3RF clopidogrel 75 mg tablet 75 mg PO DAILY Qty: 90 3RF lisinopril 10 mg tablet 10 mg PO DAILY Qty: 90 3RF pantoprazole 40 mg tablet,delayed release (DR/EC) 40 mg PO DAILY Qty: 90 3RF acetaminophen 325 mg Tablet 650 mg PO Q6H PRN PRN (Reason: Pain 1-10 Or Fever >100.7) Qty: 0 0RF trazodone 100 mg tablet Patient Comments: Take 1 tablet by mouth daily at bedtime. multivitamin [Daily Multi-Vitamin] Tablet 1 tab PO DAILY Patient Comments: unsure of type of multivitamin Referrals / Follow Up: Simeon Lopez MD [Primary Care Provider] - Within 2 Weeks Blayne Dowd DO [Med Staff - Active Staff] - Within 1 Month Jo Menchaca NP, [employer]-C [Non-Staff -Ordering Privileges] - Within 1 Month Disposition Disposition (needs filled in before D/C Order can be placed): Home Health Service Charges/Coding Visit Charges Inpatient E&M: 37345 Disch Hosp >30min
--- NOTE | 2023-03-28 10:07 | CASEMGMT ---
Addendum entered by Verenice Xie 03/28/23 12:11: Daughter and Son-in-law in room. URBAN BROWN introduced self and role. Daughter has brought portable O2 tank for pt to go homeon. Daughter verifies pt has a nebulizer machine, but her medication is and needs new Rx. She was made aware Dr Goodrich has ordered this. She was also made aware inhalers were ordered in case pt did not have/not able to get a nebulizer over the weekend, and so they do not need to get the inhaler if they do not want it per Dr Goodrich. She voices understanding. Pt and family aware pt qualifies for O2 @ 2 lm @ rest (pt's baseline) but is now needing 5 l/m w/exertion and that Kendrick will be updated on same. They deny having further discharge questions/concerns for URBAN BROWN. Lissa ABBOTT RN, CM Original Note: URBAN BROWN NOTE: Per Dr Goodrich, he would like to discharge pt home w/a nebulizer and tx's. Script obtained for Nebulizer on [facility] and also obtained Rx for nebulizer, as it is unable to be determined if pt's insurance requires nebulizers to be billed through DME co or pharmacy. Also, if it must be obtained from [facility], it is unknown if [place] will deliver a nebulizer on the weekend. Dr Goodrich made aware of same and states he will also order inhalers for pt for her to be able to get this in case pt is not able to get a nebulizer right away (if she doesn't already have one). URBAN BROWN to room and she was made aware of all of the above. She voices understanding. Pt calling family now to ask them to bring in portable O2 tank for her to go home on. URBAN [place], will be doing home O2 testing to see if pt requires more than her home O2 of 2 l/m. Per URBAN Ponce CM, note, pt has a nebulizer @ home. URBAN BROWN back to pt's room. Pt stated initially, I think I have one but I don't know where it's at. Then she stated, They said they'd send the one home with me from the hospital. URBAN BROWN explained the difference b/w nebulizer and inhaler/puffer. Then pt stated, Well, I don't know. URBAN BROWN offered to discuss this with her son and dtr-in-law and to verify if she already has a nebulizer @ home when they come to pick her up and she states would really appreciate that. Lissa ABBOTT RN, CM
--- NOTE | 2023-03-28 12:40 | NURSING ---
Prescription for increased oxygen needs faxed to [facility].
== END 2023-03-28 13:01 | disposition home health service (06) | DRG 189 ==
LOC: ED 13:23 → ICU 13:38 → PCU 03-27 16:39
PROVIDERS: Nurse Practitioner; Admitting Provider Internal Medicine; Emergency Provider Emergency Medicine; PCP Family Medicine; Visit Provider Internal Medicine
DX: J96.22 Acute and chronic respiratory failure with hypercapnia (principal); I50.33 Acute on chronic diastolic (congestive) heart failure; N17.9 Acute kidney failure, unspecified; J44.1 Chronic obstructive pulmonary disease with (acute) exacerbation; I13.0 Hypertensive heart and chronic kidney disease with heart failure and stage 1 through stage 4 chronic kidney disease, or unspecified chronic kidney disease; N18.32 Chronic kidney disease, stage 3b; J96.21 Acute and chronic respiratory failure with hypoxia; E78.5 Hyperlipidemia, unspecified; I25.10 Atherosclerotic heart disease of native coronary artery without angina pectoris; Z99.81 Dependence on supplemental oxygen; Z79.02 Long term (current) use of antithrombotics/antiplatelets; Z79.899 Other long term (current) drug therapy; Z87.891 Personal history of nicotine dependence; Z86.73 Personal history of transient ischemic attack (TIA), and cerebral infarction without residual deficits; Z95.0 Presence of cardiac pacemaker
CPT/HCPCS: 36415; 36600; 71045; 80048; 82803; 83735; 83880; 84100; 84484; 85025; 87428; 93005; 94002; 94003; 94640; 94667; 94668; 94762; 97110; 97162; 97166; 97530; 97535; 97802; 99252; 99284; J7030; J7120; 90662; A4216; G0463; J1940

== ENCOUNTER 2023-03-30 16:04 | Inpatient (IN) | payer MEDICARE, SELFPAY ==
[2023-03-30] VITALS (15 sets, daily range): BP systolic 91–191; BP diastolic 55–95; PULSE 50–109; RESP 13–34; TEMP 36.5–37.2; O2SAT 90–95; BMI 37.8
--- NOTE | 2023-03-30 16:16 | EKG12_ITS ---
Test Reason : CP Blood Pressure : / mmHG Vent. Rate : 099 BPM Atrial Rate : 099 BPM P-R Int : 156 ms QRS Dur : 188 ms QT Int : 440 ms P-R-T Axes : 018 -59 100 degrees QTc Int : 564 ms Atrial-sensed ventricular-paced rhythm Abnormal ECG Confirmed by SOWMYA WINTERS, CHRIS ([id number]), design editor JORDAN BAILEY ([id number]) on 04/06/2023 10:14:26 AM Referred By: PL Confirmed By:YAMEL DENG MD
--- NOTE | 2023-03-30 16:20 | ED.VIS.CHEST ---
HPI History of Present Illness Chief Complaint: Chest Pain Informant: patient and EMS Narrative Narrative: Since with chest pain and dyspnea. I discussed with both patient and EMS who brought her in. Patient's states she was doing well at home since her last admission. She was just discharged 2 days ago. She developed pain in her back by her scapula and in the front of the chest. She describes it as sharp at all and all other types of pain. It hurts if she moves her arm. She does feel as though she is more short of breath with it though. She did not get diaphoretic. She may have been transiently nauseated but is not nauseated now. She states she has had heart attacks before but has never had stents in her heart. She does have an aortic stent. She has a pacemaker. No fevers. No history of pulmonary embolus. She is on Plavix and aspirin but does not think she is on any other blood thinners. But she is not really sure of her medications. [facility] Medical History Chronic respiratory failure COPD (chronic obstructive pulmonary disease) Coronary artery disease Former smoker Hypertension Kidney stones Left ureteral stone Morbid obesity Myocardial infarct On home oxygen therapy Pancreatitis Presence of cardiac pacemaker Second degree AV block, Mobitz type II Stroke/cerebrovascular accident Vitamin D deficiency Home Medications acetaminophen 325 mg tablet 650 mg (2 x 325 mg) PO Q6H PRN PRN Pain 1-10 Or Fever >100.7 #0 tabs 10/13/22 [Rx Last Taken Unknown] atorvastatin 80 mg tablet 80 mg PO QHS cholesterol #90 tabs 02/03/23 [Rx Last Taken Unknown] clopidogrel 75 mg tablet 75 mg PO DAILY antiplatelet #90 tabs 02/03/23 [Rx Last Taken Unknown] lisinopril 10 mg tablet 10 mg PO DAILY blood pressure #90 tabs 02/03/23 [Rx Last Taken Unknown] pantoprazole 40 mg tablet,delayed release 40 mg PO DAILY reflux #90 tabs 02/03/23 [Rx Last Taken Unknown] multivitamin (Daily Multi-Vitamin tablet) 1 tab PO DAILY vitamin 03/23/23 [History Last Taken 03/22/23] trazodone 100 mg tablet mg sleep 03/23/23 [History Last Taken 03/22/23] albuterol sulfate 90 mcg/actuation aerosol inhaler 2 puff inhalation Q6H PRN shortness of breath or wheezing #8.5 grams 03/28/23 [Rx Last Taken Unknown] furosemide 40 mg tablet 40 mg PO DAILY #30 tabs 03/28/23 [Rx Last Taken Unknown] ipratropium 0.5 mg-albuterol 3 mg (2.5 mg base)/3 mL nebulization soln 3 ml inhalation Q4H PRN shortness of breath or wheezing #180 mL 03/28/23 [Rx Last Taken Unknown] magnesium chloride 64 mg (magnesium chloride) tablet,delayed release (Mag 64) 128 mg (2 x 64 mg) PO BID 30 days #120 tabs 03/28/23 [Rx Last Taken Unknown] potassium chloride 10 mEq tablet,extended release(part/cryst) 10 meq PO DAILY #30 tabs 03/28/23 [Rx Last Taken Unknown] prednisone 20 mg tablet 40 mg (2 x 20 mg) PO DAILY 5 days #10 tabs 03/28/23 [Rx Last Taken Unknown] Allergy/AdvReac Type Severity Reaction Status Date / Time Penicillins Allergy Hives Verified 03/30/23 16:09 ciprofloxacin [From Cipro] AdvReac muscle Verified 03/30/23 16:09 pain and nausea Family History Other COPD (chronic obstructive pulmonary disease) Heart disease Hypertension Surgical History History of AAA (abdominal aortic aneurysm) repair History of cholecystectomy Social History household members: family housing: house Smoking Status: Former smoker how long ago did patient quit smoking: Quit 14 years ago alcohol intake: current alcohol intake frequency: holidays/special occasions only substance use type: does not use ROS ROS ED ROS Narrative A complete review of systems was performed and is negative except as documented in the history of present illness. Some specific details below. Constitutional: No recent fevers or chills. Of note, she was recently admitted for COPD. EYE: No discharge, visual complaints, ENT: No difficulty swallowing. No swelling. No pain. No reflux symptoms. CV: See history of present illness. She denies palpitations. Not lightheaded or syncopal. Respiratory: See history of present illness. Get more short of breath but has generally been doing well since admission. GI: No abdominal pain. No nausea vomiting diarrhea. No blood in stool. : No frequency dysuria or hematuria. Musculoskeletal: No recent trauma. Has had pains in the posterior scapular area as above. It is worse if she moves her arm. Skin: No rash. Nondiaphoretic. Neuro: No weakness or numbness. Endocrine: No polyuria or polydipsia. EXAM Physical Exam Narrative Exam Narrative: CONSTITUTIONAL: Patient is nontoxic in appearance. The patient looks comfortable. Work of breathing looks normal. HEENT: No notable trauma. Mucous membranes moist. EYES: No conjunctival injection. NECK:No JVD. No stridor. CARDIOVASCULAR: Heart is irregular. She does have a pacer in the left upper chest. Rhythm on the monitor is paced and irregular with occasional extrasystoles. RESPIRATORY: No respiratory distress. Breathing is unlabored. No to minimal wheeze on exam at this time. Patient has very tender area on the medial border of the scapula posteriorly and a little bit anteriorly. Although her reported chest pain is certainly concerning, on exam this seems to be highly reproducible. GASTROINTESTINAL: Not distended. Bowel sounds are normal. No tenderness. No guarding. No rebound. No palpable mass. No bruit is heard. GENITOURINARY: No tenderness over the bladder. No CVA area tenderness. All her back tenderness is much higher at the superior medial border of the scapula. MUSCULOSKELETAL: Atraumatic. Trace to no peripheral edema. No cord. No tenderness along the deep venous system. No asymmetry. No distended veins. NEUROLOGICAL: Patient is alert and appropriate. No focal deficit noted. SKIN: No noted rashes. No diaphoresis. PSYCHIATRIC: Patient is calm. Mood is appropriate. Const Vital Signs: 03/30/23 16:06 03/30/23 16:27 03/30/23 16:27 Temperature 98.1 F Temperature Source Oral Pulse Rate 109 H 98 Respiratory Rate 13 27 H Respiratory Pattern Blood Pressure 103/63 Blood Pressure Mean 76 Pulse Ox 91 91 Oxygen Delivery Method Nasal Cannula Nasal Cannula Oxygen Flow Rate (L/min) 5 5 03/30/23 16:28 Temperature Temperature Source Pulse Rate 90 Respiratory Rate 16 Respiratory Pattern Normal Blood Pressure Blood Pressure Mean Pulse Ox Oxygen Delivery Method Oxygen Flow Rate (L/min) MDM MDM MDM Narrative Medical decision making narrative: Patient CBC shows a markedly elevated white count at 26,500. Although she is on steroids she was also on steroids while she was in the hospital and did not have this elevation. Patient's D-dimer is elevated above baseline but her age-adjusted D-dimer is normal. Patient's electrolytes showed mildly elevated creatinine and mildly low potassium. Glucose was also up a bit at 233. This may be an effect from steroids also. Magnesium was just slightly low. Troponin was normal. Patient's BNP was normal. My independent interpretation of her x-ray does appear to have a new right upper lobe infiltrate and this is similar to the final reading. With her infiltrate, white count, pain and dyspnea we did attempt walking her. She is on 3 L at rest but 5 L for ambulation. We had her on 5 L. We then attempted to get her up. Just moving to the bedside commode she desaturated to 85%. We did not even get to any ambulation. This shows a significant desaturation with mild activity on her oxygen level. I do not think this patient will do well as an outpatient. With her overall weakness, age, high white count, new x-ray finding, hypoxia which is new she will be admitted. Lab Data Attestation: I reviewed the patient's lab results. Labs: Laboratory Results - last 24 hr 03/30/23 15:45 WBC 26.5 H RBC 4.86 Hgb 15.2 H Hct 48.5 H MCV 99.8 H MCH 31.3 MCHC 31.3 L RDW Std Deviation 49.3 H RDW Coeff of Tatum 13.3 Plt Count 294 MPV 11.7 Immature Gran % (Auto) 0.900 Neut % (Auto) 90.5 H Lymph % (Auto) 3.2 L [place] % (Auto) 5.2 Eos % (Auto) 0.0 Baso % (Auto) 0.2 Absolute Neuts (auto) 24.0 H Absolute Lymphs (auto) 0.85 Nucleated RBC % 0 Differential Comment SCANNED D-Dimer Quant (PE/DVT) 0.81 H* Sodium 139 Potassium 3.4 L Chloride 93 L Carbon Dioxide 40.0 H Anion Gap 6 BUN 35 H Creatinine 1.22 H Estim Creat Clear Calc 31.59 Est GFR (MDRD) Af Amer 54 L Est GFR (MDRD) Non-Af 44 L BUN/Creatinine Ratio 28.7 H Glucose 233 H Calcium 8.5 Magnesium 1.4 L Troponin I High Sens 22 B-Natriuretic Peptide 50.2 Radiography Diagnostic Testing: Clinical Impression(s) from Imaging Studies Chest X-Ray 03/30/23 16:50 IMPRESSION: Patchy right pulmonary infiltrates. Electronically Signed: Noel Moreau DO at 17:06 EST Reading Location ID and State: [facility] / [place] Tel [phone], Service support , EKG Initial EKG: Comments: My independent interpretation the patient's EKG is a paced rhythm likely atrial sensed. Possible A-fib in the background due to the irregularity. Bundle branch pattern. There are significant ST and T wave changes but the EKG is quite similar to prior from 03/23/2023. Management Discussion w/another healthcare provider: Hospitalist Discharge Plan Triage Chief Complaint: Chest Pain ED Provider: Shawn Person Dx/Rx/DC Orders Clinical Impression: Right upper lobe pneumonia, Hypoxia, Leukocytosis, History of COPD Prescriptions: No Action atorvastatin 80 mg tablet 80 mg PO QHS Qty: 90 3RF clopidogrel 75 mg tablet 75 mg PO DAILY Qty: 90 3RF lisinopril 10 mg tablet 10 mg PO DAILY Qty: 90 3RF pantoprazole 40 mg tablet,delayed release (DR/EC) 40 mg PO DAILY Qty: 90 3RF acetaminophen 325 mg Tablet 650 mg PO Q6H PRN PRN (Reason: Pain 1-10 Or Fever >100.7) Qty: 0 0RF trazodone 100 mg tablet Patient Comments: Take 1 tablet by mouth daily at bedtime. multivitamin [Daily Multi-Vitamin] Tablet 1 tab PO DAILY Patient Comments: unsure of type of multivitamin furosemide 40 mg tablet 40 mg PO DAILY Qty: 30 2RF Rx Instructions: Take additional 40 mg dose at 5 PM for weight gain 5 pounds in 1 week. prednisone 20 mg tablet 40 mg PO DAILY 5 Days Qty: 10 0RF ipratropium-albuterol 0.5 mg-3 mg(2.5 mg base)/3 mL solution for nebulization 3 ml inhalation Q4H PRN (Reason: shortness of breath or wheezing) Qty: 180 0RF Rx Instructions: until breathing returns to target peak flow/parameters Mag 64 64 mg Tablet,Delayed Release (Dr/Ec) 128 mg PO BID 30 Days Qty: 120 0RF potassium chloride 10 mEq tablet,ER particles/crystals 10 meq PO DAILY Qty: 30 2RF albuterol sulfate 90 mcg/actuation HFA aerosol inhaler 2 puff inhalation Q6H PRN (Reason: shortness of breath or wheezing) Qty: 8.5 0RF Primary Care Provider: Simeon Lopez Referrals: Simeon Lopez MD [Primary Care Provider] - Disposition Disposition: Acute Care Hospital [facility]
[2023-03-30] MEDS: Ipratropium/Albuterol Sulfate 3 ML AMPUL.NEB INHALATION ×2 (16:21→21:20)
[2023-03-30] MEDS: Morphine 4 MG/ML Syringe IV (16:26)
[2023-03-30 16:28] LABS: Absolute Lymphocyte Count 0.85 X10^3/uL (0.83-4.51); Basophil# 0.05 X10^3/uL; Basophil% 0.2 % (0-1); Hematocrit 48.5 % (37-47); Hemoglobin 15.2 g/dL (12.0-15.0); Lymphocyte # 0.85 X10^3/ul (0.83-4.51); Lymphocyte % 3.2 % (19-41); Mean Corp Hgb Conc 31.3 g/dL (32-36); Mean Corpuscular Hgb 31.3 pg (27.0-32.0); Mean Corpuscular Volume 99.8 fL (81-99); Mean Platelet Vol. 11.7 fl (6.2-12.0); Monocyte# 1.38 X10^3/uL; Monocyte% 5.2 % (0-10); NRBC Flagged by Analyzer 0 % (0-5); Neutrophil # 23.95 X10^3/uL (2.7-7.7); Neutrophil % 90.5 % (47-70); POSITIVE DIFFERENTIAL YES; Platelet Count 294 K/mm3 (150-450); RBC Distribution Width CV 13.3 % (11.6-14.6); RBC Distribution Width SD 49.3 fl (35.1-43.9); Red Blood Count 4.86 M/mm3 (4.2-5.4); White Blood Count 26.5 K/mm3 (4.4-11.0)
[2023-03-30 16:35] LABS: Differential Indicated SCAN CRITERIA MET
--- NOTE | 2023-03-30 16:50 | RAD_ITS ---
INDICATION: chest pain EXAMINATION/TECHNIQUE: X-RAY - XR Chest 1 View COMPARISON: March 23, 2023 FINDINGS: LINES/DEVICES: Stable left-sided pacemaker. LUNGS: There are patchy right pulmonary infiltrates.. No pneumothorax. MEDIASTINUM AND CARDIOVASCULAR STRUCTURES: Cardiac silhouette not enlarged. Central airways and mediastinal contour are unremarkable. BONES AND SOFT TISSUES: Unremarkable. RAD/Chest 1 View (Portable) IMPRESSION: Patchy right pulmonary infiltrates. Electronically Signed: Noel Moreau DO at 17:06 EST ,
[2023-03-30 16:51] LABS: Anion Gap 6 (5-15); BUN 35 mg/dL (7-18); BUN/Creat Ratio 28.7 RATIO (10-20); Calcium,Total 8.5 mg/dL (8.5-10.1); Chloride 93 mmol/L (98-107); Creatinine, Serum 1.22 mg/dL (0.55-1.02); EST Glomerular Filtration Rate 44 mL/min (>60); Est Glom Filt Rate - Afr Amer 54 mL/min (>60); Estimated Creatinine Clearance 31.59 ml/min; Glucose 233 mg/dL (74-106); Magnesium 1.4 mg/dL (1.6-2.6); Potassium 3.4 mmol/L (3.5-5.1); Sodium Level 139 mmol/L (136-145); Troponin-I HS (w/2H Reflex) 22 pg/mL (3.0-54.0)
[2023-03-30 16:56] LABS: Differential Comment SCANNED
[2023-03-30 17:00] LABS: D-Dimer Quantitative (DVT/PE) 0.81 FEU/ug/m (0.27-0.49)
[2023-03-30 17:02] LABS: BNP,B-Type NATRIURETIC PEPTIDE 50.2 pg/mL (0-100)
[2023-03-30 18:24] LABS: Reflex Troponin-HS? (from REC) Y
[2023-03-30] MEDS: Ceftriaxone 1 GM/50 ML BAG IV (18:30)
[2023-03-30 19:12] LABS: Lactic Acid 2.3 mmol/L (0.4-1.9)
[2023-03-30 19:26] LABS: Troponin-I HS 21 pg/mL (3.0-54.0)
--- NOTE | 2023-03-30 19:51 | HP.PCM.HOS_ITS ---
HPI - General General Date of Admission: 03/30/23 HPI Narrative RADHA MO, is a 87 F who presents to the hospital with increased shortness of breath. She is normally on 3 L at rest and 5 L with ambulation however she has been getting significantly short of breath and was having right back pain with deep breathing. When she presented to the hospital she was found to have right-sided consolidations in her middle and lower lobes and had increased respiratory distress at rest as well as with ambulation and was hypoxic down to 85% with ambulation on her home oxygen requirements. Her white count is elevated but this could also be due to the steroids that she was recently discharged on 2 days ago for COPD exacerbation. She denies any fevers or chills but she is having some sputum production. [facility] Medical History Chronic respiratory failure COPD (chronic obstructive pulmonary disease) Coronary artery disease Former smoker Hypertension Kidney stones Left ureteral stone Morbid obesity Myocardial infarct On home oxygen therapy Pancreatitis Presence of cardiac pacemaker Second degree AV block, Mobitz type II Stroke/cerebrovascular accident Vitamin D deficiency Home Medications acetaminophen 325 mg tablet 650 mg (2 x 325 mg) PO Q6H PRN PRN Pain 1-10 Or Fever >100.7 #0 tabs 10/13/22 [Rx Last Taken Unknown] atorvastatin 80 mg tablet 80 mg PO QHS cholesterol #90 tabs 02/03/23 [Rx Last Taken Unknown] clopidogrel 75 mg tablet 75 mg PO DAILY antiplatelet #90 tabs 02/03/23 [Rx Last Taken Unknown] lisinopril 10 mg tablet 10 mg PO DAILY blood pressure #90 tabs 02/03/23 [Rx Last Taken Unknown] pantoprazole 40 mg tablet,delayed release 40 mg PO DAILY reflux #90 tabs 02/03/23 [Rx Last Taken Unknown] multivitamin (Daily Multi-Vitamin tablet) 1 tab PO DAILY vitamin 03/23/23 [History Last Taken 03/22/23] trazodone 100 mg tablet mg sleep 03/23/23 [History Last Taken 03/22/23] albuterol sulfate 90 mcg/actuation aerosol inhaler 2 puff inhalation Q6H PRN shortness of breath or wheezing #8.5 grams 03/28/23 [Rx Last Taken Unknown] furosemide 40 mg tablet 40 mg PO DAILY fluid retention #30 tabs 03/28/23 [Rx Last Taken Unknown] ipratropium 0.5 mg-albuterol 3 mg (2.5 mg base)/3 mL nebulization soln 3 ml inhalation Q4H PRN shortness of breath or wheezing #180 mL 03/28/23 [Rx Last Taken Unknown] magnesium chloride 64 mg (magnesium chloride) tablet,delayed release (Mag 64) 128 mg (2 x 64 mg) PO BID 30 days #120 tabs 03/28/23 [Rx Last Taken Unknown] potassium chloride 10 mEq tablet,extended release(part/cryst) 10 meq PO DAILY #30 tabs 03/28/23 [Rx Last Taken Unknown] prednisone 20 mg tablet 40 mg (2 x 20 mg) PO DAILY 5 days #10 tabs 03/28/23 [Rx Last Taken Unknown] Allergy/AdvReac Type Severity Reaction Status Date / Time Penicillins Allergy Hives Verified 03/30/23 16:09 ciprofloxacin [From Cipro] AdvReac muscle Verified 03/30/23 16:09 pain and nausea Family History Other COPD (chronic obstructive pulmonary disease) Heart disease Hypertension Surgical History History of AAA (abdominal aortic aneurysm) repair History of cholecystectomy Social History household members: family housing: house Smoking Status: Former smoker how long ago did patient quit smoking: Quit 14 years ago alcohol intake: current alcohol intake frequency: holidays/special occasions only substance use type: does not use ROS Constitutional Constitutional: Denies chills, fatigue, fever(s) or malaise Eyes Eyes: Denies blurry vision ENT HEENT: Denies headache(s) or nasal discharge Cardiovascular Cardiovascular: Denies chest pain, dyspnea on exertion or syncope Respiratory/Chest Respiratory/Chest: Reports productive cough, shortness of breath at rest and shortness of breath with exertion Gastrointestinal Gastrointestinal: Denies constipation, diarrhea, nausea or vomiting Genitourinary Genitourinary: Denies dysuria Musculoskeletal Musculoskeletal: Reports back pain Neurologic Neurologic: Denies focal weakness, numbness or tremor(s) Psychiatric Psychiatric: Denies anxiety or depression Vital Signs Vital Signs Vital Signs: 03/30/23 16:06 03/30/23 16:27 03/30/23 16:27 Temperature 98.1 F Temperature Source Oral Pulse Rate 109 H 98 Respiratory Rate 13 27 H Respiratory Pattern Blood Pressure 103/63 Blood Pressure Mean 76 Pulse Ox 91 91 Oxygen Delivery Method Nasal Cannula Nasal Cannula Oxygen Flow Rate (L/min) 5 5 03/30/23 16:28 03/30/23 17:05 03/30/23 18:00 Temperature Temperature Source Pulse Rate 90 104 H 99 Respiratory Rate 16 26 H 26 H Respiratory Pattern Normal Blood Pressure 145/81 H 149/63 H Blood Pressure Mean 102 91 Pulse Ox 93 Oxygen Delivery Method Nasal Cannula Oxygen Flow Rate (L/min) 5 03/30/23 19:00 Temperature Temperature Source Pulse Rate 93 Respiratory Rate 25 H Respiratory Pattern Blood Pressure Blood Pressure Mean Pulse Ox 92 Oxygen Delivery Method Oxygen Flow Rate (L/min) Weight Weight: 241 lb 6.499 oz Body Mass Index (BMI) 37.8 Physical Exam Narrative General: Alert, Oriented x3, Cooperative, respiratory distress HEENT: Atraumatic, PERRLA, EOMI, Normocephalic Oral: Moist Mucosa Neck: Supple, No JVD Lungs: Diminished right greater than left, Normal air movement, No rhonchi, No wheeze, No rales, tachypneic with short shallow breaths 3 word sentences Cardiovascular: Regular rate, Regular Rhythm, Normal S1, Normal S2, No murmurs Abdomen: Soft, Non Tender, Non-Distended, No Hepato-splenomegaly Extremities: No edema, Capillary Refill Less than 3 Seconds Skin: No rashes, No breakdown Musculoskeletal: No Tenderness to Palpation of Joints or Extremities Neurological: Cranial nerves II-XII grossly intact, Motor Exam 5/5 strength throughout, Sensory exam intact to light touch and pain Psych/Mental Status: Normal Affect, Appropriate Results Lab / Micro Data 03/30/23 15:45 03/30/23 15:45 Labs: Laboratory Results - last 24 hr 03/30/23 15:45: WBC 26.5 H, RBC 4.86, Hgb 15.2 H, Hct 48.5 H, MCV 99.8 H, MCH 31.3, MCHC 31.3 L, RDW Std Deviation 49.3 H, RDW Coeff of Tatum 13.3, Plt Count 294, MPV 11.7, Immature Gran % (Auto) 0.900, Neut % (Auto) 90.5 H, Lymph % (Auto) 3.2 L, [place] % (Auto) 5.2, Eos % (Auto) 0.0, Baso % (Auto) 0.2, Absolute Neuts (auto) 24.0 H, Absolute Lymphs (auto) 0.85, Nucleated RBC % 0, Differential Comment SCANNED, D-Dimer Quant (PE/DVT) 0.81 H*, Sodium 139, Pota ssium 3.4 L, Chloride 93 L, Carbon Dioxide 40.0 H, Anion Gap 6, BUN 35 H, Creatinine 1.22 H, Estim Creat Clear Calc 31.59, Est GFR (MDRD) Af Amer 54 L, Est GFR (MDRD) Non-Af 44 L, BUN/Creatinine Ratio 28.7 H, Glucose 233 H, Calcium 8.5, Magnesium 1.4 L, Troponin I High Sens 22, B-Natriuretic Peptide 50.2 03/30/23 17:55: Lactic Acid 2.3 H* 03/30/23 18:55: Troponin I High Sens 21 Radiology Impression Chest X-Ray 03/30/23 16:50 IMPRESSION: Patchy right pulmonary infiltrates. Electronically Signed: Noel Moreau DO at 17:06 EST Reading Location ID and State: [facility] / [place] Tel [phone], Service support , Assessment & Plan Assessment/Plan (1) Right upper lobe pneumonia: (2) Acute respiratory failure with hypoxia: PLAN: Plan 1. Acute hypoxic respiratory failure secondary to right-sided bacterial pneumonia/COPD ? Continue with Rocephin and azithromycin ? She became significantly distressed with ambulation on her home oxygen and desaturated down to 85% ? We will obtain a sputum culture and continue with her home steroids as she was recently discharged with a COPD exacerbation ? Continue with DuoNebs ? Continue with incentive spirometry 2. HTN/HLD/CAD/second-degree AV block status post pacemaker ? Can resume her home blood pressure medications ? She was recently discharged on Lasix which we can continue ? Will continue other medications once verified ? Continue with Lipitor DVT: Heparin 75 minutes was spent on direct patient care, including documentation as well as chart review and collaboration with colleagues Charges/Coding Visit Charges Inpatient E&M: 53930 Init Hosp L3
[2023-03-30] MEDS: Acetaminophen 325 MG Tablet 650 MG PO (21:07)
[2023-03-30] MEDS: Heparin Injection (Vial) 5,000 UNIT/ML VIAL 5000 UNIT SC (21:07)
[2023-03-30] MEDS: Atorvastatin Calcium 80 MG Tablet PO (21:07)
[2023-03-30 22:03] LABS: Reflex Lactate? Y
[2023-03-30] MEDS: 0.9% Saline Lock 10 ML Syringe IV (23:14)
[2023-03-30 23:16] LABS: Lactic Acid 3.2 mmol/L (0.4-1.9)
[2023-03-31] VITALS (16 sets, daily range): BP systolic 86–145; BP diastolic 30–81; PULSE 55–96; RESP 14–32; TEMP 36.4–36.9; O2SAT 88–98
[2023-03-31] MEDS: 0.9% Normal Saline (1000mL) 1,000 ML 75 ML IV ×2 (00:21→12:44)
[2023-03-31] MEDS: 0.9% Normal Saline (250mL Bag) 250 ML 15 ML IV (00:45)
[2023-03-31] MEDS: Azithromycin 500 MG in Dextrose 5%-Water (250mL Bag) 250 ML 250 MG IV ×2 (00:45→22:39)
[2023-03-31] MEDS: Acetaminophen 325 MG Tablet 650 MG PO (03:38)
[2023-03-31] MEDS: Heparin Injection (Vial) 5,000 UNIT/ML VIAL 5000 UNIT SC ×3 (05:51→21:46)
[2023-03-31 07:35] LABS: Hematocrit 39.5 % (37-47); Hemoglobin 12.5 g/dL (12.0-15.0); Mean Corp Hgb Conc 31.6 g/dL (32-36); Mean Platelet Vol. 11.9 fl (6.2-12.0); POSITIVE COUNT YES; POSITIVE DIFFERENTIAL YES; POSITIVE MORPHOLOGY YES; Platelet Count 168 K/mm3 (150-450); RBC Distribution Width CV 13.7 % (11.6-14.6); RBC Distribution Width SD 49.6 fl (35.1-43.9); Red Blood Count 4.03 M/mm3 (4.2-5.4)
[2023-03-31 07:42] LABS: Differential Indicated MANUAL DIFF; White Blood Count 47.7 K/mm3 (4.4-11.0)
[2023-03-31 07:56] LABS: Anion Gap 4 (5-15); BUN 41 mg/dL (7-18); BUN/Creat Ratio 25.3 RATIO (10-20); Calcium,Total 7.4 mg/dL (8.5-10.1); Chloride 95 mmol/L (98-107); Creatinine, Serum 1.62 mg/dL (0.55-1.02); EST Glomerular Filtration Rate 32 mL/min (>60); Est Glom Filt Rate - Afr Amer 39 mL/min (>60); Glucose 148 mg/dL (74-106); Potassium 3.2 mmol/L (3.5-5.1); Sodium Level 137 mmol/L (136-145)
[2023-03-31 08:00] LABS: Lactic Acid 1.7 mmol/L (0.4-1.9)
[2023-03-31] MEDS: 0.9% Saline Lock 10 ML Syringe IV (08:47)
[2023-03-31] MEDS: Clopidogrel Bisulfate 75 MG Tablet PO (08:47)
[2023-03-31] MEDS: Ketorolac 15 MG/ML Vial IV (08:47)
[2023-03-31] MEDS: Furosemide 40 MG Tablet PO (08:47)
[2023-03-31] MEDS: predniSONE 20 MG Tablet 40 MG PO (08:47)
[2023-03-31] MEDS: Pantoprazole Sodium 40 MG Tablet PO (08:47)
[2023-03-31 08:55] LABS: Lymphocyte 2 % (19-41); Metamyelocyte 1 % (0-1); Monocyte 6 % (0-10); Myelocyte 1 % (0-0); Neutrophil-Band 8 % (0-5); Neutrophil-Segmented 82 % (47-70); Platelet Estimate ADEQUATE (ADEQ); Red Cell Morphology NORM C+C NORMAL (NORM C&C); Total Cells Counted 100 (MANUAL DIFF)
[2023-03-31 08:57] LABS: Absolute Lymphocyte Count 0.95 X10^3/uL (0.83-4.51); Lymphocyte # 0.95 X10^3/ul (0.83-4.51)
--- NOTE | 2023-03-31 09:14 | RAD_ITS ---
STUDY: X-RAY CHEST REASON FOR EXAM: Female, 87 years old. Pneumonia TECHNIQUE: AP and lateral views of the chest. COMPARISON: Comparison is made with prior study March 30, 2023. FINDINGS: Progressive right suprahilar infiltrate. Progressive infiltrate in the left lower lobe with a small left pleural effusion. There is blunting of the right costophrenic angle. There is borderline cardiomegaly. 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 Normal mediastinum and chika. Normal visualized pulmonary arteries. There is atherosclerotic calcification of the aortic arch with tortuosity. There are degenerative changes of the visualized thoracic spine. Normal visualized ribs, clavicles, and shoulders. There is no demonstrated abnormality of the visualized soft tissue structures of the upper abdomen. RAD/Chest PA and Lateral IMPRESSION: Progressive right suprahilar infiltrate as well as consolidation in the left lower lobe with small bilateral pleural effusions. Electronically Signed: Gadiel Herndon MD at 10:55 EST ,
[2023-03-31 10:05] LABS: Procalcitonin 5.04 ng/mL (0.00-0.09)
--- NOTE | 2023-03-31 10:44 | PCM.CONS.GEN ---
Assessment & Plan Assessment/Plan (1) Acute respiratory failure with hypoxia: PLAN: Sputum cx pending. Will check UAgs, covid, cdiff, procalcitonin. Cont azithro/ceftriaxone. Will follow, thank you (2) Leukocytosis: (3) Right upper lobe pneumonia: HPI Consult Data Date of Consult: 03/31/23 HPI Narrative Reason for Consultation: leukocytosis HPI Narrative: RADHA MO, is a 87 F who presented 03/30 after recent admit with discharge 03/28 for copd/chf exacerbation. On 3L home O2. Came back with worsened O2, cough with brown sputum, not feeling well. No abd pain, some loose stool. No dysuria. Reports moderate pain in R shoulder blade, no h/o trauma. Admitted here on azithro/ceftriaxone, feeling a little better this AM. Full ROS performed and neg except as noted above. [facility] Medical History Chronic respiratory failure COPD (chronic obstructive pulmonary disease) Coronary artery disease Former smoker Hypertension Kidney stones Left ureteral stone Morbid obesity Myocardial infarct On home oxygen therapy Pancreatitis Presence of cardiac pacemaker Second degree AV block, Mobitz type II Stroke/cerebrovascular accident Vitamin D deficiency Home Medications acetaminophen 325 mg tablet 650 mg (2 x 325 mg) PO Q6H PRN PRN Pain 1-10 Or Fever >100.7 #0 tabs 10/13/22 [Rx Last Taken Unknown] atorvastatin 80 mg tablet 80 mg PO QHS cholesterol #90 tabs 02/03/23 [Rx Last Taken Unknown] clopidogrel 75 mg tablet 75 mg PO DAILY antiplatelet #90 tabs 02/03/23 [Rx Last Taken Unknown] lisinopril 10 mg tablet 10 mg PO DAILY blood pressure #90 tabs 02/03/23 [Rx Last Taken Unknown] pantoprazole 40 mg tablet,delayed release 40 mg PO DAILY reflux #90 tabs 02/03/23 [Rx Last Taken Unknown] multivitamin (Daily Multi-Vitamin tablet) 1 tab PO DAILY vitamin 03/23/23 [History Last Taken 03/22/23] trazodone 100 mg tablet 100 mg PO QHS sleep 03/23/23 [History Last Taken 03/22/23] albuterol sulfate 90 mcg/actuation aerosol inhaler 2 puff inhalation Q6H PRN shortness of breath or wheezing #8.5 grams 03/28/23 [Rx Last Taken Unknown] furosemide 40 mg tablet 40 mg PO DAILY fluid retention #30 tabs 03/28/23 [Rx Last Taken Unknown] ipratropium 0.5 mg-albuterol 3 mg (2.5 mg base)/3 mL nebulization soln 3 ml inhalation Q4H PRN shortness of breath or wheezing #180 mL 03/28/23 [Rx Last Taken Unknown] magnesium chloride 64 mg (magnesium chloride) tablet,delayed release (Mag 64) 128 mg (2 x 64 mg) PO BID supplement 30 days #120 tabs 03/28/23 [Rx Last Taken Unknown] potassium chloride 10 mEq tablet,extended release(part/cryst) 10 meq PO DAILY supplement #30 tabs 03/28/23 [Rx Last Taken Unknown] prednisone 20 mg tablet 40 mg (2 x 20 mg) PO DAILY upper respiratory 5 days #10 tabs 03/28/23 [Rx Last Taken Unknown] Allergy/AdvReac Type Severity Reaction Status Date / Time Penicillins Allergy Hives Verified 03/30/23 16:09 ciprofloxacin [From Cipro] AdvReac muscle Verified 03/30/23 16:09 pain and nausea Family History Other COPD (chronic obstructive pulmonary disease) Heart disease Hypertension Surgical History History of AAA (abdominal aortic aneurysm) repair History of cholecystectomy Social History household members: family housing: house Smoking Status: Former smoker how long ago did patient quit smoking: Quit 14 years ago alcohol intake: current alcohol intake frequency: holidays/special occasions only substance use type: does not use Physical Exam Const alert, oriented x3 and no apparent distress General Appearance: cooperative HEENT normocephalic and head/scalp atraumatic Eyes PERRL and EOMs intact bilaterally Neck supple and No nodes Resp normal air movement Auscultation: diminished lung sounds Cardio regular rate and regular rhythm GI soft to palpation, non-tender and non-distended Extremity General Extremity: edema Skin no rashes or lesions noted Neuro CN's II-XII intact bilaterally Medical Records Data Medical Nutrition Assessment Dietitian: Malnutrition Criteria Met Start: 03/31/23 10:35 Freq: Status: Active Protocol: Document 03/31/23 10:35 AG (Rec: 03/31/23 10:36 AG [id number]) Nutrition Malnutrition Evidence of Malnutrition Exists Yes Malnutrition (severe): Acute Illness/Injury Evidenced By Suboptimal Energy Intake ( Severe),Weight Loss (Severe) Clinical Problem Chronic Disease or Condition Related Malnutrition Etiology severe, acute malnutrition related to inadequate energy intake w/ acute illness Signs/Symptoms as evidenced by estimated PO intake meeting <50% of estimated energy needs >5 days , unintentional 3% wt loss x 1 week Status Active Problem Recommendation Dietitian Recommendations/Changes will adjust diet to regular and add 4oz ensure compact TID w/ meals for additional nutrition if consumed given evidence of acute malnutrition . Lab / Micro Data Attestation: I reviewed the patient's lab results. 03/31/23 07:15 03/31/23 07:15 Labs: Laboratory Results - last 24 hr 03/30/23 15:45: WBC 26.5 H, RBC 4.86, Hgb 15.2 H, Hct 48.5 H, MCV 99.8 H, MCH 31.3, MCHC 31.3 L, RDW Std Deviation 49.3 H, RDW Coeff of Tatum 13.3, Plt Count 294, MPV 11.7, Immature Gran % (Auto) 0.900, Neut % (Auto) 90.5 H, Lymph % (Auto) 3.2 L, [place] % (Auto) 5.2, Eos % (Auto) 0.0, Baso % (Auto) 0.2, Absolute Neuts (auto) 24.0 H, Absolute Lymphs (auto) 0.85, Nucleated RBC % 0, Differential Comment SCANNED, D-Dimer Quant (PE/DVT) 0.81 H*, Sodium 139, Potassium 3.4 L, Chloride 93 L, Carbon Dioxide 40.0 H, Anion Gap 6, BUN 35 H, Creatinine 1.22 H, Estim Creat Clear Calc 31.59, Est GFR (MDRD) Af Amer 54 L, Est GFR (MDRD) Non-Af 44 L, BUN/Creatinine Ratio 28.7 H, Glucose 233 H, Calcium 8.5, Magnesium 1.4 L, Troponin I High Sens 22, B-Natriuretic Peptide 50.2 03/30/23 17:55: Lactic Acid 2.3 H* 03/30/23 18:55: Troponin I High Sens 21 03/30/23 22:35: Lactic Acid 3.2 H* 03/31/23 07:15: WBC 47.7 H*, RBC 4.03 L, Hgb 12.5, Hct 39.5, MCV 98.0, MCH 31.0, MCHC 31.6 L, RDW Std Deviation 49.6 H, RDW Coeff of Tatum 13.7, Plt Count 168, MPV 11.9, Neut % (Auto) Not Reportable, Absolute Neuts (auto) 43.0 H, Absolute Lymphs (auto) 0.95, Total Counted 100, Neutrophils % (Manual) 82 H, Band Neutrophils % 8 H, Lymphocytes % (Manual) 2 L, Monocytes % (Manual) 6, Metamyelocytes % 1, Myelocytes % 1 H, Diff Path Review September, Platelet Estimate ADEQUATE, RBC Morphology NORM C+C, Sodium 137, Potassium 3.2 L, Chloride 95 L, Carbon Dioxide 38.0 H, Anion Gap 4 L, BUN 41 H, Creatinine 1.62 H, Estim Creat Clear Calc 22.90, Est GFR (MDRD) Af Amer 39 L, Est GFR (MDRD) Non-Af 32 L, BUN/Creatinine Ratio 25.3 H, Glucose 148 H, Lactic Acid 1.7, Calcium 7.4 L, Procalcitonin 5.04 H Micro: Microbiology 03/31/23 10:00 Nasal Secretion SARS-CoV-2 Antigen (Rapid) - Final Radiology Impression Chest X-Ray 03/30/23 16:50 IMPRESSION: Patchy right pulmonary infiltrates. Electronically Signed: Noel Moreau DO at 17:06 EST Reading Location ID and State: [facility] / [place] Tel [phone], Service support ,
[2023-03-31] MEDS: Ipratropium/Albuterol Sulfate 3 ML AMPUL.NEB INHALATION (10:51)
--- NOTE | 2023-03-31 12:50 | CASEMGMT ---
URBAN BROWN Readmission Note Previous Admission: 03/23/23-03/28/23 Diagnosis: COPD, hypoxia, respiratory failure DC Disposition: Home with [facility] Current Admission: 03/30/23 Current Diagnosis: pneumonia with hypoxic failure Pt. was discharged home with [facility] to see her. Pt states they did start but that she was back in the hospital. Pt presented to ER with pain in her back by her scapula and chest. Pt was dx with pneumonia. URBAN BROWN into pt room, pt states she was taking her medications as ordered. She did not have time to follow up with any physicians. Pt has been wearing her oxygen at 2L at rest and 5 with exertion. She states that she lives with her dtr, son in law and son in law's cousin and she has 24 hour care. Pt states she is feeling much better and wants to [place] 6 clicks=12, therapy orders received and entered at this time. URBAN BROWN to follow. HI PLAN: Home with Resumption of [facility] pending therapy evals
--- NOTE | 2023-03-31 16:19 | CASEMGMT ---
Social Work SW phoned dtr to inquire about advanced directives. Dtr denied pt having documents, but has an appt with pt's corporate associate attorney 04/01 and will ask the corporate associate attorney. SW offered for corporate associate attorney to complete documents or have social work complete them, if pt is able/willing prior to DC. If pt does have documents, requested dtr provide [facility] with copies. Dtr expressed understanding and will contact social work with outcome. Agnieszka Bliss, DIRECTOR OF COMMUNITY LIFE DIRECTOR [employer]
--- NOTE | 2023-03-31 16:27 | PCM.PN.HOSP ---
Reason for Visit Reason for Visit: Diagnoses Elevated white blood cell count, unspecified (03/30/23) Pneumonia, unspecified organism (03/30/23) Acute respiratory failure with hypoxia (03/30/23) Subjective Subjective Patient was seen and examined today, she states she has been feeling a little bit better today, she is still coughing and bringing up green sputum. Patient denies any increased shortness of breath or chest discomfort today. I had infectious diseases see the patient due to her highly elevated white blood cell count today at 47,000. ID did not recommend changing any antibiotics at the present time. Patient is on home oxygen and lives with her daughter and son-in-law. Her son-in-law was in the room at the time my examination today. Objective Data Objective Data Vital Signs: Vital Signs Temp Pulse Resp BP Pulse Ox O2 Del Method O2 Flow Rate 98.4 F 82 24 H 123/57 H 94 Nasal Cannula 7 03/31/23 12:50 03/31/23 12:50 03/31/23 12:50 03/31/23 12:50 03/31/23 12:50 03/31/23 15:00 03/31/23 15:00 Oxygen Flow Rate (L/min) 7 Oxygen Delivery Method Nasal Cannula Weight: 106.4 kg Body Mass Index (BMI) 37.8 Intake & Output: Intake and Output for Last 24 Hours 03/29/23 03/30/23 03/31/23 23:59 23:59 23:59 Intake Total 50 / 150 1889.75 / 1889.75 Balance 50 / 150 1889.75 / 1889.75 Medical Nutrition Assessment Dietitian: Malnutrition Criteria Met Start: 03/31/23 10:35 Freq: Status: Active Protocol: Document 03/31/23 10:35 AG (Rec: 03/31/23 10:36 AG [id number]) Nutrition Malnutrition Evidence of Malnutrition Exists Yes Malnutrition (severe): Acute Illness/Injury Evidenced By Suboptimal Energy Intake ( Severe),Weight Loss (Severe) Clinical Problem Chronic Disease or Condition Related Malnutrition Etiology severe, acute malnutrition related to inadequate energy intake w/ acute illness Signs/Symptoms as evidenced by estimated PO intake meeting <50% of estimated energy needs >5 days , unintentional 3% wt loss x 1 week Status Active Problem Recommendation Dietitian Recommendations/Changes will adjust diet to regular and add 4oz ensure compact TID w/ meals for additional nutrition if consumed given evidence of acute malnutrition . Lab / Micro Data 03/31/23 07:15 03/31/23 07:15 Labs: Laboratory Results - last 24 hr 03/30/23 15:45: WBC 26.5 H, RBC 4.86, Hgb 15.2 H, Hct 48.5 H, MCV 99.8 H, MCH 31.3, MCHC 31.3 L, RDW Std Deviation 49.3 H, RDW Coeff of Tatum 13.3, Plt Count 294, MPV 11.7, Immature Gran % (Auto) 0.900, Neut % (Auto) 90.5 H, Lymph % (Auto) 3.2 L, [place] % (Auto) 5.2, Eos % (Auto) 0.0, Baso % (Auto) 0.2, Absolute Neuts (auto) 24.0 H, Absolute Lymphs (auto) 0.85, Nucleated RBC % 0, Differential Comment SCANNED, D-Dimer Quant (PE/DVT) 0.81 H*, Sodium 139, Potassium 3.4 L, Chloride 93 L, Carbon Dioxide 40.0 H, Anion Gap 6, BUN 35 H, Creatinine 1.22 H, Estim Creat Clear Calc 31.59, Est GFR (MDRD) Af Amer 54 L, Est GFR (MDRD) Non-Af 44 L, BUN/Creatinine Ratio 28.7 H, Glucose 233 H, Calcium 8.5, Magnesium 1.4 L, Troponin I High Sens 22, B-Natriuretic Peptide 50.2 03/30/23 17:55: Lactic Acid 2.3 H* 03/30/23 18:55: Troponin I High Sens 21 03/30/23 22:35: Lactic Acid 3.2 H* 03/31/23 07:15: WBC 47.7 H*, RBC 4.03 L, Hgb 12.5, Hct 39.5, MCV 98.0, MCH 31.0, MCHC 31.6 L, RDW Std Deviation 49.6 H, RDW Coeff of Tatum 13.7, Plt Count 168, MPV 11.9, Neut % (Auto) Not Reportable, Absolute Neuts (auto) 43.0 H, Absolute Lymphs (auto) 0.95, Total Counted 100, Neutrophils % (Manual) 82 H, Band Neutrophils % 8 H, Lymphocytes % (Manual) 2 L, Monocytes % (Manual) 6, Metamyelocytes % 1, Myelocytes % 1 H, Diff Path Review May , Platelet Estimate ADEQUATE, RBC Morphology NORM C+C, Sodium 137, Potassium 3.2 L, Chloride 95 L, Carbon Dioxide 38.0 H, Anion Gap 4 L, BUN 41 H, Creatinine 1.62 H, Estim Creat Clear Calc 22.90, Est GFR (MDRD) Af Amer 39 L, Est GFR (MDRD) Non-Af 32 L, BUN/Creatinine Ratio 25.3 H, Glucose 148 H, Lactic Acid 1.7, Calcium 7.4 L, Procalcitonin 5.04 H Micro: Microbiology 03/30/23 22:50 Sputum, Expectorated/Coughed Gram Stain - Final 03/31/23 12:00 Urine, Clean Catch Legionella Antigen - Final 03/31/23 12:00 Urine, Clean Catch Streptococcus pneumoniae Antigen (M - Final 03/31/23 10:00 Nasal Secretion SARS-CoV-2 Antigen (Rapid) - Final Radiography Diagnostic Testing: Radiology Impression Chest X-Ray 03/30/23 16:50 IMPRESSION: Patchy right pulmonary infiltrates. Electronically Signed: Noel Moreau DO at 17:06 EST , Chest X-Ray 03/31/23 09:14 IMPRESSION: Progressive right suprahilar infiltrate as well as consolidation in the left lower lobe with small bilateral pleural effusions. Electronically Signed: Gadiel Herndon MD at 10:55 EST , Physical Exam Const alert, oriented x3 and no apparent distress General Appearance: cooperative, well kempt and well developed Orientation / Consciousness: awake, oriented to person, oriented to place and oriented to time HEENT normocephalic, head/scalp atraumatic and moist oral mucous membranes Eyes PERRL, EOMs intact bilaterally and conjunctivae normal Neck supple, no JVD, thyroid normal and no carotid bruits General: trachea midline Resp normal respiratory effort, no retractions and no use of accessory muscles Resp Narrative: Expiratory rhonchi are noted bilaterally-right worse than the left, no rales or wheezing were noted. Auscultation: Negative for rales, rhonchi or wheezes Cardio regular rate, regular rhythm, S1 normal heart sound, S2 normal heart sound, no rub and no gallops GI normal to inspection, nondistended, normoactive bowel sounds, soft to palpation, non-tender and non-distended Extremity no clubbing, cyanosis or edema Skin no rashes or lesions noted General Skin Exam: no breakdown Neuro oriented x3, CN's II-XII intact bilaterally, moves all extremities, no focal motor deficits and no sensory deficits noted Sensorium / Orientation: awake, alert, oriented to person, oriented to place and oriented to time Speech: speech normal Psych affect normal Assessment & Plan Assessment/Plan (1) Right upper lobe pneumonia: PLAN: Plan 1. Acute on chronic hypoxic respiratory failure secondary to right-sided community-acquired pneumonia-patient's pulse ox will be monitored, oxygen will be adjusted as necessary, patient is currently on 7 L via nasal cannula. #2 right-sided community-acquired acquired pneumonia-patient will remain on Zithromax and Rocephin, I will add Mucinex to her medications, ID is participating in her care #3 chronic obstructive pulmonary disease-complicates care, medical course, recovery, and prognosis, patient will remain on aerosol treatments #4 essential hypertension-patient will remain on her home medications, blood pressure will be monitored #5 coronary artery disease-this appears to be stable at the present time, patient will remain on her present medications #6 leukocytosis-most likely secondary to combination of pneumonia and corticosteroid usage, CBC will be monitored Total clinical time spent by myself addressing patient's medical issues, reviewing all of her data, and collaborating with patient's care team: 35 minutes Charges/Coding Visit Charges Inpatient E&M: 23603 Subs Hosp L2
[2023-03-31] MEDS: Ceftriaxone 1 GM/50 ML BAG IV (21:44)
[2023-03-31] MEDS: Atorvastatin Calcium 80 MG Tablet PO (21:46)
[2023-03-31] MEDS: guaiFENesin 1,200 MG Tablet 1200 MG PO (21:46)
[2023-04-01] VITALS (16 sets, daily range): BP systolic 103–145; BP diastolic 43–84; PULSE 44–95; RESP 20–28; TEMP 36.3–36.7; O2SAT 84–98
[2023-04-01] MEDS: Ketorolac 15 MG/ML Vial IV (00:04)
[2023-04-01] MEDS: 0.9% Normal Saline (1000mL) 1,000 ML 75 ML IV ×2 (02:19→15:29)
[2023-04-01] MEDS: Ipratropium/Albuterol Sulfate 3 ML AMPUL.NEB INHALATION ×4 (02:56→15:00)
[2023-04-01] MEDS: Heparin Injection (Vial) 5,000 UNIT/ML VIAL 5000 UNIT SC ×3 (05:01→22:33)
[2023-04-01] MEDS: Acetaminophen 325 MG Tablet 650 MG PO ×2 (05:05→22:26)
[2023-04-01 07:36] LABS: Anion Gap 3 (5-15); BUN 47 mg/dL (7-18); BUN/Creat Ratio 36.4 RATIO (10-20); Calcium,Total 7.5 mg/dL (8.5-10.1); Chloride 98 mmol/L (98-107); Creatinine, Serum 1.29 mg/dL (0.55-1.02); EST Glomerular Filtration Rate 42 mL/min (>60); Est Glom Filt Rate - Afr Amer 50 mL/min (>60); Estimated Creatinine Clearance 28.76 ml/min; Glucose 147 mg/dL (74-106); Potassium 2.9 mmol/L (3.5-5.1); Sodium Level 138 mmol/L (136-145)
[2023-04-01] MEDS: predniSONE 20 MG Tablet 40 MG PO (09:38)
[2023-04-01] MEDS: Clopidogrel Bisulfate 75 MG Tablet PO (09:39)
[2023-04-01] MEDS: Pantoprazole Sodium 40 MG Tablet PO (09:39)
[2023-04-01] MEDS: Furosemide 40 MG Tablet PO (09:39)
[2023-04-01] MEDS: Potassium Chloride Oral Tablet 20 MEQ 60 MEQ PO (09:44)
[2023-04-01] MEDS: guaiFENesin 1,200 MG Tablet 1200 MG PO ×2 (09:45→22:25)
--- NOTE | 2023-04-01 10:11 | CASEMGMT ---
URBAN BRONW called [facility] in [place] to verify pt's home oxygen. URBAN BROWN reached a voicemail machine and LVM asking them to call back to verify oxygen order. URBAN BROWN left contact information.
[2023-04-01 12:18] LABS: Absolute Lymphocyte Count 1.32 X10^3/uL (0.83-4.51); Absolute Neutrophil Count 33.2 X10^3/uL (2.0-7.7); Basophil# 0.06 X10^3/uL; Basophil% 0.2 % (0-1); Eosinophil# 0.01 X10^3/uL; Hematocrit 38.2 % (37-47); Hemoglobin 12.1 g/dL (12.0-15.0); Lymphocyte # 1.32 X10^3/ul (0.83-4.51); Lymphocyte % 3.6 % (19-41); Mean Corp Hgb Conc 31.7 g/dL (32-36); Mean Corpuscular Hgb 31.1 pg (27.0-32.0); Mean Corpuscular Volume 98.2 fL (81-99); Mean Platelet Vol. 12.5 fl (6.2-12.0); Monocyte% 4.1 % (0-10); NRBC Flagged by Analyzer 0 % (0-5); Neutrophil # 33.17 X10^3/uL (2.7-7.7); Neutrophil % 90.6 % (47-70); POSITIVE COUNT YES; POSITIVE DIFFERENTIAL YES; Platelet Count 158 K/mm3 (150-450); RBC Distribution Width CV 13.8 % (11.6-14.6); Red Blood Count 3.89 M/mm3 (4.2-5.4)
[2023-04-01 12:20] LABS: Differential Indicated SCAN CRITERIA MET; White Blood Count 36.6 K/mm3 (4.4-11.0)
[2023-04-01 12:35] LABS: Differential Comment SCANNED
[2023-04-01] MEDS: Bisacodyl 5 MG Tablet 10 MG PO (13:25)
--- NOTE | 2023-04-01 13:44 | PCM.PN.ID ---
Physical Exam Narrative Feeling better, but still a lot of cough and sputum. No fever Const alert and no apparent distress General Appearance: cooperative Resp Auscultation: rhonchi and diminished lung sounds Cardio regular rate and regular rhythm GI soft to palpation, non-tender and non-distended Skin no rashes or lesions noted ID ID: Route of nutrition/ use of supplements: [] Nutritional Intake: [] IV Site: [] Wade Catheter: [] Assessment & Plan Assessment/Plan (1) Acute respiratory failure with hypoxia: PLAN: Sputum cx pending. Neg UAgs, covid. Procal high at 5. Cont azithro/ceftriaxone. Wbc improved today. Will follow (2) Leukocytosis: (3) Right upper lobe pneumonia:
--- NOTE | 2023-04-01 14:54 | CHAPLAIN ---
Type of Pastoral Visit _x__ Initial Visit ___ Follow-up Visit ___ On-call Visit ___ General Patient Visit ___ Spiritual Assessment ___ Family Conference ___ Bereavement ___ Rapid Response ___ Code Blue ___ Other (describe below) Pastoral Care Referral From _x__ Patient ___ Family ___ Nurse ___ Physician ___ Printing Equipment Mechanic ___ Tool Dresser ___ Other (describe below) Sacrament/Intervention _x__ Active listening ___ Anointing ___ Pentecostalism ___ Bereavement ___ Communion ___ Judy exploration ___ ___ Life review _x__ Prayer ___ Reconciliation ___ Sacrament of Sick ___ Supportive presence ___ Wedding ___ Other (describe below) Pastoral Comments patient is sitting up in chair with many family members in the room who had traveled from out of state to visit; greeted the whole family and offered support; pt requested a prayer and that was given; pt is content at this time due to much family support; will be available to pt as needed
--- NOTE | 2023-04-01 15:57 | PN.HOSP_ITS ---
Reason for Visit Reason for Visit: Diagnoses Elevated white blood cell count, unspecified (03/30/23) Pneumonia, unspecified organism (03/30/23) Acute respiratory failure with hypoxia (03/30/23) Subjective Subjective Patient was seen and examined today, he remains on supplemental oxygen at 7 L/min, patient's white blood cell count today was 36.6, she is having no diarrhea and I canceled the C. difficile test. Objective Data Objective Data Vital Signs: Vital Signs Temp Pulse Resp BP Pulse Ox O2 Del Method O2 Flow Rate 98.0 F 66 22 H 116/84 H 96 Nasal Cannula 7 04/01/23 15:30 04/01/23 15:30 04/01/23 15:30 04/01/23 15:30 04/01/23 15:30 04/01/23 15:30 04/01/23 15:30 Oxygen Flow Rate (L/min) 7 Oxygen Delivery Method Nasal Cannula Weight: 106.4 kg Body Mass Index (BMI) 37.8 Intake & Output: Intake and Output for Last 24 Hours 03/30/23 03/31/23 04/01/23 23:59 23:59 23:59 Intake Total 50 / 150 2194.75 / 2494.75 2349.0 / 2349.0 Balance 50 / 150 2194.75 / 2494.75 2349.0 / 2349.0 Medical Nutrition Assessment Dietitian: Malnutrition Criteria Met Start: 03/31/23 10:35 Freq: Status: Active Protocol: Document 03/31/23 10:35 AG (Rec: 03/31/23 10:36 AG [id number]) Nutrition Malnutrition Evidence of Malnutrition Exists Yes Malnutrition (severe): Acute Illness/Injury Evidenced By Suboptimal Energy Intake ( Severe),Weight Loss (Severe) Clinical Problem Chronic Disease or Condition Related Malnutrition Etiology severe, acute malnutrition related to inadequate energy intake w/ acute illness Signs/Symptoms as evidenced by estimated PO intake meeting <50% of estimated energy needs >5 days , unintentional 3% wt loss x 1 week Status Active Problem Recommendation Dietitian Recommendations/Changes will adjust diet to regular and add 4oz ensure compact TID w/ meals for additional nutrition if consumed given evidence of acute malnutrition . Lab / Micro Data 04/01/23 06:35 04/01/23 06:35 Labs: Laboratory Results - last 24 hr 04/01/23 06:35: WBC 36.6 H*, RBC 3.89 L, Hgb 12.1, Hct 38.2, MCV 98.2, MCH 31.1, MCHC 31.7 L, RDW Std Deviation 50.0 H, RDW Coeff of Tatum 13.8, Plt Count 158, MPV 12.5 H, Immature Gran % (Auto) 1.500 H, Neut % (Auto) 90.6 H, Lymph % (Auto) 3.6 L, [place] % (Auto) 4.1, Eos % (Auto) 0.0, Baso % (Auto) 0.2, Absolute Neuts (auto) 33.2 H, Absolute Lymphs (auto) 1.32, Nucleated RBC % 0, Differential Comment SCANNED, Diff Path Review September, Sodium 138, Potassium 2.9 L, Chloride 98, Carbon Dioxide 37.0 H, Anion Gap 3 L, BUN 47 H, Creatinine 1.29 H, Estim Creat Clear Calc 28.76, Est GFR (MDRD) Af Amer 50 L, Est GFR (MDRD) Non-Af 42 L, BUN/Creatinine Ratio 36.4 H, Glucose 147 H, Calcium 7.5 L Micro: Microbiology 03/30/23 22:50 Sputum, Expectorated/Coughed Gram Stain - Final 03/31/23 12:00 Urine, Clean Catch Legionella Antigen - Final 03/31/23 12:00 Urine, Clean Catch Streptococcus pneumoniae Antigen (M - Final 03/31/23 10:00 Nasal Secretion SARS-CoV-2 Antigen (Rapid) - Final Physical Exam Narrative alert, oriented x3 and no apparent distress General Appearance: cooperative, well kempt and well developed Orientation / Consciousness: awake, oriented to person, oriented to place and o riented to time HEENT normocephalic, head/scalp atraumatic and moist oral mucous membranes Eyes PERRL, EOMs intact bilaterally and conjunctivae normal Neck supple, no JVD, thyroid normal and no carotid bruits General: trachea midline Resp normal respiratory effort, no retractions and no use of accessory muscles Resp Narrative: Expiratory rhonchi are noted bilaterally-right worse than the left, no rales or wheezing were noted. Auscultation: Negative for rales, rhonchi or wheezes Cardio regular rate, regular rhythm, S1 normal heart sound, S2 normal heart sound, no rub and no gallops GI normal to inspection, nondistended, normoactive bowel sounds, soft to palpation, non-tender and non-distended Extremity no clubbing, cyanosis or edema Skin no rashes or lesions noted General Skin Exam: no breakdown Neuro oriented x3, CN's II-XII intact bilaterally, moves all extremities, no focal motor deficits and no sensory deficits noted Sensorium / Orientation: awake, alert, oriented to person, oriented to place and oriented to time Speech: speech normal Psych affect normal Assessment & Plan Assessment/Plan (1) Acute respiratory failure with hypoxia: (2) Right upper lobe pneumonia: PLAN: Plan 1. Acute on chronic hypoxic respiratory failure secondary to right-sided community-acquired pneumonia-patient's pulse ox will be monitored, oxygen will be adjusted as necessary, patient is currently on 7 L via nasal cannula. #2 right-sided community-acquired acquired pneumonia-patient will remain on Zithromax and Rocephin #3 chronic obstructive pulmonary disease-complicates care, medical course, recovery, and prognosis, patient will remain on aerosol treatments #4 essential hypertension-patient will remain on her home medications, blood pressure will be monitored #5 coronary artery disease-this appears to be stable at the present time, estrella purdy will remain on her present medications #6 leukocytosis-most likely secondary to combination of pneumonia and corticosteroid usage, CBC will be monitored, this may be a leukemoid reaction #7 acute severe protein and caloric malnutrition related to inappropriate energy intake with acute illness as evidenced by estimated p.o. intake meeting less than 50% of estimated energy needs more than 5 days and unintentional 3% weight loss x1 week-patient's diet was adjusted to regular, she will receive 4 ounces of Ensure compact 3 times daily with meals for additional nutrition Total clinical time spent by myself addressing patient's medical issues, reviewing all of her data, and collaborating with patient's care team: 35 minutes Charges/Coding Visit Charges Inpatient E&M: 53151 Subs Hosp L2
[2023-04-01] MEDS: Ceftriaxone 1 GM/50 ML BAG IV (22:15)
[2023-04-01] MEDS: Atorvastatin Calcium 80 MG Tablet PO (22:26)
[2023-04-01] MEDS: Azithromycin 500 MG in Dextrose 5%-Water (250mL Bag) 250 ML 250 MG IV (23:09)
[2023-04-02] VITALS (18 sets, daily range): BP systolic 127–156; BP diastolic 58–77; PULSE 58–88; RESP 18–24; TEMP 36.6–36.8; O2SAT 78–99
[2023-04-02] MEDS: 0.9% Normal Saline (1000mL) 1,000 ML 75 ML IV ×2 (03:32→17:22)
--- NOTE | 2023-04-02 05:55 | RAD_ITS ---
STUDY: X-RAY CHEST REASON FOR EXAM: Female, 87 years old. Pneumonia TECHNIQUE: Single AP portable view of the chest. COMPARISON: Comparison is made with prior study dated March 31, 2023. FINDINGS: Persistent infiltration in the right upper lobe as well as in the left lower lobe although there has been mild degree of improvement. Residual blunting of both costophrenic angles. There is borderline cardiomegaly. 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 Normal mediastinum and chika. Normal visualized pulmonary arteries. There is atherosclerotic calcification of the aortic arch with tortuosity. There are degenerative changes of the visualized thoracic spine. Normal visualized ribs, clavicles, and shoulders. There is no demonstrated abnormality of the visualized soft tissue structures of the upper abdomen. RAD/Chest 1 View (Portable) IMPRESSION: Residual bilateral pulmonary infiltrates although there has been mild degree of improvement as compared to prior study. Electronically Signed: Gadiel Herndon MD at 10:56 EST ,
[2023-04-02] MEDS: Heparin Injection (Vial) 5,000 UNIT/ML VIAL 5000 UNIT SC ×3 (05:59→21:48)
[2023-04-02] MEDS: Acetaminophen 325 MG Tablet 650 MG PO (06:03)
[2023-04-02] MEDS: Ipratropium/Albuterol Sulfate 3 ML AMPUL.NEB INHALATION ×4 (07:01→19:26)
[2023-04-02 07:58] LABS: Absolute Lymphocyte Count 1.27 X10^3/uL (0.83-4.51); Absolute Neutrophil Count 20.3 X10^3/uL (2.0-7.7); Basophil# 0.04 X10^3/uL; Basophil% 0.2 % (0-1); Eosinophil# 0.02 X10^3/uL; Eosinophils% 0.1 % (0-5); Hematocrit 37.2 % (37-47); Hemoglobin 11.6 g/dL (12.0-15.0); Lymphocyte # 1.27 X10^3/ul (0.83-4.51); Lymphocyte % 5.5 % (19-41); Mean Corp Hgb Conc 31.2 g/dL (32-36); Mean Corpuscular Hgb 30.8 pg (27.0-32.0); Mean Corpuscular Volume 98.7 fL (81-99); Mean Platelet Vol. 12.3 fl (6.2-12.0); Monocyte# 1.24 X10^3/uL; Monocyte% 5.4 % (0-10); NRBC Flagged by Analyzer 0 % (0-5); Neutrophil # 20.26 X10^3/uL (2.7-7.7); Neutrophil % 87.5 % (47-70); POSITIVE DIFFERENTIAL YES; Platelet Count 133 K/mm3 (150-450); RBC Distribution Width CV 13.9 % (11.6-14.6); RBC Distribution Width SD 50.9 fl (35.1-43.9); Red Blood Count 3.77 M/mm3 (4.2-5.4); White Blood Count 23.1 K/mm3 (4.4-11.0)
[2023-04-02 08:02] LABS: Differential Indicated SCAN CRITERIA MET
[2023-04-02] MEDS: predniSONE 20 MG Tablet 40 MG PO (08:59)
[2023-04-02] MEDS: guaiFENesin 1,200 MG Tablet 1200 MG PO ×2 (08:59→21:48)
[2023-04-02] MEDS: Clopidogrel Bisulfate 75 MG Tablet PO (08:59)
[2023-04-02] MEDS: Furosemide 40 MG Tablet PO (08:59)
[2023-04-02] MEDS: Pantoprazole Sodium 40 MG Tablet PO (08:59)
[2023-04-02 09:10] LABS: Pathologist Review Reviewed
[2023-04-02 09:28] LABS: Differential Comment SCANNED
--- NOTE | 2023-04-02 10:15 | PCM.PN.ID ---
Physical Exam Narrative Feeling much improved. Better strength, less cough. No fever. Const alert and no apparent distress General Appearance: cooperative Resp Auscultation: rhonchi and diminished lung sounds Cardio regular rate and regular rhythm GI soft to palpation, non-tender and non-distended Skin no rashes or lesions noted ID ID: Route of nutrition/ use of supplements: [] Nutritional Intake: [] IV Site: [] Wade Catheter: [] Assessment & Plan Assessment/Plan (1) Acute respiratory failure with hypoxia: PLAN: Sputum cx with MSSA. Neg UAgs, covid. Procal high at 5. On azithro/ceftriaxone. Wbc improved today. Will narrow abx to cefazolin. Plan on discharge with po keflex. Will follow (2) Leukocytosis: (3) Right upper lobe pneumonia:
--- NOTE | 2023-04-02 12:05 | NS ---
Call from dietary staff- pt no longer wants Ensure Compact. Diet order updated. Miriam Gudino MS, RDN, LD
--- NOTE | 2023-04-02 14:22 | CASEMGMT ---
URBAN BROWN NOTE: Reviewed therapy notes from today. Pt ambulated total of 55 ft (25 + 15 + 15) w/WW and additional therapy recommended. Pt required 8 L/M O2 w/ambulation today as well. URBAN BROWN to room. Pt verifies she still wishes to discharge home w/[facility] and declines wanting list of other HHC options. [facility] order has been entered. Pt states family can bring in portable O2 for her to go home on @ discharge. She denies having other discharge planning needs or concerns. Lissa BALDWINN URBAN BROWN
[2023-04-02] MEDS: Cefazolin 2 GM in 0.9% Normal Saline (100mL Bag) 100 ML IV ×2 (14:32→21:48)
[2023-04-02 15:46] LABS: Pathologist Review Reviewed
--- NOTE | 2023-04-02 17:21 | PN.HOSP_ITS ---
Reason for Visit Reason for Visit: Diagnoses Elevated white blood cell count, unspecified (03/30/23) Pneumonia, unspecified organism (03/30/23) Acute respiratory failure with hypoxia (03/30/23) Subjective Subjective Patient was seen and examined today, she is still requiring 7 L via nasal cannula, her white count now is 23.1. Infectious diseases narrowed her coverage to Ancef. Objective Data Objective Data Vital Signs: Vital Signs Temp Pulse Resp BP Pulse Ox O2 Del Method O2 Flow Rate 97.8 F 79 20 H 144/72 H 97 High Flow 7 04/02/23 11:23 04/02/23 14:57 04/02/23 14:57 04/02/23 11:23 04/02/23 11:23 04/02/23 14:42 04/02/23 14:42 Oxygen Flow Rate (L/min) 7 Oxygen Delivery Method High Flow Weight: 106.4 kg Body Mass Index (BMI) 37.8 Intake & Output: Intake and Output for Last 24 Hours 03/31/23 04/01/23 04/02/23 23:59 23:59 23:59 Intake Total 2194.75 / 2494.75 2399.0 / 2399.0 1398.75 / 1398.75 Balance 2194.75 / 2494.75 2399.0 / 2399.0 1398.75 / 1398.75 Medical Nutrition Assessment Dietitian: Malnutrition Criteria Met Start: 03/31/23 10:35 Freq: Status: Active Protocol: Document 03/31/23 10:35 AG (Rec: 03/31/23 10:36 AG [id number]) Nutrition Malnutrition Evidence of Malnutrition Exists Yes Malnutrition (severe): Acute Illness/Injury Evidenced By Suboptimal Energy Intake ( Severe),Weight Loss (Severe) Clinical Problem Chronic Disease or Condition Related Malnutrition Etiology severe, acute malnutrition related to inadequate energy intake w/ acute illness Signs/Symptoms as evidenced by estimated PO intake meeting <50% of estimated energy needs >5 days , unintentional 3% wt loss x 1 week Status Active Problem Recommendation Dietitian Recommendations/Changes will adjust diet to regular and add 4oz ensure compact TID w/ meals for additional nutrition if consumed given evidence of acute malnutrition . Lab / Micro Data 04/02/23 07:20 04/01/23 06:35 Labs: Laboratory Results - last 24 hr 03/31/23 07:15: Diff Path Review Reviewed 04/01/23 06:35: Diff Path Review Reviewed 04/02/23 07:20: WBC 23.1 H, RBC 3.77 L, Hgb 11.6 L, Hct 37.2, MCV 98.7, MCH 30.8, MCHC 31.2 L, RDW Std Deviation 50.9 H, RDW Coeff of [place]atum 13.9, Plt Count 133 L, MPV 12.3 H, Immature Gran % (Auto) 1.300 H, Neut % (Auto) 87.5 H, Lymph % (Auto) 5.5 L, [place] % (Auto) 5.4, Eos % (Auto) 0.1, Baso % (Auto) 0.2, Absolute Neuts (auto) 20.3 H, Absolute Lymphs (auto) 1.27, Nucleated RBC % 0, Differential Comment SCANNED Micro: Microbiology 03/30/23 17:58 Blood Culture (Wb) - Right Hand Blood Culture - Preliminary No growth in 48 hours. 03/30/23 17:55 Blood Culture (Wb) - Anticubital Left Blood Culture - Preliminary No growth in 48 hours. 03/30/23 22:50 Sputum, Expectorated/Coughed Gram Stain - Final 03/30/23 22:50 Sputum, Expectorated/Coughed Respiratory Culture - Final Staphylococcus aureus 03/31/23 12:00 Urine, Clean Catch Legionella Antigen - Final 03/31/23 12:00 Urine, Clean Catch Streptococcus pneumoniae Antigen (M - Final 03/31/23 10:00 Nasal Secretion SARS-CoV-2 Antigen (Rapid) - Final Radiography Diagnostic Testing: Radiology Impression Chest X-Ray 04/02/23 05:55 IMPRESSION: Residual bilateral pulmonary infiltrates although there has been mild degree of improvement as compared to prior study. Electronically Signed: Gadiel Herndon MD at 10:56 EST , Physical Exam Narrative alert, oriented x3 and no apparent distress General Appearance: cooperative, well kempt and well developed Orientation / Consciousness: awake, oriented to person, oriented to place and oriented to time HEENT normocephalic, head/scalp atraumatic and moist oral mucous membranes Eyes PERRL, EOMs intact bilaterally and conjunctivae normal Neck supple, no JVD, thyroid normal and no carotid bruits General: trachea midline Resp normal respiratory effort, no retractions and no use of accessory muscles Resp Narrative: Expiratory rhonchi are noted bilaterally-right worse than the left, no rales or wheezing were noted. Auscultation: Negative for rales, rhonchi or wheezes Cardio regular rate, regular rhythm, S1 normal heart sound, S2 normal heart sound, no rub and no gallops GI normal to inspection, nondistended, normoactive bowel sounds, soft to palpation, non-tender and non-distended Extremity no clubbing, cyanosis or edema Skin no rashes or lesions noted General Skin Exam: no breakdown Neuro oriented x3, CN's II-XII intact bilaterally, moves all extremities, no focal motor deficits and no sensory deficits noted Sensorium / Orientation: awake, alert, oriented to person, oriented to place and oriented to time Speech: speech normal Psych affect normal Assessment & Plan Assessment/Plan (1) Leukocytosis: (2) Acute respiratory failure with hypoxia: (3) Right upper lobe pneumonia: PLAN: Plan 1. Acute on chronic hypoxic respiratory failure secondary to right-sided community-acquired pneumonia-patient's pulse ox will be monitored, oxygen will be adjusted as necessary, patient is currently on 7 L via nasal cannula. #2 right-sided community-acquired acquired pneumonia-patient is now on Ancef, chest x-ray this morning showed residual bilateral pulmonary infiltrates with a mild degree of improvement as compared with the previous x-ray on 03/31/2023 #3 chronic obstructive pulmonary disease-complicates care, medical course, recovery, and prognosis, patient will remain on aerosol treatments and corticosteroid #4 essential hypertension-patient will remain on her home medications, blood pressure will be monitored #5 coronary artery disease-this appears to be stable at the present time, patient will remain on her present medications #6 leukocytosis-most likely secondary to combination of pneumonia and corticosteroid usage, CBC will be monitored, this may be a leukemoid reaction #7 acute severe protein and caloric malnutrition related to inappropriate energy intake with acute illness as evidenced by estimated p.o. intake meeting less than 50% of estimated energy needs more than 5 days and unintentional 3% weight loss x1 week-patient's diet was adjusted to regular, she will receive 4 ounces of Ensure compact 3 times daily with meals for additional nutrition Total clinical time spent by myself addressing patient's medical issues, reviewing all of her data, and collaborating with patient's care team: 25 minutes Charges/Coding Visit Charges Inpatient E&M: 87329 Subs Hosp L1
[2023-04-02] MEDS: Atorvastatin Calcium 80 MG Tablet PO (21:47)
[2023-04-03] VITALS (18 sets, daily range): BP systolic 154–170; BP diastolic 61–111; PULSE 64–88; RESP 16–24; TEMP 36.3–36.8; O2SAT 88–97
[2023-04-03] MEDS: Acetaminophen 325 MG Tablet 650 MG PO (00:40)
[2023-04-03] MEDS: Ketorolac 15 MG/ML Vial IV ×2 (02:36→23:53)
[2023-04-03] MEDS: Ipratropium/Albuterol Sulfate 3 ML AMPUL.NEB INHALATION ×6 (02:44→22:44)
[2023-04-03 05:10] LABS: Absolute Lymphocyte Count 0.65 X10^3/uL (0.83-4.51); Absolute Neutrophil Count 12.2 X10^3/uL (2.0-7.7); Basophil# 0.01 X10^3/uL; Basophil% 0.1 % (0-1); Hematocrit 33.5 % (37-47); Hemoglobin 10.4 g/dL (12.0-15.0); Lymphocyte # 0.65 X10^3/ul (0.83-4.51); Lymphocyte % 4.7 % (19-41); Mean Corpuscular Hgb 30.9 pg (27.0-32.0); Mean Corpuscular Volume 99.4 fL (81-99); Mean Platelet Vol. 12.1 fl (6.2-12.0); Monocyte# 0.86 X10^3/uL; Monocyte% 6.2 % (0-10); NRBC Flagged by Analyzer 0 % (0-5); Neutrophil % 88.3 % (47-70); Platelet Count 123 K/mm3 (150-450); RBC Distribution Width CV 13.9 % (11.6-14.6); Red Blood Count 3.37 M/mm3 (4.2-5.4); White Blood Count 13.8 K/mm3 (4.4-11.0)
[2023-04-03] MEDS: 0.9% Normal Saline (1000mL) 1,000 ML 75 ML IV ×2 (05:17→18:27)
[2023-04-03] MEDS: Heparin Injection (Vial) 5,000 UNIT/ML VIAL 5000 UNIT SC ×3 (05:17→22:47)
[2023-04-03] MEDS: Cefazolin 2 GM in 0.9% Normal Saline (100mL Bag) 100 ML IV ×3 (05:17→22:45)
[2023-04-03] MEDS: Clopidogrel Bisulfate 75 MG Tablet PO (08:27)
[2023-04-03] MEDS: Pantoprazole Sodium 40 MG Tablet PO (08:27)
[2023-04-03] MEDS: Furosemide 40 MG Tablet PO (08:27)
[2023-04-03] MEDS: guaiFENesin 1,200 MG Tablet 1200 MG PO ×2 (08:27→22:47)
[2023-04-03] MEDS: predniSONE 20 MG Tablet 40 MG PO (08:27)
--- NOTE | 2023-04-03 13:22 | PCM.PN.ID ---
Physical Exam Narrative Feeling much better, less cough and sputum. No fever, no n/v/d. Const alert and no apparent distress General Appearance: cooperative Resp normal air movement and clear to auscultation bilaterally Cardio regular rate and regular rhythm GI soft to palpation, non-tender and non-distended Skin no rashes or lesions noted ID ID: Route of nutrition/ use of supplements: [] Nutritional Intake: [] IV Site: [] Wade Catheter: [] Assessment & Plan Assessment/Plan (1) Acute respiratory failure with hypoxia: PLAN: Sputum cx with MSSA. Neg UAgs, covid. Procal high at 5. On cefazolin. Plan on discharge with po keflex 500mg tid for 4 more days. Will follow (2) Leukocytosis: (3) Right upper lobe pneumonia:
--- NOTE | 2023-04-03 14:40 | CASEMGMT ---
URBAN CM into pt room, pt states she would like to dc with HHC from [facility] upon dc. TC to Nida at [facility] to make aware. Green sheet on chart for oxygen rx if needs increase as well as HHC.
--- NOTE | 2023-04-03 15:39 | PN.HOSP_ITS ---
Reason for Visit Reason for Visit: Diagnoses Elevated white blood cell count, unspecified (03/30/23) Pneumonia, unspecified organism (03/30/23) Acute respiratory failure with hypoxia (03/30/23) Subjective Subjective Patient was seen and examined today, patient's sputum grew out Staph aureus, she is currently on Ancef. Patient's white blood cell count today was 13.8, she is currently on 3 L of oxygen via nasal cannula. Objective Data Objective Data Vital Signs: Vital Signs Temp Pulse Resp BP Pulse Ox O2 Del Method O2 Flow Rate 98.3 F 78 18 156/63 H 93 Nasal Cannula 3 04/03/23 13:53 04/03/23 15:13 04/03/23 15:13 04/03/23 13:53 04/03/23 15:16 04/03/23 15:16 04/03/23 15:16 Oxygen Flow Rate (L/min) [ 7 AMBULATING with Oxygen #2] Oxygen Flow Rate (L/min) [ 6 AMBULATING with Oxygen #1] Oxygen Flow Rate (L/min) 3 Oxygen Delivery Method Nasal Cannula Weight: 106.4 kg Body Mass Index (BMI) 37.8 Intake & Output: Intake and Output for Last 24 Hours 04/01/23 04/02/23 04/03/23 23:59 23:59 23:59 Intake Total 2399.0 / 2399.0 3158.75 / 3158.75 2058.75 / 2058.75 Balance 2399.0 / 2399.0 3158.75 / 3158.75 2058.75 / 8.75 Medical Nutrition Assessment Dietitian: Malnutrition Criteria Met Start: 03/31/23 10:35 Freq: Status: Active Protocol: Document 03/31/23 10:35 AG (Rec: 03/31/23 10:36 AG [id number]) Nutrition Malnutrition Evidence of Malnutrition Exists Yes Malnutrition (severe): Acute Illness/Injury Evidenced By Suboptimal Energy Intake ( Severe),Weight Loss (Severe) Clinical Problem Chronic Disease or Condition Related Malnutrition Etiology severe, acute malnutrition related to inadequate energy intake w/ acute illness Signs/Symptoms as evidenced by estimated PO intake meeting <50% of estimated energy needs >5 days , unintentional 3% wt loss x 1 week Status Active Problem Recommendation Dietitian Recommendations/Changes will adjust diet to regular and add 4oz ensure compact TID w/ meals for additional nutrition if consumed given evidence of acute malnutrition . Lab / Micro Data 04/03/23 04:50 04/01/23 06:35 Labs: Laboratory Results - last 24 hr 04/01/23 06:35: Diff Path Review Reviewed 04/03/23 04:50: WBC 13.8 H, RBC 3.37 L, Hgb 10.4 L, Hct 33.5 L, MCV 99.4 H, MCH 30.9, MCHC 31.0 L, RDW Std Deviation 51.0 H, RDW Coeff of [place] 13.9, Plt Count 123 L, MPV 12.1 H, Immature Gran % (Auto) 0.700, Neut % (Auto) 88.3 H, Lymph % (Auto) 4.7 L, [place] % (Auto) 6.2, Eos % (Auto) 0.0, Baso % (Auto) 0.1, Absolute Neuts (auto) 12.2 H, Absolute Lymphs (auto) 0.65 L, Nucleated RBC % 0 Micro: Microbiology 03/30/23 17:58 Blood Culture (Wb) - Right Hand Blood Culture - Preliminary No growth in 48 hours. 03/30/23 17:55 Blood Culture (Wb) - Anticubital Left Blood Culture - Preliminary No growth in 48 hours. 03/30/23 22:50 Sputum, Expectorated/Coughed Gram Stain - Final 03/30/23 22:50 Sputum, Expectorated/Coughed Respiratory Culture - Final Staphylococcus aureus 03/31/23 12:00 Urine, Clean Catch Legionella Antigen - Final 03/31/23 12:00 Urine, Clean Catch Streptococcus pneumoniae Antigen (M - Final 03/31/23 10:00 Nasal Secretion SARS-CoV-2 Antigen (Rapid) - Final Physical Exam Const alert, oriented x3 and no apparent distress General Appearance: cooperative, well kempt and well developed Orientation / Consciousness: awake, oriented to person, oriented to place and oriented to time HEENT normocephalic, head/scalp atraumatic and moist oral mucous membranes Eyes PERRL, EOMs intact bilaterally and conjunctivae normal Neck supple, no JVD, thyroid normal and no carotid bruits General: trachea midline Resp normal respiratory effort, no retractions and no use of accessory muscles Resp Narrative: Expiratory rhonchi are scattered over both lungs Auscultation: rhonchi throughout; Negative for rales or wheezes Cardio regular rate, regular rhythm, S1 normal heart sound, S2 normal heart sound, no murmurs, no rub and no gallops GI normal to inspection, nondistended, normoactive bowel sounds, soft to palpation, non-tender and non-distended Extremity no clubbing, cyanosis or edema Skin no rashes or lesions noted General Skin Exam: no breakdown Neuro oriented x3, CN's II-XII intact bilaterally, moves all extremities, no focal motor deficits and no sensory deficits noted Sensorium / Orientation: awake and alert Speech: speech normal Psych affect normal Assessment & Plan Assessment/Plan (1) Acute respiratory failure with hypoxia: (2) Leukocytosis: (3) Right upper lobe pneumonia: PLAN: Plan 1. Acute on chronic hypoxic respiratory failure secondary to right-sided community-acquired pneumonia-patient's pulse ox will be monitored, oxygen will be adjusted as necessary, patient is currently on 7 L via nasal cannula. #2 right-sided community-acquired acquired pneumonia with Staph aureus-patient is now on Ancef #3 chronic obstructive pulmonary disease-complicates care, medical course, recovery, and prognosis, patient will remain on aerosol treatments and corticosteroid #4 essential hypertension-patient will remain on her home medications, blood pressure will be monitored #5 coronary artery disease-this appears to be stable at the present time, patient will remain on her present medications #6 leukocytosis-most likely secondary to combination of pneumonia and corticosteroid usage, CBC will be monitored, this may be a leukemoid reaction #7 acute severe protein and caloric malnutrition related to inappropriate energy intake with acute illness as evidenced by estimated p.o. intake meeting less than 50% of estimated energy needs more than 5 days and unintentional 3% weight loss x1 week-patient's diet was adjusted to regular, she will receive 4 ounces of Ensure compact 3 times daily with meals for additional nutrition Total clinical time spent by myself addressing patient's medical issues, reviewing all of her data, and collaborating with patient's care team: 25 minutes Charges/Coding Visit Charges Inpatient E&M: [address] [facility] Hosp L1
[2023-04-03] MEDS: Atorvastatin Calcium 80 MG Tablet PO (22:46)
[2023-04-04] VITALS (12 sets, daily range): BP systolic 147–173; BP diastolic 65–105; PULSE 72–93; RESP 18–26; TEMP 36.3–36.8; O2SAT 83–97
[2023-04-04] MEDS: HYDROcodone Bitartrate/Apap 5/325 Tablet PO (03:02)
[2023-04-04] MEDS: Cefazolin 2 GM in 0.9% Normal Saline (100mL Bag) 100 ML IV ×2 (05:49→14:09)
[2023-04-04] MEDS: Heparin Injection (Vial) 5,000 UNIT/ML VIAL 5000 UNIT SC ×2 (05:51→14:11)
[2023-04-04] MEDS: Ipratropium/Albuterol Sulfate 3 ML AMPUL.NEB INHALATION ×3 (07:14→16:49)
[2023-04-04] MEDS: Clopidogrel Bisulfate 75 MG Tablet PO (08:44)
[2023-04-04] MEDS: Furosemide 40 MG Tablet PO (08:44)
[2023-04-04] MEDS: predniSONE 20 MG Tablet 40 MG PO (08:44)
[2023-04-04] MEDS: guaiFENesin 1,200 MG Tablet 1200 MG PO (08:44)
[2023-04-04] MEDS: Pantoprazole Sodium 40 MG Tablet PO (08:44)
[2023-04-04] MEDS: 0.9% Normal Saline (1000mL) 1,000 ML 75 ML IV (09:21)
--- NOTE | 2023-04-04 09:26 | DCINST_ITS ---
Discharge Instructions Diet Discharge Diet: No restrictions Activity Discharge Activity: Return to Normal Activity Weight Bearing Status: Full weight bearing Follow Up Care Test Results: Test results from this visit will be discussed in further detail at your follow- up appointment, if applicable. Discharge Plan Admission Admit Date/Time: 03/30/23 19:47 Primary Reason for Your Visit: pneumonia Attending Provider: Buddy Melara Primary Care Provider: Simeon Lopez Consulting Providers: Faustino Chowdhury; Landon Wellington Instructions Additional Instructions / Restrictions: Resume home oxygen as before Discharge Orders/Prescriptions Prescriptions: New prednisone 20 mg Tablet 40 mg PO DAILYCM Qty: 11 0RF Rx Instructions: 1 twice a day x3 days, then 1 daily for 3 days, then one half daily for 4 days then discontinue cephalexin 500 mg capsule 500 mg PO Q8H Qty: 18 0RF Rx Instructions: start 04/04/23 Continued atorvastatin 80 mg tablet 80 mg PO QHS Qty: 90 3RF clopidogrel 75 mg tablet 75 mg PO DAILY Qty: 90 3RF lisinopril 10 mg tablet 10 mg PO DAILY Qty: 90 3RF pantoprazole 40 mg tablet,delayed release (DR/EC) 40 mg PO DAILY Qty: 90 3RF acetaminophen 325 mg Tablet 650 mg PO Q6H PRN PRN (Reason: Pain 1-10 Or Fever >100.7) Qty: 0 0RF trazodone 100 mg tablet 100 mg PO QHS Patient Comments: Take 1 tablet by mouth daily at bedtime. multivitamin [Daily Multi-Vitamin] Tablet 1 tab PO DAILY Patient Comments: unsure of type of multivitamin furosemide 40 mg tablet 40 mg PO DAILY Qty: 30 2RF Rx Instructions: Take additional 40 mg dose at 5 PM for weight gain 5 pounds in 1 week. ipratropium-albuterol 0.5 mg-3 mg(2.5 mg base)/3 mL solution for nebulization 3 ml inhalation Q4H PRN (Reason: shortness of breath or wheezing) Qty: 180 0RF Rx Instructions: until breathing returns to target peak flow/parameters Mag 64 64 mg Tablet,Delayed Release (Dr/Ec) 128 mg PO BID 30 Days Qty: 120 0RF potassium chloride 10 mEq tablet,ER particles/crystals 10 meq PO DAILY Qty: 30 2RF albuterol sulfate 90 mcg/actuation HFA aerosol inhaler 2 puff inhalation Q6H PRN (Reason: shortness of breath or wheezing) Qty: 8.5 0RF Discontinued prednisone 20 mg tablet 40 mg PO DAILY 5 Days Qty: 10 0RF Referrals / Follow Up: Simeon Lopez MD [Primary Care Provider] - See Referral Note (in two weeks) Disposition Disposition (needs filled in before D/C Order can be placed): Home, Self Care
--- NOTE | 2023-04-04 09:41 | DS.PCM_ITS ---
Providers Date of Admission: 03/30/23 Date of Discharge: 04/04/23 Primary Care Physician: Dr. Simeon Lopez MD Consultations 03/31/23 08:41 Consult: Infectious Disease Routine Consulting Provider: Landon Wellington Reason for Consult: leukocytosis, pneumonia EMERGENT Consult: No MD Notified: Yes Date Notified: 03/31/23 Time Notified: 08:41 Method of Notification: Verbal Reason For Visit: PNEUMONIA WITH HYPOXIC FAILURE Diagnosis Discharge Diagnosis (1) Acute respiratory failure with hypoxia: Status: Acute Code(s): J96.01 - Acute respiratory failure with hypoxia (2) Leukocytosis: Status: Acute Code(s): D72.829 - Elevated white blood cell count, unspecified (3) Right upper lobe pneumonia: Status: Acute Code(s): J18.9 - Pneumonia, unspecified organism Plan 1. Acute on chronic hypoxic respiratory failure secondary to right-sided community-acquired pneumonia-patient's pulse ox will be monitored, oxygen will be adjusted as necessary, patient is currently on 7 L via nasal cannula. #2 right-sided community-acquired acquired pneumonia with Staph aureus-patient is now on Ancef #3 chronic obstructive pulmonary disease-complicates care, medical course, recovery, and prognosis, patient will remain on aerosol treatments and corticosteroid #4 essential hypertension-patient will remain on her home medications, blood pressure will be monitored #5 coronary artery disease-this appears to be stable at the present time, patient will remain on her present medications #6 leukocytosis-most likely secondary to combination of pneumonia and corticosteroid usage, CBC will be monitored, this may be a leukemoid reaction #7 acute severe protein and caloric malnutrition related to inappropriate energy intake with acute illness as evidenced by estimated p.o. intake meeting less than 50% of estimated energy needs more than 5 days and unintentional 3% weight loss x1 week-patient's diet was adjusted to regular, she will receive 4 ounces of Ensure compact 3 times daily with meals for additional nutrition Total clinical time spent by myself addressing patient's medical issues, reviewing all of her data, and collaborating with patient's care team: 25 minutes Medications at Discharge Home Medications acetaminophen 325 mg tablet 650 mg (2 x 325 mg) PO Q6H PRN PRN Pain 1-10 Or Fever >100.7 #0 tabs 10/13/22 atorvastatin 80 mg tablet 80 mg PO QHS cholesterol #90 tabs 02/03/23 clopidogrel 75 mg tablet 75 mg PO DAILY antiplatelet #90 tabs 02/03/23 lisinopril 10 mg tablet 10 mg PO DAILY blood pressure #90 tabs 02/03/23 pantoprazole 40 mg tablet,delayed release 40 mg PO DAILY reflux #90 tabs 02/03/23 multivitamin (Daily Multi-Vitamin tablet) 1 tab PO DAILY vitamin 03/23/23 trazodone 100 mg tablet 100 mg PO QHS sleep 03/23/23 albuterol sulfate 90 mcg/actuation aerosol inhaler 2 puff inhalation Q6H PRN shortness of breath or wheezing #8.5 grams 03/28/23 furosemide 40 mg tablet 40 mg PO DAILY fluid retention #30 tabs 03/28/23 ipratropium 0.5 mg-albuterol 3 mg (2.5 mg base)/3 mL nebulization soln 3 ml inhalation Q4H PRN shortness of breath or wheezing #180 mL 03/28/23 magnesium chloride 64 mg (magnesium chloride) tablet,delayed release (Mag 64) 128 mg (2 x 64 mg) PO BID supplement 30 days #120 tabs 03/28/23 potassium chloride 10 mEq tablet,extended release(part/cryst) 10 meq PO DAILY supplement #30 tabs 03/28/23 cephalexin 500 mg capsule 500 mg PO Q8H #18 caps 04/04/23 prednisone 20 mg tablet 40 mg (2 x 20 mg) PO DAILYCM #11 tabs 04/04/23 Hospital Course Operations None Procedures None Summary of Care Provided Minutes Spent on Discharge: 32 Hospital Course: This 87-year-old white female was seen in the emergency room at [facility] with complaints of chest pain and dyspnea, she had been discharged 2 days ago from the hospital here, she is on chronic home O2. Patient denies any fevers, she described the chest pain is sharp in nature. Patient had been hospitalized recently for acute on chronic hypoxic and hypercapnic combined respiratory failure and COPD exacerbation. Work-up in the emergency room included a chest x-ray which showed a right upper lobe infiltrate, patient's white blood cell count was elevated at 26,500. Patient's chemistry profile was remarkable for a potassium of 3.4, creatinine was 1.22, glucose was 233 and magnesium was 1.4. Lactic acid was elevated at 2.3. Maddy osei was admitted to [place] [address] and placed on IV antibiotics and aerosol treatments, pulse ox was monitored, she required 7 L of oxygen during most of her hospital stay, her white count elevated to 47.7-this was felt to be a leukemoid reaction, patient's sputum culture grew out methicillin sensitive Staph aureus and she was seen by infectious diseases. Patient improved during her hospital stay, her o xygen was lowered to 4 L at rest at the time of discharge home but she required 7 L of oxygen on ambulation, new concentrator had to be set up for the patient. On 04/04/2023, patient was seen and examined: On examination she appeared in good health and spirits, she does not appear to be in any distress. Vital signs as documented. Skin warm and dry and without overt rashes. Neck without JVD, thyroid appears normal, trachea is midline, neck is supple. Lungs scattered expiratory rhonchi were noted bilaterally, normal air movement was noted. Heart exam notable for regular rhythm, normal sounds and absence of murmurs, rubs or gallops. Abdomen unremarkable and without evidence of organomegaly, masses, or abdominal aortic enlargement, bowel sounds are present in all 4 quadrants, no abdominal tenderness was noted. Extremities nonedematous, no cyanosis was noted, no clubbing was noted. Neuro: Cranial nerves II through XII are grossly intact, no focal motor deficits were noted, sensation to light touch and pinprick is intact, motor exam 5/5 throughout. Psych: Patient is alert and oriented x3, she does not appear anxious or depressed, she does not appear agitated. On 04/04/2023, patient was seen and examined and felt to be in stable condition for discharge home Medical Records Data Medical Nutrition Assessment Dietitian: Malnutrition Criteria Met Start: 03/31/23 10:35 Freq: Status: Active Protocol: Document 03/31/23 10:35 AG (Rec: 03/31/23 10:36 AG [id number]) Nutrition Malnutrition Evidence of Malnutrition Exists Yes Malnutrition (severe): Acute Illness/Injury Evidenced By Suboptimal Energy Intake ( Severe),Weight Loss (Severe) Clinical Problem Chronic Disease or Condition Related Malnutrition Etiology severe, acute malnutrition related to inadequate energy intake w/ acute illness Signs/Symptoms as evidenced by estimated PO intake meeting <50% of estimated energy needs >5 days , unintentional 3% wt loss x 1 week Status Active Problem Recommendation Dietitian Recommendations/Changes will adjust diet to regular and add 4oz ensure compact TID w/ meals for additional nutrition if consumed given evidence of acute malnutrition . Weight / BMI Weight Weight: 106.4 kg Body Mass Index (BMI) 37.8 ABG / Lab / Microbiology Data 04/03/23 04:50 04/01/23 06:35 Microbiology: Microbiology 03/30/23 17:58 Blood Culture (Wb) - Right Hand Blood Culture - Preliminary No growth in 48 hours. 03/30/23 17:55 Blood Culture (Wb) - Anticubital Left Blood Culture - Preliminary No growth in 48 hours. 03/30/23 22:50 Sputum, Expectorated/Coughed Gram Stain - Final 03/30/23 22:50 Sputum, Expectorated/Coughed Respiratory Culture - Final Staphylococcus aureus 03/31/23 12:00 Urine, Clean Catch Legionella Antigen - Final 03/31/23 12:00 Urine, Clean Catch Streptococcus pneumoniae Antigen (M - Final 03/31/23 10:00 Nasal Secretion SARS-CoV-2 Antigen (Rapid) - Final D/C Instructions Discharge Diet: No restrictions Weight Bearing Status: Full weight bearing Meaningful Use Info Meaningful Use Diagnoses (Choose all that apply): None applicable Discharge Plan Admission Admit Date/Time: 03/30/23 19:47 Primary Reason for Your Visit: pneumonia Attending Provider: Buddy Melara Primary Care Provider: Simeon Lopez Consulting Providers: Faustino Chowdhury; Landon Wellington Instructions Additional Instructions / Restrictions: Resume home oxygen as before Discharge Orders/Prescriptions Prescriptions: New prednisone 20 mg Tablet 40 mg PO DAILYCM Qty: 11 0RF Rx Instructions: 1 twice a day x3 days, then 1 daily for 3 days, then one half daily for 4 days then discontinue cephalexin 500 mg capsule 500 mg PO Q8H Qty: 18 0RF Rx Instructions: start 04/04/23 Continued atorvastatin 80 mg tablet 80 mg PO QHS Qty: 90 3RF clopidogrel 75 mg tablet 75 mg PO DAILY Qty: 90 3RF lisinopril 10 mg tablet 10 mg PO DAILY Qty: 90 3RF pantoprazole 40 mg tablet,delayed release (DR/EC) 40 mg PO DAILY Qty: 90 3RF acetaminophen 325 mg Tablet 650 mg PO Q6H PRN PRN (Reason: Pain 1-10 Or Fever >100.7) Qty: 0 0RF trazodone 100 mg tablet 100 mg PO QHS Patient Comments: Take 1 tablet by mouth daily at bedtime. multivitamin [Daily Multi-Vitamin] Tablet 1 tab PO DAILY Patient Comments: unsure of type of multivitamin furosemide 40 mg tablet 40 mg PO DAILY Qty: 30 2RF Rx Instructions: Take additional 40 mg dose at 5 PM for weight gain 5 pounds in 1 week. ipratropium-albuterol 0.5 mg-3 mg(2.5 mg base)/3 mL solution for nebulization 3 ml inhalation Q4H PRN (Reason: shortness of breath or wheezing) Qty: 180 0RF Rx Instructions: until breathing returns to target peak flow/parameters Mag 64 64 mg Tablet,Delayed Release (Dr/Ec) 128 mg PO BID 30 Days Qty: 120 0RF potassium chloride 10 mEq tablet,ER particles/crystals 10 meq PO DAILY Qty: 30 2RF albuterol sulfate 90 mcg/actuation HFA aerosol inhaler 2 puff inhalation Q6H PRN (Reason: shortness of breath or wheezing) Qty: 8.5 0RF Discontinued prednisone 20 mg tablet 40 mg PO DAILY 5 Days Qty: 10 0RF Referrals / Follow Up: Simeon Lopez MD [Primary Care Provider] - See Referral Note (in two weeks) Disposition Disposition (needs filled in before D/C Order can be placed): Home, Self Care Charges/Coding Visit Charges Inpatient E&M: 21394 Disch Hosp >30min
--- NOTE | 2023-04-04 10:25 | CASEMGMT ---
Addendum entered by Viky Hidalgo 04/04/23 11:09: Received tc back from [facility] who states to have pt call their office number when leaving hospital. Added to dc instructions. Updated Jo nurse. Addendum entered by Viky Hidalgo 04/04/23 10:37: Received tc back from [facility] who states he can deliver concentrator in approx one hour or at approx 2pm. TC to pt dtr, she states they are coming back from [place] and 2pm will work for them. TC back to [facility] to make aware, no answer and unable to leave a vm. Updated pt nurse. Original Note: Made aware pt needs 7L oxygen with exertion. TC to pt dtr, she states pt concentrator is a 5L. TC to [facility], spoke with director of labor and delivery Gabriel who states he needs to call his boss to see if pt can have a bigger concentrator delivered over the weekend. He will call RN KEVIN back. Updated pt nurse.
== END 2023-04-04 17:21 | disposition home health service (06) | DRG 177 ==
LOC: ED 18:59 → MS3 21:11
PROVIDERS: Family Medicine; Internal Medicine Infectious Disease; Admitting Provider Family Medicine; Emergency Provider Emergency Medicine; PCP Family Medicine; Visit Provider Internal Medicine
DX: J15.211 Pneumonia due to Methicillin susceptible Staphylococcus aureus (principal); J96.21 Acute and chronic respiratory failure with hypoxia; E43 Unspecified severe protein-calorie malnutrition; J96.22 Acute and chronic respiratory failure with hypercapnia; J44.0 Chronic obstructive pulmonary disease with (acute) lower respiratory infection; I10 Essential (primary) hypertension; I25.10 Atherosclerotic heart disease of native coronary artery without angina pectoris; E78.5 Hyperlipidemia, unspecified; D72.823 Leukemoid reaction; Z68.37 Body mass index [BMI] 37.0-37.9, adult; Z99.81 Dependence on supplemental oxygen; Z79.02 Long term (current) use of antithrombotics/antiplatelets; Z79.899 Other long term (current) drug therapy; Z87.891 Personal history of nicotine dependence; Z95.0 Presence of cardiac pacemaker
CPT/HCPCS: 36415; 71045; 71046; 80048; 83605; 83735; 83880; 84145; 84484; 85025; 85379; 87040; 87070; 87077; 87186; 87205; 87426; 87449; 93005; 94640; 94668; 97110; 97116; 97162; 97166; 97530; 97535; 99285; J7030; J7050; A4216

== ENCOUNTER 2023-04-15 09:58 | Inpatient (IN) | payer MEDICARE, SELFPAY ==
[2023-04-15] VITALS (17 sets, daily range): BP systolic 123–147; BP diastolic 53–127; PULSE 60–115; RESP 14–38; TEMP 36.3–37.1; O2SAT 90–97; BMI 41.3; BMI 38.9
--- NOTE | 2023-04-15 10:26 | ED.VIS.DYS ---
HPI History of Present Illness Chief Complaint: Shortness of Breath Informant: patient and spouse/S.O. Narrative Narrative: Presents by EMS from home to know whether also present, worsening dyspnea today. Home health nurse came noted she is more hypoxic. COPD chronic oxygen baseline 3 to 4 L. She was hospitalized for pneumonia discharged reported 5 days ago on 4 L oxygen is told to go up to 6 L with activities. States only minimal cough since then when she uses her incentive spirometer. Single states very mild wheeze as scheduled aerosol treatments. Today worsening symptoms. No leg swelling or cramping. No history of PE or DVT. She had a pacemaker placed this past September, from records type II heart block symptomatic at that time. No chest pains. States she is on a water pill, denies any increasing leg swelling. Denies CHF history. She states has been mobile just to the restroom and back to her room since being discharged. COVID vaccinated states had COVID 2 years ago after vaccination. Reported found to be 84% on 5 L oxygen, with ambulation on 7 L she went down to 70% therefore was sent to the ED. PE Risk Factors: Negative for Prior DVT or PE Prior similar symptoms: Yes PFSH PFS Medical History Chronic respiratory failure COPD (chronic obstructive pulmonary disease) Coronary artery disease Former smoker Hypertension Hypoxia Kidney stones Left ureteral stone Morbid obesity Myocardial infarct On home oxygen therapy Pancreatitis Presence of cardiac pacemaker Respiratory failure Second degree AV block, Mobitz type II Stroke/cerebrovascular accident Vitamin D deficiency Home Medications acetaminophen 325 mg tablet 650 mg (2 x 325 mg) PO Q6H PRN PRN Pain 1-10 Or Fever >100.7 #0 tabs 10/13/22 [Rx Last Taken Unknown] atorvastatin 80 mg tablet 80 mg PO QHS cholesterol #90 tabs 02/03/23 [Rx Last Taken Unknown] clopidogrel 75 mg tablet 75 mg PO DAILY antiplatelet #90 tabs 02/03/23 [Rx Last Taken Unknown] lisinopril 10 mg tablet 10 mg PO DAILY blood pressure #90 tabs 02/03/23 [Rx Last Taken Unknown] pantoprazole 40 mg tablet,delayed release 40 mg PO DAILY reflux #90 tabs 02/03/23 [Rx Last Taken Unknown] multivitamin (Daily Multi-Vitamin tablet) 1 tab PO DAILY vitamin 03/23/23 [History Last Taken 03/22/23] trazodone 100 mg tablet 100 mg PO QHS sleep 03/23/23 [History Last Taken 03/22/23] albuterol sulfate 90 mcg/actuation aerosol inhaler 2 puff inhalation Q6H PRN shortness of breath or wheezing #8.5 grams 03/28/23 [Rx Last Taken Unknown] furosemide 40 mg tablet 40 mg PO DAILY fluid retention #30 tabs 03/28/23 [Rx Last Taken Unknown] ipratropium 0.5 mg-albuterol 3 mg (2.5 mg base)/3 mL nebulization soln 3 ml inhalation Q4H PRN shortness of breath or wheezing #180 mL 03/28/23 [Rx Last Taken Unknown] magnesium chloride 64 mg (magnesium chloride) tablet,delayed release (Mag 64) 128 mg (2 x 64 mg) PO BID supplement 30 days #120 tabs 03/28/23 [Rx Last Taken Unknown] potassium chloride 10 mEq tablet,extended release(part/cryst) 10 meq PO DAILY supplement #30 tabs 03/28/23 [Rx Last Taken Unknown] cephalexin 500 mg capsule 500 mg PO Q8H #18 caps 04/04/23 [Rx Last Taken Unknown] prednisone 20 mg tablet 40 mg (2 x 20 mg) PO DAILYCM #11 tabs 04/04/23 [Rx Last Taken Unknown] Allergy/AdvReac Type Severity Reaction Status Date / Time Penicillins Allergy Hives Verified 04/15/23 10:06 ciprofloxacin [From Cipro] AdvReac muscle Verified 04/15/23 10:06 pain and nausea Family History Other COPD (chronic obstructive pulmonary disease) Heart disease Hypertension Surgical History History of AAA (abdominal aortic aneurysm) repair History of cholecystectomy Social History household members: family housing: house Smoking Status: Former smoker how long ago did patient quit smoking: Quit 14 years ago alcohol intake: current alcohol intake frequency: holidays/special occasions only substance use type: does not use ROS ROS ED Constitutional Constitutional ED: Denies chills, fever(s) or sweats Eyes Eyes: Denies change in vision ENT ENT ED: Denies dysphagia or sore throat Cardiovascular Cardiovascular: Denies chest pain, leg edema, palpitations or racing heartbeat Respiratory/Chest Respiratory/Chest: Reports dyspnea; Denies cough or dyspnea on exertion Gastrointestinal Gastrointestinal: Denies abdominal pain, diarrhea, nausea or vomiting Genitourinary Genitourinary ED: Denies dysuria, hematuria or urinary frequency Musculoskeletal Musculoskeletal: Denies back pain, extremity pain or neck pain Integumentary Denies rash or wounds Neurologic Neurologic: Denies headache(s), paresthesias or weakness EXAM Physical Exam Const Vital Signs: 04/15/23 09:59 04/15/23 10:14 04/15/23 10:05 Temperature 97.9 F 98.7 F Temperature Source Temporal Oral Pulse Rate 100 102 H Respiratory Rate 28 H 32 H Respiratory Effort Short of Breath Respiratory Depth Shallow Respiratory Pattern Tachypnea Blood Pressure 143/112 H 144/62 H Blood Pressure Mean 122 89 Pulse Ox 90 96 Oxygen Delivery Method Nasal Cannula High Flow High Flow Oxygen Flow Rate (L/min) 6 8 8 Fraction of Inspired Oxygen (FIO2) 04/15/23 10:12 04/15/23 10:23 04/15/23 11:00 Temperature Temperature Source Pulse Rate 84 Respiratory Rate 24 H Respiratory Effort Respiratory Depth Respiratory Pattern Blood Pressure 132/73 H Blood Pressure Mean 92 Pulse Ox 91 92 94 Oxygen Delivery Method Nasal Cannula High Flow Room Air Oxygen Flow Rate (L/min) 8 8 Fraction of Inspired Oxygen (FIO2) 04/15/23 11:05 04/15/23 12:00 04/15/23 13:00 Temperature 97.5 F L 97.7 F L 97.3 F L Temperature Source Temporal Temporal Temporal Pulse Rate 84 104 H 104 H Respiratory Rate 22 H 26 H 38 H Respiratory Effort Respiratory Depth Respiratory Pattern Blood Pressure 132/73 H 123/98 H 123/98 H Blood Pressure Mean 92 106 106 Pulse Ox 96 92 92 Oxygen Delivery Method High Flow High Flow High Flow Oxygen Flow Rate (L/min) 10 10 Fraction of Inspired Oxygen (FIO2) 10 Positive well nourished and well developed Constitutional Narrative: Currently 8 L high flow nasal cannula no respiratory distress. General Appearance ED: well developed and NAD HEENT Reports moist mucous membranes normocephalic and atraumatic Eyes PERRL, EOMs intact bilaterally and conjunctivae normal General Eye ED: Yes normal appearance of both eyes Neck no lymphadenopathy and supple General: Negative for tenderness Chest Wall Chest: Negative for tenderness Resp normal respiratory effort and normal air movement Effort and Inspection: symmetric chest movement; Negative for respiratory distress Cardio regular rate, regular rhythm and no murmurs Peripheral Pulses: pulses 2+ throughout GI normal to inspection, nondistended, normoactive bowel sounds and non-tender Palpation: Negative for guarding or rebound tenderness present Back/Spine no CVA tenderness and no thoracic nor lumbar tenderness Extremity normal to inspection General Extremety ED: Negative for edema or tenderness General Extremity: Negative for edema Neuro oriented x3 and no sensory deficits noted Sensorium / Orientation: awake and alert Skin no rashes or lesions noted and no wounds MDM MDM MDM Narrative Medical decision making narrative: Interventions / MDM: Differential diagnosis: Pleural effusions, CHF, recent pneumonia, lung mass Diagnosis considered but do not suspect: Clinically pneumonia is improving with decreased cough. My EKG interpretation: Atrial sensed ventricular paced at 93, no acute findings. Imaging independently reviewed and interpreted by myself: 2 view chest x-ray: Bilateral pleural effusion new on the right compared to previous. Similar bilateral infiltrative findings noted from previous. CTA chest: External documents reviewed: Patient 2 hospitalizations in the last month. MSSA pneumonia on most recent. She was discharged 11 days ago with antibiotics to finish on Keflex. Echocardiogram from September 2022, EF of 55 to 60%. No diastolic dysfunction noted. Test considered but not ordered:N/A ED course: Patient newly required oxygenation up to 8 L on high flow from baseline of 4 L since she was discharged. No persistent cough for concerning redeveloping or worsening pneumonia. No current leg swelling however she is on a diuretic. EKG with a paced rhythm. Chest x-ray ordered along with labs. Chest x-ray new pleural effusions with similar infiltrative findings from recent admission. With no clear clinical worsening pneumonia, PE is in the differential therefore she is sent for CT angiogram to rule out any PEs with her worsening hypoxia. Creatinine was normal. White count 6.5. Heme 11. 1145: Radiology read on x-ray also confirming new pleural effusion in the right with infiltrate findings from previous. WEIGH BOX TENDER elevated to 99 up from normal. She had a normal echocardiogram in September of this year. Awaiting results from CT chest. 1230: CT chest negative for PE, moderate right pleural effusion, per radiology questionable right upper lobe mass. She has remote tobacco history 15 years ago. This not seen on x-ray on previous visit. Discussed findings with the patient. She was started on Lasix 40 mg IV due to pleural effusions. 1250: I spoke with hospitalist Dr. Melara with findings. We discussed with radiology department for thoracentesis for diagnostics through the ED. This is being set up at this time. Patient be admitted to PCU for further management. Serum LDH and protein added per request. Thoracentesis diagnostic labs will be ordered by hospital service. Re-evaluation: stable Disposition discussed with patient/family/significant other: Patient Case discussed with consulting clinician: Hospitalist This note was generated with [employer] dictation software. It may contain incorrect words, spelling, and punctuation that were not noted in checking the note before signing. Lab Data Attestation: I reviewed the patient's lab results. Labs: Laboratory Results - last 24 hr 04/15/23 10:10 WBC 6.5 RBC 3.61 L Hgb 11.0 L Hct 38.2 MCV 105.8 H MCH 30.5 MCHC 28.8 L RDW Std Deviation 52.5 H RDW Coeff of Tatum 13.4 Plt Count 235 MPV 11.3 Immature Gran % (Auto) 0.600 Neut % (Auto) 70.1 H Lymph % (Auto) 13.5 L Billings % (Auto) 13.5 H Eos % (Auto) 1.7 Baso % (Auto) 0.6 Absolute Neuts (auto) 4.6 Absolute Lymphs (auto) 0.88 Nucleated RBC % 0 Sodium 143 Potassium 3.6 Chloride 96 L Carbon Dioxide 44.0 H Anion Gap 3 L BUN 9 Creatinine 0.77 Estim Creat Clear Calc 37.10 Est GFR (MDRD) Af Amer 91 Est GFR (MDRD) Non-Af 75 BUN/Creatinine Ratio 11.7 Glucose 119 H Calcium 8.8 Lactate Dehydrogenase 393 H B-Natriuretic Peptide 299.5 H Total Protein 6.7 Globulin 4.5 H Albumin/Globulin Ratio 0.5 L Radiography Diagnostic Testing: Clinical Impression(s) from Imaging Studies Chest X-Ray 04/15/23 10:45 IMPRESSION: New right pleural effusion. Unchanged mild left pleural effusion. Increased asymmetric pneumonia or pulmonary edema. Electronically Signed: Yesi Coffman MD at 11:18 EST , Chest CTA 04/15/23 11:01 IMPRESSION: 3.6 x 5.3 cm right upper lobe opacity, which may represent round pneumonia or neoplasm. Moderate loculated right pleural effusion with severe right lower lobe atelectasis. No evidence of pulmonary embolism. Electronically Signed: Yesi Coffman MD at 12:23 EST , Discharge Plan Dx/Rx/DC Orders Clinical Impression: Pleural effusion on right, SOB (shortness of breath), Hypoxia, History of COPD Disposition Disposition: Acute Care Hospital [facility]
--- NOTE | 2023-04-15 10:45 | RAD_ITS ---
HISTORY: SOB. TECHNIQUE: XR Chest 1 View. COMPARISON: 04/02/2023. FINDINGS: CARDIOMEDIASTINAL BORDERS: Unchanged cardiomegaly with pacemaker and calcification of the aorta. LUNGS: Low lung volumes with increased right greater than left mixed interstitial and alveolar opacities most confluent in the right mid and bilateral lower lungs. PLEURA: Mild-moderate right pleural effusion, new from prior. Unchanged mild left pleural effusion. OSSEOUS STRUCTURES: Degenerative change. RAD/Chest 1 View (Portable) IMPRESSION: New right pleural effusion. Unchanged mild left pleural effusion. Increased asymmetric pneumonia or pulmonary edema. Electronically Signed: Yesi Coffman MD at 11:18 EST ,
[2023-04-15 10:48] LABS: Absolute Lymphocyte Count 0.88 X10^3/uL (0.83-4.51); Absolute Neutrophil Count 4.6 X10^3/uL (2.0-7.7); Basophil# 0.04 X10^3/uL; Basophil% 0.6 % (0-1); Eosinophil# 0.11 X10^3/uL; Eosinophils% 1.7 % (0-5); Hematocrit 38.2 % (37-47); Lymphocyte # 0.88 X10^3/ul (0.83-4.51); Lymphocyte % 13.5 % (19-41); Mean Corp Hgb Conc 28.8 g/dL (32-36); Mean Corpuscular Hgb 30.5 pg (27.0-32.0); Mean Corpuscular Volume 105.8 fL (81-99); Mean Platelet Vol. 11.3 fl (6.2-12.0); Monocyte# 0.88 X10^3/uL; Monocyte% 13.5 % (0-10); NRBC Flagged by Analyzer 0 % (0-5); Neutrophil # 4.55 X10^3/uL (2.7-7.7); Neutrophil % 70.1 % (47-70); Platelet Count 235 K/mm3 (150-450); RBC Distribution Width CV 13.4 % (11.6-14.6); RBC Distribution Width SD 52.5 fl (35.1-43.9); Red Blood Count 3.61 M/mm3 (4.2-5.4); White Blood Count 6.5 K/mm3 (4.4-11.0)
[2023-04-15 11:01] LABS: Anion Gap 3 (5-15); BUN 9 mg/dL (7-18); BUN/Creat Ratio 11.7 RATIO (10-20); Calcium,Total 8.8 mg/dL (8.5-10.1); Chloride 96 mmol/L (98-107); Creatinine, Serum 0.77 mg/dL (0.55-1.02); EST Glomerular Filtration Rate 75 mL/min (>60); Est Glom Filt Rate - Afr Amer 91 mL/min (>60); Glucose 119 mg/dL (74-106); Potassium 3.6 mmol/L (3.5-5.1); Sodium Level 143 mmol/L (136-145)
--- NOTE | 2023-04-15 11:01 | CT_ITS ---
HISTORY: dyspnea -- hypoxia. TECHNIQUE: CT angiogram of the chest was performed after the intravenous administration of 100 mL Isovue-370. Post-processing of the angiographic images was performed with multiplanar reformation and 3D reconstruction. Individualized dose optimization techniques were used for this CT. 1189 images. COMPARISON: None. FINDINGS: CENTRAL AIRWAYS: Patent. LUNGS: Mild/moderate centrilobular emphysema. Focal 3.6 x 5.3 cm right upper lobe opacity anteriorly near the minor fissure. Severe right lower lobe atelectasis. Mild lingular and left lower lobe atelectasis. PLEURA: Moderate loculated right pleural effusion. HEART/PERICARDIUM: Mild cardiomegaly with pacemaker in place. No pericardial effusion. PULMONARY ARTERIES: No filling defect. Main pulmonary artery enlargement suggesting pulmonary hypertension. AORTA/VESSELS: No thoracic aortic aneurysm or dissection flap. Atherosclerosis. MEDIASTINUM/ZANE: Borderline enlarged mediastinal lymph nodes. OSSEOUS STRUCTURES: Degenerative change. Left posterior chest wall intramuscular lipoma. UPPER ABDOMEN: Calcified splenic granulomas. Stent noted on the actuarial analyst image. CT/CTA Chest W/WO Contrast IMPRESSION: 3.6 x 5.3 cm right upper lobe opacity, which may represent round pneumonia or neoplasm. Moderate loculated right pleural effusion with severe right lower lobe atelectasis. No evidence of pulmonary embolism. Electronically Signed: Yesi Coffman MD at 12:23 EST ,
[2023-04-15 11:16] LABS: BNP,B-Type NATRIURETIC PEPTIDE 299.5 pg/mL (0-100)
[2023-04-15] MEDS: Furosemide 40 MG/4 ML Vial IV (12:38)
[2023-04-15 13:18] LABS: ALB/GLOB Ratio 0.5 RATIO (0.9-2.4); Globulin 4.5 g/dL (2.2-4.2); Protein, Total 6.7 g/dL (6.4-8.2)
[2023-04-15 13:23] LABS: LDH 393 U/L (84-246)
[2023-04-15] MEDS: Lidocaine 2% (20 ml mdv) 20 ML Vial INFILT (13:48)
--- NOTE | 2023-04-15 14:00 | RAD_ITS ---
HISTORY: post thora. TECHNIQUE: XR Chest 2 Views. COMPARISON: 10:45. FINDINGS: LINES/TUBES: Cardiac pacemaker again seen. CARDIOMEDIASTINAL BORDERS: Stable. LUNGS: Decreased left basilar opacity. Consolidation and interstitial opacities in the right lung similar to prior. PLEURA: Decreased bilateral pleural effusions without apical pneumothorax identified. RAD/Chest Insp/Exp 2 View IMPRESSION: Mild bilateral pleural effusions, decreased from prior. Electronically Signed: Yesi Coffman MD at 14:38 EST ,
--- NOTE | 2023-04-15 14:03 | PRO.PCM_ITS ---
Procedure Report Date of Procedure: 04/15/23 Assessment & Plan Assessment/Plan (1) Pleural effusion on right: PLAN: PROCEDURE: Ultrasound Guided Thoracentesis ORDERING PROVIDER: Dr. Ren INDICATION: Female, 87 years old. Right pleural effusion. PROVIDER: CRISTINA Jorge PROCEDURE: The risks, benefits, and alternatives to the procedure were explained to the patient. The specific risks of bleeding, infection, and pneumothorax requiring chest tube insertion were discussed and accepted. Specifically discussed was this patient's home medication of clopidogrel, which she takes daily. This patient has a has bled score of 2, is usually at baseline home oxygen of 3 to 4 L but is currently requiring high flow, and thoracentesis is considered a very low bleeding risk procedure. Given this evaluation of risk versus benefit, p atient and providers agreed to the procedure. Written informed consent was obtained. The patient was placed in the sitting, upright position. Ultrasonographic evaluation of the bilateral lower pleural spaces was carried out. A small pocket was identified in the right lower pleural space with surrounding loculations. The overlying skin was prepped and draped in sterile fashion. 2% lidocaine was administered subcutaneously for local anesthesia. Under ultrasound guidance, a 5-Armenian thoracentesis needle/catheter system was attempted to be advanced into the right posterior lower pleural fluid collection. Despite ultrasound guidance and a second attempt, no fluid was drainable. The catheter was removed, and a sterile dressing was applied. The patient tolerated the procedure well. A chest x-ray was ordered. IMPRESSION: Unsuccessful ultrasound-guided thoracentesis of right pleural effusion. Suspect complex effusion with loculation. Procedures Radiology Radiology US Procedures: [id number] Thoracentesis
[2023-04-15] MEDS: Ceftriaxone 1 GM/50 ML BAG IV (18:16)
--- NOTE | 2023-04-15 19:30 | PCM.HP.STD ---
HPI - General General Date of Admission: 04/15/23 Date of Service: 04/15/23 Chief Complaint: Shortness of breath HPI Narrative RADHA MO, is a 87 F who presents to the emergency room at [facility] with complaints of increased shortness of breath over the last several days. Patient was recently discharged from the hospital here after treatment for methicillin sensitive Staph aureus pneumonia, she is on chronic oxygen at home-her usual settings are 4 L at rest and 6 L on exertion. Patient denies any fevers or chills. Work-up in the emergency room included a chest x-ray which showed no evidence of overt heart failure, there was an infiltrate and effusion noted at the right lung base, CTA of the chest was obtained, there was evidence of a large fluid collection on the right, there is also a 3.6 x 5.3 cm right upper lobe opacity which may represent round pneumonia or neoplasm. No evidence of pulmonary embolism is noted, there was severe right lower lobe atelectasis. Patient's white blood cell count was unremarkable, her CHEM profile was unremarkable. Patient required 10 L of oxygen to maintain her sat above 90% in the emergency room, I checked with the emergency room physician to make sure that the patient could undergo thoracentesis today and it was confirmed by radiology that they were able to perform it and so the patient will be admitted to PCU for respiratory failure and right pleural effusion. [facility] Medical History (Updated 04/15/23 @ 14:43 by Rosario Arizmendi) Chronic pain Chronic respiratory failure COPD (chronic obstructive pulmonary disease) Coronary artery disease Former smoker GERD (gastroesophageal reflux disease) Hypertension Hypoxia Irregular heart beat Kidney stones Left ureteral stone Morbid obesity Myocardial infarct On home oxygen therapy Pancreatitis Presence of cardiac pacemaker Respiratory failure Second degree AV block, Mobitz type II Stroke/cerebrovascular accident Vitamin D deficiency Home Medications acetaminophen 325 mg tablet 650 mg (2 x 325 mg) PO Q6H PRN PRN Pain 1-10 Or Fever >100.7 #0 tabs 10/13/22 [Rx Last Taken Unknown] atorvastatin 80 mg tablet 80 mg PO QHS cholesterol #90 tabs 02/03/23 [Rx Last Taken Unknown] clopidogrel 75 mg tablet 75 mg PO DAILY antiplatelet #90 tabs 02/03/23 [Rx Last Taken Unknown] lisinopril 10 mg tablet 10 mg PO DAILY blood pressure #90 tabs 02/03/23 [Rx Last Taken Unknown] pantoprazole 40 mg tablet,delayed release 40 mg PO DAILY reflux #90 tabs 02/03/23 [Rx Last Taken Unknown] multivitamin (Daily Multi-Vitamin tablet) 1 tab PO DAILY vitamin 03/23/23 [History Last Taken 03/22/23] trazodone 100 mg tablet 100 mg PO QHS sleep 03/23/23 [History Last Taken 03/22/23] albuterol sulfate 90 mcg/actuation aerosol inhaler 2 puff inhalation Q6H PRN shortness of breath or wheezing #8.5 grams 03/28/23 [Rx Last Taken Unknown] furosemide 40 mg tablet 40 mg PO DAILY fluid retention #30 tabs 03/28/23 [Rx Last Taken Unknown] ipratropium 0.5 mg-albuterol 3 mg (2.5 mg base)/3 mL nebulization soln 3 ml inhalation Q4H PRN shortness of breath or wheezing #180 mL 03/28/23 [Rx Last Taken Unknown] magnesium chloride 64 mg (magnesium chloride) tablet,delayed release (Mag 64) 128 mg (2 x 64 mg) PO BID supplement 30 days #120 tabs 03/28/23 [Rx Last Taken Unknown] potassium chloride 10 mEq tablet,extended release(part/cryst) 10 meq PO DAILY supplement #30 tabs 03/28/23 [Rx Last Taken Unknown] cephalexin 500 mg capsule 500 mg PO Q8H #18 caps 04/04/23 [Rx Last Taken Unknown] prednisone 20 mg tablet 40 mg (2 x 20 mg) PO DAILYCM #11 tabs 04/04/23 [Rx Last Taken Unknown] Allergy/AdvReac Type Severity Reaction Status Date / Time Penicillins Allergy Hives Verified 04/15/23 10:06 ciprofloxacin [From Cipro] AdvReac muscle Verified 04/15/23 10:06 pain and nausea Family History Other COPD (chronic obstructive pulmonary disease) Heart disease Hypertension Surgical History History of AAA (abdominal aortic aneurysm) repair History of cholecystectomy Social History household members: family housing: house Smoking Status: Former smoker how long ago did patient quit smoking: Quit 14 years ago alcohol intake: current alcohol intake frequency: holidays/special occasions only substance use type: does not use ROS Constitutional Constitutional: Reports fatigue and weakness; Denies anorexia, change in weight, chills, fever(s) or night sweats Eyes Eyes: Denies blurry vision, change in vision, discharge from eye(s) or eye pain Cardiovascular Cardiovascular: Reports dyspnea on exertion; Denies chest pain, claudication, edema or palpitations Respiratory/Chest Respiratory/Chest: Reports dyspnea, shortness of breath at rest and shortness of breath with exertion; Denies cough or hemoptysis Gastrointestinal Gastrointestinal: Denies abdominal pain, constipation, diarrhea, hematemesis, hematochezia, melena, nausea or vomiting Genitourinary Genitourinary: Denies dysuria, hematuria, urinary frequency, urinary hesitancy, urinary incontinence or urinary urgency Musculoskeletal Musculoskeletal: Denies back pain, joint pain, joint stiffness, joint swelling, myalgias or neck pain Neurologic Neurologic: Denies abnormal gait, abnormal speech, confusion, dizziness, focal weakness, headache(s), loss of vision, numbness, other visual disturbances, paresthesias, syncope or tingling Psychiatric Psychiatric: Denies anxiety, cognitive impairment, depression, irritability, mood swings or suicidal ideation Endocrine Endocrinology: Denies change in body appearance, cold intolerance, excessive sweating, heat intolerance, polydipsia or polyuria Hematologic/Lymphatic Hematologic/Lymphatic: Denies none, anemia, easy bleeding, easy bruising or lymphadenopathy Allergic/Immunologic Allergic/Immunologic: Denies rhinitis, urticaria, eczemia or asthma Vital Signs Vital Signs Vital Signs: 04/15/23 09:59 04/15/23 10:14 04/15/23 10:05 Temperature 97.9 F 98.7 F Temperature Source Temporal Oral Pulse Rate 100 102 H Pulse Rate [1 (Initial Baseline)] Pulse Rate [2] Pulse Rate [3] Respiratory Rate 28 H 32 H Respiratory Rate [1 (Initial Baseline)] Respiratory Rate [2] Respiratory Rate [3] Respiratory Effort Short of Breath Respiratory Depth Shallow Respiratory Pattern Tachypnea Blood Pressure 143/112 H 144/62 H Blood Pressure [1 (Initial Baseline)] Blood Pressure [2] Blood Pressure [3] Blood Pressure Mean 122 89 Blood Pressure Source Blood Pressure Position Blood Pressure Location Pulse Ox 90 96 Oxygen Delivery Method Nasal Cannula High Flow High Flow Oxygen Delivery Method [1 (Initial Baseline)] Oxygen Delivery Method [2] Oxygen Delivery Method [3] Oxygen Flow Rate (L/min) 6 8 8 Oxygen Flow Rate (L/min) [1 (Initial Baseline)] Oxygen Flow Rate (L/min) [2] Oxygen Flow Rate (L/min) [3] Fraction of Inspired Oxygen (FIO2) 04/15/23 10:12 04/15/23 10:23 04/15/23 11:00 Temperature Temperature Source Pulse Rate 84 Pulse Rate [1 (Initial Baseline)] Pulse Rate [2] Pulse Rate [3] Respiratory Rate 24 H Respiratory Rate [1 (Initial Baseline)] Respiratory Rate [2] Respiratory Rate [3] Respiratory Effort Respiratory Depth Respiratory Pattern Blood Pressure 132/73 H Blood Pressure [1 (Initial Baseline)] Blood Pressure [2] Blood Pressure [3] Blood Pressure Mean 92 Blood Pressure Source Blood Pressure Position Blood Pressure Location Pulse Ox 91 92 94 Oxygen Delivery Method Nasal Cannula High Flow Room Air Oxygen Delivery Method [1 (Initial Baseline)] Oxygen Delivery Method [2] Oxygen Delivery Method [3] Oxygen Flow Rate (L/min) 8 8 Oxygen Flow Rate (L/min) [1 (Initial Baseline)] Oxygen Flow Rate (L/min) [2] Oxygen Flow Rate (L/min) [3] Fraction of Inspired Oxygen (FIO2) 04/15/23 11:05 04/15/23 12:00 04/15/23 13:00 Temperature 97.5 F L 97.7 F L 97.3 F L Temperature Source Temporal Temporal Temporal Pulse Rate 84 104 H 104 H Pulse Rate [1 (Initial Baseline)] Pulse Rate [2] Pulse Rate [3] Respiratory Rate 22 H 26 H 38 H Respiratory Rate [1 (Initial Baseline)] Respiratory Rate [2] Respiratory Rate [3] Respiratory Effort Respiratory Depth Respiratory Pattern Blood Pressure 132/73 H 123/98 H 123/98 H Blood Pressure [1 (Initial Baseline)] Blood Pressure [2] Blood Pressure [3] Blood Pressure Mean 92 106 106 Blood Pressure Source Blood Pressure Position Blood Pressure Location Pulse Ox 96 92 92 Oxygen Delivery Method High Flow High Flow High Flow Oxygen Delivery Method [1 (Initial Baseline)] Oxygen Delivery Method [2] Oxygen Delivery Method [3] Oxygen Flow Rate (L/min) 10 10 Oxygen Flow Rate (L/min) [1 (Initial Baseline)] Oxygen Flow Rate (L/min) [2] Oxygen Flow Rate (L/min) [3] Fraction of Inspired Oxygen (FIO2) 10 04/15/23 14:31 04/15/23 14:25 04/15/23 14:00 Temperature 97.9 F 98.4 F Temperature Source Oral Oral Pulse Rate 60 82 Pulse Rate [1 (Initial Baseline)] 109 H Pulse Rate [2] 98 Pulse Rate [3] 115 H Respiratory Rate 24 H 18 Respiratory Rate [1 (Initial Baseline)] 16 Respiratory Rate [2] 14 Respiratory Rate [3] 22 H Respiratory Effort Short of Breath Labored Respiratory Depth Respiratory Pattern Normal Blood Pressure 144/73 H 133/65 H Blood Pressure [1 (Initial Baseline)] 146/127 H Blood Pressure [2] 147/62 H Blood Pressure [3] 127/107 H Blood Pressure Mean 96 87 Blood Pressure Source Monitor Blood Pressure Position Semi-Fowlers Blood Pressure Location Right Arm Pulse Ox 90 95 Oxygen Delivery Method Nasal Cannula Nasal Cannula Oxygen Delivery Method [1 (Initial Baseline)] High Flow Oxygen Delivery Method [2] High Flow Oxygen Delivery Method [3] High Flow Oxygen Flow Rate (L/min) 10 6 Oxygen Flow Rate (L/min) [1 (Initial Baseline)] 10 Oxygen Flow Rate (L/min) [2] 10 Oxygen Flow Rate (L/min) [3] 10 Fraction of Inspired Oxygen (FIO2) 04/15/23 15:34 04/15/23 16:49 04/15/23 16:52 Temperature 98.6 F 98.4 F Temperature Source Oral Oral Pulse Rate 93 72 Pulse Rate [1 (Initial Baseline)] Pulse Rate [2] Pulse Rate [3] Respiratory Rate 16 14 Respiratory Rate [1 (Initial Baseline)] Respiratory Rate [2] Respiratory Rate [3] Respiratory Effort Respiratory Depth Respiratory Pattern Blood Pressure 125/75 H 126/64 H Blood Pressure [1 (Initial Baseline)] Blood Pressure [2] Blood Pressure [3] Blood Pressure Mean 91 84 Blood Pressure Source Blood Pressure Position Blood Pressure Location Pulse Ox 94 92 Oxygen Delivery Method Nasal Cannula Nasal Cannula Nasal Cannula Oxygen Delivery Method [1 (Initial Baseline)] Oxygen Delivery Method [2] Oxygen Delivery Method [3] Oxygen Flow Rate (L/min) 6 9 8 Oxygen Flow Rate (L/min) [1 (Initial Baseline)] Oxygen Flow Rate (L/min) [2] Oxygen Flow Rate (L/min) [3] Fraction of Inspired Oxygen (FIO2) Weight Weight: 109.4 kg Body Mass Index (BMI) 38.9 Physical Exam Const alert, oriented x3 and no apparent distress Constitutional Narrative: Patient appears her stated age, she does appear frail General Appearance: cooperative, well kempt and well developed Orientation / Consciousness: awake, oriented to person, oriented to place and oriented to time HEENT normocephalic, head/scalp atraumatic, hearing grossly normal bilaterally and moist oral mucous membranes Eyes PERRL, EOMs intact bilaterally and conjunctivae normal Neck supple, no JVD, thyroid normal and no carotid bruits General: trachea midline Resp Resp Narrative: Patient does not appear dyspneic at rest on 10 L of oxygen, she does have some shallow rapid respirations especially when talking. Breath sounds are diminished at both lung bases but particularly on the right, there is some inspiratory rales noted on the right Auscultation: Negative for rales, rhonchi or wheezes Cardio S1 normal heart sound, S2 normal heart sound, no murmurs, no rub and no gallops Cardio Narrative: Heart rate and rhythm is somewhat irregular-monitor shows paced rhythm with PACs and occasional PVCs GI normal to inspection, nondistended, normoactive bowel sounds, soft to palpation, non-tender and non-distended Extremity no clubbing, cyanosis or edema Skin no rashes or lesions noted General Skin Exam: no breakdown Neuro oriented x3, CN's II-XII intact bilaterally, moves all extremities, no focal motor deficits and no sensory deficits noted Sensorium / Orientation: awake, alert, oriented to person, oriented to place and oriented to time Speech: speech normal Psych affect normal Results Lab / Micro Data 04/15/23 10:10 04/15/23 10:10 Labs: Laboratory Results - last 24 hr 04/15/23 10:10: WBC 6.5, RBC 3.61 L, Hgb 11.0 L, Hct 38.2, MCV 105.8 H, MCH 30.5, MCHC 28.8 L, RDW Std Deviation 52.5 H, RDW Coeff of Tatum 13.4, Plt Count 235, MPV 11.3, Immature Gran % (Auto) 0.600, Neut % (Auto) 70.1 H, Lymph % (Auto) 13.5 L, Brooks % (Auto) 13.5 H, Eos % (Auto) 1.7, Baso % (Auto) 0.6, Absolute Neuts (auto) 4.6, Absolute Lymphs (auto) 0.88, Nucleated RBC % 0, Sodium 143, Potassium 3.6, Chloride 96 L, Carbon Dioxide 44.0 H, Anion Gap 3 L, BUN 9, Creatinine 0.77, Estim Creat Clear Calc 37.10, Est GFR (MDRD) Af Amer 91, Est GFR (MDRD) Non-Af 75, BUN/Creatinine Ratio 11.7, Glucose 119 H, Calcium 8.8, Lactate Dehydrogenase 393 H, B-Natriuretic Peptide 299.5 H, Total Protein 6.7, Globulin 4.5 H, Albumin/Globulin Ratio 0.5 L Micro: Microbiology 04/15/23 10:27 Nasal Secretion SARS-CoV-2 & FLU Antigen (Rapid) - Final Imagaing Radiology Impression Chest X-Ray 04/15/23 10:45 IMPRESSION: New right pleural effusion. Unchanged mild left pleural effusion. Increased asymmetric pneumonia or pulmonary edema. Electronically Signed: Yesi Coffman MD at 11:18 EST , Chest CTA 04/15/23 11:01 IMPRESSION: 3.6 x 5.3 cm right upper lobe opacity, which may represent round pneumonia or neoplasm. Moderate loculated right pleural effusion with severe right lower lobe atelectasis. No evidence of pulmonary embolism. Electronically Signed: Yesi Coffman MD at 12:23 EST , Chest X-Ray 04/15/23 14:00 IMPRESSION: Mild bilateral pleural effusions, decreased from prior. Electronically Signed: Yesi Coffman MD at 14:38 EST , Assessment & Plan Assessment/Plan (1) Pleural effusion on right: PLAN: Plan 1. Acute on chronic hypoxic respiratory failure-patient will be admitted to PCU, pulse ox will be monitored, patient will receive aerosol treatments #2 right pleural effusion with atelectasis-etiology uncertain at this time, patient will undergo thoracentesis today, we will need examination of the pleural fluid. I have decided to place the patient on Rocephin for now even though she is afebrile and she has a normal white blood cell count. This is due to her past history of MSSA pneumonia. #3 right upper lobe opacity suspicious for carcinoma-patient's previous chest x-ray on 03/30/2023 does not show an obvious right upper lobe opacity, this will need to be investigated further. #4 chronic obstructive pulmonary disease-patient will remain on aerosol treatments Total clinical time spent by myself addressing the patient's medical issues, reviewing all of her data, and collaborating with patient's care team: 75 minutes Charges/Coding Visit Charges Inpatient E&M: 40857 Init Hosp L3
--- NOTE | 2023-04-15 19:50 | PN.HOSP_ITS ---
Hospitalist Note A thoracentesis was attempted today by radiology, they told nursing that the fluid was too viscous to aspirate, I talked informally with pulmonary medicine by phone and it was recommended that the patient be transferred to tertiary facility for chest tube insertion and further study, I talked the patient's daughter and the patient, they agreed to a transfer to [facility]- patient is on a waiting list at this time for admission there. As a further note, patient's daughter had talked with the patient recently about her CODE STATUS and the patient felt that she wanted to be a full code. Again patient will receive IV Rocephin, I elected to place her on oral Lasix rather than IV Lasix, she will remain on aerosol treatments.
[2023-04-15] MEDS: Atorvastatin Calcium 80 MG Tablet PO (20:08)
[2023-04-15] MEDS: Heparin Injection (Vial) 5,000 UNIT/ML VIAL 5000 UNIT SC (20:08)
[2023-04-15] MEDS: Ipratropium/Albuterol Sulfate 3 ML AMPUL.NEB INHALATION (20:21)
--- NOTE | 2023-04-15 21:34 | PCM.DC.SUM ---
Providers Date of Admission: 04/15/23 Date of Discharge: 04/15/23 Primary Care Physician: Dr. Simeon Lopez MD Reason For Visit: PLEURAL EFFUSION, HYPOXIA Diagnosis Discharge Diagnosis (1) Pleural effusion on right: Status: Acute Code(s): J90 - Pleural effusion, not elsewhere classified Plan 1. Acute on chronic hypoxic respiratory failure-patient will be admitted to PCU, pulse ox will be monitored, patient will receive aerosol treatments #2 right pleural effusion with atelectasis-etiology uncertain at this time, patient will undergo thoracentesis today, we will need examination of the pleural fluid. I have decided to place the patient on Rocephin for now even though she is afebrile and she has a normal white blood cell count. This is due to her past history of MSSA pneumonia. #3 right upper lobe opacity suspicious for carcinoma-patient's previous chest x-ray on 03/30/2023 does not show an obvious right upper lobe opacity, this will need to be investigated further. #4 chronic obstructive pulmonary disease-patient will remain on aerosol treatments Total clinical time spent by myself addressing the patient's medical issues, reviewing all of her data, and collaborating with patient's care team: 75 minutes Medications at Discharge Home Medications acetaminophen 325 mg tablet 650 mg (2 x 325 mg) PO Q6H PRN PRN Pain 1-10 Or Fever >100.7 #0 tabs 10/13/22 atorvastatin 80 mg tablet 80 mg PO QHS cholesterol #90 tabs 02/03/23 clopidogrel 75 mg tablet 75 mg PO DAILY antiplatelet #90 tabs 02/03/23 lisinopril 10 mg tablet 10 mg PO DAILY blood pressure #90 tabs 02/03/23 pantoprazole 40 mg tablet,delayed release 40 mg PO DAILY reflux #90 tabs 02/03/23 multivitamin (Daily Multi-Vitamin tablet) 1 tab PO DAILY vitamin 03/23/23 trazodone 100 mg tablet 100 mg PO QHS sleep 03/23/23 albuterol sulfate 90 mcg/actuation aerosol inhaler 2 puff inhalation Q6H PRN shortness of breath or wheezing #8.5 grams 03/28/23 furosemide 40 mg tablet 40 mg PO DAILY fluid retention #30 tabs 03/28/23 ipratropium 0.5 mg-albuterol 3 mg (2.5 mg base)/3 mL nebulization soln 3 ml inhalation Q4H PRN shortness of breath or wheezing #180 mL 03/28/23 magnesium chloride 64 mg (magnesium chloride) tablet,delayed release (Mag 64) 128 mg (2 x 64 mg) PO BID supplement 30 days #120 tabs 03/28/23 potassium chloride 10 mEq tablet,extended release(part/cryst) 10 meq PO DAILY supplement #30 tabs 03/28/23 cephalexin 500 mg capsule 500 mg PO Q8H #18 caps 04/04/23 prednisone 20 mg tablet 40 mg (2 x 20 mg) PO DAILYCM #11 tabs 04/04/23 Weight / BMI Weight Weight: 109.4 kg Body Mass Index (BMI) 38.9 ABG / Lab / Microbiology Data 04/15/23 10:10 04/15/23 10:10 Laboratory: Laboratory Results - last 24 hr 04/15/23 10:10: WBC 6.5, RBC 3.61 L, Hgb 11.0 L, Hct 38.2, MCV 105.8 H, MCH 30.5, MCHC 28.8 L, RDW Std Deviation 52.5 H, RDW Coeff of Tatum 13.4, Plt Count 235, MPV 11.3, Immature Gran % (Auto) 0.600, Neut % (Auto) 70.1 H, Lymph % (Auto) 13.5 L, Collier % (Auto) 13.5 H, Eos % (Auto) 1.7, Baso % (Auto) 0.6, Absolute Neuts (auto) 4.6, Absolute Lymphs (auto) 0.88, Nucleated RBC % 0, Sodium 143, Potassium 3.6, Chloride 96 L, Carbon Dioxide 44.0 H, Anion Gap 3 L, BUN 9, Creatinine 0.77, Estim Creat Clear Calc 37.10, Est GFR (MDRD) Af Amer 91, Est GFR (MDRD) Non-Af 75, BUN/Creatinine Ratio 11.7, Glucose 119 H, Calcium 8.8, Lactate Dehydrogenase 393 H, B-Natriuretic Peptide 299.5 H, Total Protein 6.7, Globulin 4.5 H, Albumin/Globulin Ratio 0.5 L Microbiology: Microbiology 04/15/23 10:27 Nasal Secretion SARS-CoV-2 & FLU Antigen (Rapid) - Final Radiography Diagnostic Testing: Radiology Impression Chest X-Ray 04/15/23 10:45 IMPRESSION: New right pleural effusion. Unchanged mild left pleural effusion. Increased asymmetric pneumonia or pulmonary edema. Electronically Signed: Yesi Coffman MD at 11:18 EST , Chest CTA 04/15/23 11:01 IMPRESSION: 3.6 x 5.3 cm right upper lobe opacity, which may represent round pneumonia or neoplasm. Moderate loculated right pleural effusion with severe right lower lobe atelectasis. No evidence of pulmonary embolism. Electronically Signed: Yesi Coffman MD at 12:23 EST , Chest X-Ray 04/15/23 14:00 IMPRESSION: Mild bilateral pleural effusions, decreased from prior. Electronically Signed: Yesi Coffman MD at 14:38 EST , Discharge Plan Admission Admit Date/Time: 04/15/23 13:01 Attending Provider: Buddy Melara Primary Care Provider: Simeon Lopez Instructions Patient Instructions: GILMER RN Thoracentesis Dc Discharge Orders/Prescriptions Prescriptions: No Action atorvastatin 80 mg tablet 80 mg PO QHS Qty: 90 3RF clopidogrel 75 mg tablet 75 mg PO DAILY Qty: 90 3RF lisinopril 10 mg tablet 10 mg PO DAILY Qty: 90 3RF pantoprazole 40 mg tablet,delayed release (DR/EC) 40 mg PO DAILY Qty: 90 3RF acetaminophen 325 mg Tablet 650 mg PO Q6H PRN PRN (Reason: Pain 1-10 Or Fever >100.7) Qty: 0 0RF prednisone 20 mg Tablet 40 mg PO DAILYCM Qty: 11 0RF Rx Instructions: 1 twice a day x3 days, then 1 daily for 3 days, then one half daily for 4 days then discontinue cephalexin 500 mg capsule 500 mg PO Q8H Qty: 18 0RF Rx Instructions: start 04/04/23 trazodone 100 mg tablet 100 mg PO QHS Patient Comments: Take 1 tablet by mouth daily at bedtime. multivitamin [Daily Multi-Vitamin] Tablet 1 tab PO DAILY Patient Comments: unsure of type of multivitamin furosemide 40 mg tablet 40 mg PO DAILY Qty: 30 2RF Rx Instructions: Take additional 40 mg dose at 5 PM for weight gain 5 pounds in 1 week. ipratropium-albuterol 0.5 mg-3 mg(2.5 mg base)/3 mL solution for nebulization 3 ml inhalation Q4H PRN (Reason: shortness of breath or wheezing) Qty: 180 0RF Rx Instructions: until breathing returns to target peak flow/parameters Mag 64 64 mg Tablet,Delayed Release (Dr/Ec) 128 mg PO BID 30 Days Qty: 120 0RF potassium chloride 10 mEq tablet,ER particles/crystals 10 meq PO DAILY Qty: 30 2RF albuterol sulfate 90 mcg/actuation HFA aerosol inhaler 2 puff inhalation Q6H PRN (Reason: shortness of breath or wheezing) Qty: 8.5 0RF Referrals / Follow Up: Simeon Lopez MD [Primary Care Provider] - Disposition Discharge Orders: Discharge Patient (Routine); Ordered 04/15/23 Ordered By: Dr. Buddy Melara
== END 2023-04-15 22:39 | disposition short-term general hospital (02) | DRG 177 ==
LOC: ED 13:00 → PCU 13:03
PROVIDERS: Admitting Provider Internal Medicine; Emergency Provider Emergency Medicine; PCP Family Medicine; Visit Provider Internal Medicine
DX: J86.9 Pyothorax without fistula (principal); J96.21 Acute and chronic respiratory failure with hypoxia; C34.11 Malignant neoplasm of upper lobe, right bronchus or lung; Z99.81 Dependence on supplemental oxygen; J44.9 Chronic obstructive pulmonary disease, unspecified; I10 Essential (primary) hypertension; I25.10 Atherosclerotic heart disease of native coronary artery without angina pectoris; Z53.8 Procedure and treatment not carried out for other reasons; G89.29 Other chronic pain; Z87.891 Personal history of nicotine dependence; Z79.02 Long term (current) use of antithrombotics/antiplatelets; Z79.899 Other long term (current) drug therapy; Z95.0 Presence of cardiac pacemaker
CPT/HCPCS: 32555; 71045; 71046; 71275; 80048; 83615; 83880; 84156; 85025; 87428; 93005; 94640; 97802; 99252; 99285; Q9967; A4216; G0463; J1940